=== PATIENT | male | born 1955 | race Caucasian/White ===

== ENCOUNTER → 2016-08-16 | Day surgery (SDC) | payer OTHER ==
[2016-08-11 15:41] VITALS: Ht 165.1 cm; Wt 99.1 kg
[~2016-08-16] VITALS: Ht 165.1 cm; Wt 99.1 kg
[~2016-08-16] MED LIST: ALBU18002 INH; AMOX875T PO; ATORVASTATIN PO; FENO145T26 PO; HYDR5SYP11 PO; INSDGI SC; INSU100I SC; LIDOCAINE HCL 2% 2 ML VIAL (20MG/ML) ONE; LIRA18IN INJ; LOSA1TAB PO; LPT40 PO; MAGN400T6 PO; MILK1CAP9 PO; MOME6000 NAE; MULT-506 PO; NADO20TA PO; PANT1TAB3 PO; PHENYLEPHRINE 100MCG/ML 5ML SYR ONE; PROPOFOL IV EMULSION 10 MG/ML 20 ML VIAL IV ONE; SPR/100 PO
--- NOTE | 2016-08-16 13:12 | Endo History and Physical ---
History & Physical Date of Service: Aug 16, 2016. Chief Complaint: Cirrhosis, Gallstones Referring Physician: Mitch History of Present Illness For EGD Past Medical History Diabetes, Asthma, Glaucoma, Reflux, High Cholesterol, Hypertension, Liver Disease Past Surgical History Hx Cardiac Surgery: No Hx Internal Defibrillator: No Hx Pacemaker: No Hx Abdominal Surgery: Yes (COLORECTAL SURGERY (RECTAL CYST REMOVAL)) Hx of Implantable Prosthesis: No Hx Post-Op Nausea and Vomiting: No Hx Cancer Surgery: No Hx Thoracic Surgery: No Hx Orthopedic: No Hx Urinary Tract Surgery: No Family History None Social History Smoking Status: Never Smoker Hx Substance Use: No Hx Alcohol Use: No Allergies Coded Allergies: No Known Allergies (Unverified , 08/11/16) Current Medications Reported Home Medications Medications Dose Route/Sig Max Daily Dose Days Date Category Dose Instructions Proair Respiclick (Albuterol Sulfate) 108 Mcg/Act Aer 1 Puff INH QID PRN 08/11/16 Reported [Atorvastatin] 1 Tab PO HS 08/11/16 Reported Tricor (Fenofibrate) 145 Mg Tab 145 Mg PO HS 08/11/16 Reported Lantus (Insulin Glargine) 100 Unit/Ml Inj 90 Units SC HS 08/11/16 Reported Humalog (Insulin Lispro (Human)) 100 Unit/Ml Inj 1 Dose SC AC 08/11/16 Reported USES SLIDING SCALE. Cozaar (Losartan Potassium) 25 Mg Tab 25 Mg PO HS 08/11/16 Reported Mag-Ox (Magnesium Oxide) 400 Mg Tab 400 Mg PO HS 08/11/16 Reported Milk Thistle (Milk Thistle (Silybum Marianum) 1,000 Mg Cap 2 Cap PO HS 08/11/16 Reported Mometasone Furoate (Mometasone Furoate (Nasal)) 50 Mcg/Act Spr 1 [place] ANNAMARIA DIRECTED PRN 08/11/16 Reported Multivitamin (Multivitamins) Tab 1 Tab PO HS 08/11/16 Reported Aldactone (Spironolactone) 100 Mg Tab 100 Mg PO HS 04/25/15 Reported Corgard (Nadolol) 20 Mg Tab 20 Mg PO HS 04/25/15 Reported Protonix (Pantoprazole) 40 Mg Tab 40 Mg PO HS 04/25/15 Reported Vital Signs Weight (Kilograms): 99.09 Height (Feet): 5 Height (Inches): 5 Date Time Temp Pulse Resp B/P Pulse Ox O2 Delivery O2 Flow Rate FiO2 08/16/16 12:40 37.1 93 20 115/66 97 Room Air Physical Exam General Appearance: + obese Respiratory/Chest: Respiratory effort: no dyspnea Cardiovascular: Heart Auscultation: RRR Abdomen: Inspection & Palpation: soft Assessment and Plan Abd pain, cirrhosis, gallstones
--- NOTE | 2016-08-16 13:29 | Discharge Instructions ---
Endoscopy Patient Instructions Date / Procedure(s) Performed Aug 16, 2016. EGD Allergy Information Coded Allergies: No Known Allergies (Unverified , 08/11/16) Discharge Date / Findings Aug 16, 2016. Grade 2 varices, portal HTN gastropathy Medication Instructions Restart Stopped Medication(s): resume meds Reported Home Medications Medications Dose Route/Sig Max Daily Dose Days Date Category Dose Instructions Proair Respiclick (Albuterol Sulfate) 108 Mcg/Act Aer 1 Puff INH QID PRN 08/11/16 Reported [Atorvastatin] 1 Tab PO HS 08/11/16 Reported Tricor (Fenofibrate) 145 Mg Tab 145 Mg PO HS 08/11/16 Reported Lantus (Insulin Glargine) 100 Unit/Ml Inj 90 Units SC HS 08/11/16 Reported Humalog (Insulin Lispro (Human)) 100 Unit/Ml Inj 1 Dose SC AC 08/11/16 Reported USES SLIDING SCALE. Cozaar (Losartan Potassium) 25 Mg Tab 25 Mg PO HS 08/11/16 Reported Mag-Ox (Magnesium Oxide) 400 Mg Tab 400 Mg PO HS 08/11/16 Reported Milk Thistle (Milk Thistle (Silybum Marianum) 1,000 Mg Cap 2 Cap PO HS 08/11/16 Reported Mometasone Furoate (Mometasone Furoate (Nasal)) 50 Mcg/Act Spr 1 [place] ANNAMARIA DIRECTED PRN 08/11/16 Reported Multivitamin (Multivitamins) Tab 1 Tab PO HS 08/11/16 Reported Aldactone (Spironolactone) 100 Mg Tab 100 Mg PO HS 04/25/15 Reported Corgard (Nadolol) 20 Mg Tab 20 Mg PO HS 04/25/15 Reported Protonix (Pantoprazole) 40 Mg Tab 40 Mg PO HS 04/25/15 Reported Provider Instructions Activity Restrictions - No exercising or heavy lifting for 24 hours. - Do not drink alcohol the day of the procedure. - Do not drive a car or operate machinery until the day after the procedure. - Do not make any important decisions or sign important papers in 24 hours after the procedure. Following Day: - Return to full activity which may include returning to work/school. Diet Start your diet with liquids and light foods (jello, soup, juice, toast). Then eat your usual diet if not nauseated. Treatment For Common After Affects For mild abdominal pain, bloating, or excessive gas: - Rest - Eat lightly - Lie on right side Follow-Up Information Follow-up with Mitch as scheduled Anesthesia Information What You Should Know You have had a procedure that required some medicine to reduce anxiety and discomfort. This treatment is called moderate sedation. After receiving the treatment, you may be sleepy, but you will be able to breathe on your own. The effects of the treatment may last for several hours. Follow these instructions along with Activity/Diet recommendations noted above: * Do NOT do anything where dizziness or clumsiness would be dangerous. * Rest quietly at home today, then you can be up and about tomorrow. * Have a responsible person stay with you the rest of today. * You may have had an I.V. today. If so, you may take the dressing off later today. Recommendations Call your doctor if: * Trouble breathing * Continuous vomiting for more than 24 hours * Temperature above 101 degrees * Severe abdominal pain or bloating * Pain not relieved by pain medicine ordered * There is increased drainage or redness from any incision * A large amount of rectal bleeding greater than 2-3 tablespoons. (If you had a polyp/s removed or have hemorrhoids, a small amount of blood - from the rectum is to be expected.) * You have any unanswered questions or concerns. IN THE EVENT OF A SERIOUS EMERGENCY, GO TO THE NEAREST EMERGENCY ROOM Your discharge instructions were prepared by provider Tino Bae. Patient Instructions Signature Page John Montes Patient (or Guardian) Signature/Date: I have read and understand the instructions given to me by my caregivers. Caregiver/RN/Doctor Signature/Date: The above-named patient and/or guardian has received patient instructions on this date. + Original Patient Signature Page (only) stays with chart. Please make copy for patient.
--- NOTE | 2016-08-16 13:33 | GI REPORT ---
Procedure Date: 08/16/2016 1:20 PM Procedure: Upper GI endoscopy Indications: Epigastric abdominal pain, Abnormal ultrasound of the GI tract Medicines: Propofol total dose 200 mg IV, Lidocaine 40 mg IV Complications: No immediate complications. Estimated Blood Loss: Estimated blood loss: none. Procedure: Pre-Anesthesia Assessment: - Prior to the procedure, a History and Physical was performed, and patient medications, allergies and sensitivities were reviewed. The patient's tolerance of previous anesthesia was reviewed. - The risks and benefits of the procedure and the sedation options and risks were discussed with the patient. All questions were answered and informed consent was obtained. After obtaining informed consent, the endoscope was passed under direct vision. Throughout the procedure, the patient's blood pressure, pulse, and oxygen saturations were monitored continuously. The Scope was introduced through the mouth, and advanced to the second part of duodenum. The upper GI endoscopy was accomplished without difficulty. The patient tolerated the procedure well. Findings: Grade II varices were found in the lower third of the esophagus. Diffuse moderately erythematous mucosa without bleeding was found in the gastric body. The examined duodenum was normal. Impression: - Grade II esophageal varices. - Erythematous mucosa in the gastric body. - Normal examined duodenum. - No specimens collected. Recommendation: - Discharge patient to home (ambulatory). - Continue present medications. - Return to GI office as previously scheduled. Tino Bae M.D. Tino Bae MD 08/16/2016 1:32:14 PM This report has been signed electronically. Note Initiated On: 08/16/2016 1:20 PM
[2016-08-16 14:06] VITALS: BP 117/72; PULSE 82; O2SAT 97
--- NOTE | 2016-08-16 14:36 | Anesthesiology Progress Note ---
Anesthesia Post Op Note Date & Time Aug 16, 2016 at 14:35 Vital Signs Pain Intensity: 0 Vital Signs Past 12 Hours Date Time Temp Pulse Resp B/P Pulse Ox O2 Delivery O2 Flow Rate FiO2 08/16/16 14:06 82 20 117/72 97 Room Air 08/16/16 13:50 81 20 118/81 98 Room Air 08/16/16 13:35 83 20 90/54 97 Room Air 08/16/16 12:40 37.1 93 20 115/66 97 Room Air Notes Mental Status: alert / awake / arousable Nausea / Vomiting: adequately controlled Pain: adequately controlled Airway Patency, RR, SpO2: stable & adequate BP & HR: stable & adequate Hydration State: stable & adequate Anesthetic Complications: no major complications apparent
== END | disposition home or self-care (01) ==
LOC: C.GI 12:04
PROVIDERS: ATTEND Internal Medicine Gastroenterology
DX: R10.13 Epigastric pain (principal); R93.3 Abnormal findings on diagnostic imaging of other parts of digestive tract; I85.00 Esophageal varices without bleeding; I10 Essential (primary) hypertension; E11.9 Type 2 diabetes mellitus without complications; K21.9 Gastro-esophageal reflux disease without esophagitis; J45.909 Unspecified asthma, uncomplicated; H40.9 Unspecified glaucoma; E78.00 Pure hypercholesterolemia, unspecified; Z86.19 Personal history of other infectious and parasitic diseases; Z79.4 Long term (current) use of insulin

== ENCOUNTER → 2016-12-02 | Outpatient (CLI) | payer OTHER ==
[~2016-12-02] MED LIST changes: -LIDOCAINE HCL 2% 2 ML VIAL (20MG/ML) ONE; -PANT1TAB3 PO; +PANT1TAB48 PO; -PHENYLEPHRINE 100MCG/ML 5ML SYR ONE; -PROPOFOL IV EMULSION 10 MG/ML 20 ML VIAL IV ONE
[2016-12-02 12:35] LABS: ESTIMATED AVERAGE GLUCOSE 186 mg/dl; HA1C FLAG Normal (Normal)
[2016-12-02 12:41] LABS: ALT/SGPT 51 U/L (12-78); AST/SGOT 40 U/L (15-37); BLOOD UREA NITROGEN 14 mg/dl (7-18); BUN/CREATININE RATIO 19.7 (10-20); CALCIUM 8.9 mg/dl (8.5-10.1); CARBON DIOXIDE 26 mmol/L (21-32); CHLORIDE 104 mmol/L (98-107); CHOLESTEROL 218 mg/dl (0-200); CREATININE 0.73 mg/dl (0.60-1.40); GLUCOSE 264 mg/dl (70-99); POTASSIUM 4.2 mmol/L (3.5-5.1); SODIUM 136 mmol/L (136-145); TRIGLYCERIDES 188 mg/dl (0-150); VERY LOW DENSITY LIPOPROT CALC 38 mg/dl
[2016-12-02 12:49] LABS: ALB/GLOB RATIO 0.8 (0.9-2); ALKALINE PHOSPHATASE 69 U/L (45-117); CHOLESTEROL/HDL RATIO 4.6; HDL CHOLESTEROL 47 mg/dl; LDL CHOLESTEROL CALCULATED 133 mg/dl
[2016-12-02 14:09] LABS: RATIO 156.9 mcg/mg (0-30.0)
== END | disposition home or self-care (01) ==
LOC: C.LAB1850 10:23
PROVIDERS: ATTEND Internal Medicine Endocrinology, Diabetes & Metabolism
DX: E78.5 Hyperlipidemia, unspecified (principal); E55.9 Vitamin D deficiency, unspecified; I10 Essential (primary) hypertension; R80.9 Proteinuria, unspecified; E11.9 Type 2 diabetes mellitus without complications; E11.21 Type 2 diabetes mellitus with diabetic nephropathy; E66.9 Obesity, unspecified

== ENCOUNTER 2017-01-29 23:27 | Emergency (ER) | payer OTHER ==
[~2017-01-29] VITALS: Ht 152.4 cm; Wt 99.0 kg
[~2017-01-29 23:27] MED LIST changes: -AMOX875T PO; -HYDR5SYP11 PO; -LIRA18IN INJ; -LPT40 PO
[2017-01-29 23:44] VITALS: TEMP 37.6; Ht 152.4 cm; Wt 99.0 kg
[2017-01-30] MEDS ORDERED: LPT40 PO (00:49)
[2017-01-30] MEDS ORDERED: LIRA18IN INJ (00:49)
--- NOTE | 2017-01-30 01:02 | EMERGENCY ROOM VISIT NOTE ---
History Report prepared by Ida: Alvaro English Under the Supervision of: Dr. Hammad Ventura M.D. First contact with patient: 23:58 Chief Complaint: ILLNESS Stated Complaint: COUGH,CONGESTION,SCRATCHY THROAT,EYE INFECTION History of Present Illness The patient is a 61 year old male who presents to the Emergency Room with complaints of a constant, worsening cough beginning three days ago. He currently rates his discomfort a 10/10 in severity. The patient states that he also has a sorethroat, chest pain, swollen and itchy right eye, and edema of the legs. He denies vomiting, diarrhea, and the dripping of mucous into the back of his throat. The patient notes that he does not have a history of lung problems, yet he was prescribed an inhaler in the past. He reports that he has a gallstone currently, but it is too dangerous and high risk for a cholecystectomy. The patient states that he has a history of resolved Hepatitis- C and chronic cellulitis. He notes that he does not wear contacts, but he has glasses. The patient's states that she is just coming down from a cold that was allergy induced. Source of History: patient, spouse/significant other Onset: three days ago Position: chest Symptom Intensity: 10/10 Quality: other (cough) Timing: constant, worsening Associated Symptoms: + sorethroat, + chest pain, No vomiting, No diarrhea Note: Associated symptoms: swollen and itchy right eye and edema of the legs Review of Systems See HPI for pertinent positives & negatives. A total of 10 systems reviewed and were otherwise negative. Past Medical & Surgical Medical Problems: (1) Asthma (2) Diabetes (3) Diabetes (4) Heart disease (5) Hypertension (6) Hypertension (7) Kidney disease Old medical records were reviewed. Nurse's notes were reviewed and I agree with. Family History Diabetes mellitus FHx: gallbladder disease Heart disease Hypertension Kidney disease Kidney stones Social History Smoking Status: Never Smoker Alcohol Use: none Drug Use: none Marital Status: Housing Status: lives with significant other Occupation Status: disabled Current/Historical Medications Scheduled Amoxicillin & Pot Clavulanate (Augmentin 875-125 mg), 875 MG PO BID Atorvastatin (Atorvastatin Calcium), 40 MG PO DAILY Fenofibrate (Tricor ), 145 MG PO HS Insulin Glargine (Lantus), 100 UNITS SC [facility] Insulin Lispro (Human) (Humalog), 1 DOSE SC AC Liraglutide (Victoza), 1.8 ML INJ DAILY Losartan Potassium (Cozaar), 25 MG PO HS Magnesium Oxide (Mag-Ox), 400 MG PO HS Milk Thistle (Silybum Marianum (Milk Thistle), 2 CAP PO HS Multivitamin (Multivitamin), 1 TAB PO HS Nadolol (Corgard), 20 MG PO HS Pantoprazole (Protonix), 40 MG PO HS Spironolactone (Aldactone), 100 MG PO HS Scheduled PRN Albuterol Sulfate (Proair Respiclick), 1 PUFF INH QID PRN for Shortness of Breath Hydrocodone W/ Homatropine (Hycodan 5/1.5MG 5 Ml), 5-10 ML PO Q4H PRN for Cough Allergies Coded Allergies: No Known Allergies (Unverified , 01/30/17) Physical Exam Vital Signs Date Time Temp Pulse Resp B/P (MAP) Pulse Ox O2 Delivery O2 Flow Rate FiO2 01/30/17 01:56 83 18 151/92 96 Room Air 01/29/17 23:44 37.6 81 18 142/83 97 Room Air Physical Exam General: Frequent hacking cough, otherwise no distress. Normal speech. Middle- aged male. HEENT: Normal cephalic atraumatic. Sclera Injection greater on the right than left sclera with green discharge. Oropharynx is pink with moist mucous membranes. No swelling of the mouth lips or tongue. Neck: Supple with a midline trachea. No meningeal signs or stiffness, no JVD or bruits. No Stridor. Chest: Clear to auscultation bilaterally. No wheezes or rhonchi. No increased work of breathing. Heart: regular rate and rhythm. Abdomen: Soft nontender, nondistended without rebound guarding or rigidity. Extremities: No cyanosis clubbing, trace edema. No calf tenderness or assymetry Spine/Back. Non tender to palpation. No CVA tenderness Skin: Good turgor without rashes. Neurologic exam: Cranial nerves two through 12 are intact. Motor and sensation are intact and symmetrical throughout. Medical Decision & Procedures ER Provider Diagnostic Interpretation: Chest x-ray per my interpretation reveals no pneumothorax, increased interstitial markings, but no definite failure or infiltrate Laboratory Results 01/30/17 00:41 Red Blood Count 4.80, Mean Corpuscular Volume 85.8, Mean Corpuscular Hemoglobin 29.6, Mean Corpuscular Hemoglobin Concent 34.5, Mean Platelet Volume 11.1, Neutrophils (%) (Auto) 66.9, Lymphocytes (%) (Auto) 23.4, Monocytes (%) (Auto) 7.6, Eosinophils (%) (Auto) 1.7, Basophils (%) (Auto) 0.2, Neutrophils # (Auto) 4.04, Lymphocytes # (Auto) 1.41, Monocytes # (Auto) 0.46, Eosinophils # (Auto) 0.10, Basophils # (Auto) 0.01 01/30/17 00:41 Test 01/30/17 00:41 White Blood Count 6.03 K/uL (4.8-10.8) Red Blood Count 4.80 M/uL (4.7-6.1) Hemoglobin 14.2 g/dL (14.0-18.0) Hematocrit 41.2 % (42-52) Mean Corpuscular Volume 85.8 fL (80-100) Mean Corpuscular Hemoglobin 29.6 pg (25-34) Mean Corpuscular Hemoglobin Concent 34.5 g/dl (32-36) Platelet Count 87 K/uL (130-400) Mean Platelet Volume 11.1 fL (7.4-10.4) Neutrophils (%) (Auto) 66.9 % Lymphocytes (%) (Auto) 23.4 % Monocytes (%) (Auto) 7.6 % Eosinophils (%) (Auto) 1.7 % Basophils (%) (Auto) 0.2 % Neutrophils # (Auto) 4.04 K/uL (1.4-6.5) Lymphocytes # (Auto) 1.41 K/uL (1.2-3.4) Monocytes # (Auto) 0.46 K/uL (0.11-0.59) Eosinophils # (Auto) 0.10 K/uL (0-0.5) Basophils # (Auto) 0.01 K/uL (0-0.2) RDW Standard Deviation 43.4 fL (36.4-46.3) RDW Coefficient of Variation 13.9 % (11.5-14.5) Immature Granulocyte % (Auto) 0.2 % Immature Granulocyte # (Auto) 0.01 K/uL (0.00-0.02) Platelet Estimate DECREASED Anion Gap 8.0 mmol/L (3-11) Est Creatinine Clear Calc Drug Dose 76.4 ml/min Estimated GFR () 93.7 Estimated GFR (Non- 80.9 BUN/Creatinine Ratio 12.6 (10-20) Calcium Level 8.4 mg/dl (8.5-10.1) Total Bilirubin 1.1 mg/dl (0.2-1) Direct Bilirubin mg/dl (0-0.2) Aspartate Amino Transf (AST/SGOT) U/L (15-37) Alanine Aminotransferase (ALT/SGPT) 61 U/L (12-78) Alkaline Phosphatase 91 U/L (45-117) Total Protein 8.1 gm/dl (6.4-8.2) Albumin 3.3 gm/dl (3.4-5.0) Lipase 170 U/L (73-393) Beta-Hydroxybutyric Acid 1.27 mg/dL (0.2-2.81) Laboratory studies as stated above per my review. Medications Administered Medications (Trade) Dose Ordered Sig/Lam Route Start Time Stop Time Status Last Admin Dose Admin Erythromycin (Erythromycin Oph Oint) 1 appln NOW ONCE OP 01/30/17 02:00 01/30/17 02:01 DC 01/30/17 02:06 1 APPLN Erythromycin (Erythromycin Oph Oint) 1 appln NOW ONCE OP 01/30/17 02:00 01/30/17 02:01 DC 01/30/17 02:06 1 APPLN Amoxicillin/ Clavulanate Potassium (Augmentin 875MG Home Pack) 1 homepack UD ONCE PO 01/30/17 02:00 01/30/17 02:01 DC 01/30/17 02:06 1 HOMEPACK Hydrocodone Bit/ Homatropine Methylb (Hycodan Elix Homepack 5/1.5MG/ 5ML) 1 homepack UD ONCE PO 01/30/17 02:00 01/30/17 02:01 DC 01/30/17 02:06 1 HOMEPACK ED Course 0008: Past medical records reviewed. The patient was evaluated in room C07, and a complete history and physical examination were performed. 0200: Ordered Hycodan Elix Homepack 5/1.5mg/5ml 1 homepack PO, Augmentin 875mg Home Pack 1 homepack PO, Erythromycin 1appln OP, Erythromycin 1appln OP 0207: Upon reevaluation, the patient is resting comfortably. I discussed the results and treatment plan with him and his . They verbalized agreement of the treatment plan. The patient was discharged home. Medical Decision Differential diagnosis includes: viral infection, bronchitis, pneumonia, upper respiratory infection Medication Reconciliation: I attest that I have personally reviewed the patient' s current medication list. Blood pressure Screening: Patient was found to have normal blood pressure on screening and does not require follow-up. This patient comes in as described above. He's had a cough and is hacking. He also has some redness of his eyes and some discharge. He also has a mildly sore throat with the postnasal drip. Says a hacking cough he looks well on exam. He has no increased work of breathing and has no wheezing. His eyes are mildly injected with some discharge mostly in the right. There are no sick contacts. Chest x-ray and blood work was obtained. He does have a history of cirrhosis related C and varices but had no bleeding or any problems related to this recently. Chest x-ray does not show any definite acute findings and does not appear to be significantly changed from before. He has no white count. Fear he has mild elevation of temperature. He has baseline mild thrombocytopenia blood sugar is elevated however he has no DKA and is a known diabetic. I will give him erythromycin ointment for his eyes. This is bilateral and given his symptoms most likely this makes this picture more of a viral/adenovirus type picture given his other comorbidities, I will put him on Augmentin to cover for the possibility of an arterial bronchitis as well. He was given Augmentin as well as prescription and additionally he was given Hycodan syrup and prescription for the cough. he was encouraged to return if: Worsening symptoms, any new problems or concerns, shortness of breath and I encouraged him follow-up with regular doctor Tuesday for recheck. Impression Primary Impression: Bronchitis Additional Impression: Conjunctivitis Scribe Attestation The scribe's documentation has been prepared under my direction and personally reviewed by me in its entirety. I confirm that the note above accurately reflects all work, treatment, procedures, and medical decision making performed by me. Departure Information Dispostion Home / Self-Care Prescriptions Hydrocodone W/ Homatropine (HYCODAN 5/1.5MG 5 ML) 1 Syp Syp 5-10 ML PO Q4H Y for Cough, #200 ML Prov: Hammad Ventura M.D. 01/30/17 Amoxicillin & Pot Clavulanate (Augmentin 875-125 mg) 1 Tab Tab 875 MG PO BID for 10 Days, #20 TAB Prov: Hammad Ventura M.D. 01/30/17 Referrals Susan Meyer M.D. (PCP) Forms HOME CARE DOCUMENTATION FORM, IMPORTANT VISIT INFORMATION, WORK / SCHOOL INSTRUCTIONS Patient Instructions My [facility] Additional Instructions Rest. Drink plenty of fluids. Use erythromycin ointment 1 half-inch ribbon 3 times a day to each eye for the next 3-5 days Use Augmentin 875 mg twice a day for 10 daysantibiotic For cough, may use Hycodan syrup 1-2 teaspoons every 6 hours as needed Hycodan may make you drowsy and be careful when getting up and down and do not take with alcohol Follow-up with your doctor on Tuesday for recheck and return to ER over the weekend if worsening symptoms, shortness of breath, any new problems or concerns Problem Qualifiers
[2017-01-30 01:14] LABS: HEMATOCRIT 41.2 % (42-52); MEAN CELL VOLUME 85.8 fL (80-100); MEAN CORPUSCULAR HEMOGLOBIN 29.6 pg (25-34); MEAN CORPUSCULAR HGB CONC 34.5 g/dl (32-36); WHITE BLOOD COUNT 6.03 K/uL (4.8-10.8)
[2017-01-30 01:17] LABS: BASO % 0.2 %; BASO ABS # 0.01 K/uL (0-0.2); COMPLETE YES; EOS % 1.7 %; IG% 0.2 %; LYMPH % 23.4 %; LYMPH ABS # 1.41 K/uL (1.2-3.4); MEAN PLATELET VOLUME 11.1 fL (7.4-10.4); MONO % 7.6 %; NEUT % 66.9 %; PLATELET COUNT 87 K/uL (130-400); PLT ESTIMATE DECREASED
[2017-01-30 01:36] LABS: ALT/SGPT 61 U/L (12-78); BLOOD UREA NITROGEN 13 mg/dl (7-18); BUN/CREATININE RATIO 12.6 (10-20); CALCIUM 8.4 mg/dl (8.5-10.1); CARBON DIOXIDE 23 mmol/L (21-32); CHLORIDE 104 mmol/L (98-107); GLUCOSE 309 mg/dl (70-99); SODIUM 135 mmol/L (136-145)
[2017-01-30 01:37] LABS: ALKALINE PHOSPHATASE 91 U/L (45-117)
[2017-01-30 01:46] LABS: BETA-HYDROXYBUTYRATE 1.27 mg/dL (0.2-2.81)
[2017-01-30] MEDS ORDERED: AMOX875T PO (01:53)
[2017-01-30] MEDS ORDERED: HYDR5SYP11 PO (01:53)
[2017-01-30 01:56] VITALS: BP 151/92; PULSE 83; O2SAT 96
[2017-01-30] MEDS ORDERED: HYCODAN 60ML BOTTLE HOMEPACK PO ONE (02:00)
[2017-01-30] MEDS ORDERED: ERYTHROMYCIN OP OINT 5 MG/GM 3.5 GM TUBE OP ONE ×2 (02:00)
[2017-01-30] MEDS ORDERED: AMOXICIL/CLAVU 875MG HOME PACK PO ONE (02:00)
--- NOTE | 2017-01-30 08:54 | DIAGNOSTIC IMAGING REPORT ---
CHEST ONE VIEW PORTABLE HISTORY: Atypical CHEST PAIN COMPARISON: Chest 04/25/2015. FINDINGS: The lungs are clear. Cardiac silhouette is normal in size. No pleural effusions. No pneumothorax. IMPRESSION: No acute process. Electronically signed by: Georgi Rogel M.D. 01/30/2017 8:53 AM Dictated Date/Time: 01/30/2017 8:52 AM
== END 2017-01-30 02:13 | disposition home or self-care (01) ==
LOC: C.EDB 23:29 → C.EDC 01-30 02:13
DX: J40 Bronchitis, not specified as acute or chronic (principal); H10.9 Unspecified conjunctivitis; D69.6 Thrombocytopenia, unspecified; J45.909 Unspecified asthma, uncomplicated; E11.9 Type 2 diabetes mellitus without complications; I10 Essential (primary) hypertension; N28.9 Disorder of kidney and ureter, unspecified; Z83.3 Family history of diabetes mellitus; Z82.49 Family history of ischemic heart disease and other diseases of the circulatory system; Z84.1 Family history of disorders of kidney and ureter; Z79.4 Long term (current) use of insulin; Z79.899 Other long term (current) drug therapy

== ENCOUNTER → 2017-04-22 | Outpatient (CLI) | payer OTHER ==
[~2017-04-22] MED LIST changes: -ATORVASTATIN PO; +LIRA18IN INJ; +LPT40 PO; -MOME6000 NAE
--- NOTE | 2017-04-22 12:15 | DIAGNOSTIC IMAGING REPORT ---
THORACIC SPINE 3 VIEWS ROUTINE, LUMBAR SPINE 2 OR 3 VIEWS HISTORY: 61 years-old Male MIDLINE LOW BACK PAIN W/O SCIATICA acute thoracolumbar spine pain. COMPARISON: CT abdomen and pelvis 04/25/2015 TECHNIQUE: 3 views of the thoracic spine and 3 views of the lumbar spine FINDINGS: THORACIC: 11 degrees convex right curvature of the upper thoracic spine is noted. No acute fracture or subluxation. There is mild anterior wedging of the T9 vertebral body of less than 20%, new from CT study 04/25/2015 without associated retropulsion identified. Multilevel endplate spurring and intervertebral disc space narrowing is noted. Lung beltran appear clear. LUMBAR: There are 5 lumbar-type vertebral segments. No acute fracture or subluxation. Mild multilevel facet arthrosis and endplate spurring. IMPRESSION: 1. Mild anterior wedging of the T9 vertebral body of less than 20% is age indeterminate, however new from prior CT study 04/25/2015. 2. No acute bony abnormality of the lumbar spine. 3. Multilevel endplate spurring and intervertebral disc space narrowing. The above report was generated using voice recognition software. It may contain grammatical, syntax or spelling errors. Electronically signed by: Angel Fletcher M.D. 04/22/2017 12:13 PM Dictated Date/Time: 04/22/2017 12:09 PM
--- NOTE | 2017-04-22 12:26 | DIAGNOSTIC IMAGING REPORT ---
ABDOMEN LIMITED (US) HISTORY: 61 years-old Male CALCULUS OF GALLBLADDER W/COCHOLECYSTITIS follow-up study of cholelithiasis. COMPARISON: Ultrasound 03/29/2016 TECHNIQUE: Multiple real-time sonographic images of the abdominal right upper quadrant were obtained assessing grayscale appearance and color flow. FINDINGS: Pancreas is partially secured by bowel gas. Imaged portions of the pancreas are unremarkable. Heterogeneous appearance of the liver is again noted with nodular margins suggesting cirrhosis. Stone filled mildly contracted gallbladder is noted with wall measuring up to 0.2 cm. No pericholecystic fluid collections. A positive sonographic Kinney's sign was not reported. No biliary ductal dilation., Bile duct measures 0.5 cm. Cysts of the right kidney are seen, largest of which measures 3.5 cm. These appear mildly complex without internal vascularity or internal mural nodularity identified. IMPRESSION: 1. Cholelithiasis without sonographic evidence of acute cholecystitis. 2. Heterogeneous appearance of the liver with marginal nodularity suggests cirrhosis. 3. No biliary ductal dilation. 4. Mildly complex cysts of the right kidney. The above report was generated using voice recognition software. It may contain grammatical, syntax or spelling errors. Electronically signed by: Angel Fletcher M.D. 04/22/2017 12:24 PM Dictated Date/Time: 04/22/2017 12:21 PM
== END | disposition home or self-care (01) ==
LOC: C.ULTR 10:44
PROVIDERS: ATTEND Internal Medicine Gastroenterology
DX: K80.20 Calculus of gallbladder without cholecystitis without obstruction (principal); M99.72 Connective tissue and disc stenosis of intervertebral foramina of thoracic region; M46.05 Spinal enthesopathy, thoracolumbar region; M48.05 Spinal stenosis, thoracolumbar region

== ENCOUNTER → 2017-09-09 | Outpatient (CLI) | payer OTHER ==
[~2017-09-09] MED LIST changes: +PANT1TAB3 PO; -PANT1TAB48 PO
[2017-09-10 06:32] LABS: HEMOGLOBIN A1C 7.2 % (4.5-5.6)
== END | disposition home or self-care (01) ==
LOC: C.LAB1850 13:38
PROVIDERS: ATTEND Internal Medicine Endocrinology, Diabetes & Metabolism
DX: E11.65 Type 2 diabetes mellitus with hyperglycemia (principal); E78.5 Hyperlipidemia, unspecified; E55.9 Vitamin D deficiency, unspecified

== ENCOUNTER → 2017-12-09 | Outpatient (CLI) | payer OTHER ==
[2017-12-09 16:23] LABS: ALBUMIN 3.4 gm/dl (3.4-5.0); ALT/SGPT 34 U/L (12-78); AST/SGOT 33 U/L (15-37); BLOOD UREA NITROGEN 16 mg/dl (7-18); CALCIUM 8.8 mg/dl (8.5-10.1); CARBON DIOXIDE 25 mmol/L (21-32); CREATININE 0.77 mg/dl (0.60-1.40); GLUCOSE 134 mg/dl (70-99); POTASSIUM 4.1 mmol/L (3.5-5.1); SODIUM 134 mmol/L (136-145)
[2017-12-09 16:34] LABS: ALKALINE PHOSPHATASE 48 U/L (45-117); CHOLESTEROL 148 mg/dl (0-200); LDL CHOLESTEROL CALCULATED 84 mg/dl; TOTAL PROTEIN 8.1 gm/dl (6.4-8.2)
[2017-12-10 07:04] LABS: HEMOGLOBIN A1C 7.9 % (4.5-5.6)
== END | disposition home or self-care (01) ==
LOC: C.LAB1850 14:34
PROVIDERS: ATTEND Internal Medicine Endocrinology, Diabetes & Metabolism
DX: E78.5 Hyperlipidemia, unspecified (principal); E55.9 Vitamin D deficiency, unspecified; E11.65 Type 2 diabetes mellitus with hyperglycemia

== ENCOUNTER 2018-01-02 21:09 | Emergency (ER) | payer OTHER ==
[~2018-01-02] VITALS: Ht 165.1 cm; Wt 103.5 kg
[2018-01-02 21:13] VITALS: TEMP 36.8; Ht 165.1 cm; Wt 103.5 kg
[2018-01-02] MEDS ORDERED: PANT40TA2 PO (21:38)
[2018-01-02] MEDS ORDERED: INSU1INJ31 SQ (21:38)
[2018-01-02] MEDS ORDERED: ACT300 PO (21:38)
[2018-01-02] MEDS ORDERED: INSU100I23 SQ (21:38)
[2018-01-02] MEDS ORDERED: ERGO500011 PO (21:51)
[2018-01-02] MEDS ORDERED: KETOROLAC TROMETHAMINE 60 MG/2 ML VIAL IM STA (21:55)
[2018-01-02] MEDS ORDERED: OXYCODONE/ACETAMINOPHEN 5-325 TAB PO STA (21:55)
[2018-01-02] MEDS ORDERED: DEXAMETHASONE **PF** INJ 10 MG/ML VIAL IM ONE (22:00)
--- NOTE | 2018-01-02 22:32 | DIAGNOSTIC IMAGING REPORT ---
R KNEE 3 VIEWS HISTORY: 62 years-old Male right knee injury/pain/swelling acute right knee pain and swelling COMPARISON: None available TECHNIQUE: 3 views of the right knee FINDINGS: Mild medial patellofemoral compartment narrowing with marginal spurring. Marginal spurring about the tibial tuberosity. Mild soft tissue swelling about the knee. No acute fracture, dislocation or opaque foreign body. Trace knee joint effusion. Varices are noted about the lateral upper calf. IMPRESSION: No acute fracture or dislocation. The above report was generated using voice recognition software. It may contain grammatical, syntax or spelling errors. Electronically signed by: Angel Fletcher M.D. 01/02/2018 10:31 PM Dictated Date/Time: 01/02/2018 10:29 PM
--- NOTE | 2018-01-02 22:57 | DIAGNOSTIC IMAGING REPORT ---
R VENOUS DOPP LOWER EXT UNILAT HISTORY: 62 years-old Male Right leg swelling/knee pain acute right leg pain and swelling COMPARISON: Duplex venous Doppler study 03/29/2016 TECHNIQUE: Multiple real-time sonographic images of the right lower extremity deep venous structures were obtained assessing grayscale appearance, color and spectral flow FINDINGS: Normal compressibility, flow, augmentation and phasicity of the right lower extremity deep venous structures. IMPRESSION: No sonographic evidence of deep venous thrombosis. The above report was generated using voice recognition software. It may contain grammatical, syntax or spelling errors. Electronically signed by: Angel Fletcher M.D. 01/02/2018 10:56 PM Dictated Date/Time: 01/02/2018 10:55 PM
[2018-01-02] MEDS ORDERED: DICL1GEL12 TOP (23:22)
[2018-01-02] MEDS ORDERED: METH4PAK PO (23:22)
[2018-01-02] MEDS ORDERED: OXYC1TAB3 PO (23:22)
[2018-01-02] MEDS ORDERED: OXYCODONE IR HOME PACK PO ONE (23:30)
[2018-01-03 00:09] VITALS: BP 123/69; PULSE 73; O2SAT 96
--- NOTE | 2018-01-04 00:11 | EMERGENCY ROOM VISIT NOTE ---
History First contact with patient: 21:46 Chief Complaint: KNEEPAIN Stated Complaint: KNEE PAIN History of Present Illness The patient is a 62 year old male who presents to the Emergency Room via ambulance with complaints of right knee pain and swelling that has been worsening over the past 3 or 4 days. The patient does not recall a distinct injury or trauma to explain his symptoms. He has a long-standing history of left knee discomfort, and has followed with orthopedics for this in the past. He has not had surgery on his knees, but has been favoring his left knee, which is putting more strain on his right knee. He often uses a cane to help with ambulation. He states that tonight his pain was uncontrollable despite Advil at home. He rates his current discomfort a 9/10 that worsens with certain movement. He denies history of gout. No history of DVT or PE. Review of Systems More than 10 systems were reviewed and otherwise negative with the exception of history of present illness. Past Medical/Surgical History Medical Problems: (1) Asthma (2) Diabetes (3) Diabetes (4) Heart disease (5) Hypertension (6) Hypertension (7) Kidney disease Family History Diabetes mellitus FHx: gallbladder disease Heart disease Hypertension Kidney disease Kidney stones Social History Smoking Status: Never Smoker Alcohol Use: none Drug Use: none Marital Status: Housing Status: lives with significant other Occupation Status: disabled Current/Historical Medications Scheduled Atorvastatin (Lipitor), 40 MG PO DAILY Diclofenac Sodium (Topical) (Voltaren 1% Top Gel), 1 APPLN TOP TID Ergocalciferol (Vitamin D 76003 Unit), 50,000 UNITS PO 2XWK Fenofibrate (Tricor ), 145 MG PO HS Insulin Glargine (Basaglar Kwikpen), 75 UNITS SQ BID Insulin Lispro (Human) (Humalog Kwikpen), 60-75 UNITS SQ TIDM Liraglutide (Victoza), 1.8 ML INJ DAILY Losartan Potassium (Cozaar), 25 MG PO HS Magnesium Oxide (Mag-Ox), 400 MG PO HS Methylprednisolone (Medrol Dosepak), 1 PKT PO DIRECTED Milk Thistle (Silybum Marianum (Milk Thistle), 2 CAP PO HS Multivitamin (Multivitamin), 1 TAB PO HS Nadolol (Corgard), 20 MG PO HS Oxycodone Immediate Rel Tab (Roxicodone Ir), 1-2 TAB PO Q6 Pantoprazole (Pantoprazole Sodium), 40 MG PO DAILY Spironolactone (Aldactone), 100 MG PO HS Ursodiol (Ursodiol), 300 MG PO DAILY Scheduled PRN Albuterol Sulfate (Proair Respiclick), 1 PUFF INH QID PRN for Shortness of Breath Physical Exam Vital Signs Date Time Temp Pulse Resp B/P (MAP) Pulse Ox O2 Delivery O2 Flow Rate FiO2 01/03/18 00:09 73 20 123/69 96 01/02/18 21:13 36.8 71 20 181/86 98 Room Air Physical Exam VITALS: Vitals are noted on the nurse's note and reviewed by myself. Vital signs stable. GENERAL: Well-developed, well-nourished, male, who is in no acute distress and resting comfortably. Patient is cooperative with the examination. HEART: Regular rate and rhythm without murmurs gallops or rubs. LUNGS: Clear to auscultation bilaterally without wheezes, rales or rhonchi. No retractions or accessory muscle use. MUSCULOSKELETAL: Tenderness and edema is appreciated most prominently along the lateral aspect of the right knee. There is some distal right lower extremity edema but no distinct palpable cord or posterior calf tenderness. Neurovascular status is intact in the right lower extremity. No tenderness of the hip or low back is noted. Negative anterior/posterior drawer. No laxity with varus and valgus maneuvers, although this does exacerbate patient's discomfort. NEURO: Patient was alert and oriented to person place and time. CN II through XII grossly intact. No focal neurological deficits. Deep tendon reflexes 2+ throughout. Medical Decision & Procedures ER Provider Diagnostic Interpretation: R KNEE 3 VIEWS HISTORY: 62 years-old Male right knee injury/pain/swelling acute right knee pain and swelling COMPARISON: None available TECHNIQUE: 3 views of the right knee FINDINGS: Mild medial patellofemoral compartment narrowing with marginal spurring. Marginal spurring about the tibial tuberosity. Mild soft tissue swelling about the knee. No acute fracture, dislocation or opaque foreign body. Trace knee joint effusion. Varices are noted about the lateral upper calf. IMPRESSION: No acute fracture or dislocation. R VENOUS DOPP LOWER EXT UNILAT HISTORY: 62 years-old Male Right leg swelling/knee pain acute right leg pain and swelling COMPARISON: Duplex venous Doppler study 03/29/2016 TECHNIQUE: Multiple real-time sonographic images of the right lower extremity deep venous structures were obtained assessing grayscale appearance, color and spectral flow FINDINGS: Normal compressibility, flow, augmentation and phasicity of the right lower extremity deep venous structures. IMPRESSION: No sonographic evidence of deep venous thrombosis. Medications Administered Medications (Trade) Dose Ordered Sig/Lam Route Start Time Stop Time Status Last Admin Dose Admin Ketorolac Tromethamine (Toradol Inj) 60 mg NOW STAT IM 01/02/18 21:55 01/02/18 21:57 DC 01/02/18 22:05 60 MG Dexamethasone Sodium Phosphate (Dexamethasone Inj Pf) 10 mg NOW ONCE IM 01/02/18 22:00 01/02/18 22:01 DC 01/02/18 22:04 10 MG Oxycodone/ Acetaminophen (Percocet 5-325mg Tab) 1 tab NOW STAT PO 01/02/18 21:55 01/02/18 21:57 DC 01/02/18 22:04 1 TAB Oxycodone HCl (Roxicodone Immediate Rel 5MG Home Pack) 1 homepack UD ONCE PO 01/02/18 23:30 01/02/18 23:31 DC 01/02/18 23:30 1 HOMEPACK ED Course Physical exam and history were performed. Nursing notes, EMR, and Medication List were personally reviewed. Patient appears to have right knee pain that brought him to the ER today by ambulance. He rates the pain at a very high level. He is not toxic on examination but movement and palpation certainly exacerbates his discomfort. The patient was given IM Toradol, IM Decadron, and oral Percocet here in the department. X-ray and ultrasound of the right knee and right lower extremity were performed. The patient's x-ray was reviewed by myself and radiology without acute fracture or dislocation. Ultrasound does not reveal evidence of DVT. On reevaluation the patient felt much improved from a pain control standpoint. I discussed options of care with the patient, and will place him in an Abraham wrap and provide him a walker. I will give him a short prescription of pain medication and topical Voltaren gel. [facility] has seen in the past. He was otherwise invited back to the ER with any new, worsening, or concerning symptoms. The chart was completed utilizing [employer] Speech Voice Recognition Software. Grammatical errors, random word insertions, pronoun errors, and incomplete sentences are an occasional consequence of this system due to software limitations, ambient noise, and hardware issues. Any formal questions or concerns about the content, text, or information contained within the body of this dictation should be directly addressed to the provider for clarification. . Medical Decision Differential diagnosis includes, but is not limited to: Sprain, strain, fracture , dislocation, sensation, contusion, and others Impression Primary Impression: Right knee pain Departure Information Dispostion Home / Self-Care Condition GOOD Prescriptions Diclofenac Sodium (Topical) (VOLTAREN 1% TOP GEL) 1 % Gel 1 APPLN TOP TID for Pain, #1 TUBE 2 Refills Prov: Dustin aB PA-C 01/02/18 Oxycodone Immediate Rel Tab (ROXICODONE IR) 5 Mg Tab 1-2 TAB PO Q6, #15 TAB Prov: Dustin Ba PA-C 01/02/18 Methylprednisolone (MEDROL DOSEPAK) 4 Mg Olegario 1 PKT PO DIRECTED, #1 PKT Prov: Dustin Ba PA-C 01/02/18 Referrals Ayaan Hanna,D.O. Forms HOME CARE DOCUMENTATION FORM, IMPORTANT VISIT INFORMATION Patient Instructions My [facility], ED Prevention Fall, ED RICE Additional Instructions You were seen and evaluated today on an emergency basis only. This is not a substitute for, or an effort to provide, complete comprehensive medical care. It is not possible to recognize and treat all injuries or illnesses in a single emergency department visit. For this reason it is recommended that you followup with [facility] , Dr. Hanna office, for ongoing care and evaluation. Call in the morning to make a follow-up appointment. For baseline pain relief you may alternate ibuprofen and acetaminophen every 4 hours for pain control. Take 600 mg ibuprofen (Advil) and then 4 hours later take 1000 mg acetaminophen (Tylenol). Do not take more than 3000 mg acetaminophen in a single day. Oxycodone (OxyIR) 5mg: Take ONE or TWO pills every SIX hours for breakthrough pain. Avoid alcohol, operating machinery or dangerous equipment, working on ladders or roofs, DRIVING, or situations where being under the influence may be dangerous. It is recommended to use an [id number] stool softener such as Colace, 100mg twice daily while taking this medication to avoid constipation. Take Medrol Dosepak as prescribed on the packaging. Monitor your sugar while taking this medication. You may need to adjust your insulin while on this medication. You may apply Voltaren cream to the knee 3 times daily as needed Take every precaution to prevent falling You are welcome to return to the emergency department anytime with new, worsening, or concerning symptoms. Problem Qualifiers Primary Impression: Right knee pain Chronicity: acute Qualified Codes: M25.561 - Pain in right knee
== END 2018-01-02 23:55 | disposition home or self-care (01) ==
LOC: EDBD 21:09 → C.EDB 21:11
DX: M25.561 Pain in right knee (principal); I11.9 Hypertensive heart disease without heart failure; E11.9 Type 2 diabetes mellitus without complications; Z79.4 Long term (current) use of insulin

== ENCOUNTER → 2018-03-31 | Outpatient (CLI) | payer OTHER ==
[~2018-03-31] MED LIST changes: +ACT300 PO; +DICL1GEL12 TOP; +ERGO500011 PO; -INSDGI SC; -INSU100I SC; +INSU100I23 SQ; +INSU1INJ31 SQ; +OXYC-737 PO; -PANT1TAB3 PO; +PANT40TA2 PO; +SPIR100T3 PO; -SPR/100 PO
--- NOTE | 2018-03-31 11:32 | DIAGNOSTIC IMAGING REPORT ---
(LIVER) ABDOMEN LIMITED CLINICAL HISTORY: 62 years-old Male presenting with LIVER CA. TECHNIQUE: Real-time grayscale and limited color Doppler ultrasound imaging of the abdomen limited to the right upper quadrant was performed. COMPARISON: 04/22/[address] from 03/29/2016.. FINDINGS: Pancreas: Not well delineated, possibly exophytic. Liver: Nodular contour with hyperechogenic parenchyma and heterogeneous echotexture, consistent with cirrhosis. The liver measures 13.5 cm in maximal sagittal dimension. No sonographic evidence of hepatic mass. Main portal vein patent with normal directional flow. Biliary: No intrahepatic biliary ductal dilatation. Common bile duct measures up to 5 mm in diameter. Gallbladder: Gallstones without evidence of gallbladder distention, wall thickening, or pericholecystic fluid or inflammatory change. Sonographic Kinney's sign negative. Right kidney: Prominent simple renal cysts, the larger measuring 4.3 cm at the lower pole. No hydronephrosis. Ascites: None. Other: None. IMPRESSION: 1. Cirrhosis. This study has limited sensitivity for hepatic mass. If there is need for surveillance for hepatocellular carcinoma, contrast-enhanced liver MR is recommended. 2. Cholelithiasis. Electronically signed by: Pino Moses M.D. 03/31/2018 11:31 AM Dictated Date/Time: 03/31/2018 11:28 AM
== END | disposition home or self-care (01) ==
LOC: C.ULTR 10:53
PROVIDERS: ATTEND Internal Medicine Gastroenterology
DX: K80.20 Calculus of gallbladder without cholecystitis without obstruction (principal); K74.60 Unspecified cirrhosis of liver

== ENCOUNTER 2022-01-23 09:23 | Inpatient (IN) ==
--- NOTE | 2022-01-23 10:01 | XRay Report ---
XR chest 1V portable CLINICAL HISTORY: Atypical chest pain TECHNIQUE: Single frontal radiograph of the chest was obtained. Comparison: Comparison is made to chest radiograph 11/10/2021 FINDINGS: No lines and tubes are seen. The cardiomediastinal silhouette is normal. Lungs are underinflated but clear. No evidence of pleural effusion or pneumothorax. IMPRESSION: No acute chest disease. ACT 112: Negative or not required by law. Electronically signed by: Cirilo Torrez M.D. 01/23/2022 10:00 AM
--- NOTE | 2022-01-23 10:23 | Emergency Department Note ---
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, Hyponatremia, Atrial fibrillation with RVR, Abdominal ascites, Shortness of breath, Weakness, Type 2 diabetes mellitus, with long-term current use of insulin ED Provider Note NAME: BOB REARDON AGE: 66 SEX: M ARRIVES VIA: Ambulance INFORMANT: Patient ED PROVIDER(S): Db Moctezuma MD CHIEF COMPLAINT: weakness PLAN: Disposition: Admit MEDICAL DECISION MAKING: The patient is a pleasant 66-year-old gentleman with a past medical history of SWIFT cirrhosis, portal hypertension, esophageal varices, ascites, recent diagnosis per patient of cancer in his liver (?cholangiocarcinoma per October 2021 MRi), history of saddle pulmonary embolus in October 2021 on Lovenox who presents to the emergency department via EMS eventually accompanied by his [id number] for evaluation of generalized weakness where he slipped out of a chair this morning in the setting of having low blood sugar in the 60s and he reports he was drinking juice and had a breakfast bar and got his blood sugar up to the 110s but still with generalized weakness. He denies hitting his head or LOC. He reports he has been having poor ambulation for months in the setting of his edema which has progressively worsened. He reports he follows with [facility]. He reports his has COVID, diagnosed 5 days ago with symptoms of began a week ago. He denies any symptoms himself. He has a chronic cough that is unchanged. He has chronic body aches that are also unchanged. He has chronic shortness of breath related to his edema that is also unchanged. He denies any fevers, vomiting or diarrhea. On arrival the patient is in no acute distress, afebrile with heart rate in the 110s in atrial fibrillation and otherwise stable vital signs. He has massive ascites with nontender abdomen. 1+ bilateral lower extremity edema. EKG initially demonstrates atrial fibrillation without overt acute ischemia. Chest x-ray negative for acute cardiopulmonary process. WBC within normal limits. Hemoglobin within normal limits. Platelets 123K impr parker from prior value. Sodium 124 proximate to previous values but decreased from recent. Chemistry without metabolic acidosis. LFTs are slightly worse but approximate to prior values in October. High-sensitivity troponin 4.9, within normal limits. Lipase is not elevated. Covid-19 PCR negative. Influenza and RSV PCR negative. Of note, during the patient's ED observation it was noted that he would periodically develop RVR to the 160-170s though never particularly symptomatic during the episodes but then would rapidly transition back to heart rate in the 80s. Repeat EKGs were performed demonstrating afib rvr vs atrial flutter with a variable AV block. Given the patient's massive ascites with notable dyspnea although not hypoxic, it was suspected that treatment of this would relieve a s ubstantial amount of his symptoms. Given this and the patient's hyponatremia he was in agreement with plan for admission. Case was discussed with Dr. Jackson, [facility] hospitalist, who will evaluate the sonu boyce for admission. Upon Dr. Jackson's evaluation we did agree with plan for emergency department diagnostic and therapeutic paracentesis as this was contributing significantly to the patient's symptoms. Moreover, given the patient had not taken his Lovenox this morning it was an opportune moment to perform this. Procedure was performed per procedure note with verbal consent and 8.5 L of ascites fluid was removed. The patient tolerated the procedure well and there were no complications. His respiratory status improved significantly following this. He was given albumin repletion due to large volume paracentesis. Cell counts were not consistent with infection. Gram stain and culture pending. Triage Nursing notes reviewed and agree them. Prior medical records reviewed Vital Signs: reviewed and remarkable for tachycardia. Differential diagnosis: Infection, dehydration, metabolic abnormality, hypo/hyperglycemia, electrolyte disturbance, anemia, hypoxia, cardiac sources, intracerebral event, toxicologic, neurologic, as well as other pathologies. ER treatment provided: See below. Diagnostics interpreted by me: ECG: Atrial fibrillation RVR, 124 bpm, PVCs, no overt ST elevation or depression. Cardiac Monitoring: An order for continuous cardiac monitoring was placed and demonstrated Atrial fibrillation RVR, 124 bpm, PVCs. Laboratory studies: See below Imaging studies: See below Consultation(s): Case was discussed with Dr. Jackson, [facility] hospitalist, who will evaluate the patient for admission. HPI: The patient is a pleasant 66-year-old gentleman with a past medical history of SWIFT cirrhosis, portal hypertension, esophageal varices, ascites, recent diagnosis per patient of cancer in his liver (?cholangiocarcinoma per October 2021 MRi), history of saddle pulmonary embolus in October 2021 on Lovenox who presents to the emergency department via EMS eventually accompanied by his [id number] for evaluation of generalized weakness where he slipped out of a chair this morning in the setting of having low blood sugar in the 60s and he reports he was drinking juice and had a breakfast bar and got his blood sugar up to the 110s but still with generalized weakness. He denies hitting his head or LOC. He reports he has been having poor ambulation for months in the setting of his edema which has progressively worsened. He reports he follows with [facility]. He reports his has COVID, diagnosed 5 days ago with symptoms of began a week ago. He denies any symptoms himself. He has a chronic cough that is unchanged. He has chronic body aches that are also unchanged. He has chronic shortness of breath related to his edema that is also unchanged. He denies any fevers, vomiting or diarrhea. ROS: See above HPI for pertinent positives & negatives. A total of 10 systems reviewed and were otherwise negative. VITALS:See Below PHYSICAL EXAMINATION: GENERAL: Awake, alert, acute on chronically ill appearing, moderately dyspneic but in no distress HENT: Normocephalic, atraumatic. Oropharynx with dry mucous membranes and otherwise unremarkable. EYES: Normal conjunctiva. Sclera non-icteric. NECK: Supple. No nuchal rigidity. FROM. No JVD. RESPIRATORY: Diminished at the bases and otherwise clear to auscultation. CARDIAC: Tachycardic rate, irregular rhythm. Extremities warm and well perfused. Pulses equal. ABDOMEN: Distended/tense ascites but no tenderness to palpation. No rebound or guarding. No masses. RECTAL: Deferred. MUSCULOSKELETAL: Chest examination reveals no tenderness. The back is symmetrica l on inspection without obvious abnormality. There is no CVA tenderness to palpation. No joint edema. LOWER EXTREMITIES: Calves are equal size bilaterally and non-tender. 2+ BLE pitting edema. No discoloration. NEURO: Normal sensorium. No sensory or motor deficits noted. SKIN: No rash or jaundice noted. ED COURSE: Procedures: Paracentesis Indication: Ascites Verbal consent was obtained after the risks and benefits were explained, including but not limited to headache, bleeding/clotting, scarring, infection, pain, and bone/joint/nerve damage. At this time, the risks of the procedure are less than the risks of NOT performing the procedure. A time out was taken and the correct patient and site identified. The patient was placed in the supine position and the RLQ abdomen was prepped with chlorhexidine and draped in the standard fashion. Site was anesthetized locally with 1% lidocaine without epinephrine. Paracentesis needle was carefully advanced into peritoneal cavity. Yellow-clear fluid was obtained and the pigtail catheter was advanced while the needle was withdrawn. 8.5L of yellow cloudy fluid was obtained and sent for studies. A sterile dressing was placed. The patient tolerated the procedure well and there were no complications. Critical Care: I have personally spent greater than 35 minutes of critical care time in the di rect management of this patient. This includes bedside care, interpretation of diagnostic studies, and testing, discussion with consultants, patient, and family members, and other required patient management activities. This 35 minutes is in excess of all separately billable procedures. Db Moctezuma MD Past Med/Surg History Medical History Asthma inhaler prn Chronic back pain LOWER BACK AND NECK PAIN Degenerative disc disease Diabetes mellitus, type 2 IDDM Difficult intravenous access Edema leg Esophageal varices Fear of needles GERD (gastroesophageal reflux disease) Glaucoma Hepatitis C tx and no longer has Hyperlipidemia Hypertension Migraine PT DENIES Obesity Osteoarthritis Spinal stenosis Tear meniscus knee bilt Surgical History Cirrhosis of liver not due to alcohol History of colonoscopy History of esophagogastroduodenoscopy (EGD) History of removal of cyst rectal cyst Status post glaucoma surgery Family History Father Family history of esophageal cancer Diabetes Mother Diabetes Brother Family history of diabetes mellitus Sister Family history of diabetes mellitus Family/Other Family history of diabetes mellitus cousin Other No family history of adverse response to anesthesia Denies family history of Ovarian cancer Prostate cancer Myocardial infarction Breast cancer Colorectal cancer Social History Smoking Status: Never smoker Second Hand Exposure: No; Hx Alcohol Use: No Hx Substance Use: No Preferred Language: Scottish Communication Ability: Effective 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: No Beliefs That Will Affect Care: None marital status: Current Living Situation: Spouse Current Living Situation Comment: Lives with and daughter current occupational status: retired and disabled Other Information That Helps Us Care for You: No Feels Safe at Home: Yes Safety Concerns: Feels Safe At This Time Childhood Exposure to Second-Hand Smoke: No Dental Care, Regularly: Yes Physical Activity Frequency: Does not Exercise Seatbelt Use: always Sunscreen Use: No Assistive Devices: Cane Allergies Allergies Allergy/AdvReac Type Severity Reaction Status Date / Time No Known Allergies Allergy Verified 11/10/21 17:01 Home Meds Home Medications Medication Instructions Recorded Confirmed albuterol sulfate 90 mcg/actuation 2 puff INHALATION Q4 PRN 12/19/18 11/10/21 aerosol inhaler (ProAir HFA) magnesium oxide 400 mg PO HS 12/19/18 11/10/21 milk thistle 500 mg capsule 500 mg PO HS 12/19/18 11/10/21 multivitamin 1 tab PO HS 12/19/18 11/10/21 ursodiol 300 mg capsule 300 mg PO HS 12/19/18 11/10/21 vitamin E 400 unit capsule 400 unit PO HS 12/19/18 11/10/21 ascorbic acid (vitamin C) (Vitamin 1 g PO HS 11/10/21 11/10/21 C) cholecalciferol (vitamin D3) 25 75 mcg PO HS 11/10/21 11/10/21 mcg (1,000 unit) capsule (Vitamin D3) coenzyme Q10 100 mg capsule 100 mg PO HS 11/10/21 11/10/21 (CoQ-10) insulin regular hum U-500 conc 75 - 105 unit SUBCUT BIDWMEAL 11/10/21 11/10/21 (Humulin R U-500 (Conc) Insulin Kwikpen) omega-3 fatty acids-fish oil 684 1 cap PO HS 11/10/21 11/10/21 mg-1,200 mg capsule,delayed release Previous Rx's Medication Instructions Recorded OneTouch Ultra Blue Test Strip #300 ea NS 08/22/19 (blood sugar diagnostic) flash glucose sensor (FreeStyle #1 ea 10/20/20 Allan 2 Sensor) pen needle, diabetic 31 gauge x #400 ea 05/20/2112/28" (BD Ultra-Fine Short Pen Needle) Results & Data (ED) Vital Signs Vital Signs - 24 hr 01/23/22 09:28 01/23/22 09:40 01/23/22 11:30 Pulse Rate 116 H 112 H Pulse Rate [Apical] 90 Respiratory Rate 19 96 H 23 Respiratory Effort / Characteristics Non-Labored Spontaneous Non-Labored Respiratory Depth Normal Normal Blood Pressure 124/93 Blood Pressure [Left Arm] 109/74 Blood Pressure Mean 103 Blood Pressure Mean [Left Arm] 85 Blood Pressure Position Sitting Pulse Oximetry 97 97 98 Oxygen Delivery Method Nasal Cannula Nasal Cannula Nasal Cannula Oxygen Flow Rate 4 2 Sepsis Recent Fever Within 48 Hours No Sepsis New/Unexplained Change in Mental Status No Sepsis Action Taken by Nursing No Action Required Laboratory Data Attestation: I reviewed the patient's lab results. Result diagrams: 01/23/22 10:02 01/23/22 10:02 Lab Results 01/23/22 01/23/22 01/23/22 Range/Units 10: 10: 10:02 WBC 5.41 (4.8-10.8) K/uL RBC 4.10 L (4.7-6.1) M/uL Hgb 14.1 (14.0-18.0) g/dL Hct 39.3 L (42-52) % MCV 95.9 (80-100) fL MCH 34.4 H (25-34) pg MCHC 35.9 (32-36) g/dL RDW Std Deviation 53.4 H (36.4-46.3) fL RDW Coeff of Rekha 15.3 H (11.5-14.5) % Plt Count 123 L (130-400) K/uL MPV 9.7 (7.4-10.4) fL Immature Gran % (Auto) 0.6 % Neut % (Auto) 76.8 % Lymph % (Auto) 13.9 % Wetzel % (Auto) 7.6 % Eos % (Auto) 0.9 % Baso % (Auto) 0.2 % Neut # (Auto) 4.16 (1.4-6.5) K/uL Lymph # (Auto) 0.75 L (1.2-3.4) K/uL Wetzel # (Auto) 0.41 (0.11-0.59) K/uL Eos # (Auto) 0.05 (0-0.5) K/uL Baso # (Auto) 0.01 (0-0.2) K/uL Immature Gran # (Auto) 0.03 H (0.00-0.02) K/uL PT 13.5 H (9.0-12.0) Seconds INR 1.3 H (0.9-1.1) Sodium 124 L (136-145) mmol/L Potassium 5.1 (3.5-5.1) mmol/L Chloride 91 L (98-107) mmol/L Carbon Dioxide 25 (21-32) mmol/L Anion Gap 8 (3-11) BUN 21 (6-23) mg/dl Creatinine 1.09 (0.6-1.4) mg/dl Est Cr Clr Drug Dosing 73.0 ml/min Est GFR ( Amer) 81.5 ml/min Est GFR (Non-Af Amer) 70.4 ml/min BUN/Creatinine Ratio 19.3 (10-20) Glucose 158 H (70-99(Fasting)) mg/dl Osmolality (280-300) mOsm/kg Calcium 8.9 (8.5-10.1) mg/dl Phosphorus 3.3 (2.5-4.9) mg/dl Magnesium 2.0 (1.7-2.4) mg/dl Total Bilirubin 6.5 H (0.2-1.0) mg/dl AST 100 H (13-39) U/L ALT 54 H (7-52) U/L Alkaline Phosphatase 204 H (34-104) U/L Troponin I High Sens 4.9 (0-20) pg/ml Total Protein 8.6 H (6.0-8.3) gm/dl Albumin 3.1 L (3.4-5.0) gm/dl Globulin 5.5 H (2.5-4.0) gm/dl Albumin/Globulin Ratio 0.6 L (0.9-2) Lipase 36 (11-82) U/L SARS-CoV-2 (PCR) (Negative) Influenza Type A (PCR) (Neg) Influenza Type B (PCR) (Neg) RSV (RT-PCR) (Neg) 01/23/22 01/23/22 Range/Units 10:02 10:02 WBC (4.8-10.8) K/uL RBC (4.7-6.1) M/uL Hgb (14.0-18.0) g/dL Hct (42-52) % MCV (80-100) fL MCH (25-34) pg MCHC (32-36) g/dL RDW Std Deviation (36.4-46.3) fL RDW Coeff of Rekha (11.5-14.5) % Plt Count (130-400) K/uL MPV (7.4-10.4) fL Immature Gran % (Auto) % Neut % (Auto) % Lymph % (Auto) % Wetzel % (Auto) % Eos % (Auto) % Baso % (Auto) % Neut # (Auto) (1.4-6.5) K/uL Lymph # (Auto) (1.2-3.4) K/uL Wetzel # (Auto) (0.11-0.59) K/uL Eos # (Auto) (0-0.5) K/uL Baso # (Auto) (0-0.2) K/uL Immature Gran # (Auto) (0.00-0.02) K/uL PT (9.0-12.0) Seconds INR (0.9-1.1) Sodium (136-145) mmol/L Potassium (3.5-5.1) mmol/L Chloride (98-107) mmol/L Carbon Dioxide (21-32) mmol/L Anion Gap (3-11) BUN (6-23) mg/dl Creatinine (0.6-1.4) mg/dl Est Cr Clr Drug Dosing ml/min Est GFR ( Amer) ml/min Est GFR (Non-Af Amer) ml/min BUN/Creatinine Ratio (10-20) Glucose (70-99(Fasting)) mg/dl Osmolality 277 L (280-300) mOsm/kg Calcium (8.5-10.1) mg/dl Phosphorus (2.5-4.9) mg/dl Magnesium (1.7-2.4) mg/dl Total Bilirubin (0.2-1.0) mg/dl AST (13-39) U/L ALT (7-52) U/L Alkaline Phosphatase (34-104) U/L Troponin I High Sens (0-20) pg/ml Total Protein (6.0-8.3) gm/dl Albumin (3.4-5.0) gm/dl Globulin (2.5-4.0) gm/dl Albumin/Globulin Ratio (0.9-2) Lipase (11-82) U/L SARS-CoV-2 (PCR) NEGATIVE (Negative) Influenza Type A (PCR) Negative (Neg) Influenza Type B (PCR) Negative (Neg) RSV (RT-PCR) Negative (Neg) Administered Medications Carvedilol (Carvedilol 6.25 Mg Tab) 6.25 mg PO BID LAUREEN Stop: 02/22/22 20:59 Last Admin: 01/23/22 21:57 Dose: 6.25 mg Documented by: [id number] Enoxaparin Sodium (Enoxaparin 100 Mg/1ml Syr) 90 mg SQ Q12H LAUREEN Stop: 02/22/22 15:59 Last Admin: 01/23/22 16:57 Dose: 90 mg Documented by: [id number] Furosemide (Furosemide 40 Mg/4 Ml Vial) 40 mg IV DAILY LAUREEN Stop: 02/22/22 15:29 Last Admin: 01/23/22 16:56 Dose: 40 mg Documented by: [id number] Insulin Aspart (Insulin Aspart Per Unit) 0 units SC ACHS LAUREEN Stop: 02/22/22 16:29 Last Admin: 01/23/22 21:57 Dose: 7 units Documented by: [id number] Cosigned by: [id number] Admin: 01/23/22 16:53 Dose: 5 units Documented by: [id number] Cosigned by: [id number] Magnesium Oxide (Magnesium Oxide 400 Mg Tab) 400 mg PO HS LAUREEN Stop: 02/22/22 20:59 Last Admin: 01/23/22 21:57 Dose: 400 mg Documented by: [id number] Spironolactone (Spironolactone 100 Mg Tab) 100 mg PO QAM LAUREEN Stop: 02/22/22 15:29 Last Admin: 01/23/22 16:57 Dose: 100 mg Documented by: [id number] Ursodiol (Ursodiol 300 Mg Cap) 300 mg PO HS LAUREEN Stop: 02/22/22 20:59 Last Admin: 01/23/22 21:57 Dose: 300 mg Documented by: [id number] Discontinued Medications Sodium Chloride (Nss) 500 mls @ 999 mls/hr IV .Q31M ONE Stop: 01/23/22 12:34 Last Infusion: 01/23/22 12:50 Dose: 0 mls/hr Documented by: [id number] Admin: 01/23/22 12:09 Dose: 999 mls/hr Documented by: [id number] Albumin Human (Albumin 25% 100 Ml) 25 gm in 100 mls @ 100 mls/hr IV Q1H LAUREEN Stop: 01/23/22 15:44 Last Infusion: 01/23/22 16:59 Dose: 0 mls/hr Documented by: [id number] Admin: 01/23/22 15:50 Dose: 100 mls/hr Documented by: [id number] Infusion: 01/23/22 15:50 Dose: 100 mls/hr Documented by: [id number] Admin: 01/23/22 15:18 Dose: 100 mls/hr Documented by: [id number] Sodium Chloride (Nss 1000ml) 1,000 mls @ 999 mls/hr IV .Q1H1M ONE Stop: 01/23/22 14:49 Last Infusion: 01/23/22 15:19 Dose: 0 mls/hr Documented by: [id number] Admin: 01/23/22 13:51 Dose: 999 mls/hr Documented by: [id number] Lidocaine HCl (Xylocaine 1%/Sod Bicarb 20 Ml Vial) 20 ml INFIL NOW ONE Stop: 01/23/22 12:02 Last Admin: 01/23/22 12:08 Dose: 20 ml Documented by: [id number] Lorazepam (Lorazepam 1 Mg Tab) 1 mg SL NOW STA Stop: 01/23/22 12:02 Last Admin: 01/23/22 12:07 Dose: 1 mg Documented by: [id number] Imaging Data Radiologist's Impression: Chest X-Ray 01/23/22 09:40 XR chest 1V portable CLINICAL HISTORY: Atypical chest pain TECHNIQUE: Single frontal radiograph of the chest was obtained. Comparison: Comparison is made to chest radiograph 11/10/2021 FINDINGS: No lines and tubes are seen. The cardiomediastinal silhouette is normal. Lungs are underinflated but clear. No evidence of pleural effusion or pneumothorax. IMPRESSION: No acute chest disease. ACT 112: Negative or not required by law. Electronically signed by: Cirilo Torrez M.D. 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, Hyponatremia, Atrial fibrillation with RVR, Abdominal ascites, Shortness of breath, Weakness, Type 2 diabetes mellitus, with long-term current use of insulin Patient Disposition: Admitted As Inpatient Discharge Instructions Interventions: ED Discharge Assessment Last Done: 01/23/22 13:45 Discharge Problem: Abdominal ascites Qualifiers: Ascites type: other type Qualified Code(s): R18.8 - Other ascites Type 2 diabetes mellitus, with long-term current use of insulin Qualifiers: Diabetes mellitus complication status: with other specified complication Qualified Code(s): E11.69 - Type 2 diabetes mellitus with other specified complication
[2022-01-23 10:26] LABS: Basophils # (auto) 0.01 K/uL (0-0.2); Basophils % (auto) 0.2 %; Eosinophils # (auto) 0.05 K/uL (0-0.5); Eosinophils % (auto) 0.9 %; Hematocrit (blood only) 39.3 % (42-52); Hemoglobin 14.1 g/dL (14.0-18.0); Immature Granulocytes # (auto) 0.03 K/uL (0.00-0.02); Immature Granulocytes % (auto) 0.6 %; Lymphocytes # (auto) 0.75 K/uL (1.2-3.4); Lymphocytes % (auto) 13.9 %; Mean Corpuscular Hemoglobin 34.4 pg (25-34); Mean Corpuscular Hgb Conc 35.9 g/dL (32-36); Mean Corpuscular Volume 95.9 fL (80-100); Mean Platelet Volume 9.7 fL (7.4-10.4); Monocytes # (auto) 0.41 K/uL (0.11-0.59); Monocytes % (auto) 7.6 %; Neutrophils # (auto) 4.16 K/uL (1.4-6.5); Neutrophils % (auto) 76.8 %; Platelet Count 123 K/uL (130-400); RDW Coefficient of Variation 15.3 % (11.5-14.5); RDW Standard Deviation 53.4 fL (36.4-46.3); White Blood Count 5.41 K/uL (4.8-10.8)
[2022-01-23 10:47] LABS: Albumin Globulin Ratio 0.6 (0.9-2); Albumin Level 3.1 gm/dl (3.4-5.0); BUN Creatinine Ratio 19.3 (10-20); Bilirubin,Total 6.5 mg/dl (0.2-1.0); Calcium 8.9 mg/dl (8.5-10.1); Est GFR (African American) 81.5 ml/min; Est GFR (Non-African American) 70.4 ml/min; Globulin 5.5 gm/dl (2.5-4.0); Phosphorus 3.3 mg/dl (2.5-4.9); Potassium 5.1 mmol/L (3.5-5.1); Total Protein 8.6 gm/dl (6.0-8.3)
[2022-01-23 10:48] LABS: Troponin I High Sensitivity 4.9 pg/ml (0-20)
[2022-01-23 10:50] LABS: INR 1.3 (0.9-1.1); Prothrombin Time 13.5 Seconds (9.0-12.0)
[2022-01-23 11:01] LABS: Influenza A virus by PCR Negative (Neg); Influenza B virus by PCR Negative (Neg); RSV by PCR Negative (Neg); SARS CoV2 RNA(COVID-19) InHosp NEGATIVE (Negative)
--- NOTE | 2022-01-23 11:30 | History & Physical Report ---
Date of Service January 23, 2022 Assessment & Plan (1) Weakness: Plan: - Likely multifactorial due to hyponatremia, severe ascites, hypogylcemia at home this AM. - Hypogylcemia resolved. - See #2 for work up of hyponatremia. - Paracentesis, diuretics for ascites. - PT/OT ordered. (2) Hyponatremia: Plan: - 124 today, serum and urine osm ordered. Likely due to severe ascites, end stage liver dz. - Likely contributing to weakness, in the setting of end stage liver disease. - Follow for improvement on AM BMP s/p paracentesis, diuretics. (3) Atrial fibrillation with RVR: Plan: - Patient found to have irregular rate with HR 80s-180s, he is having some difficultly breathing, likely due to large amount of ascites, otherwise asymp tomatic. - Consult cardiology. - Echo ordered. (4) Ascites: Plan: - Seen at PCP office yesterday, decision was made to increase spironolactone dose to 100 mg daily and monitor response. - Paracentesis to be done in ED. - Continue home Lasix 40 mg daily, spironolactone 100 mg daily. 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 Has been seen by [facility] in the past. - MELD 26. - With esophageal varices, he is not on an preventative meds such as beta noel. - GI consulted, appreciate their recommendations. - MRI w/ and w/out contrast ordered. (6) Cholangiocarcinoma: Plan: - Per pt, was diagnosed at [facility] October at time of his hospitalization for saddle PE. He was supposed to follow-up with [facility] for further workup, however he has not been able to get in contact with them despite several calls made. Has seen [facility] in the past, most recently has been seeing [facility] team for this, apparently they are in the process of obtaining an MRI on him. We do not have nay prior records, will try to obtain. (7) Type 2 diabetes mellitus, with long-term current use of insulin: Plan: - With hypoglycemia/BGm 60s at home this AM, BGMs 158 in ED. - Accucheks ACHS with SSI. - A1d in AM. - Diabetic diet with fluid restriction 1.5L (8) Hypertension: Plan: - Continue Coreg. - Watch BP s/p paracentesis. Plan: - Admit to PCU. - SCDs, Lovenox for VTE ppx. - Full Code. History of Present Illness Chief Complaint: weakness Primary Care Provider: Mayra Werner MD John Montes is a 66 y/o male with complicated PMH of SWIFT cirrhosis, portal hypertension with esophageal varices, ascites, saddle PE in October on Lovenox now, cholangiocarcinoma dx in October per pt, and DM2 who presents today with weakness. He nearly slipped out of a chair at home this morning, he checked his blood sugar which is in the 60s. After eating a granola bar and orange juice he was able to get it up to the 100s but still feels weak. Patient reports he has been weak for several months and has difficulty ambulating at home due to this. He has a complicate history of SWIFT cirrhosis. Recently had his spironolactone increased yesterday d/t increasing edema. Allergies Allergy/AdvReac Type Severity Reaction Status Date / Time No Known Allergies Allergy Verified 11/10/21 17:01 Home Medications Medication Instructions Recorded Confirmed Type albuterol sulfate 90 mcg/actuation 2 puff INHALATION Q4 PRN 12/19/18 11/10/21 History aerosol inhaler (ProAir HFA) magnesium oxide 400 mg PO HS 12/19/18 11/10/21 History milk thistle 500 mg capsule 500 mg PO HS 12/19/18 11/10/21 History multivitamin 1 tab PO HS 12/19/18 11/10/21 History ursodiol 300 mg capsule 300 mg PO HS 12/19/18 11/10/21 History vitamin E 400 unit capsule 400 unit PO HS 12/19/18 11/10/21 History OneTouch Ultra Blue Test Strip #300 ea NS 08/22/19 04/08/21 Rx (blood sugar diagnostic) flash glucose sensor (FreeStyle #1 ea 10/20/20 04/08/21 Rx Allan 2 Sensor) pen needle, diabetic 31 gauge x #400 ea 05/20/21 Rx 5/16" (BD Ultra-Fine Short Pen Needle) ascorbic acid (vitamin C) (Vitamin 1 g PO HS 11/10/21 11/10/21 History C) cholecalciferol (vitamin D3) 25 75 mcg PO HS 11/10/21 11/10/21 History mcg (1,000 unit) capsule (Vitamin D3) coenzyme Q10 100 mg capsule 100 mg PO HS 11/10/21 11/10/21 History (CoQ-10) insulin regular hum U-500 conc 75 - 105 unit SUBCUT BIDWMEAL 11/10/21 11/10/21 History (Humulin R U-500 (Conc) Insulin Kwikpen) omega-3 fatty acids-fish oil 684 1 cap PO HS 11/10/21 11/10/21 History mg-1,200 mg capsule,delayed release Past Med/Surg History Medical History Asthma inhaler prn Chronic back pain LOWER BACK AND NECK PAIN Degenerative disc disease Diabetes mellitus, type 2 IDDM Difficult intravenous access Edema leg Esophageal varices Fear of needles GERD (gastroesophageal reflux disease) Glaucoma Hepatitis C tx and no longer has Hyperlipidemia Hypertension Migraine PT DENIES Obesity Osteoarthritis Spinal stenosis Tear meniscus knee bilt Surgical History Cirrhosis of liver not due to alcohol History of colonoscopy History of esophagogastroduodenoscopy (EGD) History of removal of cyst rectal cyst Status post glaucoma surgery Family History Father Family history of esophageal cancer Diabetes Mother Diabetes Brother Family history of diabetes mellitus Sister Family history of diabetes mellitus Family/Other Family history of diabetes mellitus cousin Other No family history of adverse response to anesthesia Denies family history of Ovarian cancer Prostate cancer Myocardial infarction Breast cancer Colorectal cancer Social History Smoking Status: Never smoker Second Hand Exposure: No; Hx Alcohol Use: No Hx Substance Use: No Preferred Language: Wolof Communication Ability: Effective Box Blank Machine Feeder Required: No Beliefs That Will Affect Care: None marital status: Current Living Situation: Spouse and Family Current Living Situation Comment: Lives with and daughter current occupational status: retired and disabled Feels Safe at Home: Yes Childhood Exposure to Second-Hand Smoke: No Dental Care, Regularly: Yes Physical Activity Frequency: Does not Exercise Seatbelt Use: always Sunscreen Use: No Assistive Devices: Cane and Glasses Review of Systems Review of Systems: Constitutional: ongoing weakness; No fever/chills, fatigue, myalgias, anorexia, night sweats Eyes: No diplopia, no worsening or blurred vision ENT: normal hearing, no trouble swallowing Respiratory: OSB at rest, activity; No cough, sputum Cardiovascular: No chest pain, tightness or palpitations Abdomen: No pain, nausea, vomiting, diarrhea or constipation : Denies dysuria, hematuria, increased urgency/frequency, urinary retention Musculoskeletal: No joint pain, calf pain, swelling Neurologic: No weakness, numbness/tingling, or balance problems Psychiatric: No anxiety or depression Skin: No rash or itch Physical Exam Physical Exam: General: awake, alert, no apparent distress Head: Normocephalic, atraumatic ENT: PERRL, EOMI, no pharyngeal exudate, mucous membranes moist Chest: Clear to auscultation, on room air, no adventitious breath sounds Cardiac: irregularly irregular rhythm, no murmur, no JVD, normal peripheral pulses, good capillary refill Abdominal: distension but nontender to palpation; NABS x 4 quadrants, no rebound, guarding or tenderness Extremities: b/l LE edema; no erythema, calfs nontender to palpation Psych: Normal mood and affect Neuro: AAO x 3, strength intact bilaterally and rated 5/5, no motor deficits, speech is clear, no peripheral sensory deficits Skin: jaundiced Results & Data Results & Data ([facility]) Vital Signs (Past 12 Hours) Vital Signs Pulse Resp BP Pulse Ox 01/23/22 09:40 112 H 96 H 97 01/23/22 09:28 116 H 19 124/93 97 Laboratory Results Abnormal lab results 01/23/22 01/23/22 01/23/22 Range/Units 10:02 10:02 10:02 RBC 4.10 L (4.7-6.1) M/uL Hct 39.3 L (42-52) % MCH 34.4 H (25-34) pg RDW Std Deviation 53.4 H (36.4-46.3) fL RDW Coeff of Rekha 15.3 H (11.5-14.5) % Plt Count 123 L (130-400) K/uL Lymph # (Auto) 0.75 L (1.2-3.4) K/uL Immature Gran # (Auto) 0.03 H (0.00-0.02) K/uL PT 13.5 H (9.0-12.0) Seconds INR 1.3 H (0.9-1.1) Sodium 124 L (136-145) mmol/L Chloride 91 L (98-107) mmol/L Glucose 158 H (70-99(Fasting)) mg/dl Osmolality (280-300) mOsm/kg Total Bilirubin 6.5 H (0.2-1.0) mg/dl AST 100 H (13-39) U/L ALT 54 H (7-52) U/L Alkaline Phosphatase 204 H (34-104) U/L Total Protein 8.6 H (6.0-8.3) gm/dl Albumin 3.1 L (3.4-5.0) gm/dl Globulin 5.5 H (2.5-4.0) gm/dl Albumin/Globulin Ratio 0.6 L (0.9-2) 01/23/22 Range/Units 10:02 RBC (4.7-6.1) M/uL Hct (42-52) % MCH (25-34) pg RDW Std Deviation (36.4-46.3) fL RDW Coeff of Rekha (11.5-14.5) % Plt Count (130-400) K/uL Lymph # (Auto) (1.2-3.4) K/uL Immature Gran # (Auto) (0.00-0.02) K/uL PT (9.0-12.0) Seconds INR (0.9-1.1) Sodium (136-145) mmol/L Chloride (98-107) mmol/L Glucose (70-99(Fasting)) mg/dl Osmolality 277 L (280-300) mOsm/kg Total Bilirubin (0.2-1.0) mg/dl AST (13-39) U/L ALT (7-52) U/L Alkaline Phosphatase (34-104) U/L Total Protein (6.0-8.3) gm/dl Albumin (3.4-5.0) gm/dl Globulin (2.5-4.0) gm/dl Albumin/Globulin Ratio (0.9-2) Diagnostic Findings Chest X-Ray 01/23/22 09:40 XR chest 1V portable CLINICAL HISTORY: Atypical chest pain TECHNIQUE: Single frontal radiograph of the chest was obtained. Comparison: Comparison is made to chest radiograph 11/10/2021 FINDINGS: No lines and tubes are seen. The cardiomediastinal silhouette is normal. Lungs are underinflated but clear. No evidence of pleural effusion or pneumothorax. IMPRESSION: No acute chest disease. ACT 112: Negative or not required by law. Electronically signed by: Cirilo Torrez M.D. 01/23/2022 10:00 AM ECG Additional Comments: Poor data quality, interpretation may be adversely affected Atrial fibrillation with rapid ventricular response with premature ventricular or aberrantly conducted complexes Left axis deviation Possible Anterolateral infarct (cited on or before 31-JAN-2014) Abnormal ECG When compared with ECG of 10-NOV-2021 16:27, Significant changes have occurred Code Status & VTE Plan Code Status Full Code. Supervising Physician Co-Signing Physician Notes This 66-year-old male with end-stage liver disease and possible new diagnosis of HCC that presents complaining of hyperglycemia. On presentation, the patient was found to be hypotensive, hyponatremic with significant mount of ascites. He was also having some dyspnea with conversation. His sats were adequate on room air. Exam revealed massive ascites along with 3+ pitting edema lower extremities. Plan will be to admit for further treatment. He will continue his Lasix and spironolactone. I did asked for fluid restriction of 1500 cc as well. ER physician to evaluate for possible therapeutic thoracentesis while he is in the emergency room. He is on twice daily Lovenox for previous diagnosis of DVT but skipped his dose this morning since he came to the emergency room. This should be restarted as soon as procedure is completed. Patient does follow with outside GI but I did ask our service to see him while in the hospital. Also of note, he was noted to be in atrial fibrillation with a rate that varied between 701 70. I did ask cardiology to evaluate. 2D echo. 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
[2022-01-23] MEDS ORDERED: LORazepam 1 MG TAB SL STA (12:01)
[2022-01-23] MEDS ORDERED: XYLOCAINE 1%/SOD BICARB 20 ML VIAL INFIL ONE (12:01)
[2022-01-23] MEDS ORDERED: SODIUM CHLORIDE 0.9% 500 ML IV ONE (12:04)
[2022-01-23] MEDS ORDERED: SODIUM CHLORIDE 0.9% 1000ML 1,000 ML IV ONE (13:49)
[2022-01-23 14:56] LABS: Albumin Peritoneal Fluid < 1.5 gm/dl; Total Protein Peritoneal Fluid < 3.0 gm/dl
[2022-01-23] MEDS: ALBUMIN 25% 100 mL 25 GM/100 ML VIAL IV SCH ×2 (15:18→15:50)
[2022-01-23] MEDS ORDERED: GLUCOSE 40% GEL 15 GM TUBE PO PRN (15:28)
[2022-01-23] MEDS ORDERED: GLUCOSE 10 TABS/TUBE PO PRN (15:28)
[2022-01-23] MEDS ORDERED: GLUCAGON FOR INJ 1 MG VIAL SQ PRN (15:28)
[2022-01-23] MEDS ORDERED: CARBOHYDRATES FOR HYPOGLYCEMIA PO PRN (15:28)
[2022-01-23] MEDS ORDERED: DEXTROSE 50% 50 ML SYRINGE IV PRN (15:28)
[2022-01-23 15:29] LABS: Appearance Peritoneal Fluid HAZY; Color Peritoneal Fluid YELLOW; RBC Peritoneal Fluid (A) < 3000 /uL; WBC Peritoneal Fluid (A) 220 /ul (0-300)
[2022-01-23 15:30] LABS: Basophils, Fluid 0 %; Eosinophils, Fluid 1 %; Lymphocytes, Fluid 74 %; Mono,Macrophage,Mesothelial 23 %; Neutrophils, Fluid 2 %
[2022-01-23] MEDS: INSULIN ASPART PER UNIT SC SCH ×2 (16:53→21:57)
[2022-01-23] MEDS: FUROSEMIDE 40 MG/4 ML VIAL IV SCH (16:56)
[2022-01-23] MEDS: ENOXAPARIN 100 MG/1ML SYR SQ SCH (16:57)
[2022-01-23] MEDS: SPIRONOLACTONE 100 MG TAB PO SCH (16:57)
--- NOTE | 2022-01-23 17:41 | XCELERA ---
[id number]
[2022-01-23] MEDS: carvediloL 6.25 MG TAB PO SCH (21:57)
[2022-01-23] MEDS: MAGNESIUM OXIDE 400 MG TAB PO SCH (21:57)
[2022-01-23] MEDS: ursodioL 300 MG CAP PO SCH (21:57)
[2022-01-24] MEDS: ENOXAPARIN 100 MG/1ML SYR SQ SCH ×2 (05:32→05:34)
[2022-01-24 06:50] LABS: Hematocrit (blood only) 32.8 % (42-52); Hemoglobin 11.6 g/dL (14.0-18.0); Mean Corpuscular Hemoglobin 33.8 pg (25-34); Mean Corpuscular Hgb Conc 35.4 g/dL (32-36); Mean Corpuscular Volume 95.6 fL (80-100); RDW Coefficient of Variation 15.8 % (11.5-14.5); RDW Standard Deviation 54.8 fL (36.4-46.3); Red Blood Count 3.43 M/uL (4.7-6.1); White Blood Count 3.35 K/uL (4.8-10.8)
[2022-01-24 07:18] LABS: Albumin Globulin Ratio 0.8 (0.9-2); Albumin Level 2.4 gm/dl (3.4-5.0); BUN Creatinine Ratio 22.3 (10-20); Basophils # (auto) 0.02 K/uL (0-0.2); Basophils % (auto) 0.6 %; Bilirubin,Total 4.7 mg/dl (0.2-1.0); Calcium 7.7 mg/dl (8.5-10.1); Creatinine Clr Calc Pharmacy 80.1 ml/min; Eosinophils # (auto) 0.04 K/uL (0-0.5); Eosinophils % (auto) 1.2 %; Est GFR (African American) 97.5 ml/min; Est GFR (Non-African American) 84.2 ml/min; Globulin 3.2 gm/dl (2.5-4.0); Lymphocytes # (auto) 0.81 K/uL (1.2-3.4); Lymphocytes % (auto) 24.2 %; Magnesium 1.8 mg/dl (1.7-2.4); Mean Platelet Volume 10.5 fL (7.4-10.4); Monocytes # (auto) 0.28 K/uL (0.11-0.59); Monocytes % (auto) 8.4 %; Neutrophils % (auto) 65.6 %; Platelet Count 75 K/uL (130-400); Platelet Estimate Decreased (Normal); Potassium 5.4 mmol/L (3.5-5.1); Total Protein 5.6 gm/dl (6.0-8.3)
[2022-01-24] MEDS: INSULIN ASPART PER UNIT SC SCH ×4 (08:08→20:53)
[2022-01-24] MEDS: FUROSEMIDE 40 MG/4 ML VIAL IV SCH (08:09)
[2022-01-24] MEDS: SPIRONOLACTONE 100 MG TAB PO SCH (08:09)
[2022-01-24] MEDS: carvediloL 6.25 MG TAB PO SCH (08:09)
[2022-01-24] MEDS: MULTIVITAMIN TAB PO SCH (08:09)
--- NOTE | 2022-01-24 09:58 | Cardiology Consultation ---
Date of Consultation January 24, 2022 Assessment & Plan (1) Atrial fibrillation with RVR: 1. Atrial fibrillation: I think this is the best description of his intermittent tachycardia. It is possible this varies between an ectopic atrial tachycardia and brief periods of flutter. In any event, he appears to cycle in an out of a brief sinus rhythm before recurrence of the atrial arrhythmia. I do not think attempts at rate control are likely to be successful and are hampered by his relative hypotension. I think we will have better success managing his rhythm with adoption of a rhythm control strategy with amiodarone. While he has not been anticoagulated for more than 3 days based on his report, the fact that he is in sinus rhythm at times in atrial fibrillation and others provides this was some safety in initiating rhythm control. The issue of risk reduction for stroke needs to be addressed. He has been on twice daily dosing of Lovenox recently. He was discharged from [facility] on twice daily dosing of Lovenox for his pulmonary embolus. It seems that in the past this was the preferred anticoagulation probably based on his liver disease. From the standpoint of atrial fibrillation he would certainly be a candidate for 1 of the novel oral anticoagulant such as Eliquis or Xarelto. The overall liver synthetic function appears relatively preserved. INR was only 1.3. I will defer a choice of agents to his primary team. History of Present Illness Reason for Consultation: Atrial fibrillation Requesting Physician: Manuel Attending Physician: Pino Mcdonald MD History of Present Illness The patient is a 66-year-old gentleman without a known history of significant cardiac disease who presented to the hospital with symptoms of hypoglycemia and weakness. 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 He was at his residence yesterday when he began to experience symptoms of dizziness and weakness. He checked his blood sugar at home and felt that there was low. He attempted supplement himself with food but continued to feel weak and actually suffered a fall. He could not get himself off of the ground and was finally able to summon help after 45 minutes. He was brought to the hospital where he was discovered to have massive ascites and significant lower extremity edema. He was hyponatremic and had an abnormal heart rhythm. The patient was evaluated at our facility in October of this year. At that time he had a large pulmonary embolus and was transferred emergently to [facility] where he underwent thrombectomy. There was some mention of possible cholangiocarcinoma on imaging performed at the time of that hospitalization. It is unclear what has transpired in between, but he appears to have contacted a straightening roll operator in the [place] area for evaluation. No specific treatment has been initiated by the patient's report. Can typically ambulate around his residence with a walker. He has some diff iculty with ambulation due to severe lower extremity edema and weakness in his legs. He did not report symptoms of chest pain. He has some mild dyspnea at times which may be positional in nature. Did not report orthopnea. He occasionally notices some palpitations of these tend to be fleeting in nature. He has not been aware of any elevated heart rates. Allergies Allergy/AdvReac Type Severity Reaction Status Date / Time No Known Allergies Allergy Verified 11/10/21 17:01 Home Medications Medication Instructions Recorded Confirmed Type albuterol sulfate 90 mcg/actuation 2 puff INHALATION Q4 PRN 12/19/18 11/10/21 History aerosol inhaler (ProAir HFA) magnesium oxide 400 mg PO HS 12/19/18 11/10/21 History milk thistle 500 mg capsule 500 mg PO HS 12/19/18 11/10/21 History multivitamin 1 tab PO HS 12/19/18 11/10/21 History ursodiol 300 mg capsule 300 mg PO HS 12/19/18 11/10/21 History vitamin E 400 unit capsule 400 unit PO HS 12/19/18 11/10/21 History OneTouch Ultra Blue Test Strip #300 ea NS 08/22/19 04/08/21 Rx (blood sugar diagnostic) flash glucose sensor (FreeStyle #1 ea 10/20/20 04/08/21 Rx Allan 2 Sensor) pen needle, diabetic 31 gauge x #400 ea 05/20/21 Rx 16" (BD Ultra-Fine Short Pen Needle) ascorbic acid (vitamin C) (Vitamin 1 g PO HS 11/10/21 11/10/21 History C) cholecalciferol (vitamin D3) 25 75 mcg PO HS 11/10/21 11/10/21 History mcg (1,000 unit) capsule (Vitamin D3) coenzyme Q10 100 mg capsule 100 mg PO HS 11/10/21 11/10/21 History (CoQ-10) insulin regular hum U-500 conc 75 - 105 unit SUBCUT BIDWMEAL 11/10/21 11/10/21 History (Humulin R U-500 (Conc) Insulin Kwikpen) omega-3 fatty acids-fish oil 684 1 cap PO HS 11/10/21 11/10/21 History mg-1,200 mg capsule,delayed release Patient History Medical History Asthma inhaler prn Chronic back pain LOWER BACK AND NECK PAIN Degenerative disc disease Diabetes mellitus, type 2 IDDM Difficult intravenous access Edema leg Esophageal varices Fear of needles GERD (gastroesophageal reflux disease) Glaucoma Hepatitis C tx and no longer has Hyperlipidemia Hypertension Migraine PT DENIES Obesity Osteoarthritis Spinal stenosis Tear meniscus knee bilt Surgical History Cirrhosis of liver not due to alcohol History of colonoscopy History of esophagogastroduodenoscopy (EGD) History of removal of cyst rectal cyst Status post glaucoma surgery Family History Father Family history of esophageal cancer Diabetes Mother Diabetes Brother Family history of diabetes mellitus Sister Family history of diabetes mellitus Family/Other Family history of diabetes mellitus cousin Other No family history of adverse response to anesthesia Denies family history of Ovarian cancer Prostate cancer Myocardial infarction Breast cancer Colorectal cancer Social History Smoking Status: Never smoker Second Hand Exposure: No; Hx Alcohol Use: No Hx Substance Use: No Preferred Language: [place] Communication Ability: Effective Family Centered Specialist Required: No Beliefs That Will Affect Care: None marital status: Current Living Situation: Spouse Current Living Situation Comment: Lives with and daughter current occupational status: retired and disabled Other Information That Helps Us Care for You: No Feels Safe at Home: Yes Safety Concerns: Feels Safe At This Time Childhood Exposure to Second-Hand Smoke: No Dental Care, Regularly: Yes Physical Activity Frequency: Does not Exercise Seatbelt Use: always Sunscreen Use: No Assistive Devices: Cane Review of Systems Review of Systems: Per HPI. Some bilateral flank pain. No abdominal discomfort currently. Normal lower extremity edema. Physical Exam Physical Exam: The patient is alert and oriented. Mood and affect appeared normal. He answered all questions appropriately. HEENT: Pupils are equal and reactive to light and accommodation. Extraocular movements are intact. The sclerae are mildly icteric Neuro: Cranial nerves intact Lungs: Clear to auscultation bilaterally. He has good air movement without use of accessory muscles. No rales wheezes or rhonchi. Cardiac: Heart demonstrates a regular rate and rhythm with frequent episodes of irregularity in tachycardia Normal S1 and S2. No murmurs on examination. Pulses: The patient has palpable radial pulses bilaterally that are equal in intensity Abdomen: Distended but soft. Nontender. Extremities: There was no evidence of hypoperfusion. There is no cyanosis or clubbing. Severe lower extremity edema Skin: I did not appreciate any rashes on examination today. Results & Data ([facility]) Vital Signs (Past 12 Hours) Vital Signs Temp Pulse Resp BP BP Pulse Ox 01/24/22 07:16 36.8 C 117 H 20 83/60 L 89/51 L 97 01/24/22 07:00 120 H 01/23/22 23:54 36.9 C 92 H 18 96/58 L 96 Laboratory Results Abnormal Lab Results 01/23/22 01/23/22 01/23/22 10:02 10:02 10:02 WBC 5.41 RBC 4.10 L Hgb 14.1 Hct 39.3 L MCV 95.9 MCH 34.4 H MCHC 35.9 RDW Std Deviation 53.4 H RDW Coeff of Rekha 15.3 H Plt Count 123 L MPV 9.7 Immature Gran % (Auto) 0.6 Neut % (Auto) 76.8 Lymph % (Auto) 13.9 [place] % (Auto) 7.6 Eos % (Auto) 0.9 Baso % (Auto) 0.2 Neut # (Auto) 4.16 Lymph # (Auto) 0.75 L [place] # (Auto) 0.41 Eos # (Auto) 0.05 Baso # (Auto) 0.01 Immature Gran # (Auto) 0.03 H Platelet Estimate PT 13.5 H INR 1.3 H Sodium 124 L Potassium 5.1 Chloride 91 L Carbon Dioxide 25 Anion Gap 8 BUN 21 Creatinine 1.09 Est Cr Clr Drug Dosing 73.0 Est GFR ( Amer) 81.5 Est GFR (Non-Af Amer) 70.4 BUN/Creatinine Ratio 19.3 Glucose 158 H POC Glucose Osmolality Calcium 8.9 Phosphorus 3.3 Magnesium 2.0 Total Bilirubin 6.5 H AST 100 H ALT 54 H Alkaline Phosphatase 204 H Troponin I High Sens 4.9 Total Protein 8.6 H Albumin 3.1 L Globulin 5.5 H Albumin/Globulin Ratio 0.6 L Lipase 36 TSH Urine Osmolality Fluid Neutrophils % Fluid Lymphocytes % Fluid Eosinophils % Fluid Basophils % Fluid Meso/Macro/[place] % Fluid Comment Peritoneal Color Peritoneal Appearance Peritoneal WBC Peritoneal RBC Peritoneal Tot Protein Peritoneal Albumin SARS-CoV-2 (PCR) Influenza Type A (PCR) Influenza Type B (PCR) RSV (RT-PCR) 01/23/22 01/23/22 01/23/22 10:02 10:02 12:40 WBC RBC Hgb Hct MCV MCH MCHC RDW Std Deviation RDW Coeff of Rekha Plt Count MPV Immature Gran % (Auto) Neut % (Auto) Lymph % (Auto) [place] % (Auto) Eos % (Auto) Baso % (Auto) Neut # (Auto) Lymph # (Auto) [place] # (Auto) Eos # (Auto) Baso # (Auto) Immature Gran # (Auto) Platelet Estimate PT INR Sodium Potassium Chloride Carbon Dioxide Anion Gap BUN Creatinine Est Cr Clr Drug Dosing Est GFR ( Amer) Est GFR (Non-Af Amer) BUN/Creatinine Ratio Glucose POC Glucose Osmolality 277 L Calcium Phosphorus Magnesium Total Bilirubin AST ALT Alkaline Phosphatase Troponin I High Sens Total Protein Albumin Globulin Albumin/Globulin Ratio Lipase TSH Urine Osmolality Fluid Neutrophils % 2 Fluid Lymphocytes % 74 Fluid Eosinophils % 1 Fluid Basophils % 0 Fluid Meso/Macro/[place] % 23 Fluid Comment Peritoneal Color YELLOW Peritoneal Appearance HAZY Peritoneal WBC 220 Peritoneal RBC < 3000 Peritoneal Tot Protein Peritoneal Albumin SARS-CoV-2 (PCR) NEGATIVE Influenza Type A (PCR) Negative Influenza Type B (PCR) Negative RSV (RT-PCR) Negative 01/23/22 01/23/22 01/23/22 12:40 14:22 20:47 WBC RBC Hgb Hct MCV MCH MCHC RDW Std Deviation RDW Coeff of Rekha Plt Count MPV Immature Gran % (Auto) Neut % (Auto) Lymph % (Auto) [place] % (Auto) Eos % (Auto) Baso % (Auto) Neut # (Auto) Lymph # (Auto) [place] # (Auto) Eos # (Auto) Baso # (Auto) Immature Gran # (Auto) Platelet Estimate PT INR Sodium Potassium Chloride Carbon Dioxide Anion Gap BUN Creatinine Est Cr Clr Drug Dosing Est GFR ( Amer) Est GFR (Non-Af Amer) BUN/Creatinine Ratio Glucose POC Glucose 206 H 210 H Osmolality Calcium Phosphorus Magnesium Total Bilirubin AST ALT Alkaline Phosphatase Troponin I High Sens Total Protein Albumin Globulin Albumin/Globulin Ratio Lipase TSH Urine Osmolality Fluid Neutrophils % Fluid Lymphocytes % Fluid Eosinophils % Fluid Basophils % Fluid [place]/Macro/[place] % Fluid Comment Peritoneal Color Peritoneal Appearance Peritoneal WBC Peritoneal RBC Peritoneal Tot Protein < 3.0 Peritoneal Albumin < 1.5 SARS-CoV-2 (PCR) Influenza Type A (PCR) Influenza Type B (PCR) RSV (RT-PCR) 01/24/22 01/24/22 01/24/22 00:25 06:11 06:11 WBC 3.35 L RBC 3.43 L Hgb 11.6 L Hct 32.8 L MCV 95.6 MCH 33.8 MCHC 35.4 RDW Std Deviation 54.8 H RDW Coeff of Rekha 15.8 H Plt Count 75 L MPV 10.5 H Immature Gran % (Auto) 0.0 Neut % (Auto) 65.6 Lymph % (Auto) 24.2 [place] % (Auto) 8.4 Eos % (Auto) 1.2 Baso % (Auto) 0.6 Neut # (Auto) 2.20 Lymph # (Auto) 0.81 L [place] # (Auto) 0.28 Eos # (Auto) 0.04 Baso # (Auto) 0.02 Immature Gran # (Auto) 0.00 Platelet Estimate Decreased L PT INR Sodium 126 L Potassium 5.4 H Chloride 98 Carbon Dioxide 23 Anion Gap 5 BUN 21 Creatinine 0.94 Est Cr Clr Drug Dosing 80.1 Est GFR ( Amer) 97.5 Est GFR (Non-Af Amer) 84.2 BUN/Creatinine Ratio 22.3 H Glucose 201 H POC Glucose Osmolality Calcium 7.7 L Phosphorus Magnesium 1.8 Total Bilirubin 4.7 H AST 53 H ALT 29 Alkaline Phosphatase 121 H Troponin I High Sens Total Protein 5.6 L D Albumin 2.4 L Globulin 3.2 Albumin/Globulin Ratio 0.8 L Lipase TSH Urine Osmolality 323 L Fluid Neutrophils % Fluid Lymphocytes % Fluid Eosinophils % Fluid Basophils % Fluid [place]/Macro/[place] % Fluid Comment Peritoneal Color Peritoneal Appearance Peritoneal WBC Peritoneal RBC Peritoneal Tot Protein Peritoneal Albumin SARS-CoV-2 (PCR) Influenza Type A (PCR) Influenza Type B (PCR) RSV (RT-PCR) 01/24/22 01/24/22 06:11 07:15 WBC RBC Hgb Hct MCV MCH MCHC RDW Std Deviation RDW Coeff of Rekha Plt Count MPV Immature Gran % (Auto) Neut % (Auto) Lymph % (Auto) [place] % (Auto) Eos % (Auto) Baso % (Auto) Neut # (Auto) Lymph # (Auto) [place] # (Auto) Eos # (Auto) Baso # (Auto) Immature Gran # (Auto) Platelet Estimate PT INR Sodium Potassium Chloride Carbon Dioxide Anion Gap BUN Creatinine Est Cr Clr Drug Dosing Est GFR ( Amer) Est GFR (Non-Af Amer) BUN/Creatinine Ratio Glucose POC Glucose 187 H Osmolality Calcium Phosphorus Magnesium Total Bilirubin AST ALT Alkaline Phosphatase Troponin I High Sens Total Protein Albumin Globulin Albumin/Globulin Ratio Lipase TSH 1.816 Urine Osmolality Fluid Neutrophils % Fluid Lymphocytes % Fluid Eosinophils % Fluid Basophils % Fluid Meso/Macro/[place] % Fluid Comment Peritoneal Color Peritoneal Appearance Peritoneal WBC Peritoneal RBC Peritoneal Tot Protein Peritoneal Albumin SARS-CoV-2 (PCR) Influenza Type A (PCR) Influenza Type B (PCR) RSV (RT-PCR) Diagnostic Findings Single-view chest x-ray was obtained the time admission which did not reveal any acute cardiopulmonary process. ECG Additional Comments: Initial EKG demonstrated normal sinus rhythm with poor R-wave progression in the precordial leads Second EKG demonstrated a regular tachycardia nonspecific ST and T-wave changes PG Care Time/CCT Total # of Minutes Spent Total Time Spent with Patient: Total time spent is greater than 50% in coordination of care (as documented) at patient's floor/unit and/or counseling patient: Coding Level of Care Code 51464 Initial Inpt Care Lvl 3 Diagnoses Atrial fibrillation with RVR I48.91
--- NOTE | 2022-01-24 12:17 | Electrocardiogram Report ---
Test Reason : Blood Pressure : / mmHG Vent. Rate : 124 BPM Atrial Rate : 144 BPM P-R Int : 000 ms QRS Dur : 084 ms QT Int : 362 ms P-R-T Axes : 000 -31 039 degrees QTc Int : 520 ms Poor data quality, interpretation may be adversely affected Sinus rhythm alternating with frequent and consecutive atrial ectopy Left axis deviation Poor R wave progression, consider anterior [place] vs. lead placement vs. LVH Abnormal ECG Confirmed by Garfield Arredondo ([id number]) on 01/24/2022 12:17:15 PM Referred By: REFERRED SELF Confirmed By:Oral Arredondo
--- NOTE | 2022-01-24 12:19 | Electrocardiogram Report ---
Test Reason : Blood Pressure : / mmHG Vent. Rate : 078 BPM Atrial Rate : 078 BPM P-R Int : 134 ms QRS Dur : 082 ms QT Int : 370 ms P-R-T Axes : -12 -35 -01 degrees QTc Int : 421 ms Normal sinus rhythm Left axis deviation Poor R wave progression, consider anterior [place] vs. lead placement vs. LVH Abnormal ECG When compared with ECG of 23-JAN-2022 10:51, (unconfirmed) Vent. rate has decreased BY 89 BPM Confirmed by Garfield Arredondo ([id number]) on 01/24/2022 12:18:41 PM Referred By: REFERRED SELF Confirmed By:Oral Arredondo
--- NOTE | 2022-01-24 12:19 | Electrocardiogram Report ---
Test Reason : Blood Pressure : / mmHG Vent. Rate : 167 BPM Atrial Rate : 170 BPM P-R Int : 000 ms QRS Dur : 080 ms QT Int : 304 ms P-R-T Axes : 000 -32 043 degrees QTc Int : 507 ms Supraventricular tachycardia Left axis deviation Low voltage QRS Poor R wave progression, consider anterior [place] vs. lead placement vs. LVH Abnormal ECG Confirmed by Garfield Arredondo ([id number]) on 01/24/2022 12:18:30 PM Referred By: REFERRED SELF Confirmed By:Oral Arredondo
[2022-01-24] MEDS ORDERED: 0.2 MICRON FILTER SET 1 EA IV ONE (12:36)
[2022-01-24] MEDS ORDERED: AMIODARONE / D5W 150 MG/100 ML BAG IV STA (12:36)
[2022-01-24] MEDS ORDERED: STAT IV Infusion **Titration per Protocol STA (12:36)
[2022-01-24] MEDS ORDERED: AMIODARONE IV BOLUS & DRIP IV STA (12:36)
[2022-01-24] MEDS ORDERED: AMIODARONE / D5W 360 MG/200 ML BAG IV ONE (12:46)
[2022-01-24] MEDS ORDERED: GADOXETATE DISODIUM IV ONE (13:00)
--- NOTE | 2022-01-24 14:10 | Hospitalist Progress Note ---
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 Hyponatremic to 124 on admission with large volume paracentesis performed for 8.5 L in the OR. Patient was given albumin repletion following procedure. - On admission patient with irregular heart rate fluctuating between 80s and mid 100s which was associate with some difficulty breathing although also with large amount of ascites On admit patient found to have irregular rate with HR 80s-180s, he is having some difficultly breathing, likely due to large amount of ascites, otherwise asymptomatic. - Consult cardiology.Between atrial ectopy and flutter and sinus. Unlikely that rate control will be successful, and also limited by his hypotension. Recommended for a rhythm control steroid e.g. with amiodarone. He is on Lovenox for PE, and risk overall for embolus low with sinus rhythm at time of cardiology assessmentt. -TTE: During A. fib with RVR. No significant valvular disease, hyperdynamic LV with EF 65-70%. Relatively preserved synthetic function of liver. Amended to continue amiodarone at this time. If not tolerated, or not preferred given liver status could consider digoxin although rate control less likely to be effective as noted above. 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 Bae and also lucia/ Zheng Orozco [facility] ([phone]) EGD 01/2021: Grade III varices in lower third of esophagus. Erythematous mucousa without bleeding in gastric body. Meld 26 Esophageal varices on prior evaluation, was not on [employer] beta-noel ? Limitation due to hypotension, was started on carvedilol 6.25 mg p.o. twice daily on admission but with soft pressures bordering 90 systolic. Patient with heart rate control with amnio as noted, carvedilol held with hypotension and goal to resume at 3.125 mg twice if possible - GI consulted, appreciate recommendations. - 01/24 MRI w/ and w/out contrast: 1. Slight interval decrease in the size of previously identified rim-enhancing mass within the liver now measuring 2.0 cm compared to 2.3 cm on the previous study. No new enhancing masses are identified. There is again shortness of the liver, splenomegaly and splenic hilar varices. Increased abdominal ascites which is now moderate to marked in degree. - Continue protonix 40mg QD Patient did have large volume ascites 8.5 L drawn off in ER, initially tolerated well but progressively hypotensive through afternoon with slightly elevated potassium and normal creatinine. Potassium low and mildly elevated glucose consistent with volume contraction. Patient with worsened hypotension in afternoon despite improved rate control, likely 2/2 intravascular depletion with large volume removal.. Albumin and NSS given, limited by difficulty with IV sites. IV team contacted, unable to obtain peripheral IV. Subsequently unable to obtain ultrasound-guided IV, and no lines amenable to PICC. Was able to recieve fluid via R antecubital, R PIV Subsequently able to be obtained by ICU overnight PA. 01/25 sodium improved, potassium normalized, blood pressure improved with fluid and albumin. No ARLEEN today. Glycemic parameters tightened. Amnio resumed, low- dose carvedilol resumed and follow for tolerance. Continues to tolerate will add back on Lasix 01/25 if remaining stable. Will need aggressive albumin replacement with future paracenteses, although would defer these unless absolutely necessary. Per [facility] and GI pt very high risk for rebound even with replacement and would instead stabilize on lasix/oscar and get to outpt GI assessment. - Overall goal --> +coreg with stable BP and good rate control with amio. Resume lasix in AM. If remaining stable then look to ok with close GI followup. 11/10/2021 [facility] admission review: 2 discrete peripherally enhancing lesions appreciated with lack of washout in the presence of biliary dilation atypical for hepatocellular carcinoma, alternative such as intrahepatic cholangiocarcinoma being considered. Small nonocclusive thrombus of superior mesenteric vein appreciated Stigmata of cirrhosis with portal hypertension appreciated. Previously seen [facility] with banding in 2019. Hepatology was consulted during this admission. Was not a TIPS candidate. Was started on Coreg 6.25 mg twice daily for varices during admission, and continued on ursodiol and spironolactone. (3) Weakness: Plan: Weakness, multifactorial in the setting of hyponatremia, SWIFT with ascites with end-stage liver disease, cholangiocarcinoma BSG normal 01/24 Hyponatremic on admission, as noted PT/OT ordered. (4) Hyponatremia: Plan: - as noted (5) Ascites: Plan: - Seen at PCP office 01/22 decision was made to increase spironolactone dose to 100 mg daily and monitor response. - Paracentesis performed in ER to 8.5, hypotensive after. - Lasix/oscar as noted (6) Cholangiocarcinoma: Plan: - Per pt, was diagnosed at [facility] October at time of his hospitalization for saddle PE. - He was supposed to follow-up with [facility] for further workup, per report has had difficulty obtaining followup - Has seen [facility] in the past, most recently has been seeing [facility] GI team for this, MRI completed as noted. Lesions are reduced in size, outpt followup at this time (7) Type 2 diabetes mellitus, with long-term current use of insulin: Plan: - With hypoglycemia/BGm 60s at home this AM, BGMs 158 in ED. - Accucheks ACHS with SSI. -Hemoglobin A1c 8.2% - Diabetic diet with fluid restriction 1.5L - ?Reversed SSI parameters on admit --> pharm to review requirements (8) Hypertension: Plan: - Coreg/Oscar as noted. W/ hypotension during admission (9) Saddle pulmonary embolus: Plan: - Dx 11/10/21 while at [facility] Saddle PE with heavy clot burden extending into the lobar and segmental pulmonary arteries was appreciated, IR was consulted but did not recommend inter vention as was hemodynamically stable. EF was hyperdynamic without reduced systolic function. Patient was transitioned from heparin drip to Lovenox every 12 hours. Patient was discharged on Lovenox every 12 hours instead of a DOAC due to very high risk of bleed with varices and in the event that a biopsy for cholangiocarcinoma needed to be performed. Xarelto is contraindicated in his liver disease. Apixaban is not recommended to be hepatic adjustment, given his overall bleeding risk would not recommend DOAC. In the setting of his saddle PE with currently have extension to 6 months of treatment, but is nearing 3 months and may consider repeat CTA to assess for clot burden and if cleared potentially move to a prophylactic dose of Lovenox at that time. Would defer IV contrast at this time while working on other medical issues, but can consider this when stable or as outpatient. (10) Hypotension: Plan: - Admit to PCU. - SCDs, Lovenox for VTE ppx. - Full Code. Admission and Anticipated Discharge Date Admission Date: January 23, 2022 Subjective Seen at the bedside prior to going to MRI. In morning patient feels fatigued and lightheaded, reports did have 8 and half liters taken off from his paracentesis with albumin back but feels that he tolerated this okay. Feels his legs and abdomen are generally tight with fluid, denies pain other than this. Denies chest pressure. Denies palpitations, feels fatigued when his heart rate is fast but is without chest pain. Endorses chronic lightheadedness when standing which is present today. Review of Systems Review of Systems: Constitutional: Denies fever, chills, versus global fatigue Eyes: Denies vision change ENT: Denies ear pain, sore throat, sinus pain Cardiovascular: Denies Chest pain, chest pressure, palpitations, + chronic extremity swelling Respiratory: Dors is easy dyspnea, no shortness of breath/cough/sputum production at rest Gastrointestinal: +abdominal pressure/swelling, no acute nausea/vomiting. Genitourinary: Denies dysuria, urinary frequency Musculoskeletal: Denies acute focal weakness, focal muscle aches/pain, joint aches/pain Integumentary:Denies acute rash, lesions, bruising. Physical Exam Physical Exam: General: A&Ox3. He is fatigued, chronically ill HEENT: Atraumatic, normocephalic. And hearing grossly intact. Pulm: Diminished, grossly clear. Symmetrical chest rise. No increase in work of breathing. No respiratory distress. Cardiac: Tachycardic, regular on afternoon recheck, -mrg. Radial pulses intact and symmetrical. Abdominal: Distended, ascites present, no rebound tenderness/guarding. Extremities: Pitting edema through the lower extremities bilaterally, abdominal ascites is present as noted. Sensation to soft touch intact in hands and feet bilaterally Results & Data Results & Data ([facility]) Vital Signs (Past 12 Hours) Vital Signs Temp Pulse Resp BP BP Pulse Ox 01/24/22 11:09 36.8 C 117 H 24 92/54 L 96 01/24/22 10:49 110 H 01/24/22 07:16 36.8 C 117 H 20 83/60 L 89/51 L 97 01/24/22 07:00 120 H PG Care Time/CCT Total # of Minutes Spent Total Time Spent with Patient: Total time spent is greater than 50% in coordination of care (as documented) at patient's floor/unit and/or counseling patient: Coding Level of Care Code 63341 Subseq Hosp Care Lvl 3 Diagnoses Weakness R53.1 Hyponatremia E87.1 Atrial fibrillation with RVR I48.91 Ascites R18.8 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
[2022-01-24] MEDS ORDERED: ALBUMIN 25% 100 mL 25 GM/100 ML VIAL IV ONE ×2 (16:19→20:30)
[2022-01-24] MEDS ORDERED: MIDODRINE HCL 2.5 MG TAB PO ONE (16:31)
[2022-01-24] MEDS ORDERED: SODIUM CHLORIDE 0.9% 1000ML 500 ML IV ONE (16:35)
[2022-01-24] MEDS ORDERED: INSULIN HUMAN REGULAR PER UNIT 3 UNITS in SYRINGE 2.97 ML IV STA (16:37)
[2022-01-24] MEDS ORDERED: MIDODRINE HCL 2.5 MG TAB PO SCH (17:00)
[2022-01-24 17:54] LABS: BUN Creatinine Ratio 20.7 (10-20); Calcium 7.5 mg/dl (8.5-10.1); Creatinine Clr Calc Pharmacy 67.8 ml/min; Est GFR (African American) 79.8 ml/min; Est GFR (Non-African American) 68.8 ml/min; Potassium 5.7 mmol/L (3.5-5.1)
[2022-01-24] MEDS ORDERED: INSULIN HUMAN REGULAR PER UNIT 10 UNITS in SYRINGE 9.9 ML IV STA (18:34)
[2022-01-24] MEDS ORDERED: INSULIN HUMAN REGULAR PER UNIT 5 UNITS in SYRINGE 4.95 ML IV STA (18:45)
[2022-01-24] MEDS ORDERED: AMIODARONE / D5W 360 MG/200 ML BAG IV SCH (18:46)
[2022-01-24] MEDS: SODIUM CHLORIDE 0.9% 500 ML IV SCH ×3 (18:50→20:53)
[2022-01-24] MEDS: MAGNESIUM OXIDE 400 MG TAB PO SCH (20:53)
--- NOTE | 2022-01-24 20:53 | Procedure Note ---
Procedure Note Date of Service January 24, 2022 Note PROCEDURE NOTE FOR PERFORMING ENDURANCE CATHETER ON NON-ICU PATIENT HISTORY OF PRESENT ILLNESS: CC: Need for peripheral venous access. I was contacted by attending provider/nursing staff requesting assistance in placing exterminator indwelling peripheral intravenous catheter. There have been multiple attempts at obtaining access without success. I have evaluated the patients chart prior to assessment and see no preclusion for attempting ultrasound guidance for peripheral access. ALLERGIES: NKDA PAST MEDICAL/SURGICAL HISTORY: Cirrhosis, Hepatitis C, Saddle PE - anticoagulated on Lovenox, DMII HOME MEDICATIONS: Reviewed. Daily Lovenox FAMILY HISTORY: Noncontributory SOCIAL HISTORY: Noncontributory REVIEW OF SYSTEMS: Brief ROS with patient with all pertinent positive and negatives otherwise included in the HPI. PHYSICAL EXAM: General Awake, alert, and able to consent to procedure. Vital Signs Most recent vital signs reviewed per nursing documentation. Skin Without rashes, erythema, or ecchymosis. Vascular Palpable radial pulses bilaterally. LABS: Reviewed. INR 1.3 ASSESSMENT: Patient is a 66 year old male requiring peripheral venous access for ongoing clinical management. Per my evaluation and chart review, will attempt to place ultrasound guided exterminator peripheral IV. ENDURANCE CATHETER PROCEDURE NOTE: Procedure: [employer] Lending Trader Indwelling Peripherally Inserted IV Catheter Placement Attending: Dr. Chirinos APC: Bairon Rodrigez PA-C Indication: Need for IV Access, Poor Vascular Access Anesthesia: None Verbal consent was obtained from patient prior to performing the procedure. A time-out was completed verifying correct patient, procedure, site, positioning, and implant(s) or special equipment if applicable. Utilizing bedside ultrasound, vascularity of the RIGHT upper extremity was assessed. Vessel size was noted for appropriate catheter selection and skin was marked with gentle pressure. Patients RIGHT upper extremity was prepped and draped in the usual sterile fashion utilizing chlorhexidine. Ultrasound guidance was used to aid needle placement. A 20 g Endurance Catheter was introduced into the brachial vein under direct ultrasound guidance. Guide wire was easily deployed without resistance. Catheter was threaded over the guide wire without resistance and the entire apparatus was removed intact. Good venous blood return was noted in the catheter. The IV catheter was easily flushed with sterile saline flush. Sterile clave was attached to the end of the catheter and good blood return was again noted. Tourniquet was released. StatLock device and sterile dressing were applied. The patient tolerated the procedure well. Blood Loss: Minimal Complications: Initially missed attempt at cannulating LEFT upper extremity cephalic vein. Procedural Ultrasound Guidance: Procedure Date: 01/24/2022 Indication: Poor Vascular Access Attending: Dr. Chirinos APC: Bairon Rodrigez PA-C Artery/Veins Identified: YES Access confirmed in Vein with ultrasound: YES Complications: NONE Patient tolerated procedure: WELL Coding CPT Codes Tubes, Drains, and Vasc Access - Tubes, Drains, and Vasc Access: [id number] Venipuncture, Age 3/>Req phys skill, (sep proc), Dx/Tx (not rtn) ([id number]) [facility] Procedure Codes (Charges) Tubes, Drains, and Vasc Access Procedure 1: Tubes, Drains, and Vasc Access: [id number] Venipuncture, Age 3/>Req phys skill, (sep proc), Dx/Tx (not rtn)
[2022-01-24] MEDS: ursodioL 300 MG CAP PO SCH (20:54)
[2022-01-25] MEDS: SODIUM CHLORIDE 0.9% 500 ML IV SCH ×4 (00:17→19:27)
[2022-01-25 01:08] LABS: Calcium 7.5 mg/dl (8.5-10.1); Creatinine Clr Calc Pharmacy 71.7 ml/min; Est GFR (African American) 85.3 ml/min; Est GFR (Non-African American) 73.6 ml/min
[2022-01-25] MEDS: ENOXAPARIN 100 MG/1ML SYR SQ SCH ×2 (03:11→17:50)
[2022-01-25 06:19] LABS: Hematocrit (blood only) 31.5 % (42-52); Mean Corpuscular Hemoglobin 33.1 pg (25-34); Mean Corpuscular Hgb Conc 34.9 g/dL (32-36); Mean Corpuscular Volume 94.9 fL (80-100); RDW Standard Deviation 55.3 fL (36.4-46.3); Red Blood Count 3.32 M/uL (4.7-6.1); White Blood Count 4.08 K/uL (4.8-10.8)
[2022-01-25 06:24] LABS: Mean Platelet Volume 10.3 fL (7.4-10.4); Platelet Count 92 K/uL (130-400)
[2022-01-25 06:48] LABS: Albumin Level 2.8 gm/dl (3.4-5.0); BUN Creatinine Ratio 20.4 (10-20); Bilirubin,Total 4.2 mg/dl (0.2-1.0); Calcium 7.5 mg/dl (8.5-10.1); Creatinine Clr Calc Pharmacy 77.4 ml/min; Est GFR (African American) 92.7 ml/min; Globulin 2.9 gm/dl (2.5-4.0); Potassium 4.9 mmol/L (3.5-5.1); Total Protein 5.7 gm/dl (6.0-8.3)
[2022-01-25 06:51] LABS: Basophils # (auto) 0.01 K/uL (0-0.2); Basophils % (auto) 0.2 %; Eosinophils # (auto) 0.07 K/uL (0-0.5); Eosinophils % (auto) 1.7 %; Immature Granulocytes # (auto) 0.01 K/uL (0.00-0.02); Immature Granulocytes % (auto) 0.2 %; Lymphocytes # (auto) 0.82 K/uL (1.2-3.4); Lymphocytes % (auto) 20.1 %; Monocytes # (auto) 0.43 K/uL (0.11-0.59); Monocytes % (auto) 10.5 %; Neutrophils # (auto) 2.74 K/uL (1.4-6.5); Neutrophils % (auto) 67.3 %
[2022-01-25 07:18] LABS: Estimated Average Glucose 189 mg/dl; Hemoglobin A1C 8.2 % (4.5-5.6)
--- NOTE | 2022-01-25 08:49 | Magnetic Resonance Report ---
MR abdomen wo/w con CLINICAL HISTORY: Reported history of liver cancer. Follow-up progression. COMPARISON STUDY: 11/06/2021 TECHNIQUE: Multiplanar multisequence images of the abdomen were performed without and with 10 mL of Eovist contrast. FINDINGS: Abdominal cavity: There has been significant interval increase in the amount of ascites present. Ther e is now moderate to marked ascites. Liver: Compared to previous examination, there is again evidence for cirrhosis of the liver with a no dular contour present. There has been slight interval decrease in size of previously identified ring- enhancing mass within segment 5 of the liver. It again has a nonenhancing central scar. On the curren t study it measures 2.0 cm compared to 2.3 cm in the previous study. No new enhancing masses are iden tified. Spleen: There is again splenomegaly with splenic hilar varices present. Pancreas: No mass or ductal dilatation. Gallbladder: The normally distended without filling defects, wall thickening or pericholecystic flui d. Adrenal glands: Normal without masses. Kidneys: Normal without hydronephrosis. There are no perinephric fluid collections. Sharply defined r ight renal cyst is again seen. IMPRESSION: 1. Slight interval decrease in the size of previously identified rim-enhancing mass within the liver now measuring 2.0 cm compared to 2.3 cm on the previous study. 2. No new enhancing masses are identified. 3. There is again shortness of the liver, splenomegaly and splenic hilar varices. 4. Increased abdominal ascites which is now moderate to marked in degree. ACT 112: Negative or not required by law. Electronically signed by: Sreekanth Lombardo M.D. 01/25/2022 8:48 AM
[2022-01-25] MEDS: PANTOprazole 40 MG TAB PO SCH (08:50)
[2022-01-25] MEDS: SPIRONOLACTONE 100 MG TAB PO SCH (08:51)
[2022-01-25] MEDS: MIDODRINE HCL 2.5 MG TAB PO SCH ×3 (08:51→17:49)
[2022-01-25] MEDS: MULTIVITAMIN TAB PO SCH (08:51)
[2022-01-25] MEDS: INSULIN ASPART PER UNIT SC SCH ×4 (08:54→20:20)
[2022-01-25] MEDS ORDERED: PATIROMER CALCIUM SORBITEX 8.4 GM PACK PO SCH (11:00)
[2022-01-25] MEDS ORDERED: PHARMACY GLYCEMIC MGMT CONSULT PRN (12:17)
--- NOTE | 2022-01-25 13:06 | Gastrointestinal Consultation ---
Date of Consultation January 25, 2022 Assessment & Plan (1) Abdominal ascites: Cirrhosis with abdominal ascites: Patient is status post paracentesis 01/23/2022 for 8-1/2 L of fluid. He did receive albumin replacement. Patient has chronically low albumin level. I had spoken previously with his GI physician at [facility] who cautioned frequent paracentesis due to rebound. Patient currently getting Aldactone 100 mg daily. Discussed adding furosemide and will wait for patient's labs to normalize. Esophageal varices: Due to cirrhosis. Continue Coreg at half dose (3.125 mg p.o. twice daily) Abnormal MRI: Concerning new lesion is noted on imaging. Initially noted 10/2021. Patient has established with Dr. Orozco at [facility]. Further work-up regarding new noted mass will be directed by her office. Irregular heart rate: Managed by cardiology and hospitalist. GERD: Continue pantoprazole 40 mg daily History of gallstones: Continue Actigall 300 mg p.o. nightly Case reviewed with Dr. Storey. Please refer to supervising physician addendum for further recommendations. I have spent 40 minutes of discrete time performing the activities of this visit which include but are not limited to review of the medical record, obtaining a history, physical exam, and entering information in the electronic record. (2) Cirrhosis: (3) Portal hypertension: Supervising Physician Co-Signing Physician Notes I have seen and examined the patient. I agree with note above by SHANIQUA Ramos except as noted below. HPI Sister in law with patient for H and P. Pt states abdomen feels better since ascites fluid has been drained. No abd pain at present. Cell count on ascites fluid no evidence of SBP. MRI of abdomen yesterday liver lesion smaller vs 10/2021. PE Abdomen pos bs, ascites noted, abdomen protuberatn but soft. A/P ascites--worsening, No SBP, do liver US to look for PV thrombosis liver lesion--MRI apparently shows lesion smaller now vs 10/2021 so either benign or slow growing cirhosis Supportive care for above. Pt currently as outpt has been following with [facility]. As the supervising physician, I , Hammad Storey MD have spent 20 minutes of discrete time performing the activities of this visit which include but not limited to review of the medical records, obtaining a history, physical exam and entering information in the electronic record. SHANIQUA Ramos has reported spending 40 minutes of discrete time with the activities of this visit. History of Present Illness Reason for Consultation: cirrhosis, hep C, possible cholangiocarcinoam Attending Physician: Pino Mcdonald MD History of Present Illness The patient is a pleasant 66-year-old male with past medical history to include decompensated cirrhosis, HCV genotype 4 treated with direct AVD, ascites, esophageal varices, new lesions in the liver suspicious for IH cholangiocarcinoma, elevated AFP, recent DVT and saddle PE now with worsening ascites, lower extremity edema, upper abdominal pain presented to the emergency department for evaluation of generalized weakness after slipping out of his chair with an episode of hypoglycemia. The patient was subsequently admitted with hyponatremia, weakness, irregular heart rate, cirrhosis with worsening ascites and cholangiocarcinoma versus HCC. The GI service was consulted due to history. Prior records: 12/23/2021: [facility] digestive disorders office visit notes reviewed from Dr. Angela Orozco (gastroenterology). Plan was that patient needed to establish with PCP. Requesting imaging for review to see if interventional radiology would be able to biopsy patient's liver lesions. He needs to remain on anticoagulation for saddle PE history. Likely needs PET scan if this is intrahepatic cholangiocarcinoma as if there are mets and transplant would not be an option. Known right heart failure is a TIPS is contraindicated. Meld by last labs is 20. Poor prognosis overall. Closest ER if patient has decompensation. 11/10/2021: Hepatology inpatient consult notes are reviewed from [facility] for esophageal varices. Patient has not a candidate for TIPS due to right heart disease. Recommend four-phase abdominal CT to assess for HCC. Add carvedilol 6.25 mg bid 11/10/2021: Chart note reviewed from Dr. Storey regarding MRI of the liver lesion ranging from benign to malignant on impression. Referred to [facility]. 11/06/2021: MRI of the abdomen demonstrated 1. Cirrhotic liver with ascites and varices. 2. 2.3 cm mass in segment 5 of the liver with a central nonenhancing scar. This was not seen on CT in 2014. May represent atypical appearance for hemangioma, cholangiocarcinoma, less likely HCC given absence of washout. 3. Dilation of the intrahepatic biliary ducts without evidence of underlying mass. Additional findings and report include gallstones, multiple enlarged retroperitoneal nodes up to 11 mm in diameter. Mild ascites. Extensive varices most prominent around the spleen. 07/16/2021: GI office visit notes reviewed from Dr. Storey. Former Dr. Bae patient with cirrhosis from hepatitis C treated in 2013's, ascites managed on Aldactone. History of variceal banding 2018, and gallstones managed on ursodiol as patient is a high risk for surgery. Recommendations for esophageal varices is to continue carvedilol with repeat EGD 01/2022. For gallstones continue ursodiol. Recommend complete abdominal ultrasound for splenomegaly. Hep C check hep C PCR. Cirrhosis check ultrasound, CBC, CMP, PT, AFP every 6 months. History of colon polyps due for colonoscopy 08/2024. Follow-up office visit in 6 months. 02/2021: EGD with grade 3 esophageal varices 12/26/2020: GI office visit notes reviewed from Dr. Bae. Patient with cirrhosis genotype for hepatitis C treated with direct acting antivirals in 2013. His cirrhosis has been complicated by esophageal varices which were banded and eradicated as of 02/2019. Minimal ascites. Has gallstones and is on ursodiol. 08/17/2019: Colonoscopy. Ascending colon polyps with tubular adenoma negative for high-grade dysplasia. Colon hepatic flexure polyp with hyperplastic polyp. Rectum polyp hyperplastic polyp. Repeat colonoscopy in 5 years (08/2024). Exam/interview today, the patient reports that overall he feels still weak and somewhat dizzy. Denies any current abdominal pain. He did have paracentesis in the emergency department 01/23/2022 with 8-1/2 L removed. Denies any specific nausea or vomiting. He did have an MRI during current admission demonstrating again know lesion. There are some questions as to whether patient needs to continue Lovenox which we discussed today. Denies any fever, chills, night sweats. Lower extremity edema continues. Abdominal ascites improved. At admission patient was being maintained with GI medications including carvedilol 6.25 mg 1 tablet p.o. for esophageal varices, spironolactone 200 mg daily for ascites, ursodiol 300 mg daily for history of gallstones, and pantoprazole for GERD. Social history: Lifetime non-smoker. Denies use of recreational drug use including marijuana. No alcohol intake. He has been on disability for some time. He is with one 22-year-old child. Allergies Allergy/AdvReac Type Severity Reaction Status Date / Time No Known Allergies Allergy Verified 11/10/21 17:01 Home Medications Medication Instructions Recorded Confirmed Type albuterol sulfate 90 mcg/actuation 2 puff INHALATION Q4 PRN 12/19/18 11/10/21 History aerosol inhaler (ProAir HFA) magnesium oxide 400 mg PO HS 12/19/18 11/10/21 History milk thistle 500 mg capsule 500 mg PO HS 12/19/18 11/10/21 History multivitamin 1 tab PO HS 12/19/18 11/10/21 History ursodiol 300 mg capsule 300 mg PO HS 12/19/18 11/10/21 History vitamin E 400 unit capsule 400 unit PO HS 12/19/18 11/10/21 History OneTouch Ultra Blue Test Strip #300 ea NS 08/22/19 04/08/21 Rx (blood sugar diagnostic) flash glucose sensor (FreeStyle #1 ea 10/20/20 04/08/21 Rx Allan 2 Sensor) pen needle, diabetic 31 gauge x #400 ea 05/20/21 Rx 5/16" (BD Ultra-Fine Short Pen Needle) ascorbic acid (vitamin C) (Vitamin 1 g PO HS 11/10/21 11/10/21 History C) cholecalciferol (vitamin D3) 25 75 mcg PO HS 11/10/21 11/10/21 History mcg (1,000 unit) capsule (Vitamin D3) coenzyme Q10 100 mg capsule 100 mg PO HS 11/10/21 11/10/21 History (CoQ-10) insulin regular hum U-500 conc 75 - 105 unit SUBCUT BIDWMEAL 11/10/21 11/10/21 History (Humulin R U-500 (Conc) Insulin Kwikpen) omega-3 fatty acids-fish oil 684 1 cap PO HS 11/10/21 11/10/21 History mg-1,200 mg capsule,delayed release Patient History Medical History (Updated 01/25/22 @ 11:54 by Pino Mcdonald MD) Asthma inhaler prn Chronic back pain LOWER BACK AND NECK PAIN Degenerative disc disease Diabetes mellitus, type 2 IDDM Difficult intravenous access Edema leg Esophageal varices Fear of needles GERD (gastroesophageal reflux disease) Glaucoma Hepatitis C tx and no longer has Hyperlipidemia Hypertension Migraine PT DENIES Obesity Osteoarthritis Saddle pulmonary embolus Spinal stenosis Tear meniscus knee bilt Surgical History Cirrhosis of liver not due to alcohol History of colonoscopy History of esophagogastroduodenoscopy (EGD) History of removal of cyst rectal cyst Status post glaucoma surgery Family History Father Family history of esophageal cancer Diabetes Mother Diabetes Brother Family history of diabetes mellitus Sister Family history of diabetes mellitus Family/Other Family history of diabetes mellitus cousin Other No family history of adverse response to anesthesia Denies family history of Ovarian cancer Prostate cancer Myocardial infarction Breast cancer Colorectal cancer Social History Smoking Status: Never smoker Second Hand Exposure: No; Hx Alcohol Use: No Hx Substance Use: No Preferred Language: Urdu Communication Ability: Effective Geospatial Developer Required: No Beliefs That Will Affect Care: None marital status: Current Living Situation: Spouse Current Living Situation Comment: Lives with and daughter current occupational status: retired and disabled Other Information That Helps Us Care for You: No Feels Safe at Home: Yes Safety Concerns: Feels Safe At This Time Childhood Exposure to Second-Hand Smoke: No Dental Care, Regularly: Yes Physical Activity Frequency: Does not Exercise Seatbelt Use: always Sunscreen Use: No Assistive Devices: Cane Review of Systems Review of Systems: All systems reviewed & are unremarkable except as noted in Subjective Physical Exam Constitutional: + ill appearing (chronically) and + obese; no acute distress Respiratory: normal respiratory effort; no respiratory distress and no labored breathing Cardiovascular: Rate/Rhythm: regular rate Extremities: + edema (bilateral lower extremity edema) Gastrointestinal (Abdomen): Inspection/Auscultation: normal bowel sounds and + abdominal edema Percussion/Palpation: abdomen soft and + ascites; abdomen nontender, no guarding and abdomen not rigid Psychiatric: Orientation: alert and oriented x 3 Results & Data ([facility]) Vital Signs (Past 12 Hours) Vital Signs Temp Pulse Pulse Resp BP Pulse Ox 01/25/22 12:03 36.6 C 84 21 102/61 99 01/25/22 08:33 36.5 C 81 16 97/60 L 98 01/25/22 08:00 97 H Laboratory Results Laboratory Results - last 24 hr 01/24/22 01/24/22 01/24/22 06:11 16:29 17:13 WBC RBC Hgb Hct MCV MCH MCHC RDW Std Deviation RDW Coeff of Rekha Plt Count MPV Immature Gran % (Auto) Neut % (Auto) Lymph % (Auto) Noble % (Auto) Eos % (Auto) Baso % (Auto) Neut # (Auto) Lymph # (Auto) Noble # (Auto) Eos # (Auto) Baso # (Auto) Immature Gran # (Auto) Sodium 122 L Potassium 5.7 H Chloride 96 L Carbon Dioxide 20 L Anion Gap 6 BUN 23 Creatinine 1.11 Est Cr Clr Drug Dosing 67.8 Est GFR ( Amer) 79.8 Est GFR (Non-Af Amer) 68.8 BUN/Creatinine Ratio 20.7 H Glucose 406 H* POC Glucose 345 H* Estimat Average Glucose 189 Hemoglobin A1c 8.2 H Calcium 7.5 L Total Bilirubin AST ALT Alkaline Phosphatase Total Protein Albumin Globulin Albumin/Globulin Ratio 01/24/22 01/24/22 01/25/22 18:44 20:09 00:29 WBC RBC Hgb Hct MCV MCH MCHC RDW Std Deviation RDW Coeff of Rekha Plt Count MPV Immature Gran % (Auto) Neut % (Auto) Lymph % (Auto) Noble % (Auto) Eos % (Auto) Baso % (Auto) Neut # (Auto) Lymph # (Auto) Noble # (Auto) Eos # (Auto) Baso # (Auto) Immature Gran # (Auto) Sodium 127 L Potassium 5.0 Chloride 99 Carbon Dioxide 23 Anion Gap 5 BUN 22 Creatinine 1.05 Est Cr Clr Drug Dosing 71.7 Est GFR ( Amer) 85.3 Est GFR (Non-Af Amer) 73.6 BUN/Creatinine Ratio 21.0 H Glucose 124 H POC Glucose 271 H 211 H Estimat Average Glucose Hemoglobin A1c Calcium 7.5 L Total Bilirubin AST ALT Alkaline Phosphatase Total Protein Albumin Globulin Albumin/Globulin Ratio 01/25/22 01/25/22 01/25/22 06:04 06:04 07:08 WBC 4.08 L RBC 3.32 L Hgb 11.0 L Hct 31.5 L MCV 94.9 MCH 33.1 MCHC 34.9 RDW Std Deviation 55.3 H RDW Coeff of Rekha 16.0 H Plt Count 92 L MPV 10.3 Immature Gran % (Auto) 0.2 Neut % (Auto) 67.3 Lymph % (Auto) 20.1 Noble % (Auto) 10.5 Eos % (Auto) 1.7 Baso % (Auto) 0.2 Neut # (Auto) 2.74 Lymph # (Auto) 0.82 L Noble # (Auto) 0.43 Eos # (Auto) 0.07 Baso # (Auto) 0.01 Immature Gran # (Auto) 0.01 Sodium 127 L Potassium 4.9 Chloride 98 Carbon Dioxide 22 Anion Gap 7 BUN 20 Creatinine 0.98 Est Cr Clr Drug Dosing 77.4 Est GFR ( Amer) 92.7 Est GFR (Non-Af Amer) 80.0 BUN/Creatinine Ratio 20.4 H Glucose 175 H POC Glucose 173 H Estimat Average Glucose Hemoglobin A1c Calcium 7.5 L Total Bilirubin 4.2 H AST 53 H ALT 27 Alkaline Phosphatase 112 H Total Protein 5.7 L Albumin 2.8 L Globulin 2.9 Albumin/Globulin Ratio 1.0 01/25/22 11:44 WBC RBC Hgb Hct MCV MCH MCHC RDW Std Deviation RDW Coeff of Rekha Plt Count MPV Immature Gran % (Auto) Neut % (Auto) Lymph % (Auto) Noble % (Auto) Eos % (Auto) Baso % (Auto) Neut # (Auto) Lymph # (Auto) Noble # (Auto) Eos # (Auto) Baso # (Auto) Immature Gran # (Auto) Sodium Potassium Chloride Carbon Dioxide Anion Gap BUN Creatinine Est Cr Clr Drug Dosing Est GFR ( Amer) Est GFR (Non-Af Amer) BUN/Creatinine Ratio Glucose POC Glucose 250 H Estimat Average Glucose Hemoglobin A1c Calcium Total Bilirubin AST ALT Alkaline Phosphatase Total Protein Albumin Globulin Albumin/Globulin Ratio Diagnostic Findings Abdomen MRI 01/24/22 12:09 MR abdomen wo/w con CLINICAL HISTORY: Reported history of liver cancer. Follow-up progression. COMPARISON STUDY: 11/06/2021 TECHNIQUE: Multiplanar multisequence images of the abdomen were performed without and with 10 mL of Eovist contrast. FINDINGS: Abdominal cavity: There has been significant interval increase in the amount of ascites present. There is now moderate to marked ascites. Liver: Compared to previous examination, there is again evidence for cirrhosis of the liver with a nodular contour present. There has been slight interval decrease in size of previously identified ring-enhancing mass within segment 5 of the liver. It again has a nonenhancing central scar. On the current study it measures 2.0 cm compared to 2.3 cm in the previous study. No new enhancing masses are identified. Spleen: There is again splenomegaly with splenic hilar varices present. Pancreas: No mass or ductal dilatation. Gallbladder: The normally distended without filling defects, wall thickening or pericholecystic fluid. Adrenal glands: Normal without masses. Kidneys: Normal without hydronephrosis. There are no perinephric fluid collections. Sharply defined right renal cyst is again seen. IMPRESSION: 1. Slight interval decrease in the size of previously identified rim-enhancing mass within the liver now measuring 2.0 cm compared to 2.3 cm on the previous study. 2. No new enhancing masses are identified. 3. There is again shortness of the liver, splenomegaly and splenic hilar varices. 4. Increased abdominal ascites which is now moderate to marked in degree. ACT 112: Negative or not required by law. Electronically signed by: Sreekanth Lombardo M.D. 01/25/2022 8:48 AM (1) Abdominal ascites Ascites type: other type Qualified Code(s): R18.8 - Other ascites (2) Cirrhosis Ascites presence: unspecified Hepatic cirrhosis type: unspecified hepatic cirrhosis Qualified Code(s): K74.60 - Unspecified cirrhosis of liver
--- NOTE | 2022-01-25 14:30 | Pharmacy Report ---
Pharmacy Glycemic Short Note 2 - Date of Service January 25, 2022 - Glycemic Short BSG Results (Last 24 hours): 01/24/22 01/24/22 01/24/22 16:29 17:13 18:44 Glucose 406 H* POC Glucose 345 H* 271 H 01/24/22 01/25/22 01/25/22 20:09 00:29 06:04 Glucose 124 H 175 H POC Glucose 211 H 01/25/22 01/25/22 07:08 11:44 Glucose POC Glucose 173 H 250 H OUTPATIENT ANTIDIABETIC REGIMEN: * Novolin R U-500: 40-90 units according to BG value post-meal; usually takes 2x/day (lunch/supper) * HbA1c = 8.2% (01/24/22) ASSESSMENT: * 66 yo M admitted on 01/23/22 secondary to generalized weakness. Poor glycemic control since admission so pharmacy has been consult to assist with inpatient glycemic management. Patient is ordered a T2DM diet and tolerating well. Has a history of ESLD. * Patient received 53 units of insulin yesterday - mostly Novolog, two IV doses, no basal ordered. BSGs were uncontrolled: [id number] mg/dL. * Unsure how reliable A1c is in this patient given ESLD and cirrhosis. Appears to follow with Dr. Antony but hasn't seen him in over a year. * Appears that initial Novolog order had carb ratio and correction factor reversed (ordered as CF 10, CR 30; then tightened to 04/08). * Will tighten Novolog today. Too late for lunchtime dose so start with dinner. * Rather than use U-500 in this patient will trial BID NPH to be given with breakfast and dinner. Starting with 0.2 units/kg at dinner tonight. * Targeting BSG goals of 110-140 mg/dL and will add overnight checks for this evening given significant insulin changes. PLAN FOR INPATIENT GLYCEMIC CONTROL: * Basal insulin * NPH 20 units SQ x 1 with dinner tonight * Re-evaluate prior to breakfast dose tomorrow morning * Bolus insulin * NovoLog per scale ACHS or Q6hrs while NPO * Goal Range: Low 110 mg/dL - High 140 mg/dL * Correction Factor: 15 mg/dL/unit * Nutritional / Prandial insulin per carb ratio of 1 unit per 5 grams CHO consumed
[2022-01-25] MEDS: oxyCODONE HCL IR 5 MG TAB (IMMEDIATE RELEASE) PO PRN (15:21)
[2022-01-25] MEDS ORDERED: INSULIN HUMAN NPH SC ONE (16:30)
[2022-01-25] MEDS ORDERED: AMIODARONE 200 MG TAB PO SCH (17:00)
[2022-01-25] MEDS ORDERED: AMIODARONE 200 MG TAB PO ONE (19:09)
[2022-01-25] MEDS: MAGNESIUM OXIDE 400 MG TAB PO SCH (20:07)
[2022-01-25] MEDS: ursodioL 300 MG CAP PO SCH (20:07)
[2022-01-25] MEDS: carvediloL 3.125 MG TAB PO SCH (20:07)
[2022-01-26] MEDS: oxyCODONE HCL IR 5 MG TAB (IMMEDIATE RELEASE) PO PRN ×2 (00:28→21:57)
[2022-01-26] MEDS: INSULIN ASPART PER UNIT SC SCH ×6 (00:33→21:35)
[2022-01-26] MEDS: ENOXAPARIN 100 MG/1ML SYR SQ SCH ×2 (03:54→15:33)
[2022-01-26] MEDS: ONDANSETRON INJ 2 MG/ML 2 ML VIAL IV PRN (06:10)
[2022-01-26 06:11] LABS: Hematocrit (blood only) 31.2 % (42-52); Hemoglobin 10.9 g/dL (14.0-18.0); Mean Corpuscular Hemoglobin 33.7 pg (25-34); Mean Corpuscular Hgb Conc 34.9 g/dL (32-36); Mean Corpuscular Volume 96.6 fL (80-100); RDW Coefficient of Variation 15.8 % (11.5-14.5); RDW Standard Deviation 55.9 fL (36.4-46.3); Red Blood Count 3.23 M/uL (4.7-6.1); White Blood Count 3.88 K/uL (4.8-10.8)
[2022-01-26 06:15] LABS: Mean Platelet Volume 10.1 fL (7.4-10.4); Platelet Count 79 K/uL (130-400)
[2022-01-26 06:29] LABS: Basophils # (auto) 0.01 K/uL (0-0.2); Basophils % (auto) 0.3 %; Eosinophils # (auto) 0.06 K/uL (0-0.5); Eosinophils % (auto) 1.5 %; Immature Granulocytes # (auto) 0.01 K/uL (0.00-0.02); Immature Granulocytes % (auto) 0.3 %; Lymphocytes # (auto) 0.67 K/uL (1.2-3.4); Lymphocytes % (auto) 17.3 %; Monocytes # (auto) 0.41 K/uL (0.11-0.59); Monocytes % (auto) 10.6 %; Neutrophils # (auto) 2.72 K/uL (1.4-6.5)
[2022-01-26 06:38] LABS: BUN Creatinine Ratio 18.3 (10-20); Calcium 7.6 mg/dl (8.5-10.1); Est GFR (African American) 98.8 ml/min; Est GFR (Non-African American) 85.2 ml/min; Potassium 5.3 mmol/L (3.5-5.1)
[2022-01-26] MEDS: SODIUM CHLORIDE 0.9% 500 ML IV SCH ×4 (07:12→07:15)
[2022-01-26] MEDS ORDERED: INSULIN HUMAN NPH SC ONE (07:30)
[2022-01-26] MEDS: SPIRONOLACTONE 100 MG TAB PO SCH (08:04)
[2022-01-26] MEDS: AMIODARONE 200 MG TAB PO SCH ×2 (08:04→17:11)
[2022-01-26] MEDS: carvediloL 3.125 MG TAB PO SCH ×2 (08:04→21:43)
[2022-01-26] MEDS: MULTIVITAMIN TAB PO SCH (08:04)
[2022-01-26] MEDS: MIDODRINE HCL 2.5 MG TAB PO SCH ×3 (08:05→17:11)
[2022-01-26] MEDS: PANTOprazole 40 MG TAB PO SCH (08:05)
[2022-01-26] MEDS: FUROSEMIDE 40 MG/4 ML VIAL IV SCH (08:05)
--- NOTE | 2022-01-26 08:44 | Gastroenterology Progress Note ---
Date of Service January 26, 2022 Assessment & Plan (1) Abdominal ascites: Plan: Cirrhosis with abdominal ascites: Patient is status post paracentesis 01/23/2022 for 8-1/2 L of fluid. He did receive albumin replacement. Patient has chronically low albumin level. I had spoken previously with his GI physician at [facility] who cautioned frequent paracentesis due to rebound. Patient currently getting Aldactone 100 mg daily. Furosemide added by hospitalist team. Obtain liver US to look for PV thrombosis (aware of anti-coagulation - patient had self-discontinued anti-coagulants until about a week ago) Esophageal varices: Due to cirrhosis. Continue Coreg at half dose (3.125 mg p.o. twice daily) Abnormal MRI: Concerning new lesion is noted on imaging but smaller than when initially noted 10/2021. [facility] Further work-up regarding new noted mass will be directed by her office. Irregular heart rate: Managed by cardiology and hospitalist. GERD: Continue pantoprazole 40 mg daily History of gallstones: Continue Actigall 300 mg p.o. nightly Supportive care for above. Pt currently as outpatient has been following with [facility]. Case reviewed with Dr. Storey. Please refer to supervising physician addendum for further recommendations. I have spent 30 minutes of discrete time performing the activities of this visit which include but are not limited to review of the medical record, obtaining a history, physical exam, and entering information in the electronic record. (2) Cirrhosis: (3) Portal hypertension: Admission and Anticipated Discharge Date Admission Date: January 23, 2022 Supervising Physician Co-Signing Physician Notes I have seen and examined the patient. I agree with note above by SHANIQUA Ramos except as noted below. HPI Pt moved to isolation room secondary to COVID exposure. He denies abd pain. Dopple US of liver today neg for PV thromobosis. PE Abdomen pos bs, protuberant but soft A/P ascites---neg for SBP and PV thrombosis so may represent further liver decopensation--diuretics may help but watch for renal issues cirrhosis--outpt per [facility] liver lesion outpt per [facility] Continue supportive care. As the supervising physician, I , Hammad Storey MD have spent 12 minutes of discrete time performing the activities of this visit which include but not limited to review of the medical records, obtaining a history, physical exam and entering information in the electronic record. SHANIQUA Ramos has reported spending 30 minutes of discrete time with the activities of this visit. Subjective Patient is awake alert and oriented and walking with a walker in his room this morning. He states he had some dizziness and some mild nausea this morning. He has also had some mild shortness of breath. He continues to have some back pain and asked about x-rays this morning. Denies abdominal pain, vomiting, diarrhea. Has continued edema to bilateral lower extremities and abdominal ascites. Denies any fever or chills. Review of Systems Review of Systems: All systems reviewed & are unremarkable except as noted in Subjective Physical Exam Constitutional: + ill appearing (chronically) and + obese; no acute distress Cardiovascular: Extremities: + edema (bilateral lower extremity +3/4) Gastrointestinal (Abdomen): Inspection/Auscultation: normal bowel sounds and + abdominal edema Percussion/Palpation: abdomen soft and + ascites; abdomen nontender, no guarding and abdomen not rigid Psychiatric: Orientation: alert and oriented x 3 Results & Data ([facility]) Vital Signs (Past 12 Hours) Vital Signs Temp Pulse Pulse Resp BP BP Pulse Ox 01/26/22 08:19 36.6 C 73 14 101/53 L 98 01/26/22 04:09 36.5 C 85 18 115/67 97 01/26/22 00:30 36.6 C 87 18 111/62 99 01/25/22 23:03 75 Laboratory Results Laboratory Results - last 24 hr 01/25/22 01/25/22 01/25/22 11:44 16:27 20:17 WBC RBC Hgb Hct MCV MCH MCHC RDW Std Deviation RDW Coeff of Rekha Plt Count MPV Immature Gran % (Auto) Neut % (Auto) Lymph % (Auto) Becker % (Auto) Eos % (Auto) Baso % (Auto) Neut # (Auto) Lymph # (Auto) Becker # (Auto) Eos # (Auto) Baso # (Auto) Immature Gran # (Auto) Sodium Potassium Chloride Carbon Dioxide Anion Gap BUN Creatinine Est Cr Clr Drug Dosing Est GFR ( Amer) Est GFR (Non-Af Amer) BUN/Creatinine Ratio Glucose POC Glucose 250 H 274 H 224 H Calcium 06/01/26/22 01/26/22 00:26 03:58 05:37 WBC 3.88 L RBC 3.23 L Hgb 10.9 L Hct 31.2 L MCV 96.6 MCH 33.7 MCHC 34.9 RDW Std Deviation 55.9 H RDW Coeff of Rekha 15.8 H Plt Count 79 L MPV 10.1 Immature Gran % (Auto) 0.3 Neut % (Auto) 70.0 Lymph % (Auto) 17.3 Becker % (Auto) 10.6 Eos % (Auto) 1.5 Baso % (Auto) 0.3 Neut # (Auto) 2.72 Lymph # (Auto) 0.67 L Becker # (Auto) 0.41 Eos # (Auto) 0.06 Baso # (Auto) 0.01 Immature Gran # (Auto) 0.01 Sodium Potassium Chloride Carbon Dioxide Anion Gap BUN Creatinine Est Cr Clr Drug Dosing Est GFR ( Amer) Est GFR (Non-Af Amer) BUN/Creatinine Ratio Glucose POC Glucose 162 H 200 H Calcium 01/26/22 01/26/22 01/26/22 05:37 06:26 07:20 WBC RBC Hgb Hct MCV MCH MCHC RDW Std Deviation RDW Coeff of Rekha Plt Count MPV Immature Gran % (Auto) Neut % (Auto) Lymph % (Auto) Becker % (Auto) Eos % (Auto) Baso % (Auto) Neut # (Auto) Lymph # (Auto) Becker # (Auto) Eos # (Auto) Baso # (Auto) Immature Gran # (Auto) Sodium 127 L Potassium 5.3 H Chloride 98 Carbon Dioxide 25 Anion Gap 4 BUN 17 Creatinine 0.93 Est Cr Clr Drug Dosing 83.0 Est GFR ( Amer) 98.8 Est GFR (Non-Af Amer) 85.2 BUN/Creatinine Ratio 18.3 Glucose 212 H POC Glucose 195 H 189 H Calcium 7.6 L Diagnostic Findings Abdomen MRI 01/24/22 12:09 MR abdomen wo/w con CLINICAL HISTORY: Reported history of liver cancer. Follow-up progression. COMPARISON STUDY: 11/06/2021 TECHNIQUE: Multiplanar multisequence images of the abdomen were performed without and with 10 mL of Eovist contrast. FINDINGS: Abdominal cavity: There has been significant interval increase in the amount of ascites present. There is now moderate to marked ascites. Liver: Compared to previous examination, there is again evidence for cirrhosis of the liver with a nodular contour present. There has been slight interval decrease in size of previously identified ring-enhancing mass within segment 5 of the liver. It again has a nonenhancing central scar. On the current study it measures 2.0 cm compared to 2.3 cm in the previous study. No new enhancing masses are identified. Spleen: There is again splenomegaly with splenic hilar varices present. Pancreas: No mass or ductal dilatation. Gallbladder: The normally distended without filling defects, wall thickening or pericholecystic fluid. Adrenal glands: Normal without masses. Kidneys: Normal without hydronephrosis. There are no perinephric fluid collections. Sharply defined right renal cyst is again seen. IMPRESSION: 1. Slight interval decrease in the size of previously identified rim-enhancing mass within the liver now measuring 2.0 cm compared to 2.3 cm on the previous study. 2. No new enhancing masses are identified. 3. There is again shortness of the liver, splenomegaly and splenic hilar varices. 4. Increased abdominal ascites which is now moderate to marked in degree. ACT 112: Negative or not required by law. Electronically signed by: Sreekanth Lombardo M.D. 01/25/2022 8:48 AM (1) Abdominal ascites Ascites type: other type Qualified Code(s): R18.8 - Other ascites (2) Cirrhosis Ascites presence: unspecified Hepatic cirrhosis type: unspecified hepatic cirrhosis Qualified Code(s): K74.60 - Unspecified cirrhosis of liver
--- NOTE | 2022-01-26 11:02 | Ultrasound Report ---
US duplex portal hepatic veins CLINICAL HISTORY: cirrhosis worsening ascites TECHNIQUE: Grayscale, color and spectral waveform Doppler examination of the abdomen was performed. Comparison: None available at the time of this dictation. FINDINGS: The hepatic veins, portal veins, IVC and splenic vein are patent with no thrombus identified. Moderat e ascites is seen with nodular contour of the liver. IMPRESSION: No portal vein thrombosis. Moderate ascites with cirrhotic contour of the liver. ACT 112: Negative or not required by law. Electronically signed by: Cirilo Torrez M.D. 01/26/2022 11:00 AM
--- NOTE | 2022-01-26 11:21 | XRay Report ---
XR thoracic spine 3V routine CLINICAL HISTORY: back pain TECHNIQUE: 3 views of the thoracic spine were obtained. Comparison: Comparison is made to thoracic spine radiographs 04/22/2017 FINDINGS: No fractures or subluxations are identified. Degenerative changes are seen in the thoracic spine. Red emonstration of approximately 13 degrees of dextrocurvature of the upper thoracic spine. Prevertebral soft tissues are within normal limits. IMPRESSION: Degenerative changes as above without acute fracture or subluxation. Redemonstration of mild thoracic curvature. ACT 112: Negative or not required by law. Electronically signed by: Cirilo Torrez M.D. 01/26/2022 11:19 AM
--- NOTE | 2022-01-26 11:25 | Pharmacy Report ---
Pharmacy Glycemic Short Note 2 - Date of Service January 26, 2022 - Glycemic Short BSG Results (Last 24 hours): 01/25/22 01/25/22 01/25/22 11:44 16:27 20:17 Glucose POC Glucose 250 H 274 H 224 H 01/26/22 01/26/22 01/26/22 00:26 03:58 05:37 Glucose 212 H POC Glucose 162 H 200 H 01/26/22 01/26/22 06:26 07:20 Glucose POC Glucose 195 H 189 H OUTPATIENT ANTIDIABETIC REGIMEN: * Novolin R U-500: 40-90 units according to BG value post-meal; usually takes 2x/day (lunch/supper) * HbA1c = 8.2% (01/24/22) ASSESSMENT: 01/26: * John's BSGs remained elevated yesterday despite tighter insulin control: [phone] mg/dL. Received 65 units of insulin yesterday (20 units NPH + 45 units of Novolog). * Fasting BSG was 195 mg/dL this AM which is worsening. Will significantly i ncrease NPH doses today. * No change to Novolog at this time. 01/25: * 66 yo M admitted on 01/23/22 secondary to generalized weakness. Poor glycemic control since admission so pharmacy has been consult to assist with inpatient glycemic management. Patient is ordered a T2DM diet and tolerating well. Has a history of ESLD. * Patient received 53 units of insulin yesterday - mostly Novolog, two IV doses, no basal ordered. BSGs were uncontrolled: [phone] mg/dL. * Unsure how reliable A1c is in this patient given ESLD and cirrhosis. Appears to follow with Dr. Antony but hasn't seen him in over a year. * Appears that initial Novolog order had carb ratio and correction factor reversed (ordered as CF 10, CR 30; then tightened to 04/08). * Will tighten Novolog today. Too late for lunchtime dose so start with dinner. * Rather than use U-500 in this patient will trial BID NPH to be given with breakfast and dinner. Starting with 0.2 units/kg at dinner tonight. * Targeting BSG goals of 110-140 mg/dL and will add overnight checks for this evening given significant insulin changes. PLAN FOR INPATIENT GLYCEMIC CONTROL: * Basal insulin * NPH 40 units SQ BIDM * Bolus insulin * NovoLog per scale ACHS or Q6hrs while NPO * Goal Range: Low 110 mg/dL - High 140 mg/dL * Correction Factor: 15 mg/dL/unit * Nutritional / Prandial insulin per carb ratio of 1 unit per 5 grams CHO consumed
--- NOTE | 2022-01-26 11:35 | Hospitalist Progress Note ---
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 Hyponatremic to 124 on admission with large volume paracentesis performed for 8.5 L in the OR. Patient was given albumin repletion following procedure. A. fib with RVR - On admission patient with irregular heart rate fluctuating between 80s and mid 100s which was associate with some difficulty breathing although also with large amount of ascites On admit patient found to have irregular rate with HR 80s-180s, he is having some difficultly breathing, likely due to large amount of ascites, otherwise asymptomatic. - Consult cardiology.Between atrial ectopy and flutter and sinus. Unlikely that rate control will be successful, and also limited by his hypotension. Recommended for a rhythm control steroid e.g. with amiodarone. He is on Lovenox for PE, and risk overall for embolus low with sinus rhythm at time of cardiology assessmentt. -TTE: During A. fib with RVR. No significant valvular disease, hyperdynamic LV with EF 65-70%. In sinus rhythm this afternoon. 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 Bae and also w/ Zheng Orozco [facility] ([phone]) EGD 01/2021: Grade III varices in lower third of esophagus. Erythematous mucousa without bleeding in gastric body. Meld 26 Esophageal varices on prior evaluation, was not on [employer] beta-noel ? Limitation due to hypotension, was started on carvedilol 6.25 mg p.o. twice daily on admission but with soft pressures bordering 90 systolic. Patient with heart rate control with amnio as noted, carvedilol held with hypotension and goal to resume at 3.125 mg twice if possible - GI consulted, appreciate recommendations. -MRI w/ and w/out contrast: 1. Slight interval decrease in the size of previously identified rim-enhancing mass within the liver now measuring 2.0 cm compared to 2.3 cm on the previous study. No new enhancing masses are identified. There is again shortness of the liver, splenomegaly and splenic hilar varices. Increased abdominal ascites which is now moderate to marked in degree. - Continue protonix 40mg QD Patient did have large volume ascites 8.5 L drawn off in ER, initially tolerated well but progressively hypotensive through afternoon with slightly elevated potassium and normal creatinine. Potassium low and mildly elevated glucose consistent with volume contraction. Patient with worsened hypotension in afternoon despite improved rate control, likely 2/2 intravascular depletion with large volume removal.. Albumin and NSS given, limited by difficulty with IV sites. IV team contacted, unable to obtain peripheral IV. Subsequently unable to obtain ultrasound-guided IV, and no lines amenable to PICC. Was able to recieve fluid via R antecubital, R PIV Subsequently able to be obtained by ICU overnight PA. Now tolerating amnio, carvedilol for varices, Lasix, and spironolactone. Liver ultrasound ordered to check for portal vein thrombosis, negative. Dynamics greatly improved and tolerating goal regimen. PT/OT pending,deferred yesterday for weakness. Anticipate placement needs - Will need outpt followup for liver lesions to [facility] (3) Exposure to COVID-19 virus: Plan: Pt is COVID positive. Pt negative on admission Isolation precautions, retest on 01/28, may precautions if negative at that time (4) Weakness: Plan: Weakness, multifactorial in the setting of hyponatremia, SWIFT with ascites with end-stage liver disease, cholangiocarcinoma BSG normal 01/24 Hyponatremic on admission, as noted PT/OT pending (5) Hyponatremia: Plan: - as noted (6) Ascites: Plan: - Seen at PCP office 01/22 decision was made to increase spironolactone dose to 100 mg daily and monitor response. - Paracentesis performed in ER to 8.5, hypotensive after. - Lasix/helen as noted (7) Cholangiocarcinoma: Plan: - Per pt, was diagnosed at [facility] [place] at time of his hospitalization for saddle PE. - He was supposed to follow-up with [facility] for further workup, per report has had difficulty obtaining followup - Has seen [facility] in the past, most recently has been [facility] for this, MRI completed as noted. Lesions are reduced in size, outpt followup at this time (8) Type 2 diabetes mellitus, with long-term current use of insulin: Plan: - With hypoglycemia/BGm 60s at home this AM, BGMs 158 in ED. - Accucheks ACHS with SSI. -Hemoglobin A1c 8.2% - Diabetic diet with fluid restriction 1.5L -Pharmacy consulted, on NPH and SSI (9) Hypertension: Plan: - Coreg/[place] as noted. W/ hypotension during admission (10) Saddle pulmonary embolus: Plan: - Dx 11/10/21 while at [facility] Saddle PE with heavy clot burden extending into the lobar and segmental pulmonary arteries was appreciated, IR was consulted but did not recommend intervention as was hemodynamically stable. EF was hyperdynamic without reduced systolic function. Patient was transitioned from heparin drip to Lovenox every 12 hours. Patient was discharged on Lovenox every 12 hours instead of a DOAC due to very high risk of bleed with varices and in the event that a biopsy for cholangiocarcinoma needed to be performed. - Xarelto is contraindicated in his liver disease. Apixaban is not recommended to be hepatic adjustment, given his overall bleeding risk would not recommend DOAC. With saddle PE after 3 months can consider repeat CTA to assess for clot burden and if cleared potentially move to a prophylactic dose of Lovenox at that time. (11) Hypotension: Plan: - Admit to PCU. - SCDs, Lovenox for VTE ppx. - Full Code. Admission and Anticipated Discharge Date Admission Date: January 23, 2022 Subjective Sitting in chair, blood pressure improved today. Had some nausea with breakfast improved with Zofran, some dizziness when walking. Endorses some pain in his left upper back while sitting, denies any falls/injuries to his back. Feels tight slightly off to midline. No fever/chills/sweats. Did discuss with GI, further below. Review of Systems Review of Systems: All systems reviewed & are unremarkable except as noted in Subjective Physical Exam Physical Exam: General: A&Ox3. He is fatigued, chronically ill HEENT: Atraumatic, normocephalic. And hearing grossly intact. Pulm: Trace crackles in the bases, otherwise clear today. Symmetrical chest rise. No increase in work of breathing. No respiratory distress. Cardiac: Regular rate and rhythm in 80s Radial pulses intact and symmetrical. Abdominal: Distended, ascites present, no rebound tenderness/guarding. Extremities: Pitting edema through the lower extremities bilaterall. Sensation to soft touch intact in hands and feet bilaterally. Results & Data Results & Data ([facility]) Vital Signs (Past 12 Hours) Vital Signs Temp Pulse Pulse Resp BP BP Pulse Ox 01/26/22 08:19 36.6 C 73 14 101/53 L 98 01/26/22 08:00 79 01/26/22 04:09 36.5 C 85 18 115/67 97 01/26/22 00:30 36.6 C 87 18 111/62 99 PG Care Time/CCT Total # of Minutes Spent Total Time Spent with Patient: Total time spent is greater than 50% in coordination of care (as documented) at patient's floor/unit and/or counseling patient: Coding Level of Care Code 38539 Subseq Hosp Care Lvl 2 History Problem Focused Exam Expanded Problem Focused Medical Decision Making High Complexity Diagnoses Atrial fibrillation with RVR I48.91 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 K75.81; K74.60 Weakness R53.1 Hyponatremia E87.1 Ascites R18.8 Cholangiocarcinoma C22.1 Type 2 diabetes mellitus, with long-term current use of insulin E11.69; Z79.4 Diabetes mellitus complication status: with other specified complication Hypertension I10 Saddle pulmonary embolus I26.92 Hypotension I95.9 Exposure to COVID-19 virus Z20.822 (1) Type 2 diabetes mellitus, with long-term current use of insulin Diabetes mellitus complication status: with other specified complication Qualified Code(s): E11.69 - Type 2 diabetes mellitus with other specified complication; Z79.4 - group home (current) use of insulin
[2022-01-26] MEDS: INSULIN HUMAN NPH SC SCH (17:06)
[2022-01-26] MEDS: ursodioL 300 MG CAP PO SCH (21:45)
[2022-01-26] MEDS: MAGNESIUM OXIDE 400 MG TAB PO SCH (21:46)
[2022-01-27] MEDS: ENOXAPARIN 100 MG/1ML SYR SQ SCH ×2 (04:04→17:04)
[2022-01-27 06:24] LABS: Hematocrit (blood only) 31.2 % (42-52); Mean Corpuscular Hemoglobin 33.6 pg (25-34); Mean Corpuscular Hgb Conc 35.3 g/dL (32-36); Mean Corpuscular Volume 95.4 fL (80-100); RDW Coefficient of Variation 15.9 % (11.5-14.5); RDW Standard Deviation 55.3 fL (36.4-46.3); Red Blood Count 3.27 M/uL (4.7-6.1); White Blood Count 3.78 K/uL (4.8-10.8)
[2022-01-27 06:29] LABS: Mean Platelet Volume 10.4 fL (7.4-10.4); Platelet Count 79 K/uL (130-400)
[2022-01-27 06:46] LABS: Eosinophils # (auto) 0.05 K/uL (0-0.5); Eosinophils % (auto) 1.3 %; Immature Granulocytes # (auto) 0.01 K/uL (0.00-0.02); Immature Granulocytes % (auto) 0.3 %; Lymphocytes % (auto) 21.2 %; Monocytes # (auto) 0.45 K/uL (0.11-0.59); Monocytes % (auto) 11.9 %; Neutrophils # (auto) 2.47 K/uL (1.4-6.5); Neutrophils % (auto) 65.3 %
[2022-01-27 06:51] LABS: Albumin Globulin Ratio 0.8 (0.9-2); Albumin Level 2.5 gm/dl (3.4-5.0); Bilirubin,Total 4.3 mg/dl (0.2-1.0); Calcium 7.7 mg/dl (8.5-10.1); Creatinine Clr Calc Pharmacy 91.7 ml/min; Est GFR (African American) 105.7 ml/min; Est GFR (Non-African American) 91.2 ml/min; Globulin 3.1 gm/dl (2.5-4.0); Total Protein 5.6 gm/dl (6.0-8.3)
--- NOTE | 2022-01-27 08:04 | Gastroenterology Progress Note ---
Date of Service January 27, 2022 Assessment & Plan (1) Abdominal ascites: Plan: Cirrhosis with abdominal ascites: Patient is status post paracentesis 01/23/2022 for 8-1/2 L of fluid. He did receive albumin replacement. Negative for SBP. Negative liver US for PV thrombosis. Continue diuretics but caution for renal issues. Outpatient per [facility] Esophageal varices: Due to cirrhosis. Continue Coreg Abnormal MRI: Concerning new lesion is noted on imaging but smaller than when initially noted 10/2021. Patient has established with Dr. Orozco at [facility]. Further work-up regarding new noted mass will be directed by her office. Irregular heart rate: Managed by cardiology and hospitalist. GERD: Continue pantoprazole 40 mg daily History of gallstones: Continue Actigall 300 mg p.o. nightly Supportive care for above. Pt currently as outpatient has been following with [facility]. Case reviewed with Dr. Storey. Please refer to supervising physician addendum for further recommendations. I have spent 15 minutes of discrete time performing the activities of this visit which include but are not limited to review of the medical record, obtaining a history, physical exam, and entering information in the electronic record. (2) Cirrhosis: (3) Portal hypertension: Admission and Anticipated Discharge Date Admission Date: January 23, 2022 Supervising Physician Co-Signing Physician Notes I have seen and examined the patient. I agree with note above by SHANIQUA Ramos except as noted below. HPI Pt denies abd pain. PE Abdomen protuberant but soft, no gaurding nor rebound A/P ascites--continue diuretics cirrhosis---outpt f/u [place] liver lesion outpt f/u [facility]. As the supervising physician, I , Hammad Storey MD have spent 15 minutes of discrete time performing the activities of this visit which include but not limited to review of the medical records, obtaining a history, physical exam and entering information in the electronic record. SHANIQUA Ramos has reported spending 15 minutes of discrete time with the activities of this visit. Subjective Patient is awake alert and oriented this morning. He is sitting on the side of his bed waiting for his breakfast tray. Reports no complaints this morning. Continues to be negative for COVID but now on COVID precautions. Denies any abdominal pain, nausea, vomiting. Review of Systems Review of Systems: All systems reviewed & are unremarkable except as noted in Subjective Physical Exam Cardiovascular: Extremities: + edema (bilateral lower extremity +3/4) Gastrointestinal (Abdomen): Inspection/Auscultation: normal bowel sounds and + abdominal edema Percussion/Palpation: abdomen soft and + ascites; abdomen nontender, no guarding and abdomen not rigid Results & Data ([facility]) Vital Signs (Past 12 Hours) Vital Signs Temp Pulse Pulse Resp BP Pulse Ox 01/27/22 03:00 36.6 C 73 18 102/63 98 01/26/22 23:00 36.9 C 87 18 107/62 94 01/26/22 22:20 70 Laboratory Results Laboratory Results - last 24 hr 01/26/22 01/26/22 01/26/22 11:29 13:00 16:16 WBC RBC Hgb Hct MCV MCH MCHC RDW Std Deviation RDW Coeff of Rekha Plt Count MPV Immature Gran % (Auto) Neut % (Auto) Lymph % (Auto) Maverick % (Auto) Eos % (Auto) Baso % (Auto) Neut # (Auto) Lymph # (Auto) Maverick # (Auto) Eos # (Auto) Baso # (Auto) Immature Gran # (Auto) Sodium Potassium Chloride Carbon Dioxide Anion Gap BUN Creatinine Est Cr Clr Drug Dosing Est GFR ( Amer) Est GFR (Non-Af Amer) BUN/Creatinine Ratio Glucose POC Glucose 191 H 179 H Calcium Total Bilirubin AST ALT Alkaline Phosphatase Total Protein Albumin Globulin Albumin/Globulin Ratio SARS-CoV-2, RNA, NAAT NEGATIVE 01/26/22 01/27/22 01/27/22 20:46 05:54 05:54 WBC 3.78 L RBC 3.27 L Hgb 11.0 L Hct 31.2 L MCV 95.4 MCH 33.6 MCHC 35.3 RDW Std Deviation 55.3 H RDW Coeff of Rekha 15.9 H Plt Count 79 L MPV 10.4 Immature Gran % (Auto) 0.3 Neut % (Auto) 65.3 Lymph % (Auto) 21.2 Maverick % (Auto) 11.9 Eos % (Auto) 1.3 Baso % (Auto) 0.0 Neut # (Auto) 2.47 Lymph # (Auto) 0.80 L Maverick # (Auto) 0.45 Eos # (Auto) 0.05 Baso # (Auto) 0.00 Immature Gran # (Auto) 0.01 Sodium 127 L Potassium 5.0 Chloride 98 Carbon Dioxide 25 Anion Gap 4 BUN 16 Creatinine 0.84 Est Cr Clr Drug Dosing 91.7 Est GFR ( Amer) 105.7 Est GFR (Non-Af Amer) 91.2 BUN/Creatinine Ratio 19.0 Glucose 163 H POC Glucose 164 H Calcium 7.7 L Total Bilirubin 4.3 H AST 78 H ALT 38 Alkaline Phosphatase 127 H Total Protein 5.6 L Albumin 2.5 L Globulin 3.1 Albumin/Globulin Ratio 0.8 L SARS-CoV-2, RNA, NAAT 01/27/22 07:26 WBC RBC Hgb Hct MCV MCH MCHC RDW Std Deviation RDW Coeff of Rekha Plt Count MPV Immature Gran % (Auto) Neut % (Auto) Lymph % (Auto) Maverick % (Auto) Eos % (Auto) Baso % (Auto) Neut # (Auto) Lymph # (Auto) Maverick # (Auto) Eos # (Auto) Baso # (Auto) Immature Gran # (Auto) Sodium Potassium Chloride Carbon Dioxide Anion Gap BUN Creatinine Est Cr Clr Drug Dosing Est GFR ( Amer) Est GFR (Non-Af Amer) BUN/Creatinine Ratio Glucose POC Glucose 157 H Calcium Total Bilirubin AST ALT Alkaline Phosphatase Total Protein Albumin Globulin Albumin/Globulin Ratio SARS-CoV-2, RNA, NAAT Diagnostic Findings Portal Vein US 01/26/22 08:36 US duplex portal hepatic veins CLINICAL HISTORY: cirrhosis worsening ascites TECHNIQUE: Grayscale, color and spectral waveform Doppler examination of the abdomen was performed. Comparison: None available at the time of this dictation. FINDINGS: The hepatic veins, portal veins, IVC and splenic vein are patent with no thrombus identified. Moderate ascites is seen with nodular contour of the liver. IMPRESSION: No portal vein thrombosis. Moderate ascites with cirrhotic contour of the liver. ACT 112: Negative or not required by law. Electronically signed by: Cirilo Torrez M.D. 01/26/2022 11:00 AM Thoracic Spine X-Ray 01/26/22 09:53 XR thoracic spine 3V routine CLINICAL HISTORY: back pain TECHNIQUE: 3 views of the thoracic spine were obtained. Comparison: Comparison is made to thoracic spine radiographs 04/22/2017 FINDINGS: No fractures or subluxations are identified. Degenerative changes are seen in the thoracic spine. Redemonstration of approximately 13 degrees of dextrocurvature of the upper thoracic spine. Prevertebral soft tissues are within normal limits. IMPRESSION: Degenerative changes as above without acute fracture or subluxation. Redemonstration of mild thoracic curvature. ACT 112: Negative or not required by law. Electronically signed by: Cirilo Torrez M.D. 01/26/2022 11:19 AM (1) Abdominal ascites Ascites type: other type Qualified Code(s): R18.8 - Other ascites (2) Cirrhosis Ascites presence: unspecified Hepatic cirrhosis type: unspecified hepatic cirrhosis Qualified Code(s): K74.60 - Unspecified cirrhosis of liver
--- NOTE | 2022-01-27 08:11 | Hospitalist Progress Note ---
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 Presents with worsened weakness and fatigue. Hyponatremic to 124 on admission with large volume paracentesis performed for 8.5 L Patient was given albumin repletion following procedure. A. fib with RVR - On admission patient with irregular heart rate fluctuating between 80s and mid 100s which was associate with some difficulty breathing although also with large amount of ascites - Consult cardiology.Between atrial ectopy and flutter and sinus. Unlikely that rate control will be successful, and also limited by his hypotension. Recommended for a rhythm control with amiodarone. He is on Lovenox for PE, and sinus rhythm at time of cardiology assessment. -TTE: During A. fib with RVR. No significant valvular disease, hyperdynamic LV with EF 65-70%. 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 Bae [phone] EGD 01/2021: Grade III varices in lower third of esophagus. Erythematous mucousa without bleeding in gastric body. Meld 26 -MRI w/ and w/out contrast: 1. Slight interval decrease in the size of previously identified rim-enhancing mass within the liver now measuring 2.0 cm compared to 2.3 cm on the previous study. No new enhancing masses are identified. There is again shortness of the liver, splenomegaly and splenic hilar varices. Increased abdominal ascites which is now moderate to marked in degree. - Continue protonix 40mg QD Patient did have large volume ascites 8.5 L drawn off in ER, needed intravascular volume expansion and challenged by poor IV access. Now tolerating amnio, carvedilol for varices, Lasix, and spironolactone. Liver ultrasound negative for portal vein thrombosis, PT/OT Anticipate placement needs - Will need outpt followup for liver lesions to [facility]. pt seems to feel [facility] did diagnose these as malignant (3) Exposure to COVID-19 virus: Plan: Pt is COVID positive. Pt negative on admission Isolation precautions, retest on 01/28, if negative at that time no longer PUI (4) Weakness: Plan: Weakness, multifactorial in the setting of hyponatremia, SWIFT with ascites with end-stage liver disease, cholangiocarcinoma BSG normal 01/24 Hyponatremic on admission, as noted PT/OT pending (5) Hyponatremia: Plan: - persists (6) Ascites: Plan: - Seen at PCP office 01/22 decision was made to increase spironolactone dose to 100 mg daily and monitor response. - Paracentesis performed in ER to 8.5, hypotensive after. - Lasix/oscar continue (7) Cholangiocarcinoma: Plan: - Per pt, was diagnosed at [facility] October at time of his hospitalization for saddle PE. - He was supposed to follow-up with [facility] for further workup, per report has had difficulty obtaining followup - Has seen [facility] in the past, most recently has been seeing [facility] team for this, MRI completed as noted. Lesions are reduced in size, outpt followup at this time (8) Type 2 diabetes mellitus, with long-term current use of insulin: Plan: - With hypoglycemia/BGm 60s at home this AM, BGMs 158 in ED. - Accucheks ACHS with SSI. -Hemoglobin A1c 8.2% - Diabetic diet with fluid restriction 1.5L -Pharmacy consulted, on NPH and SSI (9) Hypertension: Plan: - Coreg/Oscar as noted. W/ hypotension during admission (10) Saddle pulmonary embolus: Plan: - Dx 11/10/21 while at [facility] Saddle PE with heavy clot burden extending into the lobar and segmental pulmonary arteries was appreciated, IR was consulted but did not recommend intervention as was hemodynamically stable. EF was hyperdynamic without reduced systolic function. Patient was transitioned from heparin drip to Lovenox every 12 hours. Patient was discharged on Lovenox every 12 hours instead of a DOAC due to very high risk of bleed with varices and in the event that a biopsy for cholangiocarcinoma needed to be performed. - Xarelto is contraindicated in his liver disease. Apixaban is not recommended to be hepatic adjustment, With saddle PE after 3 months can consider repeat CTA to assess for clot burden and if cleared potentially move to a prophylactic dose of Lovenox at that time. (11) Hypotension: Plan: - Admit to PCU. - SCDs, Lovenox for VTE ppx. - Full Code. Admission and Anticipated Discharge Date Admission Date: January 23, 2022 Subjective Pt is in good sprits today, still with massive LE edema and distended abdomen and ascities no focal complaints except for subjective discomfort from above and fatigue Review of Systems Review of Systems: Moderate distress and fatigue no headache, no visual changes no speech or swallowing issues no chest pain, pressure or palpitations paroxysmal shortness of breath, usually when laying down no abdominal pain, nausea or vomiting, distension and constipation no dysuria, hematuria or frequency no focal joint pain but significant swelling no back pain, CVA tenderness or radicular pain no bruising, bleeding or rashes no focal signs of weakness or numbness or altered sensation Physical Exam Physical Exam: The patient appeared chronically ill but stable Vital signs as documented. Head exam is normocephalic atraumatic Neck is with JVD, thyromegaly, or carotid bruits. Lungs are clear to auscultation, but diminished at bases Cardiac exam, Rhythm is regular.. No murmurs, rubs or gallops. Abdominal exam reveals normal bowel sounds, distended and tense, some tenderness Extremities are 2-3+edematous Neurologic exam is alert and oriented, no focal loss of strength or sensation Results & Data Results & Data ([facility]) Vital Signs (Past 12 Hours) Vital Signs Temp Pulse Pulse Resp BP Pulse Ox 01/27/22 03:00 97.9 F 73 18 102/63 98 01/26/22 23:00 98.4 F 87 18 107/62 94 01/26/22 22:20 70 PG Care Time/CCT Total # of Minutes Spent Total Time Spent with Patient: Total time spent is greater than 50% in coordination of care (as documented) at patient's floor/unit and/or counseling patient: Coding Level of Care Code 60693 Subseq Hosp Care Lvl 3 Diagnoses Atrial fibrillation with RVR I48.91 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 K75.81; K74.60 Exposure to COVID-19 virus Z20.822 Weakness R53.1 Hyponatremia E87.1 Ascites R18.8 Cholangiocarcinoma C22.1 Type 2 diabetes mellitus, with long-term current use of insulin E11.69; Z79.4 Diabetes mellitus complication status: with other specified complication Hypertension I10 Saddle pulmonary embolus I26.92 Hypotension I95.9 (1) Type 2 diabetes mellitus, with long-term current use of insulin Diabetes mellitus complication status: with other specified complication Qualified Code(s): E11.69 - Type 2 diabetes mellitus with other specified complication; 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
[2022-01-27] MEDS: SPIRONOLACTONE 100 MG TAB PO SCH (08:23)
[2022-01-27] MEDS: MULTIVITAMIN TAB PO SCH (08:23)
[2022-01-27] MEDS: carvediloL 3.125 MG TAB PO SCH ×2 (08:23→21:11)
[2022-01-27] MEDS: FUROSEMIDE 40 MG/4 ML VIAL IV SCH (08:23)
[2022-01-27] MEDS: AMIODARONE 200 MG TAB PO SCH ×2 (08:24→17:04)
[2022-01-27] MEDS: MIDODRINE HCL 2.5 MG TAB PO SCH ×3 (08:24→17:04)
[2022-01-27] MEDS: PANTOprazole 40 MG TAB PO SCH (08:24)
[2022-01-27] MEDS: INSULIN ASPART PER UNIT SC SCH ×4 (08:29→20:31)
[2022-01-27] MEDS: INSULIN HUMAN NPH SC SCH ×2 (08:29→16:50)
[2022-01-27] MEDS ORDERED: LACTULOSE SYRUP 30 GM/45 ML UDP PO STA (17:19)
[2022-01-27] MEDS: ursodioL 300 MG CAP PO SCH (21:10)
[2022-01-27] MEDS: MAGNESIUM OXIDE 400 MG TAB PO SCH (21:11)
[2022-01-28] MEDS: ENOXAPARIN 100 MG/1ML SYR SQ SCH ×2 (03:18→16:18)
[2022-01-28] MEDS: oxyCODONE HCL IR 5 MG TAB (IMMEDIATE RELEASE) PO PRN (03:18)
[2022-01-28] MEDS ORDERED: DOCUSATE SODIUM 100 MG CAP PO ONE (03:36)
[2022-01-28] MEDS: MIDODRINE HCL 2.5 MG TAB PO SCH ×2 (08:11→11:46)
[2022-01-28] MEDS: carvediloL 3.125 MG TAB PO SCH ×2 (08:12→21:57)
[2022-01-28] MEDS: SPIRONOLACTONE 100 MG TAB PO SCH (08:12)
[2022-01-28] MEDS: AMIODARONE 200 MG TAB PO SCH ×2 (08:12→16:18)
[2022-01-28] MEDS: FUROSEMIDE 40 MG TAB PO SCH (08:13)
[2022-01-28] MEDS: MULTIVITAMIN TAB PO SCH (08:13)
[2022-01-28] MEDS: PANTOprazole 40 MG TAB PO SCH (08:13)
[2022-01-28] MEDS: INSULIN ASPART PER UNIT SC SCH ×4 (08:49→21:11)
[2022-01-28] MEDS: INSULIN HUMAN NPH SC SCH ×2 (08:49→17:22)
[2022-01-28 09:27] LABS: INR 1.2 (0.9-1.1); Prothrombin Time 12.9 Seconds (9.0-12.0)
[2022-01-28 09:55] LABS: Albumin Globulin Ratio 0.8 (0.9-2); Albumin Level 2.7 gm/dl (3.4-5.0); Bilirubin,Total 4.9 mg/dl (0.2-1.0); Calcium 8.2 mg/dl (8.5-10.1); Creatinine Clr Calc Pharmacy 86.3 ml/min; Est GFR (African American) 103.3 ml/min; Est GFR (Non-African American) 89.1 ml/min; Globulin 3.6 gm/dl (2.5-4.0); Potassium 4.7 mmol/L (3.5-5.1); Total Protein 6.3 gm/dl (6.0-8.3)
--- NOTE | 2022-01-28 11:22 | Pharmacy Report ---
Pharmacy Glycemic Short Note 2 - Date of Service January 28, 2022 - Glycemic Short BSG Results (Last 24 hours): 01/27/22 01/27/22 01/27/22 12:02 16:42 20:17 Glucose POC Glucose 163 H 146 H 116 H 01/28/22 01/28/22 01/28/22 07:49 08:41 11:10 Glucose 202 H POC Glucose 160 H 141 H OUTPATIENT ANTIDIABETIC REGIMEN: * Novolin R U-500: 40-90 units according to BG value post-meal; usually takes 2x/day (lunch/supper) * HbA1c = 8.2% (01/24/22) ASSESSMENT: 01/28: * Patient's BSG remain well controlled. Yesterday's BSGs were [phone] mg/dL and fasting this morning was 160 mg/dL. * Will continue with current NPH and novolog dosing. Patient is tolerating a diet. 01/26: * John's BSGs remained elevated yesterday despite tighter insulin control: [phone] mg/dL. Received 65 units of insulin yesterday (20 units NPH + 45 units of Novolog). * Fasting BSG was 195 mg/dL this AM which is worsening. Will significantly increase NPH doses today. * No change to Novolog at this time. 01/25: * 66 yo M admitted on 01/23/22 secondary to generalized weakness. Poor glycemic control since admission so pharmacy has been consult to assist with inpatient glycemic management. Patient is ordered a T2DM diet and tolerating well. Has a history of ESLD. * Patient received 53 units of insulin yesterday - mostly Novolog, two IV doses, no basal ordered. BSGs were uncontrolled: [phone] mg/dL. * Unsure how reliable A1c is in this patient given ESLD and cirrhosis. Appears to follow with Dr. Antony but hasn't seen him in over a year. * Appears that initial Novolog order had carb ratio and correction factor reversed (ordered as CF 10, CR 30; then tightened to 04/08). * Will tighten Novolog today. Too late for lunchtime dose so start with dinner. * Rather than use U-500 in this patient will trial BID NPH to be given with breakfast and dinner. Starting with 0.2 units/kg at dinner tonight. * Targeting BSG goals of 110-140 mg/dL and will add overnight checks for this evening given significant insulin changes. PLAN FOR INPATIENT GLYCEMIC CONTROL: * Basal insulin * NPH 40 units SQ BIDM * Bolus insulin * NovoLog per scale ACHS or Q6hrs while NPO * Goal Range: Low 110 mg/dL - High 140 mg/dL * Correction Factor: 15 mg/dL/unit * Nutritional / Prandial insulin per carb ratio of 1 unit per 4 grams CHO consumed
[2022-01-28] MEDS ORDERED: bisacodyL 10 MG SUPP PR STA (11:59)
[2022-01-28] MEDS ORDERED: FUROSEMIDE 40 MG/4 ML VIAL IV ONE (11:59)
[2022-01-28] MEDS ORDERED: SOD PHOSPHATE/SOD BIPHOSPHATE ENEMA 132 ML BTL PR STA (13:43)
--- NOTE | 2022-01-28 13:48 | Hospitalist Progress Note ---
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 Presents with worsened weakness and fatigue. Hyponatremic to 124 on admission with large volume paracentesis performed for 8.5 L Patient was given albumin repletion following procedure. despite this did have transient hypotension after procedure A. fib with RVR - On admission patient with irregular heart rate fluctuating between 80s and mid 100s which was associate with some difficulty breathing although also with large amount of ascites - Consult cardiology.Between atrial ectopy and flutter and sinus. Unlikely that rate control will be successful, and also limited by his hypotension. Recommended for a rhythm control with amiodarone. He is on Lovenox for PE, and sinus rhythm at time of cardiology assessment. -TTE: During A. fib with RVR. No significant valvular disease, hyperdynamic LV with EF 65-70%. 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 Bae and also w/ [facility] ([phone]) EGD 01/2021: Grade III varices in lower third of esophagus. Erythematous mucousa without bleeding in gastric body. Meld 26 -MRI w/ and w/out contrast: 1. Slight interval decrease in the size of previously identified rim-enhancing mass within the liver now measuring 2.0 cm compared to 2.3 cm on the previous study. No new enhancing masses are identified. There is again shortness of the liver, splenomegaly and splenic hilar varices. Increased abdominal ascites which is now moderate to marked in degree. - Continue protonix 40mg QD Patient did have large volume ascites 8.5 L drawn off in ER, needed intravascular volume expansion and challenged by poor IV access. Massive LE edema, Lasix, and spironolactone. will increase lasix dose 01/28/22 Liver ultrasound negative for portal vein thrombosis, PT/OT Anticipate placement needs - Will need outpt followup for liver lesions to [facility]. (3) Exposure to COVID-19 virus: Plan: Pt is COVID positive. 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 - Paracentesis performed in ER to 8.5, hypotensive and symptomatic after. - Lasix/helen continue (7) Cholangiocarcinoma: Plan: - Per pt, was diagnosed at [facility] October at time of his hospitalization for saddle PE. - He was supposed to follow-up with [facility] for further workup, per report has had difficulty obtaining followup - Has seen [facility] GI in the past, most recently has been seeing [facility] GI team for this, MRI completed as noted. Lesions are reduced in size, outpt followup at this time (8) Type 2 diabetes mellitus, with long-term current use of insulin: Plan: - With hypoglycemia/BGm 60s at home this AM, BGMs 158 in ED. - Accucheks ACHS with SSI. -Hemoglobin A1c 8.2% - Diabetic diet with fluid restriction 1.5L -Pharmacy consulted, on NPH and SSI (9) Saddle pulmonary embolus: Plan: - Dx 11/10/21 while at [facility] Saddle PE with heavy clot burden extending into the lobar and segmental pulmonary arteries was appreciated, IR was consulted but did not recommend intervention as was hemodynamically stable. EF was hyperdynamic without reduced systolic function. Patient was transitioned from heparin drip to Lovenox every 12 hours. Patient was discharged on Lovenox every 12 hours instead of a DOAC due to very high risk of bleed with varices and in the event that a biopsy for cholangiocarcinoma needed to be performed. - Xarelto is contraindicated in his liver disease. Apixaban is not recommended to be hepatic adjustment, With saddle PE after 3 months can consider repeat CTA to assess for clot burden and if cleared potentially move to a prophylactic dose of Lovenox at that time. (10) Hypotension: Plan: Coreg/lasix/[place] needed for liver disease, using midodrine to combat side affects Plan: - PCU. - SCDs, Lovenox for VTE ppx. - Full Code. Admission and Anticipated Discharge Date Admission Date: January 23, 2022 Subjective Pt complaining of constipationtoday, still with massive LE edema and distended abdomen and ascites, states this is about his usual sweling no focal complaints except for subjective discomfort on his left side posterior ribs, with no recent injury Review of Systems Review of Systems: Moderate distress and fatigue no headache, no visual changes no speech or swallowing issues no chest pain, pressure or palpitations paroxysmal shortness of breath, usually when laying down no abdominal pain, nausea or vomiting, distension and constipation no dysuria, hematuria or frequency no focal joint pain continues with significant swelling no back pain, CVA tenderness or radicular pain no bruising, bleeding or rashes no focal signs of weakness or numbness or altered sensation Physical Exam Physical Exam: The patient appeared chronically ill but stable Vital signs as documented. Head exam is normocephalic atraumatic Neck is with JVD, thyromegaly, or carotid bruits. Lungs are clear to auscultation, but diminished at bases Cardiac exam, Rhythm is regular.. No murmurs, rubs or gallops. Abdominal exam reveals normal bowel sounds, distended and tense, some tenderness Extremities are 2-3+edematous Neurologic exam is alert and oriented, no focal loss of strength or sensation Results & Data Results & Data ([facility]) Vital Signs (Past 12 Hours) Vital Signs Temp Pulse Pulse Resp BP BP Pulse Ox 01/28/22 11:08 72 18 104/58 L 100 01/28/22 08:07 95/67 L 01/28/22 07:45 98.2 F 71 71 18 100/57 L 100 01/28/22 03:00 97.9 F 74 16 93/53 L 100 PG Care Time/CCT Total # of Minutes Spent Total Time Spent with Patient: Total time spent is greater than 50% in coordination of care (as documented) at patient's floor/unit and/or counseling patient: Coding Level of Care Code 00185 Subseq Hosp Care Lvl 3 Diagnoses Atrial fibrillation with RVR I48.91 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
[2022-01-28] MEDS: ONDANSETRON INJ 2 MG/ML 2 ML VIAL IV PRN (14:21)
--- NOTE | 2022-01-28 16:22 | Gastroenterology Progress Note ---
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 Continue to watch BUN/CR ESLD-continue outpt f/u at [facility] liver lesion--sstable on MRI--outpt f/u at [facility] I, Hammad Storey MD have spent 15 minutes of discrete time performing the activities of this visit which include but are not limited to review of the medical record, obtaining a history, physical exam, and entering information in the electronic record. Admission and Anticipated Discharge Date Admission Date: January 23, 2022 Subjective cc f/u ESLD HPI Pt with use of laxatives today started moving his bowels. He denies abd pain. Results & Data ([facility]) Vital Signs (Past 12 Hours) Vital Signs Temp Pulse Pulse Resp BP BP Pulse Ox 01/28/22 16:13 36.5 C 81 17 129/75 100 01/28/22 15:39 78 01/28/22 11:08 72 18 104/58 L 100 01/28/22 08:07 95/67 L 01/28/22 07:45 36.8 C 71 71 18 100/57 L 100
[2022-01-28] MEDS: MAGNESIUM OXIDE 400 MG TAB PO SCH (21:57)
[2022-01-28] MEDS: ursodioL 300 MG CAP PO SCH (21:57)
[2022-01-29] MEDS: oxyCODONE HCL IR 5 MG TAB (IMMEDIATE RELEASE) PO PRN ×2 (02:48→03:01)
[2022-01-29] MEDS: ENOXAPARIN 100 MG/1ML SYR SQ SCH ×2 (03:02→17:39)
[2022-01-29] MEDS: ONDANSETRON INJ 2 MG/ML 2 ML VIAL IV PRN (07:28)
[2022-01-29] MEDS: carvediloL 3.125 MG TAB PO SCH ×2 (07:59→20:55)
[2022-01-29] MEDS: MULTIVITAMIN TAB PO SCH (07:59)
[2022-01-29] MEDS: SPIRONOLACTONE 100 MG TAB PO SCH (07:59)
[2022-01-29] MEDS: PANTOprazole 40 MG TAB PO SCH (07:59)
[2022-01-29] MEDS: FUROSEMIDE 40 MG TAB PO SCH (08:00)
[2022-01-29] MEDS: AMIODARONE 200 MG TAB PO SCH ×2 (08:00→17:43)
[2022-01-29] MEDS: INSULIN HUMAN NPH SC SCH (08:17)
[2022-01-29] MEDS: INSULIN ASPART PER UNIT SC SCH ×4 (08:17→20:47)
[2022-01-29] MEDS ORDERED: INSULIN HUMAN NPH SC ONE ×3 (09:30→11:30)
--- NOTE | 2022-01-29 11:58 | CT Scan Report ---
CT OF THE HEAD WITHOUT CONTRAST CLINICAL HISTORY: fall now confused COMPARISON STUDY: Sinus CT April 18, 2012. CT DOSE: 788.63 mGycm TECHNIQUE: Helical axial images of the head were obtained without IV contrast. Automated exposure con trol was utilized for the study. A dose lowering technique was utilized adhering to the principles o f ALARA. FINDINGS: No acute intracranial hemorrhage, midline shift or mass effect is present. The ventricular system is unremarkable. The basal cisterns are patent. No extra-axial collections are present. There are no findings to suggest acute dural sinus thrombosis or acute territorial infarct. No significant calvarial abnormalities are present. Visualized portions of the sinuses and mastoid air cells are tamia ar. IMPRESSION: 1. No acute intracranial findings. 2. No acute calvarial fracture. ACT 112: Negative or not required by law. Electronically signed by: Arvind Erwin M.D. 01/29/2022 11:57 AM
[2022-01-29 12:10] LABS: Albumin Globulin Ratio 0.8 (0.9-2); Albumin Level 2.7 gm/dl (3.4-5.0); Bilirubin,Total 5.7 mg/dl (0.2-1.0); C Reactive Protein 3.9 mg/dl (0-0.5); Calcium 8.5 mg/dl (8.5-10.1); Creatinine Clr Calc Pharmacy 72.4 ml/min; Est GFR (African American) 84.3 ml/min; Est GFR (Non-African American) 72.8 ml/min; Globulin 3.4 gm/dl (2.5-4.0); Potassium 4.3 mmol/L (3.5-5.1); Total Protein 6.1 gm/dl (6.0-8.3)
[2022-01-29 12:22] LABS: Hematocrit (blood only) 31.7 % (42-52); Hemoglobin 11.2 g/dL (14.0-18.0); Mean Corpuscular Hemoglobin 33.5 pg (25-34); Mean Corpuscular Volume 94.9 fL (80-100); RDW Coefficient of Variation 16.5 % (11.5-14.5); RDW Standard Deviation 57.2 fL (36.4-46.3); Red Blood Count 3.34 M/uL (4.7-6.1); White Blood Count 4.47 K/uL (4.8-10.8)
[2022-01-29 12:26] LABS: Mean Corpuscular Hgb Conc 35.3 g/dL (32-36); Mean Platelet Volume 9.7 fL (7.4-10.4); Platelet Count 81 K/uL (130-400)
[2022-01-29 12:51] LABS: Basophils # (auto) 0.01 K/uL (0-0.2); Basophils % (auto) 0.2 %; Eosinophils # (auto) 0.03 K/uL (0-0.5); Eosinophils % (auto) 0.7 %; Immature Granulocytes # (auto) 0.01 K/uL (0.00-0.02); Immature Granulocytes % (auto) 0.2 %; Lymphocytes # (auto) 0.94 K/uL (1.2-3.4); Monocytes # (auto) 0.39 K/uL (0.11-0.59); Monocytes % (auto) 8.7 %; Neutrophils # (auto) 3.09 K/uL (1.4-6.5); Neutrophils % (auto) 69.2 %
--- NOTE | 2022-01-29 13:05 | Pharmacy Report ---
Pharmacy Glycemic Short Note 2 - Date of Service January 29, 2022 - Glycemic Short BSG Results (Last 24 hours): 01/28/22 01/28/22 01/28/22 16:21 17:15 20:50 Glucose POC Glucose 70 98 117 H 01/29/22 01/29/22 01/29/22 07:55 11:16 11:33 Glucose 191 H POC Glucose 137 H 107 H OUTPATIENT ANTIDIABETIC REGIMEN: * Novolin R U-500: 40-90 units according to BG value post-meal; usually takes 2x/day (lunch/supper) * HbA1c = 8.2% (01/24/22) ASSESSMENT: 01/29: * BSGs within goal the last 24h (141, 98, 117). Pt did drop down to 70mg/dL yesterday evening. Fasting this AM-137mg/dL. He has not been tolerating a diet over the past day, and has been nauseous. Refused his NPH last night and with breakfast this AM. Received 40 units of basal insulin yesterday + 10 units Novolog. * I did have a discussion with John @ bedside regarding his insulin regimen - he is agreeable to a dose reduction starting with lunch today. He feels when his BSGs are low, and is hesitant given the drop to 70mg/dl yesterday. * Plan for NPH 20 units today with lunch (~ 50% reduction). Given BSG of 107 @ lunch and carb intake of only 16gm, will not add additional NPH today. No change to Novolog today. Will reassess basal in AM. 01/28: * Patient's BSG remain well controlled. Yesterday's BSGs were [phone] mg/dL and fasting this morning was 160 mg/dL. * Will continue with current NPH and novolog dosing. Patient is tolerating a diet. 01/26: * John's BSGs remained elevated yesterday despite tighter insulin control: [phone] mg/dL. Received 65 units of insulin yesterday (20 units NPH + 45 units of Novolog). * Fasting BSG was 195 mg/dL this AM which is worsening. Will significantly increase NPH doses today. * No change to Novolog at this time. 01/25: * 66 yo M admitted on 01/23/22 secondary to generalized weakness. Poor glycemic control since admission so pharmacy has been consult to assist with inpatient glycemic management. Patient is ordered a T2DM diet and tolerating well. Has a history of ESLD. * Patient received 53 units of insulin yesterday - mostly Novolog, two IV doses, no basal ordered. BSGs were uncontrolled: [phone] mg/dL. * Unsure how reliable A1c is in this patient given ESLD and cirrhosis. Appears to follow with Dr. Antony but hasn't seen him in over a year. * Appears that initial Novolog order had carb ratio and correction factor reversed (ordered as CF 10, CR 30; then tightened to 04/08). * Will tighten Novolog today. Too late for lunchtime dose so start with dinner. * Rather than use U-500 in this patient will trial BID NPH to be given with breakfast and dinner. Starting with 0.2 units/kg at dinner tonight. * Targeting BSG goals of 110-140 mg/dL and will add overnight checks for this evening given significant insulin changes. PLAN FOR INPATIENT GLYCEMIC CONTROL: * Basal insulin * NPH 20 units SQ qAM * Bolus insulin * NovoLog per scale ACHS or Q6hrs while NPO * Goal Range: Low 110 mg/dL - High 140 mg/dL * Correction Factor: 15 mg/dL/unit * Nutritional / Prandial insulin per carb ratio of 1 unit per 4 grams CHO consumed
--- NOTE | 2022-01-29 16:41 | Gastroenterology Progress Note ---
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 Continue to watch BUN/CR ESLD-continue outpt f/u at [facility] liver lesion--sstable on MRI--outpt f/u at [facility] confusion--ammonia level normal. IHammad MD have spent 15 minutes of discrete time performing the activities of this visit which include but are not limited to review of the medical record, obtaining a history, physical exam, and entering information in the electronic record. Admission and Anticipated Discharge Date Admission Date: January 23, 2022 Subjective CC f/u ascites, ESLD HPI Patient states he has some confusion today. Ammonia checked today normal at 65. Some back pain and perhaps some LUQ pain. Physical Exam Gastrointestinal (Abdomen): pos bs, protuberant but not tense, no guarding nor rebound, bilateral lower extremity edema. Results & Data ([facility]) Vital Signs (Past 12 Hours) Vital Signs Temp Pulse Pulse Resp BP Pulse Ox 01/29/22 15:47 36.8 C 79 20 104/63 96 01/29/22 14:56 77 01/29/22 11:21 36.8 C 84 20 115/66 98 01/29/22 07:57 36.5 C 74 16 103/60 99 01/29/22 07:11 75
--- NOTE | 2022-01-29 17:05 | Hospitalist Progress Note ---
Date of Service January 29, 2022 Assessment & Plan (1) Atrial fibrillation with RVR: Plan: Patient is a 66-year-old male with past medical history of liver cirrhosis 2/2 SWIFT and hepatitis C followed with [facility], tanstioning to [facility] GI, esophageal varices, hyponatremia, ascites, currently undergoing work-up for cholangiocarcinoma due to liver mass on imaging. Presents with worsened weakness and fatigue. Hyponatremic to 124 on admission with large volume paracentesis performed for 8.5 L Patient was given albumin repletion following procedure., despite this did have transient hypotension after procedure A. fib with RVR - Consult cardiology. atrial ectopy and flutter. Recommended for a rhythm control with amiodarone. He is on therapeutic Lovenox for PE, sinus rhythm -TTE: During A. fib with RVR. No significant valvular disease, hyperdynamic LV with EF 65-70%. 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 Bae and also w/ Zheng Orozco [facility] ([phone]) EGD 01/2021: Grade III varices in lower third of esophagus. Erythematous mucosa without bleeding in gastric body. Meld 26 -MRI liver w/ and w/out contrast: 1. Slight interval decrease in the size of previously identified rim-enhancing mass within the liver now measuring 2.0 cm compared to 2.3 cm on the previous study. No new enhancing masses are identified. - Continue protonix 40mg QD Massive LE edema, Lasix, and spironolactone. will increase lasix dose 01/28/22 Liver ultrasound negative for portal vein thrombosis, PT/OT Anticipate placement needs - Will need outpt followup for liver lesions to [facility]. (3) Cholangiocarcinoma: Plan: - Per pt, was diagnosed at [facility] October at time of his hospitalization for saddle PE. - He was supposed to follow-up with [facility] for further workup, per report has had difficulty obtaining followup - Has seen [facility] GI in the past, most recently has been seeing [facility] GI team for this, MRI completed as noted. Lesions are reduced in size, outpt followup at this time (4) Type 2 diabetes mellitus, with long-term current use of insulin: Plan: - With hypoglycemia/BGm 60s at home this AM, BGMs 158 in ED. - Accucheks ACHS with SSI. -Hemoglobin A1c 8.2% - Diabetic diet with fluid restriction 1.5L -Pharmacy consulted, on NPH and SSI (5) Saddle pulmonary embolus: Plan: - Dx 11/10/21 while at [facility] Saddle PE with heavy clot burden extending into the lobar and segmental pulmonary arteries was appreciated, IR was consulted but did not recommend intervention as was hemodynamically stable. EF was hyperdynamic without reduced systolic function. Patient was discharged on Lovenox every 12 hours instead of a DOAC due to very high risk of bleed with varices and in the event that a biopsy for cholangiocarcinoma needed to be performed. - Xarelto is contraindicated in his liver disease. Apixaban is not recommended to be hepatic adjustment, With saddle PE after 3 months can consider repeat CTA to assess for clot burden and if cleared potentially move to a prophylactic dose of Lovenox at that time. (6) Exposure to COVID-19 virus: Plan: Pt is COVID positive. Pt negative on admission retest on 01/28, negative no longer PUI (7) Weakness: Plan: pt recommended for rehab (8) Hyponatremia: Plan: - persists, follow volume (9) Ascites: (10) Hypotension: Plan: Coreg/lasix/[place] needed for liver disease, using midodrine to combat side affects Plan: - PCU. - SCDs, Lovenox for VTE ppx. - Full Code. Admission and Anticipated Discharge Date Admission Date: January 23, 2022 Subjective Patient states he has some confusion today. did have a fall overnight, CT head negative Ammonia checked today normal at 65. Some back pain and perhaps some LUQ pain. some inflamatory markers up but did have better afternoon, if clinically deteriorates consider sbp and may need diagnostic tap Review of Systems Review of Systems: Mild distress and fatigue no headache, no visual changes no speech or swallowing issues no chest pain, pressure or palpitations no shortness of breath, cough or wheezes marked distension mild diffuse abdominal pain, resolved constipation no dysuria, hematuria or frequency no focal joint pain significant le swelling no back pain, CVA tenderness or radicular pain no bruising, bleeding or rashes, is jaundiced no focal signs of weakness or numbness or altered sensation no complaints of anxiety or depression.. Physical Exam Physical Exam: The patient appeared stable but chronically ill his confusion seems subjective Vital signs as documented. Head exam is normocephalic atraumatic Neck is without JVD, thyromegaly, or carotid bruits. Lungs are clear to auscultation, no focal loss of breath sounds Cardiac exam, Rhythm is regular.. No murmurs, rubs or gallops. Abdominal exam reveals normal bowel sounds, soft, significantly distended, mild tender no rebound or guarding Extremities are nonedematous and both pedal pulses are present Neurologic exam is alert and oriented, no focal loss of strength or sensation Skin is without bruises or rashes is jaundiced Psychologically is without concerns for anxiety or depression.. 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
[2022-01-29] MEDS: ursodioL 300 MG CAP PO SCH (20:54)
[2022-01-29] MEDS: MAGNESIUM OXIDE 400 MG TAB PO SCH (21:59)
--- NOTE | 2022-01-29 22:40 | Communication Note ---
Date of Service: January 29, 2022 Informed by nursing around 2215 that patient was reported to have some word- finding difficulties. Evaluated patient at bedside. Fully alert and oriented. Responds to questions appropriately. Some intermittent word-finding difficulties appreciated -- not really aphasic. No dysarthria. Denies MACIEL, double vision, palpitations. Reviewed chart. h/o AFib on presentation noted, fall yesterday while on Lovenox. Well appearing with scleral icterus. NAD. Cardiac - NRRR +S1/S2 without m/r/g (reviewed telemetry, in NSR throughout the night). Resp - CTAB w/o crackles or wheezes. Neuro - CN2-12 grossly in tact. No aphasia or dysarthria. UE, LE strength 5/5 bilaterally. Sensation to light touch grossly in-tact. No asterixis. 1. Word finding difficulties. DDX - postconcussive, development of hyperammonemia, CVA (?fall, ?Afib), fatigue/deconditioning. CT-H reviewed from today, no acute process/hemorrhage. Recheck CMP/ammonia level now. Neurochecks q4h. If any change in mentation or development of aphasia, repeat brain imaging.
[2022-01-29 23:40] LABS: Albumin Globulin Ratio 0.7 (0.9-2); Albumin Level 2.5 gm/dl (3.4-5.0); BUN Creatinine Ratio 14.5 (10-20); Bilirubin,Total 5.3 mg/dl (0.2-1.0); Calcium 8.1 mg/dl (8.5-10.1); Creatinine Clr Calc Pharmacy 55.6 ml/min; Est GFR (African American) 61.3 ml/min; Est GFR (Non-African American) 52.9 ml/min; Globulin 3.4 gm/dl (2.5-4.0); Potassium 4.2 mmol/L (3.5-5.1); Total Protein 5.9 gm/dl (6.0-8.3)
[2022-01-29] MEDS ORDERED: LACTULOSE SYRUP 20 GM/30 ML UDC PO ONE (23:41)
[2022-01-30] MEDS: ENOXAPARIN 100 MG/1ML SYR SQ SCH ×2 (04:14→17:38)
[2022-01-30] MEDS: ONDANSETRON INJ 2 MG/ML 2 ML VIAL IV PRN ×2 (08:09→22:37)
[2022-01-30] MEDS: INSULIN HUMAN NPH SC SCH (08:09)
[2022-01-30] MEDS: INSULIN ASPART PER UNIT SC SCH ×5 (08:10→22:48)
[2022-01-30] MEDS: AMIODARONE 200 MG TAB PO SCH ×2 (08:13→17:38)
[2022-01-30] MEDS: FUROSEMIDE 40 MG TAB PO SCH (08:13)
[2022-01-30] MEDS: SPIRONOLACTONE 100 MG TAB PO SCH (08:14)
[2022-01-30] MEDS: MULTIVITAMIN TAB PO SCH (08:14)
[2022-01-30] MEDS: carvediloL 3.125 MG TAB PO SCH ×2 (08:15→19:30)
[2022-01-30] MEDS: PANTOprazole 40 MG TAB PO SCH (08:15)
[2022-01-30] MEDS: POLYETHYLENE (MIRALAX) 17 GM PACK PO SCH (08:25)
[2022-01-30] MEDS: oxyCODONE HCL IR 5 MG TAB (IMMEDIATE RELEASE) PO PRN ×2 (13:23→22:51)
--- NOTE | 2022-01-30 15:27 | Hospitalist Progress Note ---
Date of Service January 30, 2022 Assessment & Plan (1) Atrial fibrillation with RVR: Plan: Patient is a 66-year-old male with past medical history of liver cirrhosis 2/2 SWIFT and hepatitis C followed with [facility], tanstioning to [facility], esophageal varices, hyponatremia, ascites, currently undergoing work-up for cholangiocarcinoma due to liver mass on imaging. Presents with worsened weakness and fatigue. A. fib with RVR - Consult cardiology. atrial ectopy and flutter. Recommended for a rhythm control with amiodarone. He is on therapeutic Lovenox for PE, sinus rhythm -TTE: During A. fib with RVR. No significant valvular disease, hyperdynamic LV with EF 65-70%. 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 Bae and also w/ Zheng Orozco [facility] Theo ([phone]) EGD 01/2021: Grade III varices in lower third of esophagus. Erythematous mucosa without bleeding in gastric body. Meld 26 -MRI liver w/ and w/out contrast: 1. Slight interval decrease in the size of previously identified rim-enhancing mass within the liver now measuring 2.0 cm compared to 2.3 cm on the previous study. No new enhancing masses are identified. Massive LE edema, Lasix, and spironolactone. will increase lasix dose 01/28/22 Liver ultrasound negative for portal vein thrombosis, - Will need outpt followup for liver lesions to [facility]. (3) Cholangiocarcinoma: Plan: - Per pt, was diagnosed at [facility] October at time of his hospitalization for saddle PE. - He was supposed to follow-up with [facility] for further workup, per report has had difficulty obtaining followup - Has seen [facility] in the past, most recently has been seeing [facility] GI team for this, MRI completed as noted. Lesions are reduced in size, outpt followup at this time (4) Type 2 diabetes mellitus, with long-term current use of insulin: Plan: - With hypoglycemia/BGm 60s at home this AM, BGMs 158 in ED. - Accucheks ACHS with SSI. -Hemoglobin A1c 8.2% - Diabetic diet with fluid restriction 1.5L -Pharmacy consulted, on NPH and SSI (5) Hyponatremia: Plan: Hyponatremic to 124 on admission with large volume paracentesis performed for 8.5 L Patient was given albumin repletion following procedure., despite this did have transient hypotension after procedure Receck BMP tomorrow (6) Saddle pulmonary embolus: Plan: - Dx 11/10/21 while at [facility] Saddle PE with heavy clot burden extending into the lobar and segmental pulmonary arteries was appreciated, IR was consulted but did not recommend intervention as was hemodynamically stable. EF was hyperdynamic without reduced systolic function. Patient was discharged on Lovenox every 12 hours instead of a DOAC due to very high risk of bleed with varices and in the event that a biopsy for cholangiocarcinoma needed to be performed. - Xarelto is contraindicated in his liver disease. Apixaban is not recommended to be hepatic adjustment, With saddle PE after 3 months can consider repeat CTA to assess for clot burden and if cleared potentially move to a prophylactic dose of Lovenox at that time. (7) Exposure to COVID-19 virus: Plan: Pt is COVID positive. Pt negative on admission retest on 01/28, negative no longer PUI (8) Weakness: Plan: pt recommended for SNF (9) Ascites: Plan: had large volume paracentesis with removal of >8L of fluid (10) Hypotension: Plan: Coreg/lasix/[place] needed for liver disease, using midodrine to combat side affects Plan: - PCU. - SCDs, Lovenox for VTE ppx. - Full Code. Case mgt on consult for SNF Admission and Anticipated Discharge Date Admission Date: January 23, 2022 Subjective patient seen and examined today, still weak and tired Review of Systems Review of Systems: All systems reviewed are negative, apart from the ones contained in the history. Physical Exam Physical Exam: The patient is awake, alert and oriented 3, well developed and well nourished, normocephalic and atraumatic HEENT--PERRL, EOMI, mucous membranes and oropharynx mildly dry Neck--supple. No JVD. No bruits. Thyroid normal, trachea midline, no adenopathy. Heart--normal S1 and S2. No murmurs, rubs or gallops. Lungs--clear bilaterally, no respiratory distress, no accessory muscle use. Abdomen--distended Extremities--Bilateral leg edema Dermatologic--normal skin turgor, normal color, no abnormal lymph nodes, no rash. Neurologic--cranial nerves II through XII grossly intact. Rheumatologic--normal range of motion. Psychiatric--normal affect. Results & Data Results & Data ([facility]) Vital Signs (Past 12 Hours) Vital Signs Temp Pulse Pulse Resp BP BP Pulse Ox 01/30/22 12:00 97.5 F L 78 16 123/77 100 01/30/22 08:00 86 01/30/22 06:53 97.9 F 86 18 103/61 99 Laboratory Results Laboratory Results - last 24 hr 01/29/22 01/29/22 01/29/22 17:19 20:30 23:03 Sodium 128 L Potassium 4.2 Chloride 97 L Carbon Dioxide 24 Anion Gap 7 BUN 20 Creatinine 1.38 D Est Cr Clr Drug Dosing 55.6 Est GFR ( Amer) 61.3 Est GFR (Non-Af Amer) 52.9 BUN/Creatinine Ratio 14.5 Glucose 152 H POC Glucose 271 H 199 H Calcium 8.1 L Total Bilirubin 5.3 H AST 75 H ALT 43 Alkaline Phosphatase 123 H Ammonia Total Protein 5.9 L Albumin 2.5 L Globulin 3.4 Albumin/Globulin Ratio 0.7 L 01/29/22 01/30/22 01/30/22 23:03 07:26 11:49 Sodium Potassium Chloride Carbon Dioxide Anion Gap BUN Creatinine Est Cr Clr Drug Dosing Est GFR ( Amer) Est GFR (Non-Af Amer) BUN/Creatinine Ratio Glucose POC Glucose 284 H 209 H Calcium Total Bilirubin AST ALT Alkaline Phosphatase Ammonia 92.0 H Total Protein Albumin Globulin Albumin/Globulin Ratio PG Care Time/CCT Total # of Minutes Spent Total Time Spent with Patient: Total time spent is greater than 50% in coordination of care (as documented) at patient's floor/unit and/or counseling patient: Coding Level of Care Code 53807 Subseq Hosp Care Lvl 2 Diagnoses Atrial fibrillation with RVR I48.91 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 K75.81; K74.60 Cholangiocarcinoma C22.1 Type 2 diabetes mellitus, with long-term current use of insulin E11.69; Z79.4 Diabetes mellitus complication status: with other specified complication Saddle pulmonary embolus I26.92 Exposure to COVID-19 virus Z20.822 Weakness R53.1 Hyponatremia E87.1 Ascites R18.8 Hypotension I95.9 Time Spent (min) 35 (1) Type 2 diabetes mellitus, with long-term current use of insulin Diabetes mellitus complication status: with other specified complication Qualified Code(s): E11.69 - Type 2 diabetes mellitus with other specified complication; Z79.4 - [facility] (current) use of insulin
--- NOTE | 2022-01-30 15:33 | Gastroenterology Progress Note ---
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 Continue to watch BUN/CR ESLD-continue outpt f/u at [facility] liver lesion--sstable on MRI--outpt f/u at [facility] confusion--ammonia level check again today and follow daily. Likely needs to be on some doses of lactulose of if continues to refuse then start Rifaximin I, Hammad Storey MD have spent 15 minutes of discrete time performing the activities of this visit which include but are not limited to review of the medical record, obtaining a history, physical exam, and entering information in the electronic record. Admission and Anticipated Discharge Date Admission Date: January 23, 2022 Subjective cc f/u ascites, confusion HPI Pt confused last night and ammonia elevated then at 92. Per nursing took one dose Lactulose and did not want to take anymore. No abd pain. Physical Exam Gastrointestinal (Abdomen): abdomen protuberant but not tense, no guarding nor rebound Neurologic: no asterixis Results & Data ([facility]) Vital Signs (Past 12 Hours) Vital Signs Temp Pulse Pulse Resp BP BP Pulse Ox 01/30/22 12:00 36.4 C L 78 16 123/77 100 01/30/22 08:00 86 01/30/22 06:53 36.6 C 86 18 103/61 99
[2022-01-30] MEDS ORDERED: INSULIN HUMAN NPH SC ONE (17:00)
[2022-01-30] MEDS: ursodioL 300 MG CAP PO SCH (19:30)
[2022-01-30] MEDS: MAGNESIUM OXIDE 400 MG TAB PO SCH (19:35)
[2022-01-31] MEDS ORDERED: ONDANSETRON INJ 2 MG/ML 2 ML VIAL IV STA (01:52)
[2022-01-31] MEDS: ENOXAPARIN 100 MG/1ML SYR SQ SCH ×2 (02:55→16:58)
[2022-01-31 06:40] LABS: Hematocrit (blood only) 30.1 % (42-52); Hemoglobin 10.7 g/dL (14.0-18.0); Mean Corpuscular Hemoglobin 33.9 pg (25-34); Mean Corpuscular Hgb Conc 35.5 g/dL (32-36); Mean Corpuscular Volume 95.3 fL (80-100); RDW Coefficient of Variation 16.5 % (11.5-14.5); RDW Standard Deviation 57.4 fL (36.4-46.3); Red Blood Count 3.16 M/uL (4.7-6.1); White Blood Count 3.83 K/uL (4.8-10.8)
[2022-01-31 06:45] LABS: Mean Platelet Volume 9.9 fL (7.4-10.4); Platelet Count 76 K/uL (130-400)
[2022-01-31 07:04] LABS: Albumin Globulin Ratio 0.7 (0.9-2); Albumin Level 2.6 gm/dl (3.4-5.0); BUN Creatinine Ratio 20.8 (10-20); Bilirubin Direct 2.5 mg/dl (0-0.2); Creatinine Clr Calc Pharmacy 72.4 ml/min; Est GFR (African American) 84.3 ml/min; Est GFR (Non-African American) 72.8 ml/min; Globulin 3.7 gm/dl (2.5-4.0); Potassium 4.5 mmol/L (3.5-5.1); Total Protein 6.3 gm/dl (6.0-8.3)
[2022-01-31] MEDS: FUROSEMIDE 40 MG TAB PO SCH (07:14)
[2022-01-31] MEDS: AMIODARONE 200 MG TAB PO SCH ×2 (07:14→16:58)
[2022-01-31] MEDS: carvediloL 3.125 MG TAB PO SCH ×2 (07:14→21:46)
[2022-01-31] MEDS: MULTIVITAMIN TAB PO SCH (07:14)
[2022-01-31] MEDS: PANTOprazole 40 MG TAB PO SCH (07:15)
[2022-01-31] MEDS: SPIRONOLACTONE 100 MG TAB PO SCH (07:15)
[2022-01-31] MEDS: POLYETHYLENE (MIRALAX) 17 GM PACK PO SCH (07:15)
[2022-01-31] MEDS ORDERED: FUROSEMIDE 40 MG/4 ML VIAL IV ONE (07:23)
[2022-01-31 07:24] LABS: Basophils # (auto) 0.01 K/uL (0-0.2); Basophils % (auto) 0.3 %; Eosinophils # (auto) 0.05 K/uL (0-0.5); Eosinophils % (auto) 1.3 %; Immature Granulocytes # (auto) 0.01 K/uL (0.00-0.02); Immature Granulocytes % (auto) 0.3 %; Lymphocytes # (auto) 0.81 K/uL (1.2-3.4); Lymphocytes % (auto) 21.1 %; Monocytes # (auto) 0.36 K/uL (0.11-0.59); Monocytes % (auto) 9.4 %; Neutrophils # (auto) 2.59 K/uL (1.4-6.5); Neutrophils % (auto) 67.6 %; Target Cells 1+
[2022-01-31 07:49] LABS: Calcium 8.2 mg/dl (8.5-10.1)
[2022-01-31] MEDS: INSULIN ASPART PER UNIT SC SCH ×4 (08:48→23:09)
[2022-01-31] MEDS: INSULIN HUMAN NPH SC SCH (08:51)
[2022-01-31] MEDS: ALBUMIN 25% 100 mL 25 GM/100 ML VIAL IV SCH ×4 (08:51→13:37)
--- NOTE | 2022-01-31 13:00 | Hospitalist Progress Note ---
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 Presents with worsened weakness and fatigue. A. fib with RVR - Consult cardiology. atrial ectopy and flutter. Recommended for a rhythm control with amiodarone. He is on therapeutic Lovenox for PE, sinus rhythm -TTE: During A. fib with RVR. No significant valvular disease, hyperdynamic LV with EF 65-70%. 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 Bae and also w/ Zheng Orozco [facility] Theo ([phone]) EGD 01/2021: Grade III varices in lower third of esophagus. Erythematous mucosa without bleeding in gastric body. Meld 26 -MRI liver w/ and w/out contrast: 1. Slight interval decrease in the size of previously identified rim-enhancing mass within the liver now measuring 2.0 cm compared to 2.3 cm on the previous study. No new enhancing masses are identified. Massive LE edema, Lasix, and spironolactone. will increase lasix dose 01/28/22 Liver ultrasound negative for portal vein thrombosis, - Will need outpt followup for liver lesions to [facility]. (3) Cholangiocarcinoma: Plan: - Per pt, was diagnosed at [facility] October at time of his hospitalization for saddle PE. - He was supposed to follow-up with [facility] for further workup, per report has had difficulty obtaining followup - Has seen [facility] GI in the past, most recently has been seeing [facility] GI team for this, MRI completed as noted. Lesions are reduced in size, outpt followup at this time (4) Type 2 diabetes mellitus, with long-term current use of insulin: Plan: - With hypoglycemia/BGm 60s at home this AM, BGMs 158 in ED. - Accucheks ACHS with SSI. -Hemoglobin A1c 8.2% - Diabetic diet with fluid restriction 1.5L -Pharmacy consulted, on NPH and SSI (5) Hyponatremia: Plan: Na 127 today, was 124 on admission Receck [facility] tomorrow (6) Saddle pulmonary embolus: Plan: - Dx 11/10/21 while at [facility] Saddle PE with heavy clot burden extending into the lobar and segmental pulmonary arteries was appreciated, IR was consulted but did not recommend intervention as was hemodynamically stable. EF was hyperdynamic without reduced systolic function. Patient was discharged on Lovenox every 12 hours instead of a DOAC due to very high risk of bleed with varices and in the event that a biopsy for cholangiocarcinoma needed to be performed. - Xarelto is contraindicated in his liver disease. Apixaban is not recommended to be hepatic adjustment, With saddle PE after 3 months can consider repeat CTA to assess for clot burden and if cleared potentially move to a prophylactic dose of Lovenox at that time. (7) Exposure to COVID-19 virus: Plan: Pt is COVID positive. Pt negative on admission retest on 01/28, negative no longer PUI (8) Hyperammonemia: Plan: No evidence of encephalopathy Ammonia 128 today will start Lactulose (9) Weakness: Plan: pt recommended for SNF (10) Ascites: Plan: had large volume paracentesis with removal of >8L of fluid There appears to be a re accumulation, will obtain US abdomen (11) Hypotension: Plan: Coreg/lasix/[place] needed for liver disease, using midodrine to combat side affects Plan: - PCU. - SCDs, Lovenox for VTE ppx. - Full Code. Case mgt on consult for SNF Admission and Anticipated Discharge Date Admission Date: January 23, 2022 Subjective patient seen and examined, sitting up in the bed, still has some SOB Review of Systems Review of Systems: All systems reviewed are negative, apart from the ones contained in the history. Physical Exam Physical Exam: The patient is awake, alert and oriented 3, well developed and well nourished, normocephalic and atraumatic HEENT--PERRL, EOMI, mucous membranes and oropharynx mildly dry Neck--supple. No JVD. No bruits. Thyroid normal, trachea midline, no adenopathy. Heart--normal S1 and S2. No murmurs, rubs or gallops. Lungs--clear bilaterally, no respiratory distress, no accessory muscle use. Abdomen--distended Extremities--Bilateral leg edema Dermatologic--normal skin turgor, normal color, no abnormal lymph nodes, no rash. Neurologic--cranial nerves II through XII grossly intact. Rheumatologic--normal range of motion. Psychiatric--normal affect. 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4 - senior living (current) use of insulin
[2022-01-31] MEDS: LACTULOSE SYRUP 20 GM/30 ML UDC PO SCH ×2 (13:37→21:46)
--- NOTE | 2022-01-31 14:07 | Pharmacy Report ---
Pharmacy Glycemic Short Note 2 - Date of Service January 31, 2022 - Glycemic Short BSG Results (Last 24 hours): 01/30/22 01/30/22 01/30/22 16:21 19:37 22:42 Glucose POC Glucose 102 H 175 H 201 H 01/31/22 01/31/22 01/31/22 06:21 07:13 11:06 Glucose 190 H POC Glucose 195 H 189 H OUTPATIENT ANTIDIABETIC REGIMEN: * Novolin R U-500: 40-90 units according to BG value post-meal; usually takes 2x/day (lunch/supper) * HbA1c = 8.2% (01/24/22) ASSESSMENT: 01/31: * BSGs elevated yesterday (102-284 mg/dL) * Received 66 units of insulin (40 units of NPH and 26 units of prandial/correctional bolus) * Fasting BSG improved from yesterday (284 -> 195 mg/dL) * Will continue to titrate NPH, continue Novolog today 01/29: * BSGs within goal the last 24h (141, 98, 117). Pt did drop down to 70mg/dL yesterday evening. Fasting this AM-137mg/dL. He has not been tolerating a diet over the past day, and has been nauseous. Refused his NPH last night and with breakfast this AM. Received 40 units of basal insulin yesterday + 10 units Novolog. * I did have a discussion with John @ bedside regarding his insulin regimen - he is agreeable to a dose reduction starting with lunch today. He feels when his BSGs are low, and is hesitant given the drop to 70mg/dl yesterday. * Plan for NPH 20 units today with lunch (~ 50% reduction). Given BSG of 107 @ lunch and carb intake of only 16gm, will not add additional NPH today. No change to Novolog today. Will reassess basal in AM. 01/25: * 66 yo M admitted on 01/23/22 secondary to generalized weakness. Poor glycemic control since admission so pharmacy has been consult to assist with inpatient glycemic management. Patient is ordered a T2DM diet and tolerating well. Has a history of ESLD. * Patient received 53 units of insulin yesterday - mostly Novolog, two IV doses, no basal ordered. BSGs were uncontrolled: [phone] mg/dL. * Unsure how reliable A1c is in this patient given ESLD and cirrhosis. Appears to follow with Dr. Antony but hasn't seen him in over a year. * Appears that initial Novolog order had carb ratio and correction factor reversed (ordered as CF 10, CR 30; then tightened to 04/08). * Will tighten Novolog today. Too late for lunchtime dose so start with dinner. * Rather than use U-500 in this patient will trial BID NPH to be given with breakfast and dinner. Starting with 0.2 units/kg at dinner tonight. * Targeting BSG goals of 110-140 mg/dL and will add overnight checks for this evening given significant insulin changes. PLAN FOR INPATIENT GLYCEMIC CONTROL: * Basal insulin * NPH 40 units SC w/ breakfast * NPH 10-30 units SC w/ dinner (see EHR for details) * Bolus insulin * NovoLog per scale ACHS or Q6hrs while NPO * Goal Range: Low 110 mg/dL - High 140 mg/dL * Correction Factor: 15 mg/dL/unit * Nutritional / Prandial insulin per carb ratio of 1 unit per 4 grams CHO consumed
[2022-01-31] MEDS: oxyCODONE HCL IR 5 MG TAB (IMMEDIATE RELEASE) PO PRN ×2 (14:40→21:42)
--- NOTE | 2022-01-31 15:20 | Ultrasound Report ---
US abdomen ltd ascites CLINICAL HISTORY: Evaluate for ascites TECHNIQUE: Real-time grayscale sonographic images of the the 4 quadrants of the abdomen were obtained . Comparison: MRI of the abdomen from 01/24/2022 FINDINGS: Compared to the MRI, fluid is again seen throughout the entire abdomen representing moderat e to marked ascites. IMPRESSION: Moderate to marked ascites. ACT 112: Negative or not required by law. Electronically signed by: Sreekanth Lombardo M.D. 01/31/2022 3:19 PM
[2022-01-31] MEDS ORDERED: INSULIN HUMAN NPH SC ONE (17:00)
[2022-01-31] MEDS: MIDODRINE HCL 2.5 MG TAB PO SCH (17:03)
--- NOTE | 2022-01-31 17:46 | Gastroenterology Progress Note ---
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 Portal vein was patent on US 01/26/2022. Agree with Lactulose to treat this but I asked the hospitalist to arrange diagnostic (not therapeutic as he developed afib around the last therapeutic one) paracentesis to look for SBP which could cause hepatic decompensation. Ascites continue aldactone and lasix. Continue to watch BUN/CR ESLD-continue outpt f/u at [facility] liver lesion--sstable on MRI--outpt f/u at [facility] [place] I, Hammad Storey MD have spent 20 minutes of discrete time performing the activities of this visit which include but are not limited to review of the medical record, obtaining a history, physical exam, and entering information in the electronic record. Admission and Anticipated Discharge Date Admission Date: January 23, 2022 Subjective cc f/u ascites HPI Per nursing pt more confused today. He is awake but has trouble with getting the right words to convey what is happening. Ammonia this am 112 and noted lactulose has been ordered. Pt denies abd pain. Physical Exam Gastrointestinal (Abdomen): pos bs, protuberant but not tense. No guarding nor rebound Results & Data ([facility]) Vital Signs (Past 12 Hours) Vital Signs Temp Pulse Pulse Resp BP Pulse Ox 01/31/22 16:00 36.2 C L 73 22 111/63 01/31/22 14:59 69 01/31/22 10:44 36.8 C 71 14 103/61 97 01/31/22 07:27 70 01/31/22 07:05 36.4 C L 71 20 114/65 93
[2022-01-31] MEDS: FAMOTIDINE 10 MG TABLET PO PRN (21:42)
[2022-01-31] MEDS: ursodioL 300 MG CAP PO SCH (21:43)
[2022-01-31] MEDS: MAGNESIUM OXIDE 400 MG TAB PO SCH (21:43)
[2022-02-01 05:42] LABS: Hematocrit (blood only) 27.1 % (42-52); Hemoglobin 9.6 g/dL (14.0-18.0); Mean Corpuscular Hemoglobin 34.3 pg (25-34); Mean Corpuscular Hgb Conc 35.4 g/dL (32-36); Mean Corpuscular Volume 96.8 fL (80-100); Nucleated RBC # (auto) 0.02 K/uL (0-0); Nucleated RBC % (auto) 0.9 %; RDW Coefficient of Variation 16.7 % (11.5-14.5); RDW Standard Deviation 59.1 fL (36.4-46.3); White Blood Count 2.74 K/uL (4.8-10.8)
[2022-02-01 05:43] LABS: Mean Platelet Volume 10.4 fL (7.4-10.4); Platelet Count 66 K/uL (130-400)
[2022-02-01 05:58] LABS: Basophils # (auto) 0.01 K/uL (0-0.2); Basophils % (auto) 0.4 %; Eosinophils # (auto) 0.03 K/uL (0-0.5); Eosinophils % (auto) 1.1 %; Immature Granulocytes # (auto) 0.01 K/uL (0.00-0.02); Immature Granulocytes % (auto) 0.4 %; Lymphocytes # (auto) 0.55 K/uL (1.2-3.4); Lymphocytes % (auto) 20.1 %; Monocytes # (auto) 0.27 K/uL (0.11-0.59); Monocytes % (auto) 9.9 %; Neutrophils # (auto) 1.87 K/uL (1.4-6.5); Neutrophils % (auto) 68.1 %; RBC Morphology Unremarkable
[2022-02-01 06:02] LABS: Potassium 4.5 mmol/L (3.5-5.1)
[2022-02-01 06:03] LABS: Albumin Globulin Ratio 1.3 (0.9-2); Albumin Level 3.3 gm/dl (3.4-5.0); BUN Creatinine Ratio 18.4 (10-20); Bilirubin,Total 6.8 mg/dl (0.2-1.0); Calcium 8.8 mg/dl (8.5-10.1); Creatinine Clr Calc Pharmacy 67.3 ml/min; Est GFR (African American) 77.2 ml/min; Est GFR (Non-African American) 66.6 ml/min; Globulin 2.6 gm/dl (2.5-4.0); Total Protein 5.9 gm/dl (6.0-8.3)
[2022-02-01 06:06] LABS: INR 1.3 (0.9-1.1); Prothrombin Time 13.3 Seconds (9.0-12.0)
[2022-02-01] MEDS ORDERED: INSULIN HUMAN NPH SC SCH (08:00)
--- NOTE | 2022-02-01 08:46 | Gastroenterology Progress Note ---
Date of Service February 01, 2022 Assessment & Plan (1) Cirrhosis: Plan: Hepatic encephalopathy--started this admit for no obvious reason (no renal failure, no GI bleeding, no overt infection) which is a bad sign for worsening liver failure. Portal vein was patent on US 01/26/2022. Ammonia improved this morning, continue lactulose. Plan is for diagnostic (not therapeutic as he developed afib around the last therapeutic one) paracentesis today to look for SBP - I spoke to ultrasound to ensure that fluid is sent to the lab for analysis. Ascites---continue Aldactone and Lasix. Continue to watch BUN/CR ESLD-continue outpatient f/u at [facility] liver lesion--stable on MRI--outpatient f/u at [facility] Case reviewed with Dr. Storey. Please refer to supervising physician addendum for further recommendations. I have spent 20 minutes of discrete time performing the activities of this visit which include but are not limited to review of the medical record, obtaining a history, physical exam, and entering information in the electronic record. (2) Abdominal ascites: (3) Hyperammonemia: Admission and Anticipated Discharge Date Admission Date: January 23, 2022 Supervising Physician Co-Signing Physician Notes I have seen and examined the patient. I agree with note above by SHANIQUA Ramos except as noted below. HPI Pt seems more alert today. Denies abd pain. Ammonia 63. Paracenetesis today wbc 513 with 14% neutrophils so 72 neutrophils neg for SBP. PE Abdomen pos bs, protuberant but not tense, no guarding nor rebound A/P elevated ammonia--continue lactulose---no obvious resaon for decompensation ascites--continue diuretics follow creatine cirrhosis--[facility] as outpt liver lesion [facility] as outpt. As the supervising physician, I , Hammad Storey MD have spent 16 minutes of discrete time performing the activities of this visit which include but not limi zohreh to review of the medical records, obtaining a history, physical exam and entering information in the electronic record. SHANIQUA Ramos has reported spending 20 minutes of discrete time with the activities of this visit. Subjective Patient awake and sitting at bedside this morning. He states that he does still feel confused. He is having difficulty verbalizing thoughts in some areas although he does recognize me this morning. He states he did have a fall inpatient. Denies any abdominal pain or vomiting. Does have some mild nausea. He does not recall a bowel movement in the last 1 to 2 days. Review of Systems Review of Systems: All systems reviewed & are unremarkable except as noted in Subjective Physical Exam Gastrointestinal (Abdomen): pos bs, protuberant but not tense. No guarding nor rebound Psychiatric: Orientation: alert, oriented to person and oriented to place Results & Data ([facility]) Vital Signs (Past 12 Hours) Vital Signs Temp Pulse Pulse Resp BP Pulse Ox 02/01/22 07:29 132/74 02/01/22 07:15 36.3 C L 76 16 91/57 L 100 02/01/22 03:26 36.5 C 74 15 99/51 L 97 01/31/22 23:40 73 01/31/22 22:39 36.5 C 71 18 105/60 100 Laboratory Results Laboratory Results - last 24 hr 01/31/22 01/31/22 01/31/22 11:06 16:24 16:25 WBC RBC Hgb Hct MCV MCH MCHC RDW Std Deviation RDW Coeff of Rekha Plt Count MPV Immature Gran % (Auto) Neut % (Auto) Lymph % (Auto) Long % (Auto) Eos % (Auto) Baso % (Auto) Neut # (Auto) Lymph # (Auto) Long # (Auto) Eos # (Auto) Baso # (Auto) Immature Gran # (Auto) Absolute Nucleated RBC Nucleated RBC % (auto) RBC Morphology PT INR Sodium Potassium Chloride Carbon Dioxide Anion Gap BUN Creatinine Est Cr Clr Drug Dosing Est GFR ( Amer) Est GFR (Non-Af Amer) BUN/Creatinine Ratio Glucose POC Glucose 189 H 65 L* 76 Calcium Total Bilirubin AST ALT Alkaline Phosphatase Ammonia Total Protein Albumin Globulin Albumin/Globulin Ratio 01/31/22 01/31/22 02/01/22 18:41 20:29 05:24 WBC 2.74 L RBC 2.80 L Hgb 9.6 L Hct 27.1 L MCV 96.8 MCH 34.3 H MCHC 35.4 RDW Std Deviation 59.1 H RDW Coeff of Rekha 16.7 H Plt Count 66 L MPV 10.4 Immature Gran % (Auto) 0.4 Neut % (Auto) 68.1 Lymph % (Auto) 20.1 Long % (Auto) 9.9 Eos % (Auto) 1.1 Baso % (Auto) 0.4 Neut # (Auto) 1.87 Lymph # (Auto) 0.55 L Long # (Auto) 0.27 Eos # (Auto) 0.03 Baso # (Auto) 0.01 Immature Gran # (Auto) 0.01 Absolute Nucleated RBC 0.02 H Nucleated RBC % (auto) 0.9 RBC Morphology Unremarkable PT INR Sodium Potassium Chloride Carbon Dioxide Anion Gap BUN Creatinine Est Cr Clr Drug Dosing Est GFR ( Amer) Est GFR (Non-Af Amer) BUN/Creatinine Ratio Glucose POC Glucose 122 H 154 H Calcium Total Bilirubin AST ALT Alkaline Phosphatase Ammonia Total Protein Albumin Globulin Albumin/Globulin Ratio 02/01/22 02/01/22 02/01/22 05:24 05:24 05:27 WBC RBC Hgb Hct MCV MCH MCHC RDW Std Deviation RDW Coeff of Rekha Plt Count MPV Immature Gran % (Auto) Neut % (Auto) Lymph % (Auto) Long % (Auto) Eos % (Auto) Baso % (Auto) Neut # (Auto) Lymph # (Auto) Long # (Auto) Eos # (Auto) Baso # (Auto) Immature Gran # (Auto) Absolute Nucleated RBC Nucleated RBC % (auto) RBC Morphology PT 13.3 H INR 1.3 H Sodium 132 L Potassium 4.5 Chloride 99 Carbon Dioxide 24 Anion Gap 9 BUN 21 Creatinine 1.14 Est Cr Clr Drug Dosing 67.3 Est GFR ( Amer) 77.2 Est GFR (Non-Af Amer) 66.6 BUN/Creatinine Ratio 18.4 Glucose 190 H POC Glucose Calcium 8.8 Total Bilirubin 6.8 H AST 62 H ALT 35 Alkaline Phosphatase 95 Ammonia 63.0 Total Protein 5.9 L Albumin 3.3 L Globulin 2.6 Albumin/Globulin Ratio 1.3 02/01/22 07:12 WBC RBC Hgb Hct MCV MCH MCHC RDW Std Deviation RDW Coeff of Rekha Plt Count MPV Immature Gran % (Auto) Neut % (Auto) Lymph % (Auto) Long % (Auto) Eos % (Auto) Baso % (Auto) Neut # (Auto) Lymph # (Auto) Long # (Auto) Eos # (Auto) Baso # (Auto) Immature Gran # (Auto) Absolute Nucleated RBC Nucleated RBC % (auto) RBC Morphology PT INR Sodium Potassium Chloride Carbon Dioxide Anion Gap BUN Creatinine Est Cr Clr Drug Dosing Est GFR ( Amer) Est GFR (Non-Af Amer) BUN/Creatinine Ratio Glucose POC Glucose 204 H Calcium Total Bilirubin AST ALT Alkaline Phosphatase Ammonia Total Protein Albumin Globulin Albumin/Globulin Ratio Diagnostic Findings Abdomen Ultrasound 01/31/22 11:53 US abdomen ltd ascites CLINICAL HISTORY: Evaluate for ascites TECHNIQUE: Real-time grayscale sonographic images of the the 4 quadrants of the abdomen were obtained. Comparison: MRI of the abdomen from 01/24/2022 FINDINGS: Compared to the MRI, fluid is again seen throughout the entire abdomen representing moderate to marked ascites. IMPRESSION: Moderate to marked ascites. ACT 112: Negative or not required by law. Electronically signed by: Sreekanth Lombardo M.D. 01/31/2022 3:19 PM (1) Abdominal ascites Ascites type: other type Qualified Code(s): R18.8 - Other ascites (2) Cirrhosis Ascites presence: unspecified Hepatic cirrhosis type: unspecified hepatic cirrhosis Qualified Code(s): K74.60 - Unspecified cirrhosis of liver
--- NOTE | 2022-02-01 09:16 | Pharmacy Report ---
Pharmacy Glycemic Short Note 2 - Date of Service February 01, 2022 - Glycemic Short BSG Results (Last 24 hours): 01/31/22 01/31/22 01/31/22 11:06 16:24 16:25 Glucose POC Glucose 189 H 65 L* 76 01/31/22 01/31/22 02/01/22 18:41 20:29 05:24 Glucose 190 H POC Glucose 122 H 154 H 02/01/22 07:12 Glucose POC Glucose 204 H OUTPATIENT ANTIDIABETIC REGIMEN: * Novolin R U-500: 40-90 units according to BG value post-meal; usually takes 2x/day (lunch/supper) * HbA1c = 8.2% (01/24/22) ASSESSMENT: 02/01 * BSG's not well controlled yesterday with two BSG's >180 and one BSG at dinner < 70. Etiology of hypoglycemia likely mostly related to higher AM dosage of NPH * Per prior documentation, patient is very aware of "lows" and has a trend of refusing insulin. PM NPH and Novolog x2 refused yesterday 2nd hypoglycemic episode, which contributed to AM hyperglycemia this AM * Will reduce NPH and attempt to more evenly distribute with breakfast and dinner to avoid AM highs and PM lows * No change to Novolog at this time 01/31: * BSGs elevated yesterday (102-284 mg/dL) * Received 66 units of insulin (40 units of NPH and 26 units of prandial/correctional bolus) * Fasting BSG improved from yesterday (284 -> 195 mg/dL) * Will continue to titrate NPH, continue Novolog today 01/29: * BSGs within goal the last 24h (141, 98, 117). Pt did drop down to 70mg/dL yesterday evening. Fasting this AM-137mg/dL. He has not been tolerating a diet over the past day, and has been nauseous. Refused his NPH last night and with breakfast this AM. Received 40 units of basal insulin yesterday + 10 units N ovolog. * I did have a discussion with John @ bedside regarding his insulin regimen - he is agreeable to a dose reduction starting with lunch today. He feels when his BSGs are low, and is hesitant given the drop to 70mg/dl yesterday. * Plan for NPH 20 units today with lunch (~ 50% reduction). Given BSG of 107 @ lunch and carb intake of only 16gm, will not add additional NPH today. No change to Novolog today. Will reassess basal in AM. 01/25: * 66 yo M admitted on 01/23/22 secondary to generalized weakness. Poor glycemic control since admission so pharmacy has been consult to assist with inpatient glycemic management. Patient is ordered a T2DM diet and tolerating well. Has a history of ESLD. * Patient received 53 units of insulin yesterday - mostly Novolog, two IV doses, no basal ordered. BSGs were uncontrolled: 254-105-242-271-211 mg/dL. * Unsure how reliable A1c is in this patient given ESLD and cirrhosis. Appears to follow with Dr. Antony but hasn't seen him in over a year. * Appears that initial Novolog order had carb ratio and correction factor reversed (ordered as CF 10, CR 30; then tightened to 04/08). * Will tighten Novolog today. Too late for lunchtime dose so start with din ner. * Rather than use U-500 in this patient will trial BID NPH to be given with breakfast and dinner. Starting with 0.2 units/kg at dinner tonight. * Targeting BSG goals of 110-140 mg/dL and will add overnight checks for this evening given significant insulin changes. PLAN FOR INPATIENT GLYCEMIC CONTROL: * Basal insulin * NPH 25 units SC w/ breakfast * NPH 15-20 units SC w/ dinner (see EHR for details) * Bolus insulin * NovoLog per scale ACHS or Q6hrs while NPO * Goal Range: Low 110 mg/dL - High 140 mg/dL * Correction Factor: 15 mg/dL/unit * Nutritional / Prandial insulin per carb ratio of 1 unit per 4 grams CHO consumed
--- NOTE | 2022-02-01 10:25 | Ultrasound Report ---
PROCEDURE: US paracentesis abd w/image CLINICAL HISTORY: ascites. Cirrhosis of liver COMPARISON: None. FINDINGS: The entire procedure was explained to the patient including the risks, expected benefits, alternatives and potential complications. Written informed consent had been obtained. Limited sonography of the abdomen demonstrates ascites. A site for puncture was marked. The patient w as prepped with chloro prep. Sterile technique was utilized. Sterile drapes were applied to the patie nt. 1% lidocaine local anesthesia was administered. A paracentesis needle and catheter was advanced i nto the peritoneal cavity. The catheter was advanced into the peritoneal cavity and the needle was re moved. A total of 6 liters of clear straw-colored fluid was obtained. The catheter was removed and a bandage was placed over the punctured site. The patient tolerated the procedure well. There were no i mmediate complications. IMPRESSION: Technically successful ultrasound-guided paracentesis. ACT 112: Negative or not required by law. Electronically signed by: Sreekanth Lombardo M.D. 02/01/2022 10:24 AM
[2022-02-01] MEDS: POLYETHYLENE (MIRALAX) 17 GM PACK PO SCH (10:34)
[2022-02-01] MEDS: LACTULOSE SYRUP 20 GM/30 ML UDC PO SCH ×3 (10:35→21:35)
[2022-02-01] MEDS: PANTOprazole 40 MG TAB PO SCH (10:36)
[2022-02-01] MEDS: MIDODRINE HCL 2.5 MG TAB PO SCH ×3 (10:37→17:13)
[2022-02-01] MEDS: SPIRONOLACTONE 100 MG TAB PO SCH (10:37)
[2022-02-01] MEDS: MULTIVITAMIN TAB PO SCH (10:37)
[2022-02-01] MEDS: FUROSEMIDE 40 MG TAB PO SCH (10:38)
[2022-02-01] MEDS: INSULIN ASPART PER UNIT SC SCH ×4 (10:38→21:35)
[2022-02-01] MEDS: AMIODARONE 200 MG TAB PO SCH ×2 (10:39→17:14)
[2022-02-01] MEDS: carvediloL 3.125 MG TAB PO SCH ×2 (10:39→21:34)
[2022-02-01 11:17] LABS: LDH Peritoneal Fluid 49 U/L; Total Protein Peritoneal Fluid < 3.0 gm/dl
[2022-02-01 11:56] LABS: Appearance Peritoneal Fluid HAZY; Basophils, Fluid 0 %; Color Peritoneal Fluid AMBER; Eosinophils, Fluid 0 %; Lymphocytes, Fluid 62 %; Mono,Macrophage,Mesothelial 24 %; Neutrophils, Fluid 14 %; RBC Peritoneal Fluid (A) 4000 /uL; WBC Peritoneal Fluid (A) 513 /ul (0-300)
--- NOTE | 2022-02-01 12:49 | Hospitalist Progress Note ---
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 Presents with worsened weakness and fatigue. A. fib with RVR - Currently on amiodarone. He is on therapeutic Lovenox for PE, sinus rhythm -TTE: During A. fib with RVR. No significant valvular disease, hyperdynamic LV with EF 65-70%. 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 Bae and also w/ Zheng Orozco [facility] ([phone]) EGD 01/2021: Grade III varices in lower third of esophagus. Erythematous mucosa without bleeding in gastric body. Meld 26 -MRI liver w/ and w/out contrast: 1. Slight interval decrease in the size of previously identified rim-enhancing mass within the liver now measuring 2.0 cm compared to 2.3 cm on the previous study. No new enhancing masses are identified. Massive LE edema, Lasix, and spironolactone. will increase lasix dose 01/28/22 Liver ultrasound negative for portal vein thrombosis, - Will need outpt followup for liver lesions to [facility]. (3) Ascites: Plan: had large volume paracentesis with removal of >8L of fluid and another paracentesis yesterday, with 6L removed Fluid sent for cultures, result pending There appears to be a re accumulation, may need another paracentesis in a couple of days continue lasix, Aldactone (4) Cholangiocarcinoma: Plan: - Per pt, was diagnosed at [facility] October at time of his hospitalization for saddle PE. - He was supposed to follow-up with [facility] for further workup, per report has had difficulty obtaining followup - Has seen [facility] in the past, most recently has been seeing [facility] GI team for this, MRI completed as noted. Lesions are reduced in size, outpt followup at this time (5) Type 2 diabetes mellitus, with long-term current use of insulin: Plan: - With hypoglycemia/BGm 60s at home this AM, BGMs 158 in ED. - Accucheks ACHS with SSI. -Hemoglobin A1c 8.2% - Diabetic diet with fluid restriction 1.5L -Pharmacy consulted, on NPH and SSI (6) Hyponatremia: Plan: Na 127 today, was 124 on admission Receck [facility] tomorrow (7) Saddle pulmonary embolus: Plan: - Dx 11/10/21 while at [facility] Saddle PE with heavy clot burden extending into the lobar and segmental pulmonary arteries was appreciated, IR was consulted but did not recommend intervention as was hemodynamically stable. EF was hyperdynamic without reduced systolic function. Patient was discharged on Lovenox every 12 hours instead of a DOAC due to very high risk of bleed with varices and in the event that a biopsy for cholangiocarcinoma needed to be performed. - Xarelto is contraindicated in his liver disease. Apixaban is not recommended to be hepatic adjustment, With saddle PE after 3 months can consider repeat CTA to assess for clot burden and if cleared potentially move to a prophylactic dose of Lovenox at that time. (8) Exposure to COVID-19 virus: Plan: Pt is COVID positive. Pt negative on admission retest on 01/28, negative no longer PUI (9) Hyperammonemia: Plan: resolved (10) Weakness: Plan: pt recommended for SNF (11) Hypotension: Plan: Coreg/lasix/Milton needed for liver disease, using midodrine to combat side affects Plan: - PCU. - SCDs, Lovenox for VTE ppx. - Full Code. Case mgt on consult for SNF Admission and Anticipated Discharge Date Admission Date: January 23, 2022 Subjective patient seen and examined, sitting up in the chair, came back from paracentesis Review of Systems Review of Systems: All systems reviewed are negative, apart from the ones contained in the history. Physical Exam Physical Exam: The patient is awake, alert and oriented 3, well developed and well nourished, normocephalic and atraumatic HEENT--PERRL, EOMI, mucous membranes and oropharynx mildly dry Neck--supple. No JVD. No bruits. Thyroid normal, trachea midline, no adenopathy. Heart--normal S1 and S2. No murmurs, rubs or gallops. Lungs--clear bilaterally, no respiratory distress, no accessory muscle use. Abdomen--distended Extremities--Bilateral leg edema Dermatologic--normal skin turgor, normal color, no abnormal lymph nodes, no rash. Neurologic--cranial nerves II through XII grossly intact. Rheumatologic--normal range of motion. Psychiatric--normal affect. Results & Data Results & Data ([facility]) Vital Signs (Past 12 Hours) Vital Signs Temp Pulse Pulse Resp BP Pulse Ox 02/01/22 11:00 97.5 F L 77 16 100/62 100 02/01/22 09:37 71 02/01/22 07:29 132/74 02/01/22 07:15 97.3 F L 76 16 91/57 L 100 02/01/22 03:26 97.7 F 74 15 99/51 L 97 PG Care Time/CCT Total # of Minutes Spent Total Time Spent with Patient: Total time spent is greater than 50% in coordination of care (as documented) at patient's floor/unit and/or counseling patient: Coding Level of Care Code 59179 Subseq Hosp Care Lvl 2 Diagnoses Atrial fibrillation with RVR I48.91 Liver cirrhosis secondary to SIWFT K75.81; K74.60 Cholangiocarcinoma C22.1 Type 2 diabetes mellitus, with long-term current use of insulin E11.69; Z79.4 Diabetes mellitus complication status: with other specified complication Hyponatremia E87.1 Saddle pulmonary embolus I26.92 Exposure to COVID-19 virus Z20.822 Hyperammonemia E72.20 Weakness R53.1 Ascites R18.8 Hypotension I95.9 Time Spent (min) 35 (1) Type 2 diabetes mellitus, with long-term current use of insulin Diabetes mellitus complication status: with other specified complication Qualified Code(s): E11.69 - Type 2 diabetes mellitus with other specified complication; Z79.4 - MCFP (current) use of insulin
--- NOTE | 2022-02-01 12:49 | Cardiology Progress Note ---
Date of Service February 01, 2022 Assessment & Plan (1) PAF (paroxysmal atrial fibrillation): Plan: -the patient remains in sinus rhythm on amiodarone 400 mg b.i.d.. -would decrease amiodarone to 200 mg b.i.d. realizing his hepatic disease. -continue carvedilol at 3.125 mg b.i.d. -remains on Lovenox 90 mg SQ q12 hrs. 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 Admission and Anticipated Discharge Date Admission Date: January 23, 2022 Subjective The patient is resting comfortably at the bedside without complaints of chest pain, dyspnea, or palpitations. Physical Exam Physical Exam: In general this is an obese male in no acute distress. HEENT exam is negative. Neck is supple with full carotid upstrokes. There are no carotid bruits. Jugular is pressure is flat at 90. There is no thyromegaly. Cardiovascular exam reveals a regular rhythm with a normal S1 and S2. Heart sounds are distant. No obvious murmurs. Lungs note decreased breath sounds at the bases. Abdomen is protuberant and nontender without bruits. Extremities reveal 2+ nonpitting pedal and pretibial edema. Results & Data ([facility]) Vital Signs (Past 12 Hours) Vital Signs Temp Pulse Pulse Resp BP Pulse Ox 02/01/22 11:00 36.4 C L 77 16 100/62 100 02/01/22 09:37 71 02/01/22 07:29 132/74 02/01/22 07:15 36.3 C L 76 16 91/57 L 100 02/01/22 03:26 36.5 C 74 15 99/51 L 97 Diagnostic Findings engine monitor notes sinus rhythm with an occasional PVC. 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
[2022-02-01] MEDS: FAMOTIDINE 10 MG TABLET PO PRN (14:56)
[2022-02-01] MEDS: ALBUMIN 25% 100 mL 25 GM/100 ML VIAL IV SCH ×6 (14:58→23:04)
[2022-02-01] MEDS: ENOXAPARIN 100 MG/1ML SYR SQ SCH (14:59)
[2022-02-01] MEDS ORDERED: INSULIN HUMAN NPH SC ONE (17:00)
[2022-02-01] MEDS: FUROSEMIDE 40 MG/4 ML VIAL IV SCH (21:34)
[2022-02-01] MEDS: ursodioL 300 MG CAP PO SCH (21:36)
[2022-02-01] MEDS: MAGNESIUM OXIDE 400 MG TAB PO SCH (21:39)
[2022-02-02] MEDS: ENOXAPARIN 100 MG/1ML SYR SQ SCH ×2 (04:30→17:41)
[2022-02-02] MEDS: oxyCODONE HCL IR 5 MG TAB (IMMEDIATE RELEASE) PO PRN (04:30)
[2022-02-02] MEDS: FAMOTIDINE 10 MG TABLET PO PRN (04:47)
[2022-02-02 06:05] LABS: Hematocrit (blood only) 30.6 % (42-52); Hemoglobin 10.5 g/dL (14.0-18.0); Mean Corpuscular Hemoglobin 32.9 pg (25-34); Mean Corpuscular Hgb Conc 34.3 g/dL (32-36); Mean Corpuscular Volume 95.9 fL (80-100); RDW Coefficient of Variation 16.6 % (11.5-14.5); Red Blood Count 3.19 M/uL (4.7-6.1); White Blood Count 3.19 K/uL (4.8-10.8)
[2022-02-02 06:07] LABS: Mean Platelet Volume 11.2 fL (7.4-10.4); Platelet Count 68 K/uL (130-400)
[2022-02-02 06:27] LABS: Albumin Globulin Ratio 1.6 (0.9-2); Albumin Level 3.8 gm/dl (3.4-5.0); Bilirubin Direct 2.9 mg/dl (0-0.2); Calcium 8.9 mg/dl (8.5-10.1); Creatinine Clr Calc Pharmacy 69.8 ml/min; Est GFR (African American) 80.6 ml/min; Est GFR (Non-African American) 69.6 ml/min; Globulin 2.4 gm/dl (2.5-4.0); Potassium 3.8 mmol/L (3.5-5.1); Total Protein 6.2 gm/dl (6.0-8.3)
[2022-02-02 06:36] LABS: Basophils # (auto) 0.01 K/uL (0-0.2); Basophils % (auto) 0.3 %; Eosinophils # (auto) 0.05 K/uL (0-0.5); Eosinophils % (auto) 1.6 %; Immature Granulocytes # (auto) 0.01 K/uL (0.00-0.02); Immature Granulocytes % (auto) 0.3 %; Lymphocytes # (auto) 0.52 K/uL (1.2-3.4); Lymphocytes % (auto) 16.3 %; Monocytes # (auto) 0.23 K/uL (0.11-0.59); Monocytes % (auto) 7.2 %; Neutrophils # (auto) 2.37 K/uL (1.4-6.5); Neutrophils % (auto) 74.3 %
[2022-02-02] MEDS: SPIRONOLACTONE 100 MG TAB PO SCH (07:48)
[2022-02-02] MEDS: LACTULOSE SYRUP 20 GM/30 ML UDC PO SCH ×3 (07:48→20:58)
[2022-02-02] MEDS: FUROSEMIDE 40 MG/4 ML VIAL IV SCH ×2 (07:48→20:59)
[2022-02-02] MEDS: MIDODRINE HCL 2.5 MG TAB PO SCH ×3 (07:48→17:43)
[2022-02-02] MEDS: AMIODARONE 200 MG TAB PO SCH ×2 (07:49→17:42)
[2022-02-02] MEDS: PANTOprazole 40 MG TAB PO SCH (07:49)
[2022-02-02] MEDS: carvediloL 3.125 MG TAB PO SCH ×2 (07:49→20:59)
[2022-02-02] MEDS: MULTIVITAMIN TAB PO SCH (07:50)
[2022-02-02] MEDS ORDERED: INSULIN HUMAN NPH SC SCH (08:00)
[2022-02-02] MEDS: INSULIN ASPART PER UNIT SC SCH ×4 (08:10→20:58)
[2022-02-02] MEDS: POLYETHYLENE (MIRALAX) 17 GM PACK PO SCH (08:12)
--- NOTE | 2022-02-02 08:21 | Gastroenterology Progress Note ---
Date of Service February 02, 2022 Assessment & Plan (1) Cirrhosis: Plan: Hepatic encephalopathy--started this admit for no obvious reason (no renal failure, no GI bleeding, no overt infection). Portal vein was patent on US 01/26/2022. Ammonia elevated today from yesterday, continue lactulose. Diagnostic (not therapeutic as he developed afib around the last therapeutic one) paracentesis yesterday negative for SBP. Constipation---No documented stool output since 01/30/2022. Miralax as ordered Ascites---continue Aldactone and Lasix. Continue to watch BUN/CR ESLD-continue outpatient f/u at [facility]. Condition is worsening. Discussed with hospitalist. Plan is for GI to initiate discussion of outcome and expectations of care with family. liver lesion--stable on MRI--outpatient f/u at [facility] Case reviewed with Dr. Storey. Please refer to supervising physician addendum for further recommendations. I have spent 20 minutes of discrete time performing the activities of this visit which include but are not limited to review of the medical record, obtaining a history, physical exam, and entering information in the electronic record. (2) Abdominal ascites: (3) Hyperammonemia: Admission and Anticipated Discharge Date Admission Date: January 23, 2022 Supervising Physician Co-Signing Physician Notes I have seen and examined the patient. I agree with note above by SHANIQUA Ramos except as noted below. HPI Pt denies abd pain. Having trouble finding words. Discussed with daughter i n room and on phone regarding deterirating liver condition. Also spoke with DR Orozco from [facility] who was calling while I was there to get an update on patient. PE Abdomen pos bs, protuberant but not tense, no guarding nor rebound. A/P ESLD liver lesion Discussed with all above regarding patients liver worsening in the short time frame of this hospitalization. Liver tx not an option until liver lesion is fully evaluated which can take time and after that can take a several months to do liver tx evaluation. I do not feel the patient has several months. However, if he/they want a full court press then they may have to go to [facility] directly multiple times instead of [facility] to have fastest way to get this resolved. Dr Orozco is not a transplant GI and the transplant GI comes to [facility] only once a month. If they decide they want to stick with [facility] and want the liver lesion evaluated then he should sign a releas and and [facility] team their can make a determination with or without bx as to the etiology of the lesion and whether transplatn candidate or not. They are going to think about it. As the supervising physician, Hammad Dumont MD have spent 30 minutes of discrete time performing the activities of this visit which include but not limited to review of the medical records, obtaining a history, physical exam and entering information in the electronic record. SHANIQUA Ramos has reported spending 20 minutes of discrete time with the activities of this visit. Subjective Patient awake and alert this morning. He states that he still is forgetting things and is somewhat frustrated by this. He is sitting at bedside this morning eating his breakfast tray. Denies any specific abdominal pain. He does note some mild nausea but denies vomiting. Last documented bowel movement by nursing was on 01/30/2022. He is scheduled for M[facility] this morning. Review of Systems Review of Systems: All systems reviewed & are unremarkable except as noted in Subjective Physical Exam Constitutional: + ill appearing Gastrointestinal (Abdomen): pos bs, protuberant but not tense. No guarding nor rebound Psychiatric: Orientation: alert, oriented to person and oriented to place Results & Data ([facility]) Vital Signs (Past 12 Hours) Vital Signs Temp Pulse Pulse Resp BP Pulse Ox 02/02/22 07:53 37 C 66 20 101/59 L 100 02/02/22 03:50 36.9 C 70 18 103/61 100 02/01/22 23:01 36.8 C 75 22 107/60 100 Laboratory Results Laboratory Results - last 24 hr 02/01/22 02/01/22 02/01/22 11:00 11:01 16:28 WBC RBC Hgb Hct MCV MCH MCHC RDW Std Deviation RDW Coeff of Rekha Plt Count MPV Immature Gran % (Auto) Neut % (Auto) Lymph % (Auto) Blount % (Auto) Eos % (Auto) Baso % (Auto) Neut # (Auto) Lymph # (Auto) Blount # (Auto) Eos # (Auto) Baso # (Auto) Immature Gran # (Auto) Sodium Potassium Chloride Carbon Dioxide Anion Gap BUN Creatinine Est Cr Clr Drug Dosing Est GFR ( Amer) Est GFR (Non-Af Amer) BUN/Creatinine Ratio Glucose POC Glucose 330 H* 300 H 208 H Calcium Total Bilirubin Direct Bilirubin AST ALT Alkaline Phosphatase Ammonia Total Protein Albumin Globulin Albumin/Globulin Ratio Fluid Neutrophils % Fluid Lymphocytes % Fluid Eosinophils % Fluid Basophils % Fluid Meso/Macro/Blount % Fluid Comment Peritoneal Color Peritoneal Appearance Peritoneal WBC Peritoneal RBC Peritoneal Other Cells Peritoneal Tot Protein Peritoneal LDH Peritoneal Triglycerid 02/01/22 02/01/22 02/01/22 20:40 Unknown Unknown WBC RBC Hgb Hct MCV MCH MCHC RDW Std Deviation RDW Coeff of Rekha Plt Count MPV Immature Gran % (Auto) Neut % (Auto) Lymph % (Auto) Blount % (Auto) Eos % (Auto) Baso % (Auto) Neut # (Auto) Lymph # (Auto) Blount # (Auto) Eos # (Auto) Baso # (Auto) Immature Gran # (Auto) Sodium Potassium Chloride Carbon Dioxide Anion Gap BUN Creatinine Est Cr Clr Drug Dosing Est GFR ( Amer) Est GFR (Non-Af Amer) BUN/Creatinine Ratio Glucose POC Glucose 182 H Calcium Total Bilirubin Direct Bilirubin AST ALT Alkaline Phosphatase Ammonia Total Protein Albumin Globulin Albumin/Globulin Ratio Fluid Neutrophils % Fluid Lymphocytes % Fluid Eosinophils % Fluid Basophils % Fluid Meso/Macro/Blount % Fluid Comment Peritoneal Color Peritoneal Appearance Peritoneal WBC Peritoneal RBC Peritoneal Other Cells Peritoneal Tot Protein < 3.0 Peritoneal LDH 49 Peritoneal Triglycerid Pending 02/01/22 02/02/22 02/02/22 Unknown 05:46 05:46 WBC 3.19 L RBC 3.19 L Hgb 10.5 L Hct 30.6 L MCV 95.9 MCH 32.9 MCHC 34.3 RDW Std Deviation 59.0 H RDW Coeff of Rekha 16.6 H Plt Count 68 L MPV 11.2 H Immature Gran % (Auto) 0.3 Neut % (Auto) 74.3 Lymph % (Auto) 16.3 Blount % (Auto) 7.2 Eos % (Auto) 1.6 Baso % (Auto) 0.3 Neut # (Auto) 2.37 Lymph # (Auto) 0.52 L Blount # (Auto) 0.23 Eos # (Auto) 0.05 Baso # (Auto) 0.01 Immature Gran # (Auto) 0.01 Sodium 129 L Potassium 3.8 Chloride 97 L Carbon Dioxide 25 Anion Gap 7 BUN 22 Creatinine 1.10 Est Cr Clr Drug Dosing 69.8 Est GFR ( Amer) 80.6 Est GFR (Non-Af Amer) 69.6 BUN/Creatinine Ratio 20.0 Glucose 192 H POC Glucose Calcium 8.9 Total Bilirubin 7.0 H Direct Bilirubin 2.9 H AST 52 H ALT 30 Alkaline Phosphatase 77 Ammonia Total Protein 6.2 Albumin 3.8 Globulin 2.4 L Albumin/Globulin Ratio 1.6 Fluid Neutrophils % 14 Fluid Lymphocytes % 62 Fluid Eosinophils % 0 Fluid Basophils % 0 Fluid Meso/Macro/Blount % 24 Fluid Comment Peritoneal Color PRAVIN Peritoneal Appearance HAZY Peritoneal WBC 513 H Peritoneal RBC 4000 Peritoneal Other Cells 0.0 Peritoneal Tot Protein Peritoneal LDH Peritoneal Triglycerid 02/02/22 02/02/22 05:49 07:20 WBC RBC Hgb Hct MCV MCH MCHC RDW Std Deviation RDW Coeff of Rekha Plt Count MPV Immature Gran % (Auto) Neut % (Auto) Lymph % (Auto) Blount % (Auto) Eos % (Auto) Baso % (Auto) Neut # (Auto) Lymph # (Auto) Blount # (Auto) Eos # (Auto) Baso # (Auto) Immature Gran # (Auto) Sodium Potassium Chloride Carbon Dioxide Anion Gap BUN Creatinine Est Cr Clr Drug Dosing Est GFR ( Amer) Est GFR (Non-Af Amer) BUN/Creatinine Ratio Glucose POC Glucose 194 H Calcium Total Bilirubin Direct Bilirubin AST ALT Alkaline Phosphatase Ammonia 80.0 H Total Protein Albumin Globulin Albumin/Globulin Ratio Fluid Neutrophils % Fluid Lymphocytes % Fluid Eosinophils % Fluid Basophils % Fluid Meso/Macro/Blount % Fluid Comment Peritoneal Color Peritoneal Appearance Peritoneal WBC Peritoneal RBC Peritoneal Other Cells Peritoneal Tot Protein Peritoneal LDH Peritoneal Triglycerid Diagnostic Findings Paracentesis Ultrasound 02/01/22 00:00 PROCEDURE: US paracentesis abd w/image CLINICAL HISTORY: ascites. Cirrhosis of liver COMPARISON: None. FINDINGS: The entire procedure was explained to the patient including the risks, expected benefits, alternatives and potential complications. Written informed consent had been obtained. Limited sonography of the abdomen demonstrates ascites. A site for puncture was marked. The patient was prepped with chloro prep. Sterile technique was utilized. Sterile drapes were applied to the patient. 1% lidocaine local anesthesia was administered. A paracentesis needle and catheter was advanced into the peritoneal cavity. The catheter was advanced into the peritoneal cavity and the needle was removed. A total of 6 liters of clear straw-colored fluid was obtained. The catheter was removed and a bandage was placed over the punctured site. The patient tolerated the procedure well. There were no immediate complications. IMPRESSION: Technically successful ultrasound-guided paracentesis. ACT 112: Negative or not required by law. Electronically signed by: Sreekanth Lombardo M.D. 02/01/2022 10:24 AM (1) Abdominal ascites Ascites type: other type Qualified Code(s): R18.8 - Other ascites (2) Cirrhosis Ascites presence: unspecified Hepatic cirrhosis type: unspecified hepatic cirrhosis Qualified Code(s): K74.60 - Unspecified cirrhosis of liver
--- NOTE | 2022-02-02 10:19 | Pharmacy Report ---
Pharmacy Glycemic Short Note 2 - Date of Service February 02, 2022 - Glycemic Short BSG Results (Last 24 hours): 02/01/22 02/01/22 02/01/22 11:00 11:01 16:28 Glucose POC Glucose 330 H* 300 H 208 H 02/01/22 02/02/22 02/02/22 20:40 05:46 07:20 Glucose 192 H POC Glucose 182 H 194 H OUTPATIENT ANTIDIABETIC REGIMEN: * Novolin R U-500: 40-90 units according to BG value post-meal; usually takes 2x/day (lunch/supper) * HbA1c = 8.2% (01/24/22) ASSESSMENT: 02/02 * Stressors stable * BSG's persistently elevated after reduced AM NPH dose yesterday and remain elevated this AM despite patient accepting PM dose of NPH * Will cautiously increase both AM and PM NPH dose - would prefer to avoid further hypoglycemia, especially due to trend this admission where patient then has refused insulin leading to rebound hyperglycemia seen yesterday 02/01 * BSG's not well controlled yesterday with two BSG's >180 and one BSG at dinner < 70. Etiology of hypoglycemia likely mostly related to higher AM dosage of NPH * Per prior documentation, patient is very aware of "lows" and has a trend of refusing insulin. PM NPH and Novolog x2 refused yesterday 2nd hypoglycemic episode, which contributed to AM hyperglycemia this AM * Will reduce NPH and attempt to more evenly distribute with breakfast and dinner to avoid AM highs and PM lows * No change to Novolog at this time 01/31: * BSGs elevated yesterday (102-284 mg/dL) * Received 66 units of insulin (40 units of NPH and 26 units of prandial/correctional bolus) * Fasting BSG improved from yesterday (284 -> 195 mg/dL) * Will continue to titrate NPH, continue Novolog today 01/29: * BSGs within goal the last 24h (141, 98, 117). Pt did drop down to 70mg/dL yesterday evening. Fasting this AM-137mg/dL. He has not been tolerating a diet over the past day, and has been nauseous. Refused his NPH last night and with breakfast this AM. Received 40 units of basal insulin yesterday + 10 units Novolog. * I did have a discussion with John @ bedside regarding his insulin regimen - he is agreeable to a dose reduction starting with lunch today. He feels when his BSGs are low, and is hesitant given the drop to 70mg/dl yesterday. * Plan for NPH 20 units today with lunch (~ 50% reduction). Given BSG of 107 @ lunch and carb intake of only 16gm, will not add additional NPH today. No change to Novolog today. Will reassess basal in AM. 01/25: * 66 yo M admitted on 01/23/22 secondary to generalized weakness. Poor glycemic control since admission so pharmacy has been consult to assist with inpatient glycemic management. Patient is ordered a T2DM diet and tolerating well. Has a history of ESLD. * Patient received 53 units of insulin yesterday - mostly Novolog, two IV doses, no basal ordered. BSGs were uncontrolled: [id number] mg/dL. * Unsure how reliable A1c is in this patient given ESLD and cirrhosis. Appears to follow with Dr. Antony but hasn't seen him in over a year. * Appears that initial Novolog order had carb ratio and correction factor reversed (ordered as CF 10, CR 30; then tightened to 04/08). * Will tighten Novolog today. Too late for lunchtime dose so start with dinner. * Rather than use U-500 in this patient will trial BID NPH to be given with breakfast and dinner. Starting with 0.2 units/kg at dinner tonight. * Targeting BSG goals of 110-140 mg/dL and will add overnight checks for this evening given significant insulin changes. PLAN FOR INPATIENT GLYCEMIC CONTROL: * Basal insulin * NPH 25 units SC w/ breakfast * NPH 15-20 units SC w/ dinner (see EHR for details) * Bolus insulin * NovoLog per scale ACHS or Q6hrs while NPO * Goal Range: Low 110 mg/dL - High 140 mg/dL * Correction Factor: 15 mg/dL/unit * Nutritional / Prandial insulin per carb ratio of 1 unit per 4 grams CHO consumed
[2022-02-02] MEDS: bisacodyL 10 MG SUPP PR STA ×2 (12:40→12:54)
--- NOTE | 2022-02-02 15:07 | Hospitalist Progress Note ---
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 Bae and also w/ Zheng Orozco [facility] ([phone]) EGD 01/2021: Grade III varices in lower third of esophagus. Erythematous mucosa without bleeding in gastric body. Meld 26 -MRI liver w/ and w/out contrast: 1. Slight interval decrease in the size of previously identified rim-enhancing mass within the liver now measuring 2.0 cm compared to 2.3 cm on the previous study. No new enhancing masses are identified. Massive LE edema, Lasix, and spironolactone. Liver ultrasound negative for portal vein thrombosis, Liver function continue to deteriorate No evidence of SBP on ascitis study Discussed extensively with abd daughter regarding prognosis Also discussed with GI Will continue to diurese If they want to pursue liver transplant, they may have to follow up with [facility] to properly investigate the liver mass and determine if he is a transplant candidate (2) Atrial fibrillation with RVR: Plan: Patient is a 66-year-old male with past medical history of liver cirrhosis 2/2 SWIFT and hepatitis C followed with [facility], tanstioning to [facility], esophageal varices, hyponatremia, ascites, currently undergoing work-up for cholangiocarcinoma due to liver mass on imaging. Presents with worsened weakness and fatigue. A. fib with RVR - Currently on amiodarone. He is on therapeutic Lovenox for PE, sinus rhythm -TTE: During A. fib with RVR. No significant valvular disease, hyperdynamic LV with EF 65-70%. Amnio increased to 400 mg po bid, tolerating carvedilol 3.125 bid (3) Ascites: Plan: had large volume paracentesis with removal of >8L of fluid and another paracentesis yesterday, with 6L removed Fluid sent for cultures, result pending There appears to be a re accumulation, may need another paracentesis in a couple of days continue lasix, Aldactone (4) Cholangiocarcinoma: Plan: - Per pt, was diagnosed at [facility] October at time of his hospitalization for saddle PE. - He was supposed to follow-up with [facility] for further workup, per report has had difficulty obtaining followup - Has seen [facility] in the past, most recently has been seeing [facility] GI team for this, MRI completed as noted. Lesions are reduced in size, outpt followup at this time (5) Type 2 diabetes mellitus, with long-term current use of insulin: Plan: - With hypoglycemia/BGm 60s at home this AM, BGMs 158 in ED. - Accucheks ACHS with SSI. -Hemoglobin A1c 8.2% - Diabetic diet with fluid restriction 1.5L -Pharmacy consulted, on NPH and SSI (6) Hyponatremia: Plan: Na 127 today, was [address] [facility] tomorrow (7) Saddle pulmonary embolus: Plan: - Dx 11/10/21 while at [facility] Saddle PE with heavy clot burden extending into the lobar and segmental pulmonary arteries was appreciated, IR was consulted but did not recommend intervention as was hemodynamically stable. EF was hyperdynamic without reduced systolic function. Patient was discharged on Lovenox every 12 hours instead of a DOAC due to very high risk of bleed with varices and in the event that a biopsy for cholangiocar cinoma needed to be performed. - Xarelto is contraindicated in his liver disease. Apixaban is not recommended to be hepatic adjustment, With saddle PE after 3 months can consider repeat CTA to assess for clot burden and if cleared potentially move to a prophylactic dose of Lovenox at that time. (8) Exposure to COVID-19 virus: Plan: Pt is COVID positive. Pt negative on admission retest on 01/28, negative no longer PUI (9) Hyperammonemia: Plan: resolved (10) Weakness: Plan: pt recommended for SNF (11) Hypotension: Plan: Coreg/lasix/Oscar needed for liver disease, using midodrine to combat side affects Plan: - PCU. - SCDs, Lovenox for VTE ppx. - Full Code. Case mgt on consult for SNF Admission and Anticipated Discharge Date Admission Date: January 23, 2022 Subjective patient seen and examined, sitting up in the chair, says abdomen and legs swelling improving Review of Systems Review of Systems: All systems reviewed are negative, apart from the ones contained in the history. Physical Exam Physical Exam: The patient is awake, alert and oriented 3, well developed and well nourished, normocephalic and atraumatic HEENT--PERRL, EOMI, mucous membranes and oropharynx mildly dry Neck--supple. No JVD. No bruits. Thyroid normal, trachea midline, no adenopathy. Heart--normal S1 and S2. No murmurs, rubs or gallops. Lungs--clear bilaterally, no respiratory distress, no accessory muscle use. Abdomen--distended Extremities--Bilateral leg edema Dermatologic--normal skin turgor, normal color, no abnormal lymph nodes, no rash. Neurologic--cranial nerves II through XII grossly intact. Rheumatologic--normal range of motion. Psychiatric--normal affect. 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4 - supervisor intermediates (current) use of insulin
[2022-02-02] MEDS ORDERED: INSULIN HUMAN NPH SC ONE (17:00)
[2022-02-02] MEDS: ursodioL 300 MG CAP PO SCH (20:59)
[2022-02-02] MEDS: MAGNESIUM OXIDE 400 MG TAB PO SCH (21:24)
[2022-02-03] MEDS: ENOXAPARIN 100 MG/1ML SYR SQ SCH ×2 (04:02→17:09)
[2022-02-03 06:28] LABS: Hematocrit (blood only) 28.5 % (42-52); Hemoglobin 10.2 g/dL (14.0-18.0); Mean Corpuscular Hgb Conc 35.8 g/dL (32-36); RDW Coefficient of Variation 16.8 % (11.5-14.5); RDW Standard Deviation 57.9 fL (36.4-46.3); White Blood Count 3.72 K/uL (4.8-10.8)
[2022-02-03 06:29] LABS: Mean Platelet Volume 10.5 fL (7.4-10.4); Platelet Count 70 K/uL (130-400)
[2022-02-03 06:44] LABS: Basophils # (auto) 0.01 K/uL (0-0.2); Basophils % (auto) 0.3 %; Eosinophils # (auto) 0.05 K/uL (0-0.5); Eosinophils % (auto) 1.3 %; Immature Granulocytes # (auto) 0.01 K/uL (0.00-0.02); Immature Granulocytes % (auto) 0.3 %; Lymphocytes # (auto) 0.62 K/uL (1.2-3.4); Lymphocytes % (auto) 16.7 %; Monocytes # (auto) 0.36 K/uL (0.11-0.59); Monocytes % (auto) 9.7 %; Neutrophils # (auto) 2.67 K/uL (1.4-6.5); Neutrophils % (auto) 71.7 %
[2022-02-03 06:49] LABS: Albumin Globulin Ratio 1.3 (0.9-2); Albumin Level 3.3 gm/dl (3.4-5.0); BUN Creatinine Ratio 19.5 (10-20); Bilirubin Direct 2.6 mg/dl (0-0.2); Bilirubin,Total 6.5 mg/dl (0.2-1.0); Calcium 8.7 mg/dl (8.5-10.1); Creatinine Clr Calc Pharmacy 64.4 ml/min; Est GFR (African American) 74.1 ml/min; Est GFR (Non-African American) 63.9 ml/min; Globulin 2.6 gm/dl (2.5-4.0); Potassium 3.9 mmol/L (3.5-5.1); Total Protein 5.9 gm/dl (6.0-8.3)
[2022-02-03] MEDS: INSULIN ASPART PER UNIT SC SCH ×4 (08:32→22:29)
[2022-02-03] MEDS: INSULIN HUMAN NPH SC SCH ×2 (08:33→17:31)
[2022-02-03] MEDS: carvediloL 3.125 MG TAB PO SCH ×2 (08:34→19:47)
[2022-02-03] MEDS: FUROSEMIDE 40 MG/4 ML VIAL IV SCH ×2 (08:34→19:47)
[2022-02-03] MEDS: LACTULOSE SYRUP 20 GM/30 ML UDC PO SCH ×3 (08:34→19:48)
[2022-02-03] MEDS: SPIRONOLACTONE 100 MG TAB PO SCH (08:34)
[2022-02-03] MEDS: MULTIVITAMIN TAB PO SCH (08:34)
[2022-02-03] MEDS: PANTOprazole 40 MG TAB PO SCH (08:34)
[2022-02-03] MEDS: MIDODRINE HCL 2.5 MG TAB PO SCH ×3 (08:35→17:14)
[2022-02-03] MEDS: FAMOTIDINE 10 MG TABLET PO PRN ×2 (08:35→19:47)
[2022-02-03] MEDS: POLYETHYLENE (MIRALAX) 17 GM PACK PO SCH (08:36)
[2022-02-03] MEDS: AMIODARONE 200 MG TAB PO SCH ×2 (08:36→17:10)
[2022-02-03] MEDS ORDERED: bisacodyL 10 MG SUPP PR STA (09:45)
--- NOTE | 2022-02-03 12:17 | Pharmacy Report ---
Pharmacy Glycemic Short Note 2 - Date of Service February 03, 2022 - Glycemic Short BSG Results (Last 24 hours): 02/02/22 02/02/22 02/03/22 16:19 20:20 06:08 Glucose 173 H POC Glucose 218 H 169 H 02/03/22 02/03/22 07:17 11:17 Glucose POC Glucose 174 H 232 H OUTPATIENT ANTIDIABETIC REGIMEN: * Novolin R U-500: 40-90 units according to BG value post-meal; usually takes 2x/day (lunch/supper) * HbA1c = 8.2% (01/24/22) ASSESSMENT: 02/03 * Stressors stable * BSG's still elevated after increase in NPH at AM and PM yesterday. AM fasting BSG now <180 mg/dL, but still elevated * Will increase PM NPH to hopefully help reduce AM fasting BSG. Hestitant to increase NPH further given hypoglycemia noted at dinner BSG x2 times earlier this admission, and also cumulative daily basal doses are much higher than bolus doses at this time. Will therefore tighten CF and CR instead 02/02 * Stressors stable * BSG's persistently elevated after reduced AM NPH dose yesterday and remain elevated this AM despite patient accepting PM dose of NPH * Will cautiously increase both AM and PM NPH dose - would prefer to avoid further hypoglycemia, especially due to trend this admission where patient then has refused insulin leading to rebound hyperglycemia seen yesterday 02/01 * BSG's not well controlled yesterday with two BSG's >180 and one BSG at dinner < 70. Etiology of hypoglycemia likely mostly related to higher AM dosage of NPH * Per prior documentation, patient is very aware of "lows" and has a trend of refusing insulin. PM NPH and Novolog x2 refused yesterday 2nd hypoglycemic episode, which contributed to AM hyperglycemia this AM * Will reduce NPH and attempt to more evenly distribute with breakfast and dinner to avoid AM highs and PM lows * No change to Novolog at this time 01/31: * BSGs elevated yesterday (102-284 mg/dL) * Received 66 units of insulin (40 units of NPH and 26 units of prandial/correctional bolus) * Fasting BSG improved from yesterday (284 -> 195 mg/dL) * Will continue to titrate NPH, continue Novolog today 01/29: * BSGs within goal the last 24h (141, 98, 117). Pt did drop down to 70mg/dL yesterday evening. Fasting this AM-137mg/dL. He has not been tolerating a diet over the past day, and has been nauseous. Refused his NPH last night and with breakfast this AM. Received 40 units of basal insulin yesterday + 10 units Novolog. * I did have a discussion with Erickramesh @ bedside regarding his insulin regimen - he is agreeable to a dose reduction starting with lunch today. He feels when his BSGs are low, and is hesitant given the drop to 70mg/dl yesterday. * Plan for NPH 20 units today with lunch (~ 50% reduction). Given BSG of 107 @ lunch and carb intake of only 16gm, will not add additional NPH today. No change to Novolog today. Will reassess basal in AM. 01/25: * 66 yo M admitted on 01/23/22 secondary to generalized weakness. Poor glycemic control since admission so pharmacy has been consult to assist with inpatient glycemic management. Patient is ordered a T2DM diet and tolerating well. Has a history of ESLD. * Patient received 53 units of insulin yesterday - mostly Novolog, two IV doses, no basal ordered. BSGs were uncontrolled: [id number] mg/dL. * Unsure how reliable A1c is in this patient given ESLD and cirrhosis. Appears to follow with Dr. Antony but hasn't seen him in over a year. * Appears that initial Novolog order had carb ratio and correction factor reversed (ordered as CF 10, CR 30; then tightened to 04/08). * Will tighten Novolog today. Too late for lunchtime dose so start with dinner. * Rather than use U-500 in this patient will trial BID NPH to be given with breakfast and dinner. Starting with 0.2 units/kg at dinner tonight. * Targeting BSG goals of 110-140 mg/dL and will add overnight checks for this evening given significant insulin changes. PLAN FOR INPATIENT GLYCEMIC CONTROL: * Basal insulin * NPH 30 units SC BIDM * Bolus insulin * NovoLog per scale ACHS or Q6hrs while NPO * Goal Range: Low 110 mg/dL - High 140 mg/dL * Correction Factor: 12 mg/dL/unit * Nutritional / Prandial insulin per carb ratio of 1 unit per 3.5 grams CHO consumed
[2022-02-03] MEDS ORDERED: bisacodyL 10 MG SUPP PR ONE (12:20)
[2022-02-03] MEDS ORDERED: ONDANSETRON INJ 2 MG/ML 2 ML VIAL ONE (14:10)
[2022-02-03] MEDS: ONDANSETRON INJ 2 MG/ML 2 ML VIAL IV PRN (14:56)
--- NOTE | 2022-02-03 15:27 | Hospitalist Progress Note ---
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 Bae and also w/ Zheng Orozco [facility] Theo ([phone]) EGD 01/2021: Grade III varices in lower third of esophagus. Erythematous mucosa without bleeding in gastric body. Meld 26 -MRI liver w/ and w/out contrast: 1. Slight interval decrease in the size of previously identified rim-enhancing mass within the liver now measuring 2.0 cm compared to 2.3 cm on the previous study. No new enhancing masses are identified. Massive LE edema, Lasix, and spironolactone. Liver ultrasound negative for portal vein thrombosis, Liver function continue to deteriorate No evidence of SBP on ascitis study Discussed extensively with abd daughter regarding prognosis Also discussed with GI Will continue to diurese Patient and family want to pursue the option for liver transplant, I have called [facility] for possible transfer to properly investigate the liver mass and determine if he is a transplant candidate (2) Atrial fibrillation with RVR: Plan: Patient is a 66-year-old male with past medical history of liver cirrhosis 2/2 SWIFT and hepatitis C followed with [facility], tanstioning to [facility], esophageal varices, hyponatremia, ascites, currently undergoing work-up for cholangiocarcinoma due to liver mass on imaging. Presents with worsened weakness and fatigue. A. fib with RVR - Currently on amiodarone. He is on therapeutic Lovenox for PE, sinus rhythm -TTE: During A. fib with RVR. No significant valvular disease, hyperdynamic LV with EF 65-70%. Amnio increased to 400 mg po bid, tolerating carvedilol 3.125 bid (3) Ascites: Plan: had large volume paracentesis with removal of >8L of fluid and another paracentesis yesterday, with 6L removed Fluid sent for cultures, result pending There appears to be a re accumulation, may need another paracentesis in a couple of days continue lasix, Aldactone (4) Cholangiocarcinoma: Plan: - Per pt, was diagnosed at [facility] October at time of his hospitalization for saddle PE. - He was supposed to follow-up with [place] for further workup, per report has had difficulty obtaining followup - Has seen [facility] in the past, most recently has been seeing [facility] GI team for this, MRI completed as noted. Lesions are reduced in size, outpt followup at this time (5) Type 2 diabetes mellitus, with long-term current use of insulin: Plan: - With hypoglycemia/BGm 60s at home this AM, BGMs 158 in ED. - Accucheks ACHS with SSI. -Hemoglobin A1c 8.2% - Diabetic diet with fluid restriction 1.5L -Pharmacy consulted, on NPH and SSI (6) Hyponatremia: Plan: Na 127 today, was 124 on admission Receck BMP tomorrow (7) Saddle pulmonary embolus: Plan: - Dx 11/10/21 while at [facility] Saddle PE with heavy clot burden extending into the lobar and segmental pulmonary arteries was appreciated, IR was consulted but did not recommend intervention as was hemodynamically stable. EF was hyperdynamic without reduced systolic function. Patient was discharged on Lovenox every 12 hours instead of a DOAC due to very high risk of bleed with varices and in the event that a biopsy for cholangiocarcinoma needed to be performed. - Xarelto is contraindicated in his liver disease. Apixaban is not recommended to be hepatic adjustment, With saddle PE after 3 months can consider repeat CTA to assess for clot burden and if cleared potentially move to a prophylactic dose of Lovenox at that time. (8) Exposure to COVID-19 virus: Plan: Pt is COVID positive. Pt negative on admission retest on 01/28, negative no longer PUI (9) Hyperammonemia: Plan: resolved (10) Weakness: Plan: pt recommended for SNF (11) Hypotension: Plan: Coreg/lasix/Munden needed for liver disease, using midodrine to combat side affects Plan: - PCU. - SCDs, Lovenox for VTE ppx. - Full Code. Case mgt on consult for SNF Admission and Anticipated Discharge Date Admission Date: January 23, 2022 Subjective patient seen and examined, sitting up in the chair, says abdomen and legs swelling about the same Review of Systems Review of Systems: All systems reviewed are negative, apart from the ones contained in the history. Physical Exam Physical Exam: The patient is awake, alert and oriented 3, well developed and well nourished, normocephalic and atraumatic HEENT--PERRL, EOMI, mucous membranes and oropharynx mildly dry Neck--supple. No JVD. No bruits. Thyroid normal, trachea midline, no adenopathy. Heart--normal S1 and S2. No murmurs, rubs or gallops. Lungs--clear bilaterally, no respiratory distress, no accessory muscle use. Abdomen--distended Extremities--Bilateral leg edema Dermatologic--normal skin turgor, normal color, no abnormal lymph nodes, no rash. Neurologic--cranial nerves II through XII grossly intact. Rheumatologic--normal range of motion. Psychiatric--normal affect. 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 K75.81; K74.60 Atrial fibrillation with RVR I48.91 Ascites R18.8 Cholangiocarcinoma C22.1 Type 2 diabetes mellitus, with long-term current use of insulin E11.69; Z79.4 Diabetes mellitus complication status: with other specified complication Hyponatremia E87.1 Saddle pulmonary embolus I26.92 Exposure to COVID-19 virus Z20.822 Hyperammonemia E72.20 Weakness R53.1 Hypotension I95.9 Time Spent (min) 35 (1) Type 2 diabetes mellitus, with long-term current use of insulin Diabetes mellitus complication status: with other specified complication Qualified Code(s): E11.69 - Type 2 diabetes mellitus with other specified complication; Z79.4 - terminal carman (current) use of insulin
--- NOTE | 2022-02-03 16:09 | Gastroenterology Progress Note ---
Date of Service February 03, 2022 Assessment & Plan (1) Abdominal ascites: Plan: Therapeutic paracentesis prn when patient feels his abdomen is uncomfortable ESLD--apparently plan is pursuing liver transplant and hospitalist is attempting to set up transfer to [facility] liver lesion--to be worked up by [facility] as part of tx evaluation hepatic encephalopathy---lactulose, May need to add Miralax 17-34 tid to regimen. IHammad MD have spent 15 minutes of discrete time performing the activities of this visit which include but are not limited to review of the medical record, obtaining a history, physical exam, and entering information in the electronic record. Admission and Anticipated Discharge Date Admission Date: January 23, 2022 Subjective cc ascites HPI No abd pain. Sister in law with patient for H and P. Per nursing patient has decided he wants to pursue liver tx and is hospitalist apparently calling [facility] to arrange transfer. Enemas given to help stimulate BMs Physical Exam Gastrointestinal (Abdomen): pos bs, protuberant but not tense, no guarding nor rebound Results & Data ([facility]) Vital Signs (Past 12 Hours) Vital Signs Temp Pulse Pulse Pulse Resp BP BP 02/03/22 11:23 36.6 C 70 14 106/64 02/03/22 09:00 70 02/03/22 07:16 36.5 C 73 18 106/56 L Pulse Ox 02/03/22 11:23 100 02/03/22 09:00 02/03/22 07:16 99 (1) Abdominal ascites Ascites type: other type Qualified Code(s): R18.8 - Other ascites
[2022-02-03] MEDS: ursodioL 300 MG CAP PO SCH (19:47)
[2022-02-03] MEDS: MAGNESIUM OXIDE 400 MG TAB PO SCH (19:47)
[2022-02-04] MEDS: oxyCODONE HCL IR 5 MG TAB (IMMEDIATE RELEASE) PO PRN (00:01)
[2022-02-04] MEDS: ENOXAPARIN 100 MG/1ML SYR SQ SCH ×2 (04:19→17:06)
[2022-02-04 06:11] LABS: Hematocrit (blood only) 28.6 % (42-52); Hemoglobin 10.3 g/dL (14.0-18.0); Mean Corpuscular Hemoglobin 34.6 pg (25-34); RDW Coefficient of Variation 16.9 % (11.5-14.5); RDW Standard Deviation 58.8 fL (36.4-46.3); Red Blood Count 2.98 M/uL (4.7-6.1); White Blood Count 4.55 K/uL (4.8-10.8)
[2022-02-04 06:21] LABS: Mean Platelet Volume 9.9 fL (7.4-10.4); Platelet Count 75 K/uL (130-400)
[2022-02-04 06:31] LABS: Albumin Globulin Ratio 1.2 (0.9-2); Albumin Level 3.2 gm/dl (3.4-5.0); Bilirubin,Total 6.9 mg/dl (0.2-1.0); Calcium 8.9 mg/dl (8.5-10.1); Creatinine Clr Calc Pharmacy 48.2 ml/min; Est GFR (African American) 54.1 ml/min; Est GFR (Non-African American) 46.7 ml/min; Globulin 2.7 gm/dl (2.5-4.0); Potassium 3.9 mmol/L (3.5-5.1); Total Protein 5.9 gm/dl (6.0-8.3)
[2022-02-04 06:39] LABS: Basophils # (auto) 0.01 K/uL (0-0.2); Basophils % (auto) 0.2 %; Eosinophils # (auto) 0.03 K/uL (0-0.5); Eosinophils % (auto) 0.7 %; Immature Granulocytes # (auto) 0.01 K/uL (0.00-0.02); Immature Granulocytes % (auto) 0.2 %; Lymphocytes # (auto) 0.83 K/uL (1.2-3.4); Lymphocytes % (auto) 18.2 %; Monocytes # (auto) 0.35 K/uL (0.11-0.59); Monocytes % (auto) 7.7 %; Neutrophils # (auto) 3.32 K/uL (1.4-6.5); RBC Morphology Unremarkable
--- NOTE | 2022-02-04 07:39 | XRay Report ---
KUB CLINICAL HISTORY: Abdominal pain. r/o obstruction COMPARISON STUDY: MRI of the abdomen January 24, 2022. FINDINGS: There is gas throughout small and large bowel. Evaluation is compromised given suboptimal p enetration. No convincing evidence for a bowel obstruction. IMPRESSION: No evidence for a bowel obstruction. ACT 112: Negative or not required by law. Electronically signed by: Arvind Erwin M.D. 02/04/2022 7:38 AM
[2022-02-04] MEDS ORDERED: INSULIN HUMAN NPH SC SCH (08:00)
[2022-02-04] MEDS: INSULIN ASPART PER UNIT SC SCH ×4 (08:13→21:39)
--- NOTE | 2022-02-04 08:20 | Gastroenterology Progress Note ---
Date of Service February 04, 2022 Assessment & Plan (1) Hyperammonemia: Plan: Therapeutic paracentesis prn when patient feels his abdomen is uncomfortable ESLD--apparently plan is pursuing liver transplant and hospitalist is attempting to set up transfer to [facility], nephrology consulted to optimize diuretics liver lesion--to be worked up by [facility] as part of tx evaluation hepatic encephalopathy---Mental fog continues, continue lactulose, May need to add Miralax 17-34 tid to regimen. Case reviewed with Dr. Hughes. Please refer to supervising physician addendum for further recommendations. I have spent 15 minutes of discrete time performing the activities of this visit which include but are not limited to review of the medical record, obtaining a history, physical exam, and entering information in the electronic record. (2) Decompensation of cirrhosis of liver: Admission and Anticipated Discharge Date Admission Date: January 23, 2022 Supervising Physician Co-Signing Physician Notes I interviewed and examined the patient and reviewed the medical record, with the following observations: Subjective: Mr. Montes reports improvement in abdominal distension following 8 liter paracentesis, no respiratory compromise, he appears comfortable sitting up in bed, mobility very limited by severe dependent edema, lower extremities now wrapped Physical Examination: The abdomen remains distended with ascites, but soft and nontender Chart Review: Nephrology consult noted and appreciated. [facility] would not accept Mr. Montes in transfer for liver transplant evaluation. I agree with the assessment as outlined in this consultation, with the following observations: Child-Lozano score by my calculation is 11, and MELD score is 21. These levels are associated with a poor prognosis I agree with the plan of care as outlined in this consultation, with the following changes and/or additions: Agree with treatment plan as outlined by nephrology, no additions recommended at this time. As the consulting physician, I have spent 30 minutes of discrete time performing the activities of this consultation which include, but are not limited to, review of the medical record, obtaining a history, physical examination, and entering information into the electronic record. SHANIQUA Ramos, has reported spending 15 minutes of discrete time with the activities of the consultation. Subjective Patient seated on bedside eating breakfast. Continues to have mental fog per nursing. Patient feeling disheartened today over prognosis. Family called nursing station to determine status of transfer to [facility]. Patient denies any abdominal pain, nausea, or vomiting. States he was fairly constipated the last several days but did have bowel movement this morning. Continues to feel mental fog. Review of Systems Review of Systems: All systems reviewed & are unremarkable except as noted in Subjective Physical Exam Gastrointestinal (Abdomen): pos bs, protuberant but not tense, no guarding nor rebound Psychiatric: Orientation: alert, oriented to person and oriented to place Results & Data ([facility]) Vital Signs (Past 12 Hours) Vital Signs Temp Pulse Pulse Pulse Resp BP BP 02/04/22 07:54 36.7 C 77 19 99/57 L 02/04/22 04:16 37.1 C 79 16 104/59 L 02/03/22 22:52 37.1 C 81 18 97/58 L 02/03/22 22:45 77 Pulse Ox 02/04/22 07:54 99 02/04/22 04:16 98 02/03/22 22:52 98 02/03/22 22:45 Laboratory Results Laboratory Results - last 24 hr 02/03/22 02/03/22 02/03/22 11:17 16:27 20:05 WBC RBC Hgb Hct MCV MCH MCHC RDW Std Deviation RDW Coeff of Rekha Plt Count MPV Immature Gran % (Auto) Neut % (Auto) Lymph % (Auto) [place] % (Auto) Eos % (Auto) Baso % (Auto) Neut # (Auto) Lymph # (Auto) [place] # (Auto) Eos # (Auto) Baso # (Auto) Immature Gran # (Auto) RBC Morphology Sodium Potassium Chloride Carbon Dioxide Anion Gap BUN Creatinine Est Cr Clr Drug Dosing Est GFR ( Amer) Est GFR (Non-Af Amer) BUN/Creatinine Ratio Glucose POC Glucose 232 H 140 H 153 H Calcium Total Bilirubin AST ALT Alkaline Phosphatase Ammonia Total Protein Albumin Globulin Albumin/Globulin Ratio 02/04/22 02/04/22 02/04/22 05:48 05:48 05:52 WBC 4.55 L RBC 2.98 L Hgb 10.3 L Hct 28.6 L MCV 96.0 MCH 34.6 H MCHC 36.0 RDW Std Deviation 58.8 H RDW Coeff of Rekha 16.9 H Plt Count 75 L MPV 9.9 Immature Gran % (Auto) 0.2 Neut % (Auto) 73.0 Lymph % (Auto) 18.2 [place] % (Auto) 7.7 Eos % (Auto) 0.7 Baso % (Auto) 0.2 Neut # (Auto) 3.32 Lymph # (Auto) 0.83 L [place] # (Auto) 0.35 Eos # (Auto) 0.03 Baso # (Auto) 0.01 Immature Gran # (Auto) 0.01 RBC Morphology Unremarkable Sodium 130 L Potassium 3.9 Chloride 97 L Carbon Dioxide 24 Anion Gap 9 BUN 29 H Creatinine 1.53 H D Est Cr Clr Drug Dosing 48.2 Est GFR ( Amer) 54.1 Est GFR (Non-Af Amer) 46.7 BUN/Creatinine Ratio 19.0 Glucose 172 H POC Glucose Calcium 8.9 Total Bilirubin 6.9 H AST 60 H ALT 35 Alkaline Phosphatase 87 Ammonia 48.0 Total Protein 5.9 L Albumin 3.2 L Globulin 2.7 Albumin/Globulin Ratio 1.2 02/04/22 07:30 WBC RBC Hgb Hct MCV MCH MCHC RDW Std Deviation RDW Coeff of Rekha Plt Count MPV Immature Gran % (Auto) Neut % (Auto) Lymph % (Auto) [place] % (Auto) Eos % (Auto) Baso % (Auto) Neut # (Auto) Lymph # (Auto) [place] # (Auto) Eos # (Auto) Baso # (Auto) Immature Gran # (Auto) RBC Morphology Sodium Potassium Chloride Carbon Dioxide Anion Gap BUN Creatinine Est Cr Clr Drug Dosing Est GFR ( Amer) Est GFR (Non-Af Amer) BUN/Creatinine Ratio Glucose POC Glucose 179 H Calcium Total Bilirubin AST ALT Alkaline Phosphatase Ammonia Total Protein Albumin Globulin Albumin/Globulin Ratio Diagnostic Findings KUB X-Ray 02/03/22 17:29 KUB CLINICAL HISTORY: Abdominal pain. r/o obstruction COMPARISON STUDY: MRI of the abdomen January 24, 2022. FINDINGS: There is gas throughout small and large bowel. Evaluation is compromised given suboptimal penetration. No convincing evidence for a bowel obstruction. IMPRESSION: No evidence for a bowel obstruction. ACT 112: Negative or not required by law. Electronically signed by: Arvind Erwin M.D. 02/04/2022 7:38 AM
--- NOTE | 2022-02-04 08:36 | Nephrology Consultation ---
Date of Consultation February 04, 2022 Assessment & Plan (1) Decompensation of cirrhosis of liver: (2) Hepatorenal syndrome: (3) Hyponatremia: (4) Cholangiocarcinoma: ARLEEN/CKD likely related to intravascular volume contraction in the setting of diuretic therapy and large volume paracentesis. Will hold furosemide, spironolactone and add 2g/day NaCl restriction to diet order. Will provide 1L NS and check urine Na. Continue midodrine therapy to maintain SBP > 90 mm Hg. Recheck PRP in am. If no improvement, may need to consider adding octreotide therapy. No additional albumin at this time as serum albumin is > 3.0. LE swelling unlikely to significantly improve w/ diuretic therapy. Recommend wrapping legs to provide external compression. If further paracentesis needed, limit volume removal to 4L/day History of Present Illness Reason for Consultation: Type 2 HRS, LE edema Attending Physician: Trinh Mendez MD History of Present Illness Mr. Montes is a 66 year old male who is seen at the request of [facility] Hospitalist Service for evaluation of Type 2 HRS and LE edema. Medical records in the EMR were reviewed and are summarized as follows: Mr. Montes has SWIFT, decompensated cirrhosis, HCV genotype 4 treated with direct AVD, ascites, esophageal varices, new lesions in the liver suspicious for cholangiocarcinoma, elevated AFP, recent DVT and saddle PE. He was admitted to [facility] 01/23/22 for evaluation of tense ascites, LE swelling limiting his ability to ambulate and progressive weakness. 01/24/22 abdominal MRI revealed a 2 cm mass within the liver.He underwent 8.5L paracentesis 01/23/22 and 6L paracentesis 02/01/22. Both procedures were accompanied by albumin infusion. Mr. Montes was placed on Spironolactone and Furosemide. Consideration was given to transfer to [facility] [place], operated by [facility] for liver transplant evaluation. It was recommended that diuretic regimen be intensified to improve LE swelling and allow patient to pursue transplant evaluation as an outpatient. Furosemide was increased to 40 mg IV BID. Cr has since risen from 1.1 to 1.5. Urine Na is pending. Serum albumin is 3.2. Allergies Allergy/AdvReac Type Severity Reaction Status Date / Time No Known Allergies Allergy Verified 11/10/21 17:01 Home Medications Medication Instructions Recorded Confirmed Type albuterol sulfate 90 mcg/actuation 2 puff INHALATION Q4 PRN 12/19/18 11/10/21 History aerosol inhaler (ProAir HFA) magnesium oxide 400 mg PO HS 12/19/18 11/10/21 History milk thistle 500 mg capsule 500 mg PO HS 12/19/18 11/10/21 History multivitamin 1 tab PO HS 12/19/18 11/10/21 History ursodiol 300 mg capsule 300 mg PO HS 12/19/18 11/10/21 History vitamin E 400 unit capsule 400 unit PO HS 12/19/18 11/10/21 History OneTouch Ultra Blue Test Strip #300 ea NS 08/22/19 04/08/21 Rx (blood sugar diagnostic) flash glucose sensor (FreeStyle #1 ea 10/20/20 04/08/21 Rx Allan 2 Sensor) pen needle, diabetic 31 gauge x #400 ea 05/20/21 Rx 5/16" (BD Ultra-Fine Short Pen Needle) ascorbic acid (vitamin C) (Vitamin 1 g PO HS 11/10/21 11/10/21 History C) cholecalciferol (vitamin D3) 25 75 mcg PO HS 11/10/21 11/10/21 History mcg (1,000 unit) capsule (Vitamin D3) coenzyme Q10 100 mg capsule 100 mg PO HS 11/10/21 11/10/21 History (CoQ-10) insulin regular hum U-500 conc 75 - 105 unit SUBCUT BIDWMEAL 11/10/21 11/10/21 History (Humulin R U-500 (Conc) Insulin Kwikpen) omega-3 fatty acids-fish oil 684 1 cap PO HS 11/10/21 11/10/21 History mg-1,200 mg capsule,delayed release Patient History Medical History Asthma inhaler prn Chronic back pain LOWER BACK AND NECK PAIN Degenerative disc disease Diabetes mellitus, type 2 IDDM Difficult intravenous access Edema leg Esophageal varices Fear of needles GERD (gastroesophageal reflux disease) Glaucoma Hepatitis C tx and no longer has Hyperlipidemia Hypertension Migraine PT DENIES Obesity Osteoarthritis Saddle pulmonary embolus Spinal stenosis Tear meniscus knee bilt Surgical History Cirrhosis of liver not due to alcohol History of colonoscopy History of esophagogastroduodenoscopy (EGD) History of removal of cyst rectal cyst Status post glaucoma surgery Family History Father Family history of esophageal cancer Diabetes Mother Diabetes Brother Family history of diabetes mellitus Sister Family history of diabetes mellitus Family/Other Family history of diabetes mellitus cousin Other No family history of adverse response to anesthesia Denies family history of Ovarian cancer Prostate cancer Myocardial infarction Breast cancer Colorectal cancer Social History Smoking Status: Never smoker Second Hand Exposure: No; Hx Alcohol Use: No Hx Substance Use: No Preferred Language: Austrian Communication Ability: Effective Ladderman Required: No Beliefs That Will Affect Care: None marital status: Current Living Situation: Spouse Current Living Situation Comment: Lives with and daughter current occupational status: retired and disabled Other Information That Helps Us Care for You: No Feels Safe at Home: Yes Safety Concerns: Feels Safe At This Time Childhood Exposure to Second-Hand Smoke: No Dental Care, Regularly: Yes Physical Activity Frequency: Does not Exercise Seatbelt Use: always Sunscreen Use: No Assistive Devices: Cane and Walker Review of Systems Constitutional: + weakness; no fever Eyes: no problem reported Ear, Nose, Mouth, Throat: no problem reported Respiratory: no cough and no dyspnea Cardiovascular: no chest pain and no palpitations Gastrointestinal: + bloating Genitourinary: no dysuria, no urinary hesitancy or no hematuria Musculoskeletal: no back pain Integumentary: no rash Neurologic: no confusion Physical Exam Constitutional: + ill appearing; no acute distress Eyes: + anicteric sclerae, PERRL and EOM intact bilaterally mild scleral icterus ENMT: external ear and nose normal, oropharynx normal Neck: trachea midline, no thyromegaly Respiratory: normal respiratory effort, lungs clear to auscultation Cardiovascular: Rate/Rhythm: regular rate and regular rhythm Extremities: + edema (tense pretibial pitting edema) Gastrointestinal (Abdomen): Inspection/Auscultation: + abdomen distended (+ fluid wave) Percussion/Palpation: abdomen nontender and no guarding Skin: no rashes, warm and dry Neurologic: awake; not confused Results & Data ([facility]) Vital Signs (Past 12 Hours) Vital Signs Temp Pulse Pulse Pulse Resp BP BP 02/04/22 07:54 36.7 C 77 19 99/57 L 02/04/22 04:16 37.1 C 79 16 104/59 L 02/03/22 22:52 37.1 C 81 18 97/58 L 02/03/22 22:45 77 Pulse Ox 02/04/22 07:54 99 02/04/22 04:16 98 02/03/22 22:52 98 02/03/22 22:45 Laboratory Results Laboratory Tests 02/04/22 02/04/22 05:48 05:48 WBC 4.55 L Hgb 10.3 L Hct 28.6 L Plt Count 75 L Sodium 130 L Potassium 3.9 Chloride 97 L Carbon Dioxide 24 BUN 29 H Creatinine 1.53 H D Glucose 172 H PG Care Time/CCT Total # of Minutes Spent Total Time Spent with Patient: Total time spent is greater than 50% in coordination of care (as documented) at patient's floor/unit and/or counseling patient: Coding Level of Care Code 67576 Inpt Consult Level 5 Diagnoses Decompensation of cirrhosis of liver K72.90; K74.60 Hyponatremia E87.1 Cholangiocarcinoma C22.1 Hepatorenal syndrome K76.7
[2022-02-04] MEDS: LACTULOSE SYRUP 20 GM/30 ML UDC PO SCH ×3 (08:52→21:41)
[2022-02-04] MEDS: MIDODRINE HCL 2.5 MG TAB PO SCH ×3 (08:52→17:37)
[2022-02-04] MEDS: carvediloL 3.125 MG TAB PO SCH ×2 (08:52→21:40)
[2022-02-04] MEDS: FAMOTIDINE 10 MG TABLET PO PRN (08:52)
[2022-02-04] MEDS: AMIODARONE 200 MG TAB PO SCH ×2 (08:53→17:36)
[2022-02-04] MEDS: POLYETHYLENE (MIRALAX) 17 GM PACK PO SCH (08:53)
[2022-02-04] MEDS: SPIRONOLACTONE 100 MG TAB PO SCH (08:53)
[2022-02-04] MEDS: MULTIVITAMIN TAB PO SCH (08:53)
[2022-02-04] MEDS: FUROSEMIDE 40 MG/4 ML VIAL IV SCH (08:53)
[2022-02-04] MEDS: PANTOprazole 40 MG TAB PO SCH (08:53)
[2022-02-04] MEDS ORDERED: SODIUM CHLORIDE 0.9% 1000ML 1,000 ML IV SCH (10:30)
--- NOTE | 2022-02-04 11:44 | Pharmacy Report ---
Pharmacy Glycemic Short Note 2 - Date of Service February 04, 2022 - Glycemic Short BSG Results (Last 24 hours): 02/03/22 02/03/22 02/04/22 16:27 20:05 05:48 Glucose 172 H POC Glucose 140 H 153 H 02/04/22 02/04/22 07:30 11:15 Glucose POC Glucose 179 H 222 H OUTPATIENT ANTIDIABETIC REGIMEN: * Novolin R U-500: 40-90 units according to BG value post-meal; usually takes 2x/day (lunch/supper) * HbA1c = 8.2% (01/24/22) ASSESSMENT: 02/04: * BSGs largely within goal the last 24 hours, however minimal PO intake. Patient received a total of 30 units basal yesterday as evening dose was held (per MD documented). Fasting this AM acceptable - 179mg/dL. * Reduced dose of NPH this AM d/t decreased PO intake - 20 units. Plan for evening scale pending BSGs. * No change to Novolog parameters. 02/03 * Stressors stable * BSG's still elevated after increase in NPH at AM and PM yesterday. AM fasting BSG now <180 mg/dL, but still elevated * Will increase PM NPH to hopefully help reduce AM fasting BSG. Hestitant to increase NPH further given hypoglycemia noted at dinner BSG x2 times earlier this admission, and also cumulative daily basal doses are much higher than bolus doses at this time. Will therefore tighten CF and CR instead 02/02 * Stressors stable * BSG's persistently elevated after reduced AM NPH dose yesterday and remain elevated this AM despite patient accepting PM dose of NPH * Will cautiously increase both AM and PM NPH dose - would prefer to avoid further hypoglycemia, especially due to trend this admission where patient then has refused insulin leading to rebound hyperglycemia seen yesterday 02/01 * BSG's not well controlled yesterday with two BSG's >180 and one BSG at dinner < 70. Etiology of hypoglycemia likely mostly related to higher AM dosage of NPH * Per prior documentation, patient is very aware of "lows" and has a trend of refusing insulin. PM NPH and Novolog x2 refused yesterday 2nd hypoglycemic episode, which contributed to AM hyperglycemia this AM * Will reduce NPH and attempt to more evenly distribute with breakfast and dinner to avoid AM highs and PM lows * No change to Novolog at this time 01/31: * BSGs elevated yesterday (102-284 mg/dL) * Received 66 units of insulin (40 units of NPH and 26 units of prandial/correctional bolus) * Fasting BSG improved from yesterday (284 -> 195 mg/dL) * Will continue to titrate NPH, continue Novolog today 01/29: * BSGs within goal the last 24h (141, 98, 117). Pt did drop down to 70mg/dL yesterday evening. Fasting this AM-137mg/dL. He has not been tolerating a diet over the past day, and has been nauseous. Refused his NPH last night and with breakfast this AM. Received 40 units of basal insulin yesterday + 10 units Novolog. * I did have a discussion with John @ bedside regarding his insulin regimen - he is agreeable to a dose reduction starting with lunch today. He feels when his BSGs are low, and is hesitant given the drop to 70mg/dl yesterday. * Plan for NPH 20 units today with lunch (~ 50% reduction). Given BSG of 107 @ lunch and carb intake of only 16gm, will not add additional NPH today. No change to Novolog today. Will reassess basal in AM. 01/25: * 66 yo M admitted on 01/23/22 secondary to generalized weakness. Poor glycemic control since admission so pharmacy has been consult to assist with inpatient glycemic management. Patient is ordered a T2DM diet and tolerating well. Has a history of ESLD. * Patient received 53 units of insulin yesterday - mostly Novolog, two IV doses, no basal ordered. BSGs were uncontrolled: [phone] mg/dL. * Unsure how reliable A1c is in this patient given ESLD and cirrhosis. Appears to follow with Dr. Antony but hasn't seen him in over a year. * Appears that initial Novolog order had carb ratio and correction factor reversed (ordered as CF 10, CR 30; then tightened to 04/08). * Will tighten Novolog today. Too late for lunchtime dose so start with dinner. * Rather than use U-500 in this patient will trial BID NPH to be given with breakfast and dinner. Starting with 0.2 units/kg at dinner tonight. * Targeting BSG goals of 110-140 mg/dL and will add overnight checks for this evening given significant insulin changes. PLAN FOR INPATIENT GLYCEMIC CONTROL: * Basal insulin * NPH 20 units SC qAM with breakfast, scale with dinner * Bolus insulin * NovoLog per scale ACHS or Q6hrs while NPO * Goal Range: Low 110 mg/dL - High 140 mg/dL * Correction Factor: 12 mg/dL/unit * Nutritional / Prandial insulin per carb ratio of 1 unit per 3.5 grams CHO consumed
--- NOTE | 2022-02-04 14:16 | Hospitalist Progress Note ---
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 Bae [phone] EGD 01/2021: Grade III varices in lower third of esophagus. Erythematous mucosa without bleeding in gastric body. Meld 26 -MRI liver w/ and w/out contrast showed Slight interval decrease in the size of previously identified rim-enhancing mass within the liver now measuring 2.0 cm compared to 2.3 cm on the previous study. No new enhancing masses are identified. Liver ultrasound negative for portal vein thrombosis, Liver function continue to deteriorate No evidence of SBP on ascitis study Discussed extensively with abd daughter regarding prognosis Also discussed with GI Patient and family want to pursue the option for liver transplant, I have called [facility] for possible transfer to properly investigate the liver mass and determine if he is a transplant candidate. However, the Strategic Analyst wouldnt accept him as inpatient transfer, and would want to optimize his medical and functional status first. He suggested more efforts to reduce his ascites and leg edema (2) Hepatorenal syndrome: Plan: Worsening renal function Cr 1.5 today, up from 1.18 Will hold diuresis per nephrology (3) Atrial fibrillation with RVR: Plan: Patient is a 66-year-old male with past medical history of liver cirrhosis 2/2 SWIFT and hepatitis C followed with [facility], tanstioning to [facility], esophageal varices, hyponatremia, ascites, currently undergoing work-up for cholangiocarcinoma due to liver mass on imaging. Presents with worsened weakness and fatigue. A. fib with RVR - Currently on amiodarone. He is on therapeutic Lovenox for PE, sinus rhythm -TTE: During A. fib with RVR. No significant valvular disease, hyperdynamic LV with EF 65-70%. Amnio increased to 400 mg po bid, tolerating carvedilol 3.125 bid (4) Edema leg: Plan: Bilateral pitting leg edema Not much improvement following diuresis Will continue narciso wraps (5) Ascites: Plan: Has had large volume paracentesis with removal of >8L and >6L of fluid since admission No evidence of SBP There appears to be a re accumulation, may need another paracentesis in a couple of days Hold lasix and Aldactone per nephrology (6) Cholangiocarcinoma: Plan: - Per pt, was diagnosed at [facility] October at time of his hospitalization for saddle PE. - He was supposed to follow-up with [facility] for further workup, per report has had difficulty obtaining followup - Has seen [facility] in the past, most recently has been seeing [facility] GI team for this, MRI completed as noted. Lesions are reduced in size, outpt followup at this time (7) Type 2 diabetes mellitus, with long-term current use of insulin: Plan: - With hypoglycemia/BGm 60s at home this AM, BGMs 158 in ED. - Accucheks ACHS with SSI. -Hemoglobin A1c 8.2% - Diabetic diet with fluid restriction 1.5L -Pharmacy consulted, on NPH and SSI (8) Hyponatremia: Plan: salt restriction monitor Nephrology on consult (9) Saddle pulmonary embolus: Plan: - Dx 11/10/21 while at [facility] Saddle PE with heavy clot burden extending into the lobar and segmental pulmonary arteries was appreciated, IR was consulted but did not recommend intervention as was hemodynamically stable. EF was hyperdynamic without reduced systolic function. Patient was discharged on Lovenox every 12 hours instead of a DOAC due to very high risk of bleed with varices and in the event that a biopsy for cholangiocarcinoma needed to be performed. - Xarelto is contraindicated in his liver disease. Apixaban is not recommended to be hepatic adjustment, With saddle PE after 3 months can consider repeat CTA to assess for clot burden and if cleared potentially move to a prophylactic dose of Lovenox at that time. (10) Hypotension: Plan: Coreg/lasix/Oscar needed for liver disease, using midodrine to combat side affects (11) Exposure to COVID-19 virus: Plan: Pt is COVID positive. Pt negative on admission retest on 01/28, negative no longer PUI (12) Hyperammonemia: Plan: resolved (13) Weakness: Plan: pt recommended for SNF (14) Decompensation of cirrhosis of liver: Plan: - PCU. - SCDs, Lovenox for VTE ppx. - Full Code. Patient and family want to pursue a work up for possible liver transplant at [facility] pending optimization of medical and functional status Admission and Anticipated Discharge Date Admission Date: January 23, 2022 Subjective patient seen and examined, daughter by the bedside Review of Systems Review of Systems: All systems reviewed are negative, apart from the ones contained in the history. Physical Exam Physical Exam: The patient is awake, alert and oriented 3, well developed and well nourished, normocephalic and atraumatic HEENT--PERRL, EOMI, mucous membranes and oropharynx mildly dry Neck--supple. No JVD. No bruits. Thyroid normal, trachea midline, no adenopathy. Heart--normal S1 and S2. No murmurs, rubs or gallops. Lungs--clear bilaterally, no respiratory distress, no accessory muscle use. Abdomen--distended Extremities--Bilateral leg edema Dermatologic--normal skin turgor, normal color, no abnormal lymph nodes, no rash. Neurologic--cranial nerves II through XII grossly intact. Rheumatologic--normal range of motion. Psychiatric--normal affect. Results & Data Results & Data ([facility]) Vital Signs (Past 12 Hours) Vital Signs Temp Pulse Pulse Pulse Resp BP BP 02/04/22 11:37 97.5 F L 70 18 105/58 L 02/04/22 08:00 76 02/04/22 07:54 98.1 F 77 19 99/57 L 02/04/22 04:16 98.7 F 79 16 104/59 L Pulse Ox 02/04/22 11:37 99 02/04/22 08:00 02/04/22 07:54 99 02/04/22 04:16 98 PG Care Time/CCT Total # of Minutes Spent Total Time Spent with Patient: Total time spent is greater than 50% in coordination of care (as documented) at patient's floor/unit and/or counseling patient: Coding Level of Care Code 53072 Subseq Hosp Care Lvl 2 Diagnoses 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 K75.81; K74.60 Atrial fibrillation with RVR I48.91 Ascites R18.8 Cholangiocarcinoma C22.1 Type 2 diabetes mellitus, with long-term current use of insulin E11.69; Z79.4 Diabetes mellitus complication status: with other specified complication Hyponatremia E87.1 Saddle pulmonary embolus I26.92 Exposure to COVID-19 virus Z20.822 Hyperammonemia E72.20 Weakness R53.1 Hypotension I95.9 Hepatorenal syndrome K76.7 Decompensation of cirrhosis of liver K72.90; K74.60 Edema leg R60.0 Time Spent (min) 35 (1) Type 2 diabetes mellitus, with long-term current use of insulin Diabetes mellitus complication status: with other specified complication Qualified Code(s): E11.69 - Type 2 diabetes mellitus with other specified complication; Z79.4 - long-term (current) use of insulin
[2022-02-04 15:02] LABS: Appearance Urine Clear (Clear); Bacteria Urine Automated Negative (Negative); Blood Urine Negative (Negative); Color Urine Orange; Glucose Urine UA Negative (Negative); Ketones Urine Negative (Negative); Leukocyte Esterase Urine Trace (Negative); Nitrite Urine Positive (Negative); Protein Urine Negative (Negative); Specific Gravity Urine 1.018 (1.000-1.030); Urobilinogen Urine Positive (Negative)
[2022-02-04 15:15] LABS: Bilirubin Urine 2+ (Negative)
[2022-02-04] MEDS: INSULIN HUMAN NPH SC SCH (17:36)
[2022-02-04] MEDS: ursodioL 300 MG CAP PO SCH (21:41)
[2022-02-04] MEDS: MAGNESIUM OXIDE 400 MG TAB PO SCH (21:43)
[2022-02-05] MEDS: ENOXAPARIN 100 MG/1ML SYR SQ SCH ×2 (04:35→16:51)
[2022-02-05 05:54] LABS: Hematocrit (blood only) 28.1 % (42-52); Hemoglobin 10.1 g/dL (14.0-18.0); Mean Corpuscular Hemoglobin 34.4 pg (25-34); Mean Corpuscular Hgb Conc 35.9 g/dL (32-36); Mean Corpuscular Volume 95.6 fL (80-100); RDW Coefficient of Variation 17.4 % (11.5-14.5); RDW Standard Deviation 60.8 fL (36.4-46.3); Red Blood Count 2.94 M/uL (4.7-6.1); White Blood Count 3.72 K/uL (4.8-10.8)
[2022-02-05 05:55] LABS: Mean Platelet Volume 9.8 fL (7.4-10.4); Platelet Count 71 K/uL (130-400)
[2022-02-05 06:10] LABS: Albumin Globulin Ratio 1.1 (0.9-2); Albumin Level 3.1 gm/dl (3.4-5.0); BUN Creatinine Ratio 20.7 (10-20); Bilirubin Direct 3.2 mg/dl (0-0.2); Bilirubin,Total 6.7 mg/dl (0.2-1.0); Calcium 8.6 mg/dl (8.5-10.1); Creatinine Clr Calc Pharmacy 54.6 ml/min; Est GFR (Non-African American) 54.3 ml/min; Globulin 2.7 gm/dl (2.5-4.0); Potassium 4.2 mmol/L (3.5-5.1); Total Protein 5.8 gm/dl (6.0-8.3)
[2022-02-05] MEDS ORDERED: INSULIN HUMAN NPH SC SCH (08:00)
--- NOTE | 2022-02-05 08:25 | Gastroenterology Progress Note ---
Date of Service February 05, 2022 Assessment & Plan (1) Hepatorenal syndrome: Plan: Therapeutic paracentesis---prn when patient feels his abdomen is uncomfortable ESLD--plan is pursuing liver transplant, [facility] would not accept venut in transfer for inpatient liver transplant evaluation, nephrology consulted to optimize diuretics. Child-Lozano score calculated at 11, and MELD score is 21. These levels are associated with a poor prognosis liver lesion--to be worked up by [facility] hepatic encephalopathy---Mental fog continues, continue lactulose, Continue Miralax Case reviewed with Dr. Hughes. Please refer to supervising physician addendum for further recommendations. I have spent 20 minutes of discrete time performing the activities of this visit which include but are not limited to review of the medical record, obtaining a history, physical exam, and entering information in the electronic record. (2) Decompensation of cirrhosis of liver: (3) Hyperammonemia: (4) Abdominal ascites: Admission and Anticipated Discharge Date Admission Date: January 23, 2022 Supervising Physician Co-Signing Physician Notes I interviewed and examined the patient and reviewed the medical record, with the following observations: Subjective: He complains of immobility due to leg swelling and weakness Physical Examination: He is lethargic but responsive, conversant, fully oriented, not encephalopathic, dependent edema looks improved Chart Review: No significant new findings I agree with the assessment as outlined in this consultation, with the following observations: Agree with assessment per other consultants I agree with the plan of care as outlined in this consultation, with the following changes and/or additions: Mr. Montes has been accepted today for liver transplant evaluation at [facility] [place] transplant program, his eligibiity for transfer begins tomorrow morning. Hospitalist physician to c ontact Dr. Hammond, the supervisor fabrication transplant battery container tester aluminum at [facility], tomorrow morning to arrange the transfer. This was discussed with Mr. Montes and all questions answered As the supervising physician, I have spent 30 minutes of discrete time performing the activities of this consultation which include, but are not limited to, review of the medical record, obtaining a history, physical examination, and entering information into the electronic record. SHANIQUA Ramos, has reported spending 20 minutes of discrete time with the activities of the consultation. Subjective The patient is awake alert and oriented to person and place this morning. Is sitting at bedside consuming his breakfast. Denies any abdominal pain. He reports his abdomen feels softer morning. No nausea or vomiting. He has had decrease in bilateral lower extremity edema. He reports no bowel movement yesterday. He is wondering if Dr. Orozco at [facility] has been kept up-to-date with his status. Review of Systems Review of Systems: All systems reviewed & are unremarkable except as noted in Subjective Physical Exam Cardiovascular: Extremities: + edema (bilateral lower extremity) Gastrointestinal (Abdomen): pos bs, protuberant but not tense, no guarding nor rebound Psychiatric: Orientation: alert, oriented to person and oriented to place Results & Data ([facility]) Vital Signs (Past 12 Hours) Vital Signs Temp Pulse Pulse Resp BP BP Pulse Ox 02/05/22 08:00 36.7 C 66 20 135/70 97 02/05/22 04:34 36.8 C 75 18 105/65 97 02/05/22 00:26 36.9 C 69 14 110/81 98 02/04/22 23:54 72 Laboratory Results Laboratory Results - last 24 hr 02/01/22 02/04/22 02/04/22 Unknown 11:15 14:45 WBC RBC Hgb Hct MCV MCH MCHC RDW Std Deviation RDW Coeff of Rekha Plt Count MPV Sodium Potassium Chloride Carbon Dioxide Anion Gap BUN Creatinine Est Cr Clr Drug Dosing Est GFR ( Amer) Est GFR (Non-Af Amer) BUN/Creatinine Ratio Glucose POC Glucose 222 H Calcium Total Bilirubin Direct Bilirubin AST ALT Alkaline Phosphatase Total Protein Albumin Globulin Albumin/Globulin Ratio Urine Color [place] Urine Appearance Clear Urine pH 5.0 Ur Specific [place] 1.018 Urine Protein Negative Urine Glucose (UA) Negative Urine Ketones Negative Urine Blood Negative Urine Nitrite Positive A Urine Bilirubin 2+ H Urine Urobilinogen Positive H Ur Leukocyte Esterase Trace H Urine WBC (Auto) 1-5 Urine RBC (Auto) 5-10 H U Hyaline Cast (Auto) 10-30 H U Epithel Cells (Auto) 5-10 H Urine Bacteria (Auto) Negative Ur Random Sodium Peritoneal Triglycerid 38 02/04/22 02/04/22 02/04/22 14:45 16:24 21:13 WBC RBC Hgb Hct MCV MCH MCHC RDW Std Deviation RDW Coeff of Rekha Plt Count MPV Sodium Potassium Chloride Carbon Dioxide Anion Gap BUN Creatinine Est Cr Clr Drug Dosing Est GFR ( Amer) Est GFR (Non-Af Amer) BUN/Creatinine Ratio Glucose POC Glucose 158 H 184 H Calcium Total Bilirubin Direct Bilirubin AST ALT Alkaline Phosphatase Total Protein Albumin Globulin Albumin/Globulin Ratio Urine Color Urine Appearance Urine pH Ur Specific [place] Urine Protein Urine Glucose (UA) Urine Ketones Urine Blood Urine Nitrite Urine Bilirubin Urine Urobilinogen Ur Leukocyte Esterase Urine WBC (Auto) Urine RBC (Auto) U Hyaline Cast (Auto) U Epithel Cells (Auto) Urine Bacteria (Auto) Ur Random Sodium 22 Peritoneal Triglycerid 02/05/22 02/05/22 02/05/22 05:40 05:40 07:32 WBC 3.72 L RBC 2.94 L Hgb 10.1 L Hct 28.1 L MCV 95.6 MCH 34.4 H MCHC 35.9 RDW Std Deviation 60.8 H RDW Coeff of Rekha 17.4 H Plt Count 71 L MPV 9.8 Sodium 131 L Potassium 4.2 Chloride 99 Carbon Dioxide 25 Anion Gap 7 BUN 28 H Creatinine 1.35 Est Cr Clr Drug Dosing 54.6 Est GFR ( Amer) 63.0 Est GFR (Non-Af Amer) 54.3 BUN/Creatinine Ratio 20.7 H Glucose 187 H POC Glucose 242 H Calcium 8.6 Total Bilirubin 6.7 H Direct Bilirubin 3.2 H AST 75 H ALT 38 Alkaline Phosphatase 93 Total Protein 5.8 L Albumin 3.1 L Globulin 2.7 Albumin/Globulin Ratio 1.1 Urine Color Urine Appearance Urine pH Ur Specific [place] Urine Protein Urine Glucose (UA) Urine Ketones Urine Blood Urine Nitrite Urine Bilirubin Urine Urobilinogen Ur Leukocyte Esterase Urine WBC (Auto) Urine RBC (Auto) U Hyaline Cast (Auto) U Epithel Cells (Auto) Urine Bacteria (Auto) Ur Random Sodium Peritoneal Triglycerid (1) Abdominal ascites Ascites type: other type Qualified Code(s): R18.8 - Other ascites
[2022-02-05] MEDS: INSULIN ASPART PER UNIT SC SCH ×4 (08:26→21:57)
[2022-02-05] MEDS: INSULIN HUMAN NPH SC SCH ×2 (08:27→16:52)
--- NOTE | 2022-02-05 08:27 | Nephrology Progress Note ---
Date of Service February 05, 2022 Assessment & Plan (1) Decompensation of cirrhosis of liver: (2) Hepatorenal syndrome: (3) Hyponatremia: (4) Cholangiocarcinoma: Plan: * ARLEEN improved. Patient is very sensitive to diuretic therapy and intravascular volume contraction. * Will consult dietitian to provide education on 2g/day NaCl restricted diet. * Resume spironolactone 100 mg po daily and furosemide 40 mg po daily. Target net 1-1.5 L UO daily. If additional diuresis needed, can titrate up spironolactone/furosemide in a ratio of 100/40 by doubling the dose. Do not exceed 400/160 mg. * Continue midodrine therapy to maintain SBP > 90 mm Hg. * Monitor PRP during hospitalization. * Serum Cr is improved, Yodit is > 10. No acute indication for octreotide therapy. * No additional albumin at this time as serum albumin is > 3.0. * LE swelling unlikely to significantly improve w/ diuretic therapy. Recommend wrapping legs to provide external compression. * If further paracentesis needed, limit volume removal to 4L/day. * No further Nephrology recommendations at this time. Will sign off. Please call if further assistance is needed Admission and Anticipated Discharge Date Admission Date: January 23, 2022 Subjective Mr. Montes was evaluated in his hospital room this morning. He reports that his LE swelling has improved. He voices no new medical concerns. Review of Systems Constitutional: + weakness; no fever Eyes: no problem reported Ear, Nose, Mouth, Throat: no problem reported Respiratory: no cough and no dyspnea Cardiovascular: no chest pain and no palpitations Gastrointestinal: + bloating Genitourinary: no dysuria, no urinary hesitancy or no hematuria Musculoskeletal: no back pain Integumentary: no rash Neurologic: no confusion Physical Exam Constitutional: + ill appearing; no acute distress Eyes: + anicteric sclerae, PERRL and EOM intact bilaterally ENMT: external ear and nose normal, oropharynx normal Neck: trachea midline, no thyromegaly Respiratory: normal respiratory effort, lungs clear to auscultation Cardiovascular: Rate/Rhythm: regular rate and regular rhythm Extremities: + edema (tense pretibial pitting edema) Gastrointestinal (Abdomen): Inspection/Auscultation: + abdomen distended (+ fluid wave) Percussion/Palpation: abdomen nontender and no guarding Skin: no rashes, warm and dry Neurologic: awake; not confused Results & Data ([facility]) Vital Signs (Past 12 Hours) Vital Signs Temp Pulse Pulse Resp BP BP Pulse Ox 02/05/22 08:00 36.7 C 66 20 135/70 97 02/05/22 04:34 36.8 C 75 18 105/65 97 02/05/22 00:26 36.9 C 69 14 110/81 98 02/04/22 23:54 72 Laboratory Results Laboratory Tests 02/05/22 02/05/22 05:40 05:40 WBC 3.72 L Hgb 10.1 L Hct 28.1 L Plt Count 71 L Sodium 131 L Potassium 4.2 Chloride 99 Carbon Dioxide 25 BUN 28 H Creatinine 1.35 Glucose 187 H PG Care Time/CCT Total # of Minutes Spent Total Time Spent with Patient: Total time spent is greater than 50% in coordination of care (as documented) at patient's floor/unit and/or counseling patient: Coding Level of Care Code 44772 Subseq Hosp Care Lvl 3 Diagnoses Decompensation of cirrhosis of liver K72.90; K74.60 Hepatorenal syndrome K76.7 Hyponatremia E87.1 Cholangiocarcinoma C22.1
[2022-02-05] MEDS: LACTULOSE SYRUP 20 GM/30 ML UDC PO SCH ×3 (08:32→21:24)
[2022-02-05] MEDS: FAMOTIDINE 10 MG TABLET PO PRN (08:32)
[2022-02-05] MEDS: AMIODARONE 200 MG TAB PO SCH ×2 (08:33→16:52)
[2022-02-05] MEDS: PANTOprazole 40 MG TAB PO SCH (08:33)
[2022-02-05] MEDS: MULTIVITAMIN TAB PO SCH (08:33)
[2022-02-05] MEDS: carvediloL 3.125 MG TAB PO SCH ×2 (08:33→21:26)
[2022-02-05] MEDS: MIDODRINE HCL 2.5 MG TAB PO SCH ×3 (08:33→16:52)
[2022-02-05] MEDS ORDERED: FUROSEMIDE 40 MG/4 ML VIAL IV SCH (09:00)
[2022-02-05] MEDS: POLYETHYLENE (MIRALAX) 17 GM PACK PO SCH (09:25)
[2022-02-05] MEDS: SPIRONOLACTONE 100 MG TAB PO SCH (09:33)
[2022-02-05] MEDS: FUROSEMIDE 40 MG TAB PO SCH (09:33)
--- NOTE | 2022-02-05 12:32 | Pharmacy Report ---
Pharmacy Glycemic Short Note 2 - Date of Service February 05, 2022 - Glycemic Short BSG Results (Last 24 hours): 02/04/22 02/04/22 02/05/22 16:24 21:13 05:40 Glucose 187 H POC Glucose 158 H 184 H 02/05/22 02/05/22 07:32 11:22 Glucose POC Glucose 242 H 170 H OUTPATIENT ANTIDIABETIC REGIMEN: * Novolin R U-500: 40-90 units according to BG value post-meal; usually takes 2x/day (lunch/supper) * HbA1c = 8.2% (01/24/22) ASSESSMENT: 02/05: * BSGs 158-184-170 the last 24h. Fasting this AM- 242mg/dL which is elevated. Patient received 30 units of basal insulin yesterday and 20 units of bolus. * Stressors stable, tolerating diet. * Increased NPH this AM very mildly to 25 units. Continue with HS scale. * No change to Novolog parameters. 02/04: * BSGs largely within goal the last 24 hours, however minimal PO intake. Patient received a total of 30 units basal yesterday as evening dose was held (per MD documented). Fasting this AM acceptable - 179mg/dL. * Reduced dose of NPH this AM d/t decreased PO intake - 20 units. Plan for evening scale pending BSGs. * No change to Novolog parameters. 02/03 * Stressors stable * BSG's still elevated after increase in NPH at AM and PM yesterday. AM fasting BSG now <180 mg/dL, but still elevated * Will increase PM NPH to hopefully help reduce AM fasting BSG. Hestitant to increase NPH further given hypoglycemia noted at dinner BSG x2 times earlier this admission, and also cumulative daily basal doses are much higher than bolus doses at this time. Will therefore tighten CF and CR instead 02/02 * Stressors stable * BSG's persistently elevated after reduced AM NPH dose yesterday and remain elevated this AM despite patient accepting PM dose of NPH * Will cautiously increase both AM and PM NPH dose - would prefer to avoid further hypoglycemia, especially due to trend this admission where patient then has refused insulin leading to rebound hyperglycemia seen yesterday 02/01 * BSG's not well controlled yesterday with two BSG's >180 and one BSG at dinner < 70. Etiology of hypoglycemia likely mostly related to higher AM dosage of NPH * Per prior documentation, patient is very aware of "lows" and has a trend of refusing insulin. PM NPH and Novolog x2 refused yesterday 2nd hypoglycemic episode, which contributed to AM hyperglycemia this AM * Will reduce NPH and attempt to more evenly distribute with breakfast and dinner to avoid AM highs and PM lows * No change to Novolog at this time 01/31: * BSGs elevated yesterday (102-284 mg/dL) * Received 66 units of insulin (40 units of NPH and 26 units of prandial/correctional bolus) * Fasting BSG improved from yesterday (284 -> 195 mg/dL) * Will continue to titrate NPH, continue Novolog today 01/29: * BSGs within goal the last 24h (141, 98, 117). Pt did drop down to 70mg/dL yesterday evening. Fasting this AM-137mg/dL. He has not been tolerating a diet over the past day, and has been nauseous. Refused his NPH last night and with breakfast this AM. Received 40 units of basal insulin yesterday + 10 units Novolog. * I did have a discussion with [facility] @ bedside regarding his insulin regimen - he is agreeable to a dose reduction starting with lunch today. He feels when his BSGs are low, and is hesitant given the drop to 70mg/dl yesterday. * Plan for NPH 20 units today with lunch (~ 50% reduction). Given BSG of 107 @ lunch and carb intake of only 16gm, will not add additional NPH today. No change to Novolog today. Will reassess basal in AM. 01/25: * 66 yo M admitted on 01/23/22 secondary to generalized weakness. Poor glycemic control since admission so pharmacy has been consult to assist with inpatient glycemic management. Patient is ordered a T2DM diet and tolerating well. Has a history of ESLD. * Patient received 53 units of insulin yesterday - mostly Novolog, two IV doses, no basal ordered. BSGs were uncontrolled: [id number] mg/dL. * Unsure how reliable A1c is in this patient given ESLD and cirrhosis. Appears to follow with Dr. Antony but hasn't seen him in over a year. * Appears that initial Novolog order had carb ratio and correction factor reversed (ordered as CF 10, CR 30; then tightened to 04/08). * Will tighten Novolog today. Too late for lunchtime dose so start with dinner. * Rather than use U-500 in this patient will trial BID NPH to be given with breakfast and dinner. Starting with 0.2 units/kg at dinner tonight. * Targeting BSG goals of 110-140 mg/dL and will add overnight checks for this evening given significant insulin changes. PLAN FOR INPATIENT GLYCEMIC CONTROL: * Basal insulin * NPH 25 units SC qAM with breakfast, scale with dinner * Bolus insulin * NovoLog per scale ACHS or Q6hrs while NPO * Goal Range: Low 110 mg/dL - High 140 mg/dL * Correction Factor: 12 mg/dL/unit * Nutritional / Prandial insulin per carb ratio of 1 unit per 3.5 grams CHO consumed
--- NOTE | 2022-02-05 13:15 | Hospitalist Progress Note ---
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 Bae [phone] EGD 01/2021: Grade III varices in lower third of esophagus. Erythematous mucosa without bleeding in gastric body. Meld 26 -MRI liver w/ and w/out contrast showed Slight interval decrease in the size of previously identified rim-enhancing mass within the liver now measuring 2.0 cm compared to 2.3 cm on the previous study. No new enhancing masses are identified. Liver ultrasound negative for portal vein thrombosis, Liver function continue to deteriorate No evidence of SBP on ascitis study Discussed extensively with abd daughter regarding prognosis Also discussed with GI Patient and family want to pursue the option for liver transplant, I have called [facility] for possible transfer to properly investigate the liver mass and determine if he is a transplant candidate. However, the [facility] Dr Zak Wilkerson wouldnt accept him as inpatient transfer, and would want to optimize his medical and functional status first. He suggested more efforts to reduce his ascites and leg edema (2) Hepatorenal syndrome: Plan: some improvement in renal function (3) Atrial fibrillation with RVR: Plan: Patient is a 66-year-old male with past medical history of liver cirrhosis 2/2 SWIFT and hepatitis C followed with [facility], tanstioning to [facility], esophageal varices, hyponatremia, ascites, currently undergoing work-up for cholangiocarcinoma due to liver mass on imaging. Presents with worsened weakness and fatigue. A. fib with RVR - Currently on amiodarone. He is on therapeutic Lovenox for PE, sinus rhythm -TTE: During A. fib with RVR. No significant valvular disease, hyperdynamic LV with EF 65-70%. Amnio increased to 400 mg po bid, tolerating carvedilol 3.125 bid (4) Edema leg: Plan: Bilateral pitting leg edema A lot of improvement following narciso wraps Will continue narciso wraps (5) Ascites: Plan: Has had large volume paracentesis with removal of >8L and >6L of fluid since admission No evidence of SBP There appears to be a re accumulation, may need another paracentesis soon continue aldactone and lasix (6) Cholangiocarcinoma: Plan: - Per pt, was diagnosed at [facility] October at time of his hospitalization for saddle PE. - He was supposed to follow-up with [place] for further workup, per report has had difficulty obtaining followup - Has seen [facility] GI in the past, most recently has been seeing [facility] GI team for this, MRI completed as noted. Lesions are reduced in size, outpt followup at this time (7) Type 2 diabetes mellitus, with long-term current use of insulin: Plan: - With hypoglycemia/BGm 60s at home this AM, BGMs 158 in ED. - Accucheks ACHS with SSI. -Hemoglobin A1c 8.2% - Diabetic diet with fluid restriction 1.5L -Pharmacy consulted, on NPH and SSI (8) Hyponatremia: Plan: salt restriction monitor Nephrology on consult (9) Saddle pulmonary embolus: Plan: - Dx 11/10/21 while at [facility] Saddle PE with heavy clot burden extending into the lobar and segmental pulmonary arteries was appreciated, IR was consulted but did not recommend intervention as was hemodynamically stable. EF was hyperdynamic without reduced systolic function. Patient was discharged on Lovenox every 12 hours instead of a DOAC due to very high risk of bleed with varices and in the event that a biopsy for cholangiocarcinoma needed to be performed. - Xarelto is contraindicated in his liver disease. Apixaban is not recommended to be hepatic adjustment, With saddle PE after 3 months can consider repeat CTA to assess for clot burden and if cleared potentially move to a prophylactic dose of Lovenox at that time. (10) Hypotension: Plan: Coreg/lasix/Oscar needed for liver disease, using midodrine to combat side affects (11) Exposure to COVID-19 virus: Plan: Pt is COVID positive. Pt negative on admission retest on 01/28, negative no longer PUI (12) Hyperammonemia: Plan: resolved (13) Weakness: Plan: pt recommended for SNF (14) Decompensation of cirrhosis of liver: Plan: - PCU. - SCDs, Lovenox for VTE ppx. - Full Code. Patient and family want to pursue a work up for possible liver transplant at [facility] pending optimization of medical and functional status. Will reach out again to [facility] in a couple of days for update Admission and Anticipated Discharge Date Admission Date: January 23, 2022 Subjective patient seen and examined today, feels better, leg swelling has improved Review of Systems Review of Systems: All systems reviewed are negative, apart from the ones contained in the history. Physical Exam Physical Exam: The patient is awake, alert and oriented 3, well developed and well nourished, normocephalic and atraumatic HEENT--PERRL, EOMI, mucous membranes and oropharynx mildly dry Neck--supple. No JVD. No bruits. Thyroid normal, trachea midline, no adenopathy. Heart--normal S1 and S2. No murmurs, rubs or gallops. Lungs--clear bilaterally, no respiratory distress, no accessory muscle use. Abdomen--distended Extremities--Bilateral leg edema Dermatologic--normal skin turgor, normal color, no abnormal lymph nodes, no rash. Neurologic--cranial nerves II through XII grossly intact. Rheumatologic--normal range of motion. Psychiatric--normal affect. 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 K75.81; K74.60 Hepatorenal syndrome K76.7 Atrial fibrillation with RVR I48.91 Edema leg R60.0 Ascites R18.8 Cholangiocarcinoma C22.1 Type 2 diabetes mellitus, with long-term current use of insulin E11.69; Z79.4 Diabetes mellitus complication status: with other specified complication Hyponatremia E87.1 Saddle pulmonary embolus I26.92 Hypotension I95.9 Exposure to COVID-19 virus Z20.822 Hyperammonemia E72.20 Weakness R53.1 Decompensation of cirrhosis of liver K72.90; K74.60 Time Spent (min) 35 (1) Type 2 diabetes mellitus, with long-term current use of insulin Diabetes mellitus complication status: with other specified complication Qualified Code(s): E11.69 - Type 2 diabetes mellitus with other specified complication; Z79.4 - USP (current) use of insulin
[2022-02-05] MEDS: ONDANSETRON INJ 2 MG/ML 2 ML VIAL IV PRN (19:37)
[2022-02-05] MEDS: ursodioL 300 MG CAP PO SCH (21:24)
[2022-02-05] MEDS: MAGNESIUM OXIDE 400 MG TAB PO SCH (21:24)
[2022-02-06] MEDS: ENOXAPARIN 100 MG/1ML SYR SQ SCH ×3 (05:53→16:51)
[2022-02-06 06:40] LABS: Potassium 4.2 mmol/L (3.5-5.1)
[2022-02-06 06:41] LABS: BUN Creatinine Ratio 26.2 (10-20); Bilirubin Direct 3.5 mg/dl (0-0.2); Bilirubin,Total 7.5 mg/dl (0.2-1.0); Calcium 8.4 mg/dl (8.5-10.1); Creatinine Clr Calc Pharmacy 71.1 ml/min; Est GFR (African American) 87.3 ml/min; Est GFR (Non-African American) 75.3 ml/min; Total Protein 5.7 gm/dl (6.0-8.3)
[2022-02-06] MEDS: INSULIN HUMAN NPH SC SCH ×2 (08:29→16:59)
[2022-02-06] MEDS: INSULIN ASPART PER UNIT SC SCH ×4 (08:29→21:00)
[2022-02-06] MEDS: FAMOTIDINE 10 MG TABLET PO PRN (08:35)
[2022-02-06] MEDS: PANTOprazole 40 MG TAB PO SCH (08:35)
[2022-02-06] MEDS: FUROSEMIDE 40 MG TAB PO SCH (08:36)
[2022-02-06] MEDS: MIDODRINE HCL 2.5 MG TAB PO SCH ×3 (08:36→17:00)
[2022-02-06] MEDS: AMIODARONE 200 MG TAB PO SCH ×2 (08:36→17:00)
[2022-02-06] MEDS: MULTIVITAMIN TAB PO SCH (08:36)
[2022-02-06] MEDS: SPIRONOLACTONE 100 MG TAB PO SCH (08:36)
[2022-02-06] MEDS: POLYETHYLENE (MIRALAX) 17 GM PACK PO SCH (08:37)
[2022-02-06] MEDS: carvediloL 3.125 MG TAB PO SCH (08:37)
[2022-02-06] MEDS: LACTULOSE SYRUP 20 GM/30 ML UDC PO SCH ×3 (08:37→22:10)
--- NOTE | 2022-02-06 11:10 | Gastroenterology Progress Note ---
Date of Service February 06, 2022 Assessment & Plan (1) Decompensation of cirrhosis of liver: (2) Abdominal ascites: (3) Hepatorenal syndrome: (4) Hyponatremia: (5) Cholangiocarcinoma: Plan: Liver lesion possibly malignant, further evaluation pending Plan: Renal function, abdominal ascites, and dependent edema all improved with fluid and diuretic management recommended by the nephrology service. Plan of care is to arrange transfer to [facility] liver transplant service for liver transplant evaluation. Arrangements are pending. Recommend continuing fluid and electrolyte management as recommended by the nephrology service. Admission and Anticipated Discharge Date Admission Date: January 23, 2022 Subjective Mr Montes has no new complaints today. He was resting comfortably on rounds this morning. He has chronic fatigue and weakness, states that he has been out of bed only briefly and has limited mobility due to dependent edema and generalized weakness. Review of Systems Constitutional: + fatigue, + malaise, + weakness and + anorexia Respiratory: no cough and no dyspnea Cardiovascular: + edema; no chest pain and no dyspnea at rest Gastrointestinal: no abdominal pain, no nausea and no vomiting Musculoskeletal: + swelling, + limited range of motion and + muscle weakness Neurologic: + generalized weakness Physical Exam Constitutional: + ill appearing and + frail appearing Respiratory: normal respiratory effort Auscultation: lungs clear to auscultation bilaterally Cardiovascular: Rate/Rhythm: regular rate and regular rhythm Heart Sounds: + murmur Gastrointestinal (Abdomen): Inspection/Auscultation: + abdomen distended and normal bowel sounds Percussion/Palpation: abdomen soft and + ascites; no guarding and no abdominal mass Musculoskeletal: Extremities: + limited ROM of extremities, + abnormal strength and + lower leg abnormality (Severe lower extremity edema, right > left, with limited mobility) Neurologic: No focal neurologic signs. He appears lethargic and fatigued with normal mental status Psychiatric: A+Ox3, euthymic affect Results & Data ([facility]) Vital Signs (Past 12 Hours) Vital Signs Temp Pulse Pulse Resp BP BP Pulse Ox 02/06/22 08:00 36.7 C 69 20 92/61 L 97 02/06/22 07:00 79 02/06/22 03:18 36.3 C L 67 20 88/54 L 100 02/06/22 00:20 36.3 C L 72 20 116/74 99 (1) Abdominal ascites Ascites type: other type Qualified Code(s): R18.8 - Other ascites
[2022-02-06] MEDS: ONDANSETRON INJ 2 MG/ML 2 ML VIAL IV PRN (16:51)
[2022-02-06] MEDS: MAGNESIUM OXIDE 400 MG TAB PO SCH (22:09)
[2022-02-06] MEDS: ursodioL 300 MG CAP PO SCH (22:10)
--- NOTE | 2022-02-06 22:22 | Hospitalist Progress Note ---
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 Bae and also w/ Zheng Orozco [facility] ([phone]) EGD 01/2021: Grade III varices in lower third of esophagus. Erythematous mucosa without bleeding in gastric body. Meld 26 -MRI liver w/ and w/out contrast showed Slight interval decrease in the size of previously identified rim-enhancing mass within the liver now measuring 2.0 cm compared to 2.3 cm on the previous study. No new enhancing masses are identified. Liver ultrasound negative for portal vein thrombosis Liver function continue to deteriorate No evidence of SBP on ascitis study Patient and family want to pursue the option for liver transplant; awaiting direct call between Dr Hammond and Dr Hughes to decide upon transfer. (2) Hepatorenal syndrome: Plan: some improvement in renal function (3) Atrial fibrillation with RVR: Plan: - TTE: During A. fib with RVR. No significant valvular disease, hyperdynamic LV with EF 65-70%. Amiodarone increased to 400 mg po bid, holding carvedilol due to hypotension. - Anticoagulation with Lovenox 1mg/kg BID (4) Edema leg: Plan: Bilateral pitting leg edema A lot of improvement following narciso wraps Will continue narciso wraps (5) Ascites: Plan: Has had large volume paracentesis with removal of >8L and >6L of fluid since admission No evidence of SBP There appears to be a re accumulation, may need another paracentesis soon continue Aldactone and Lasix (6) Cholangiocarcinoma: Plan: - Per pt, was diagnosed at [facility] October at time of his hospitalization for saddle PE. - He was supposed to follow-up with [place] for further workup, per report has had difficulty obtaining followup - Has seen [facility] in the past, most recently has been seeing [facility] team for this, MRI completed as noted. Lesions are reduced in size, outpt followup at this time (7) Type 2 diabetes mellitus, with long-term current use of insulin: Plan: - With hypoglycemia/BGm 60s at home this AM, BGMs 158 in ED. - Accucheks ACHS with SSI. -Hemoglobin A1c 8.2% - Diabetic diet with fluid restriction 1.5L -Pharmacy consulted, on NPH and SSI (8) Hyponatremia: Plan: salt restriction monitor Nephrology on consult (9) Saddle pulmonary embolus: Plan: - Dx 11/10/21 while at [facility] Saddle PE with heavy clot burden extending into the lobar and segmental pulmonary arteries was appreciated, IR was consulted but did not recommend intervention as was hemodynamically stable. EF was hyperdynamic without reduced systolic function. Patient was discharged on Lovenox every 12 hours instead of a DOAC due to very high risk of bleed with varices and in the event that a biopsy for cholangiocarcinoma needed to be performed. - Xarelto is contraindicated in his liver disease. Apixaban is not recommended to be hepatic adjustment, With saddle PE after 3 months can consider repeat CTA to assess for clot burden and if cleared potentially move to a prophylactic dose of Lovenox at that time. (10) Hypotension: Plan: Lasix/Spironolactone needed for hypervolemic state Hold Coreg Continue midodrine due to hepatorenal syndrome (11) Exposure to COVID-19 virus: Plan: Pt is COVID positive. Pt negative on admission retest on 01/28, negative no longer PUI (12) Hyperammonemia: Plan: resolved (13) Weakness: Plan: pt recommended for SNF (14) Decompensation of cirrhosis of liver: Plan: - PCU. - SCDs, Lovenox for VTE ppx. - Full Code. Patient and family want to pursue a work up for possible liver transplant at [facility] pending optimization of medical and functional status. Awaiting discussion between Dr Hammond and Dr Hughes. Admission and Anticipated Discharge Date Admission Date: January 23, 2022 Subjective No new concerns or questions. Chronically fatigued. Eating and drinking well. Reports no abdominal pain and it is softer than is has been. Had a BM this morning. Discussed care with Dr Hernandez and advised to transfer to [facility] under Dr Hammond. Dr Hammond requesting call back from Dr Hughes as patient is unlikely liver transplant candidate. Dr Hughes informed and awaiting outcome of this conversation. Review of Systems Review of Systems: All systems reviewed & are unremarkable except as noted in Subjective Physical Exam Constitutional: well developed; + not well nourished and no acute distress Eyes: sclerae not anicteric and normal pupil size Respiratory: normal respiratory effort, lungs clear to auscultation Cardiovascular: Rate/Rhythm: regular rate and regular rhythm Extremities: + pedal edema Gastrointestinal (Abdomen): Inspection/Auscultation: + abdomen distended and normal bowel sounds Percussion/Palpation: abdomen soft; abdomen nontender Psychiatric: A+Ox3, euthymic affect Results & Data Results & Data ([facility]) Vital Signs (Past 12 Hours) Vital Signs Temp Pulse Pulse Resp BP Pulse Ox 02/06/22 19:00 36.4 C L 64 16 117/61 100 02/06/22 16:00 36.9 C 72 72 16 101/63 96 02/06/22 12:00 36.9 C 72 16 101/63 99 PG Care Time/CCT Total # of Minutes Spent Total Time Spent with Patient: Total time spent is greater than 50% in coordination of care (as documented) at patient's floor/unit and/or counseling patient: Coding Level of Care Code 78556 Subseq Hosp Care Lvl 2 Diagnoses 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 K75.81; K74.60 Hepatorenal syndrome K76.7 Atrial fibrillation with RVR I48.91 Edema leg R60.0 Ascites R18.8 Cholangiocarcinoma C22.1 Type 2 diabetes mellitus, with long-term current use of insulin E11.69; Z79.4 Diabetes mellitus complication status: with other specified complication Hyponatremia E87.1 Saddle pulmonary embolus I26.92 Hypotension I95.9 Exposure to COVID-19 virus Z20.822 Hyperammonemia E72.20 Weakness R53.1 Decompensation of cirrhosis of liver K72.90; K74.60 (1) Type 2 diabetes mellitus, with long-term current use of insulin Diabetes mellitus complication status: with other specified complication Qualified Code(s): E11.69 - Type 2 diabetes mellitus with other specified complication; Z79.4 - senior living (current) use of insulin
[2022-02-07] MEDS: ENOXAPARIN 100 MG/1ML SYR SQ SCH ×2 (06:24→16:41)
[2022-02-07 06:59] LABS: Bilirubin Direct 3.4 mg/dl (0-0.2); Bilirubin,Total 7.5 mg/dl (0.2-1.0); Calcium 8.3 mg/dl (8.5-10.1); Creatinine Clr Calc Pharmacy 76.4 ml/min; Est GFR (African American) 95.1 ml/min; Potassium 4.5 mmol/L (3.5-5.1); Total Protein 5.8 gm/dl (6.0-8.3)
[2022-02-07 07:42] LABS: INR 1.3 (0.9-1.1); Prothrombin Time 13.5 Seconds (9.0-12.0)
[2022-02-07] MEDS: INSULIN HUMAN NPH SC SCH ×2 (08:05→18:17)
[2022-02-07] MEDS: INSULIN ASPART PER UNIT SC SCH ×4 (08:05→20:30)
[2022-02-07] MEDS: PANTOprazole 40 MG TAB PO SCH (08:13)
[2022-02-07] MEDS: SPIRONOLACTONE 100 MG TAB PO SCH (08:13)
[2022-02-07] MEDS: FUROSEMIDE 40 MG TAB PO SCH (08:14)
[2022-02-07] MEDS: AMIODARONE 200 MG TAB PO SCH ×2 (08:14→16:42)
[2022-02-07] MEDS: MIDODRINE HCL 2.5 MG TAB PO SCH ×3 (08:14→16:42)
[2022-02-07] MEDS: FAMOTIDINE 10 MG TABLET PO PRN (08:14)
[2022-02-07] MEDS: LACTULOSE SYRUP 20 GM/30 ML UDC PO SCH ×3 (08:14→21:21)
[2022-02-07] MEDS: MULTIVITAMIN TAB PO SCH (08:14)
[2022-02-07] MEDS: POLYETHYLENE (MIRALAX) 17 GM PACK PO SCH (08:15)
--- NOTE | 2022-02-07 11:55 | Gastroenterology Progress Note ---
Date of Service February 07, 2022 Assessment & Plan (1) Decompensation of cirrhosis of liver: (2) Abdominal ascites: (3) Hepatorenal syndrome: Plan: Creatinine continues to improve with current fluid, electrolyte, and diuretic plan of care (4) Hyponatremia: Plan: Stable (5) Cholangiocarcinoma: Plan: Yesterday, the [facility] transplant plastics worker reviewed Mr. Montes's medical records and rejected him for transfer due to the presence of retroperitoneal lymphadenopathy, which they consider represents metastatic disease. All images were then reviewed by radiologists at [facility]. Their impression is that the lymphadenopathy has been present, unchanged since 2016, and is not compatible with metastatic disease. In addition, the previously seen 2 cm rim enhancing lesion in the liver is probably not malignant. They are concerned about intrahepatic biliary ductal dilation and a possible hepatic mass causing ductal obstruction. This will need further evaluation prior to consideration for transfer for transplant evaluation. I have reviewed all of this information with Mr. Montes and I have recommended remaining at [facility] and consultation for ERCP to evaluate the new imaging findings. Continue same medical plan of care at this time Admission and Anticipated Discharge Date Admission Date: January 23, 2022 Subjective Mr. Montes reports some anxiety and insomnia related to possible hospital transfer, no change in fatigue or weakness. Review of Systems Constitutional: + fatigue, + weakness, + insomnia and + daytime sleepiness Respiratory: no cough and no dyspnea Cardiovascular: no chest pain Gastrointestinal: no vomiting Musculoskeletal: + muscle weakness Neurologic: + unsteadiness and + generalized weakness Physical Exam Constitutional: + ill appearing, + frail appearing, + lethargic and + edematous; no acute distress Respiratory: normal respiratory effort Auscultation: lungs clear to auscultation bilaterally Cardiovascular: Rate/Rhythm: regular rate and regular rhythm Heart Sounds: + murmur Gastrointestinal (Abdomen): Inspection/Auscultation: + abdomen distended Percussion/Palpation: abdomen soft and + ascites; abdomen nontender and no guarding Musculoskeletal: Severe dependent edema Neurologic: lethargic but alert and oriented Psychiatric: Affect: + anxious affect Mood: + depressed mood and + anxious mood He appears anxious, with normal thought content and thought process Results & Data ([facility]) Vital Signs (Past 12 Hours) Vital Signs Temp Pulse Resp BP Pulse Ox 02/07/22 08:00 36.9 C 77 18 127/66 94 02/07/22 03:00 36.9 C 70 20 116/62 97 Laboratory Results 02/07/22 02/07/22 02/07/22 Range/Units 07:25 05:26 05:26 PT 13.5 H (9.0-12.0) Seconds INR 1.3 H (0.9-1.1) Sodium 131 L (136-145) mmol/L Potassium 4.5 (3.5-5.1) mmol/L Chloride 101 (98-107) mmol/L Carbon Dioxide 23 (21-32) mmol/L Anion Gap 7 (3-11) BUN 23 (6-23) mg/dl Creatinine 0.96 (0.6-1.4) mg/dl Est Cr Clr Drug Dosing 76.4 ml/min Est GFR ( Amer) 95.1 ml/min Est GFR (Non-Af Amer) 82.0 ml/min BUN/Creatinine Ratio 24.0 H (10-20) Glucose 190 H (70-99(Fasting)) mg/dl POC Glucose 88 (70-99) mg/dl Calcium 8.3 L (8.5-10.1) mg/dl Total Bilirubin 7.5 H (0.2-1.0) mg/dl Direct Bilirubin 3.4 H (0-0.2) mg/dl AST 84 H (13-39) U/L ALT 44 (7-52) U/L Alkaline Phosphatase 93 (34-104) U/L Total Protein 5.8 L (6.0-8.3) gm/dl Albumin 3.0 L (3.4-5.0) gm/dl 02/06/22 02/06/22 02/06/22 Range/Units 20:18 18:50 17:20 PT (9.0-12.0) Seconds INR (0.9-1.1) Sodium (136-145) mmol/L Potassium (3.5-5.1) mmol/L Chloride (98-107) mmol/L Carbon Dioxide (21-32) mmol/L Anion Gap (3-11) BUN (6-23) mg/dl Creatinine (0.6-1.4) mg/dl Est Cr Clr Drug Dosing ml/min Est GFR ( Amer) ml/min Est GFR (Non-Af Amer) ml/min BUN/Creatinine Ratio (10-20) Glucose (70-99(Fasting)) mg/dl POC Glucose 122 H 133 H 82 (70-99) mg/dl Calcium (8.5-10.1) mg/dl Total Bilirubin (0.2-1.0) mg/dl Direct Bilirubin (0-0.2) mg/dl AST (13-39) U/L ALT (7-52) U/L Alkaline Phosphatase (34-104) U/L Total Protein (6.0-8.3) gm/dl Albumin (3.4-5.0) gm/dl 02/06/22 02/06/22 Range/Units 16:54 16:53 PT (9.0-12.0) Seconds INR (0.9-1.1) Sodium (136-145) mmol/L Potassium (3.5-5.1) mmol/L Chloride (98-107) mmol/L Carbon Dioxide (21-32) mmol/L Anion Gap (3-11) BUN (6-23) mg/dl Creatinine (0.6-1.4) mg/dl Est Cr Clr Drug Dosing ml/min Est GFR ( Amer) ml/min Est GFR (Non-Af Amer) ml/min BUN/Creatinine Ratio (10-20) Glucose (70-99(Fasting)) mg/dl POC Glucose 76 66 L* (70-99) mg/dl Calcium (8.5-10.1) mg/dl Total Bilirubin (0.2-1.0) mg/dl Direct Bilirubin (0-0.2) mg/dl AST (13-39) U/L ALT (7-52) U/L Alkaline Phosphatase (34-104) U/L Total Protein (6.0-8.3) gm/dl Albumin (3.4-5.0) gm/dl (1) Abdominal ascites Ascites type: other type Qualified Code(s): R18.8 - Other ascites
--- NOTE | 2022-02-07 14:16 | Hospitalist Progress Note ---
Date of Service February 07, 2022 Assessment & Plan (1) Hyperammonemia: Plan: Ongoing. Likely cause of confusion. He is already on TID lactulose. Add rifaximin 550mg BID. Repeat lactulose in am. T.bili continues to slowly rise and his procal is elevated - to cover for the possiblity of biliary tract infection will place on empiric rocephin with flagyl IV. See #2 below. (2) Liver mass: Plan: During pt's hospital stay at [facility] in 10/2021 (see scanned d/c summary) a CT of the abd/pelvis showed - "There are 2 lesions in the liver with peripheral ringlike enhancement. The largest measures approximately 2.9 cm and is centered in segment 5 of the liver. The second is similar in size, measuring approximately 2.9 cm and is centered in segment 5. There is no convincing washout associated with either lesion. However, there is moderate biliary dilation distal to the more superior mass with small nodular areas of arterial hyperenhancement adjacent to the more superior mass that do demonstrate mild washout. The gallbladder contains gallstones." The patient and his family were under the impression he had a confirmed diagnosis of cholangiocarcinoma based on the CT alone but he never had co nfirmatory biopsy. That same d/c summary reports that he was referred to [facility] in [place] for the liver masses. Family reports he had significant difficulty getting an appt at [facility] and thus never got there for a consultation. He ultimately went to [facility] for GI consultation for the liver mass but the GI infrastructure consultant there never had his records and thus the consultation did not lead to any additional testing. At this time the hepatology team at [facility] [place], operated by [facility] has declined his transfer because of this liver mass. He needs biopsy. There are several lymph nodes present on the MRI of the abdomen during this admission but, per our radiology, have been present since 2016 (see report). I spoke extensively today with Dr Hughes from [facility]. ERCP is advised for biopsy purposes. Will ask Priscila CARTY to see patient in consult tomorrow. Given the rising t.bili, elevated procal, etc will add rocephin/flagyl to cover for biliary tract infection. Hold lovenox and keep NPO after MN in the event they can perform ERCP tomorrow (Dr Francois appears to be on-call tomorrow based account consultant scheduled). I called and spoke with pt's daughter this evening and explained the current situation as above. 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 Previously followed with [facility] Dr. Tino Bae (now retired) and also w/ Zheng Orozco [facility] ([phone]) - [place]. 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 Erythematous mucosa without bleeding in gastric body. CT abd/pelvis at [facility] 10/2021 -- "Liver, Gallbladder, bile ducts: The liver is small and nodular in contour. There are 2 lesions in the liver with peripheral ringlike enhancement. The largest measures approximately 2.9 cm and is centered in segment 5 of the liver. The second is similar in size, measuring approximately 2.9 cm and is centered in segment 5. There is no convincing washout associated with either lesion. However, there is moderate biliary dilation distal to the more superior mass with small nodular areas of arterial hyperenhancement adjacent to the more superior mass that do demonstrate mild washout. The gallbladder contains gallstones. There is conventional hepatic arterial anatomy. The portal and hepatic veins are widely patent. There is a small nonocclusive thrombus versus mixing artifact in the superior mesenteric vein. Pancreas: Normal in appearance. Spleen: The spleen is severely enlarged, measuring approximately 19 cm in anteroposterior diameter. Adrenals: Normal in appearance. Kidneys, collecting system and ureters: There are probable cysts in both kidneys. There is excreted contrast in both intrarenal collecting systems. There is no hydronephrosis. Retroperitoneum, lymph nodes, and vessels: The abdominal aorta and its major branches are atherosclerotic. There is no discrete retroperitoneal lymphadenopathy. Bowel \\T\\ Mesentery: The bowel is normal in caliber. There is no obstruction. There is a small-moderate volume of ascites and periportal/gastroduodenal ligament lymphadenopathy measuring up to approximately 1.7 cm. There are multiple collateral vessels, predominantly in the upper abdomen, including a spontaneous left splenorenal shunt." MRI liver w/ and w/out contrast showed Slight interval decrease in the size of previously identified rim-enhancing mass within the liver now measuring 2.0 cm. Liver ultrasound negative for portal vein thrombosis Liver functions continue to rise albeit modestly day to day including his t.bili. He is s/p therapeutic paracentesis x 2 this admission with no evidence of SBP. Given the liver mass - at this time [facility] [place] hepatology team is declining his transfer. They have advised ERCP for tissue diagnosis of the liver mass that is seen. See #2 above. Appreciate efforts of [facility]. (4) Hepatorenal syndrome: Plan: renal function has improved while here. Creatinine today 0.9. Peak had been 1.5. Appreciate nephrology assistance. (5) Atrial fibrillation with RVR: Plan: Remains in NSR. Continue Amiodarone 400 mg po bid. Holding carvedilol. Hold Lovenox in the event of ?ERCP tomorrow -- see above. (6) Edema leg: Plan: Some of this is due to his cirrhosis. 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 Edema is stable. Cont lasix. Cont aldactone. (7) Ascites: Plan: Has had large volume paracentesis with removal of >8L, and then >6L. No evidence of SBP May need a 3rd tap at some point but hold off for now given the need for ERCP/biopsy. Continue Aldactone and Lasix. (8) Type 2 diabetes mellitus, with long-term current use of insulin: Plan: Pharmacy following and managing. Having lows at times. He often refuses NPH insulin. Hemoglobin A1c 8.2% Defer management to pharmacy. (9) Hyponatremia: Plan: salt restriction monitor daily BMP (10) Saddle pulmonary embolus: Plan: Dx 11/10/21 while at [facility]. Patient was discharged on Lovenox 1mg/kg BID instead of a DOAC due to very high risk of bleed with varices. Hold lovenox starting tonight in the event [facility] can perform ERCP tomorrow. (11) Hypotension: Plan: continue midodrine due to hepatorenal syndrome (12) Exposure to COVID-19 virus: Plan: Pt's recently COVID positive. Multiple COVID tests for patient negative. No longer a PUI. No airborne necessary. No signs of COVID infection. (13) Weakness: Plan: 2nd to ESLD, etc. Cont PT, OT. (14) Decompensation of cirrhosis of liver: Plan: see above Plan: patient and his [id number] extensively updated at bedside patient's daughter updated by phone care d/w Dr Hughes, [facility] total care time activities - medically complex patient with complex care coordination - 70 minutes Admission and Anticipated Discharge Date Admission Date: January 23, 2022 Subjective patient stated several times during my visit "I feel confused" he is able to recall details of his medical history but at times he is indeed confused [id number] at bedside during my visit patient reports fair appetite ongoing fatigue ongoing abdominal bloating from ascites but he is comfortable denies abd pain no vomiting staff report mild confusion as well apparently his family was under the impression that he was indeed being transferred to [facility] [place] therefore they drove to [place] yesterday by report they have been informed he is not being transferred and they are on their way back to [facility] overnight - NSR Review of Systems Review of Systems: gen - no fevers; ongoing fatigue cv - no orthopnea pulm - no cough GI - no vomiting Physical Exam Physical Exam: gen - looks chronically sick, but NAD, mild confusion at times mouth - MM slightly dry eyes - mild icterus neck - no JVD heart - RRR, s1 s2 lungs - mildly decreased BS bases, no rales, no wheeze abd - distended with ascites (moderate, to moderate-severe), BS+, NT, no HSM ext - <1+ edema b/l, pulses 2+ b/l neuro - mild asterixis present skin - mild jaundice of face Results & Data Results & Data ([facility]) Vital Signs (Past 12 Hours) Vital Signs Temp Pulse Resp BP Pulse Ox 02/07/22 11:00 36.8 C 83 18 139/74 96 02/07/22 08:00 36.9 C 77 18 127/66 94 02/07/22 03:00 36.9 C 70 20 116/62 97 Laboratory Results Laboratory Results - last 24 hr 02/07/22 02/07/22 02/07/22 05:26 07:25 11:41 PT 13.5 H INR 1.3 H POC Glucose 88 116 H Magnesium Ammonia Tumor Marker AFP Vitamin B12 Procalcitonin 02/07/22 02/07/22 02/07/22 14:29 14:29 14:29 PT INR POC Glucose Magnesium Ammonia Tumor Marker AFP Pending Vitamin B12 > 1500 H Procalcitonin 0.55 H 02/07/22 02/07/22 02/07/22 14:30 14:30 16:31 PT INR POC Glucose 115 H Magnesium 2.2 Ammonia 95.0 H Tumor Marker AFP Vitamin B12 Procalcitonin 02/07/22 02/07/22 02/07/22 19:57 20:00 20:02 PT INR POC Glucose 311 H* 328 H* 301 H* Magnesium Ammonia Tumor Marker AFP Vitamin B12 Procalcitonin 02/07/22 02/07/22 02/08/22 22:17 23:56 02:44 PT INR POC Glucose 274 H 240 H 221 H Magnesium Ammonia Tumor Marker AFP Vitamin B12 Procalcitonin PG Care Time/CCT Total # of Minutes Spent Total Time Spent with Patient: Total time spent is greater than 50% in coordination of care (as documented) at patient's floor/unit and/or counseling patient: Prolonged Care Time Prolonged Care Time: Yes Total Prolonged Care Time: 70 Coding Level of Care Code 83936 Subseq Hosp Care Lvl 3 (25 - SIGNIFICANT, SEPARATELY IDENTIFIABLE ) Diagnoses 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 K75.81; K74.60 Hepatorenal syndrome K76.7 Atrial fibrillation with RVR I48.91 Edema leg R60.0 Ascites R18.8 Type 2 diabetes mellitus, with long-term current use of insulin E11.69; Z79.4 Diabetes mellitus complication status: with other specified complication Hyponatremia E87.1 Saddle pulmonary embolus I26.92 Hypotension I95.9 Exposure to COVID-19 virus Z20.822 Hyperammonemia E72.20 Weakness R53.1 Decompensation of cirrhosis of liver K72.90; K74.60 Liver mass R16.0 Additional Codes Prolonged Care Time - Prolonged Care Time: Yes ([id number]) Time Spent (min) 70 (1) Type 2 diabetes mellitus, with long-term current use of insulin Diabetes mellitus complication status: with other specified complication Qualified Code(s): E11.69 - Type 2 diabetes mellitus with other specified complication; 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
--- NOTE | 2022-02-07 14:17 | Pharmacy Report ---
Pharmacy Glycemic Short Note 2 - Date of Service February 07, 2022 - Glycemic Short BSG Results (Last 24 hours): 02/06/22 02/06/22 02/06/22 16:53 16:54 17:20 Glucose POC Glucose 66 L* 76 82 02/06/22 02/06/22 02/07/22 18:50 20:18 05:26 Glucose 190 H POC Glucose 133 H 122 H 02/07/22 02/07/22 07:25 11:41 Glucose POC Glucose 88 116 H OUTPATIENT ANTIDIABETIC REGIMEN: * Novolin R U-500: 40-90 units according to BG value post-meal; usually takes 2x/day (lunch/supper) * HbA1c = 8.2% (01/24/22) ASSESSMENT: 02/07: * John received 51 units of insulin yesterday (NPH 25 units + Novolog 26 units) * BSGs trend down throughout the day. The past two days John received all of his basal insulin in the morning and evening doses were held. I will split total of 25 units per day into BID dosing for more even distribution. * Post prandial BSGs were variable yesterday but stable so far today. Minimal oral intake documented. Loosen correction factor. 02/05: * BSGs 158-184-170 the last 24h. Fasting this AM- 242mg/dL which is elevated. Patient received 30 units of basal insulin yesterday and 20 units of bolus. * Stressors stable, tolerating diet. * Increased NPH this AM very mildly to 25 units. Continue with HS scale. * No change to Novolog parameters. 02/04: * BSGs largely within goal the last 24 hours, however minimal PO intake. Patient received a total of 30 units basal yesterday as evening dose was held (per MD documented). Fasting this AM acceptable - 179mg/dL. * Reduced dose of NPH this AM d/t decreased PO intake - 20 units. Plan for evening scale pending BSGs. * No change to Novolog parameters. 02/03 * Stressors stable * BSG's still elevated after increase in NPH at AM and PM yesterday. AM fasting BSG now <180 mg/dL, but still elevated * Will increase PM NPH to hopefully help reduce AM fasting BSG. Hestitant to increase NPH further given hypoglycemia noted at dinner BSG x2 times earlier this admission, and also cumulative daily basal doses are much higher than bolus doses at this time. Will therefore tighten CF and CR instead Background: * 66 yo M admitted on 01/23/22 secondary to generalized weakness. Poor glycemic control since admission so pharmacy has been consult to assist with inpatient glycemic management. Patient is ordered a T2DM diet and tolerating well. Has a history of ESLD. * Patient received 53 units of insulin yesterday - mostly Novolog, two IV doses, no basal ordered. BSGs were uncontrolled: [id number] mg/dL. * Unsure how reliable A1c is in this patient given ESLD and cirrhosis. Appears to follow with Dr. Antony but hasn't seen him in over a year. * Appears that initial Novolog order had carb ratio and correction factor reversed (ordered as CF 10, CR 30; then tightened to 04/08). * Will tighten Novolog today. Too late for lunchtime dose so start with dinner. * Rather than use U-500 in this patient will trial BID NPH to be given with breakfast and dinner. Starting with 0.2 units/kg at dinner tonight. * Targeting BSG goals of 110-140 mg/dL and will add overnight checks for this evening given significant insulin changes. PLAN FOR INPATIENT GLYCEMIC CONTROL: * Basal insulin * NPH 12-15 units SC BID with meals * Bolus insulin * NovoLog per scale ACHS or Q6hrs while NPO * Goal Range: Low 110 mg/dL - High 140 mg/dL * Correction Factor: 15 mg/dL/unit * Nutritional / Prandial insulin per carb ratio of 1 unit per 3.5 grams CHO consumed
[2022-02-07] MEDS: rifAXIMin 550 MG TABLET PO SCH ×2 (16:41→21:21)
[2022-02-07] MEDS: cefTRIAXone SODIUM 2,000 MG in DEXTROSE 5% 50 ML IV SCH (20:40)
[2022-02-07] MEDS: ursodioL 300 MG CAP PO SCH (21:21)
[2022-02-07] MEDS: MAGNESIUM OXIDE 400 MG TAB PO SCH (21:21)
[2022-02-07] MEDS: metroNIDAZOLE 500 MG/100 ML BAG IV SCH (21:21)
[2022-02-08] MEDS: metroNIDAZOLE 500 MG/100 ML BAG IV SCH ×3 (04:19→21:26)
[2022-02-08] MEDS: INSULIN ASPART PER UNIT SC SCH ×4 (08:20→20:38)
[2022-02-08] MEDS: INSULIN HUMAN NPH SC SCH ×2 (08:21→18:03)
--- NOTE | 2022-02-08 08:34 | Gastroenterology Progress Note ---
Date of Service February 08, 2022 Assessment & Plan (1) Liver mass: Plan: Hepatorenal syndrome: Labs pending this morning. Continue current fluid, electrolyte, diuretic plan of care. 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 GI [facility] service consulted for ERCP to evaluate intrahepatic biliary ductal dilation and possible hepatic mass causing ductal obstruction. Case reviewed with Dr. Hughes. Please refer to supervising physician addendum for further recommendations. I have spent 15 minutes of discrete time performing the activities of this visit which include but are not limited to review of the medical record, obtaining a history, physical exam, and entering information in the electronic record. (2) Hepatorenal syndrome: (3) Decompensation of cirrhosis of liver: (4) Hyperammonemia: Admission and Anticipated Discharge Date Admission Date: January 23, 2022 Supervising Physician Co-Signing Physician Notes I interviewed and examined the patient and reviewed the medical record, with the following observations: Subjective: No new symptoms Physical Examination: Exam is basically unchanged Chart Review: second opinion GI consult for possible ERCP noted, discussed with the primary care team and other consultants. I agree with the assessment as outlined in this consultation, with the following observations: We do not have a firm diagnosis of malignancy in this case. Eligibility for a liver transplant has not been evaluated and remains uncertain I agree with the plan of care as outlined in this consultation, with the following changes and/or additions: Agree with antibiotic coverage for possible biliary infection based on elevated acute phase reactant, and agree with planned transfer to tertiary care for management and potential transplant evaluation As the consulting physician, I have spent 35 minutes of discrete time performing the activities of this consultation which include, but are not limited to, review of the medical record, obtaining a history, physical examination, discussion of findings with the patient and healthcare team, and entering information into the electronic record. SHANIQUA Ramos, has reported spending 15 minutes of discrete time with the activities of the consultation. Subjective Patient awake and sitting at bedside this morning. He continues to note that he feels confused. Alert to person and place but having difficulty finding words and repeating questions. Denies any abdominal pain, nausea, vomiting. Last documented bowel movement yesterday. Lower extremities wrapped with Abraham bandages. Weight this morning per bed scale 87.6kg. Review of Systems Constitutional: + fatigue, + weakness, + insomnia and + daytime sleepiness Respiratory: no cough and no dyspnea Cardiovascular: no chest pain Gastrointestinal: no vomiting Musculoskeletal: + muscle weakness Neurologic: + unsteadiness and + generalized weakness Physical Exam Constitutional: + ill appearing, + frail appearing, + lethargic and + edematous; no acute distress Respiratory: normal respiratory effort Auscultation: lungs clear to auscultation bilaterally Cardiovascular: Rate/Rhythm: regular rate and regular rhythm Heart Sounds: + murmur Extremities: + edema (bilateral lower extremity) Gastrointestinal (Abdomen): Inspection/Auscultation: + abdomen distended and normal bowel sounds Percussion/Palpation: abdomen soft and + ascites; abdomen nontender, no guarding and no abdominal mass pos bs, protuberant but not tense, no guarding nor rebound Musculoskeletal: Extremities: + limited ROM of extremities, + abnormal strength and + lower leg abnormality (Severe lower extremity edema, right > left, with limited mobility) Psychiatric: A+Ox3, euthymic affect Orientation: alert, oriented to person and oriented to place Affect: + anxious affect Mood: + depressed mood and + anxious mood Results & Data ([facility]) Vital Signs (Past 12 Hours) Vital Signs Temp Pulse Pulse Resp BP Pulse Ox 02/08/22 02:00 36.9 C 79 18 116/64 99 02/07/22 22:45 36.9 C 70 18 130/62 100 02/07/22 22:15 69 Laboratory Results Laboratory Results - last 24 hr 02/07/22 02/07/22 02/07/22 11:41 14:29 14:29 WBC RBC Hgb Hct MCV MCH MCHC Plt Count Sodium Potassium Chloride Carbon Dioxide Anion Gap BUN Creatinine Est Cr Clr Drug Dosing Est GFR ( Amer) Est GFR (Non-Af Amer) BUN/Creatinine Ratio Glucose POC Glucose 116 H Calcium Magnesium Total Bilirubin Direct Bilirubin AST ALT Alkaline Phosphatase Ammonia Total Protein Albumin Tumor Marker AFP Pending Vitamin B12 > 1500 H Procalcitonin 02/07/22 02/07/22 02/07/22 14:29 14:30 14:30 WBC RBC Hgb Hct MCV MCH MCHC Plt Count Sodium Potassium Chloride Carbon Dioxide Anion Gap BUN Creatinine Est Cr Clr Drug Dosing Est GFR ( Amer) Est GFR (Non-Af Amer) BUN/Creatinine Ratio Glucose POC Glucose Calcium Magnesium 2.2 Total Bilirubin Direct Bilirubin AST ALT Alkaline Phosphatase Ammonia 95.0 H Total Protein Albumin Tumor Marker AFP Vitamin B12 Procalcitonin 0.55 H 02/07/22 02/07/22 02/07/22 16:31 19:57 20:00 WBC RBC Hgb Hct MCV MCH MCHC Plt Count Sodium Potassium Chloride Carbon Dioxide Anion Gap BUN Creatinine Est Cr Clr Drug Dosing Est GFR ( Amer) Est GFR (Non-Af Amer) BUN/Creatinine Ratio Glucose POC Glucose 115 H 311 H* 328 H* Calcium Magnesium Total Bilirubin Direct Bilirubin AST ALT Alkaline Phosphatase Ammonia Total Protein Albumin Tumor Marker AFP Vitamin B12 Procalcitonin 02/07/22 02/07/22 02/07/22 20:02 22:17 23:56 WBC RBC Hgb Hct MCV MCH MCHC Plt Count Sodium Potassium Chloride Carbon Dioxide Anion Gap BUN Creatinine Est Cr Clr Drug Dosing Est GFR ( Amer) Est GFR (Non-Af Amer) BUN/Creatinine Ratio Glucose POC Glucose 301 H* 274 H 240 H Calcium Magnesium Total Bilirubin Direct Bilirubin AST ALT Alkaline Phosphatase Ammonia Total Protein Albumin Tumor Marker AFP Vitamin B12 Procalcitonin 02/08/22 02/08/22 02/08/22 02:44 07:27 08:11 WBC Pending RBC Pending Hgb Pending Hct Pending MCV Pending MCH Pending MCHC Pending Plt Count Pending Sodium Potassium Chloride Carbon Dioxide Anion Gap BUN Creatinine Est Cr Clr Drug Dosing Est GFR ( Amer) Est GFR (Non-Af Amer) BUN/Creatinine Ratio Glucose POC Glucose 221 H 268 H Calcium Magnesium Total Bilirubin Direct Bilirubin AST ALT Alkaline Phosphatase Ammonia Total Protein Albumin Tumor Marker AFP Vitamin B12 Procalcitonin 02/08/22 02/08/22 08:11 08:11 WBC RBC Hgb Hct MCV MCH MCHC Plt Count Sodium Pending Potassium Pending Chloride Pending Carbon Dioxide Pending Anion Gap Pending BUN Pending Creatinine Pending Est Cr Clr Drug Dosing Pending Est GFR ( Amer) Pending Est GFR (Non-Af Amer) Pending BUN/Creatinine Ratio Pending Glucose Pending POC Glucose Calcium Pending Magnesium Total Bilirubin Pending Direct Bilirubin Pending AST Pending ALT Pending Alkaline Phosphatase Pending Ammonia Pending Total Protein Pending Albumin Pending Tumor Marker AFP Vitamin B12 Procalcitonin Diagnostic Findings Abdomen MRI 01/24/22 12:09 MR abdomen wo/w con CLINICAL HISTORY: Reported history of liver cancer. Follow-up progression. COMPARISON STUDY: 11/06/2021 TECHNIQUE: Multiplanar multisequence images of the abdomen were performed without and with 10 mL of Eovist contrast. FINDINGS: Abdominal cavity: There has been significant interval increase in the amount of ascites present. There is now moderate to marked ascites. Liver: Compared to previous examination, there is again evidence for cirrhosis of the liver with a nodular contour present. There has been slight interval decrease in size of previously identified ring-enhancing mass within segment 5 of the liver. It again has a nonenhancing central scar. On the current study it measures 2.0 cm compared to 2.3 cm in the previous study. No new enhancing masses are identified. Spleen: There is again splenomegaly with splenic hilar varices present. Pancreas: No mass or ductal dilatation. Gallbladder: The normally distended without filling defects, wall thickening or pericholecystic fluid. Adrenal glands: Normal without masses. Kidneys: Normal without hydronephrosis. There are no perinephric fluid collections. Sharply defined right renal cyst is again seen. IMPRESSION: 1. Slight interval decrease in the size of previously identified rim-enhancing mass within the liver now measuring 2.0 cm compared to 2.3 cm on the previous study. 2. No new enhancing masses are identified. 3. There is again shortness of the liver, splenomegaly and splenic hilar varices. 4. Increased abdominal ascites which is now moderate to marked in degree. ACT 112: Negative or not required by law. Electronically signed by: Sreekanth Lombardo M.D. 01/25/2022 8:48 AM
[2022-02-08 08:44] LABS: Hematocrit (blood only) 32.5 % (42-52); Hemoglobin 11.1 g/dL (14.0-18.0); Mean Corpuscular Hemoglobin 33.4 pg (25-34); Mean Corpuscular Hgb Conc 34.2 g/dL (32-36); Mean Corpuscular Volume 97.9 fL (80-100); Mean Platelet Volume 9.9 fL (7.4-10.4); Platelet Count 111 K/uL (130-400); RDW Coefficient of Variation 17.7 % (11.5-14.5); RDW Standard Deviation 62.5 fL (36.4-46.3); Red Blood Count 3.32 M/uL (4.7-6.1); White Blood Count 4.95 K/uL (4.8-10.8)
[2022-02-08 08:55] LABS: Albumin Level 3.2 gm/dl (3.4-5.0); BUN Creatinine Ratio 20.5 (10-20); Bilirubin Direct 3.6 mg/dl (0-0.2); Bilirubin,Total 7.6 mg/dl (0.2-1.0); Calcium 8.6 mg/dl (8.5-10.1); Est GFR (African American) 78.9 ml/min; Est GFR (Non-African American) 68.1 ml/min; Potassium 4.5 mmol/L (3.5-5.1); Total Protein 6.4 gm/dl (6.0-8.3)
--- NOTE | 2022-02-08 09:07 | Communication Note ---
Date of Service: February 08, 2022 This is a 66 y/o male with history of Hep C (tx), cirrhosis with varices, ascites, also history of hepatic mass. Liver lesion was found around 10/2021 - pt is now being followed by both [facility] and [facility]. He is admitted w/ worsening ascites. We were consulted by hospitalist to evaluate this pt for possible ERCP. Reviewed case with Dr. Francois. Appears liver lesion has slightly decreased in size from earlier this year. Currently pt does not seem cholangitic and has other chronic findings of shayla dil, elevated LFTs, bili. Will defer inpt ERCP at this time and recommend pt follow-up with his outpt GI provider at [facility]/ [facility] for further evaluation, treatment, possible ERCP if deemed necessary. Reviewed with Dr. Saab and [facility] team SHANIQUA Ramos. GI will sign off, please call with questions. I performed a history and physical examination of the patient today, including specifically on physical exam - soft, distended abdomen. I have discussed the patient's management with the advanced practitioner. Please refer to the nurse practitioner's note for the documented findings and plan of care. Patient with HCV related cirrhosis and Liver lesions, ? HCC Vs CholangioCa recently found on imaging at [facility] where he typically follows. Given involvement of the central hepatic segment, there is possible hilar biliary ductal co mpression with stable mild IHDD for which were consulted for possible ERCP. Currently no signs of cholangitis and bilirubin is stable hence would defer this ERCP to be done as OP as [facility] where patient typically follows. Thanks for the consultation. Fernanda Francois MD Abd MRI 01/24/22: Abdominal cavity: There has been significant interval increase in the amount of ascites present. There is now moderate to marked ascites. Liver: Compared to previous examination, there is again evidence for cirrhosis of the liver with a nodular contour present. There has been slight interval decrease in size of previously identified ring-enhancing mass within segment 5 of the liver. It again has a nonenhancing central scar. On the current study it measures 2.0 cm compared to 2.3 cm in the previous study. No new enhancing masses are identified. Spleen: There is again splenomegaly with splenic hilar varices present. Pancreas: No mass or ductal dilatation. Gallbladder: The normally distended without filling defects, wall thickening or pericholecystic fluid. Adrenal glands: Normal without masses. Kidneys: Normal without hydronephrosis. There are no perinephric fluid collec tions. Sharply defined right renal cyst is again seen. IMPRESSION: 1. Slight interval decrease in the size of previously identified rim-enhancing mass within the liver now measuring 2.0 cm compared to 2.3 cm on the previous study. 2. No new enhancing masses are identified. 3. There is again shortness of the liver, splenomegaly and splenic hilar varices. 4. Increased abdominal ascites which is now moderate to marked in degree. Addendum: 1. Multiple enlarged lymph nodes in the left greater than right retroperitoneum are unchanged from 2016. 2. Prominent enlargement of the biliary ducts with sparing of some right segmental ducts may be secondary to obstructive mass, if there is clinical concern, ERCP can be performed. 3. 2.3 cm mass in segment 5 of the liver with a central nonenhancing scar is nonspecific and may represent hemangioma, cholangiocarcinoma, or possibly hypervascular metastasis. Abd MRI 10/2021 from [facility]: "There are 2 lesions in the liver with peripheral ringlike enhancement. The largest measures approximately 2.9 cm and is centered in segment 5 of the liver. The second is similar in size, measuring approximately 2.9 cm and is centered in segment 5. There is no convincing washout associated with either lesion. However, there is moderate biliary dilation distal to the more superior mass with small nodular areas of arterial hyperenhancement adjacent to the more superior mass that do demonstrate mild washout. The gallbladder contains gallstones."
[2022-02-08] MEDS: rifAXIMin 550 MG TABLET PO SCH ×2 (09:34→20:37)
[2022-02-08] MEDS: MULTIVITAMIN TAB PO SCH (09:34)
[2022-02-08] MEDS: SPIRONOLACTONE 100 MG TAB PO SCH (09:34)
[2022-02-08] MEDS: MIDODRINE HCL 2.5 MG TAB PO SCH ×3 (09:34→16:56)
[2022-02-08] MEDS: FUROSEMIDE 40 MG TAB PO SCH (09:34)
[2022-02-08] MEDS: FAMOTIDINE 10 MG TABLET PO PRN (09:34)
[2022-02-08] MEDS: AMIODARONE 200 MG TAB PO SCH ×2 (09:35→16:56)
[2022-02-08] MEDS: PANTOprazole 40 MG TAB PO SCH (09:35)
[2022-02-08] MEDS: POLYETHYLENE (MIRALAX) 17 GM PACK PO SCH (09:35)
[2022-02-08] MEDS: LACTULOSE SYRUP 20 GM/30 ML UDC PO SCH ×3 (09:35→20:36)
--- NOTE | 2022-02-08 11:53 | Pharmacy Report ---
Pharmacy Glycemic Short Note 2 - Date of Service February 08, 2022 - Glycemic Short BSG Results (Last 24 hours): 02/07/22 02/07/22 02/07/22 16:31 19:57 20:00 Glucose POC Glucose 115 H 311 H* 328 H* 02/07/22 02/07/22 02/07/22 20:02 22:17 23:56 Glucose POC Glucose 301 H* 274 H 240 H 02/08/22 02/08/22 02/08/22 02:44 07:27 08:11 Glucose 257 H POC Glucose 221 H 268 H 02/08/22 11:19 Glucose POC Glucose 240 H OUTPATIENT ANTIDIABETIC REGIMEN: * Novolin R U-500: 40-90 units according to BG value post-meal; usually takes 2x/day (lunch/supper) * HbA1c = 8.2% (01/24/22) ASSESSMENT: 02/08: * Patient received a total of 24 units of insulin yesterday (12 units NPH + 12 units Novolog). This is a 50% reduction in total daily dose from the previous day. BSGs were well controlled until bedtime where significant hyperglycemia was noted ([phone] mg/dL). * Oral intake remains minimal. Initially, patient was NPO after midnight today for possible ERCP which has been deferred. Diet reordered with lunch. Will continue to monitor PO intake and adjust Novolog parameters as needed. * Fasting BSG uncontrolled today at 268 mg/dL. Patient has been refusing PM NPH which is likely the cause of this. Will encourage to take all insulin doses. Slight increase in NPH scale starting this evening. 02/07: * John received 51 units of insulin yesterday (NPH 25 units + Novolog 26 units) * BSGs trend down throughout the day. The past two days John received all of his basal insulin in the morning and evening doses were held. I will split total of 25 units per day into BID dosing for more even distribution. * Post prandial BSGs were variable yesterday but stable so far today. Minimal oral intake documented. Loosen correction factor. 02/05: * BSGs 158-184-170 the last 24h. Fasting this AM- 242mg/dL which is elevated. Patient received 30 units of basal insulin yesterday and 20 units of bolus. * Stressors stable, tolerating diet. * Increased NPH this AM very mildly to 25 units. Continue with HS scale. * No change to Novolog parameters. PLAN FOR INPATIENT GLYCEMIC CONTROL: * Basal insulin * NPH 12-15 units SC BID with meals * Bolus insulin * NovoLog per scale ACHS or Q6hrs while NPO * Goal Range: Low 110 mg/dL - High 140 mg/dL * Correction Factor: 15 mg/dL/unit * Nutritional / Prandial insulin per carb ratio of 1 unit per 3.5 grams CHO consumed
--- NOTE | 2022-02-08 19:28 | Discharge Summary ---
Date of Service date of admission - January 23, 2022 Admission HPI Per Admitting Provider John Montes is a 66 y/o male with complicated PMH of SWIFT cirrhosis, portal hypertension with esophageal varices, ascites, saddle PE in October on Lovenox now, cholangiocarcinoma dx in October per pt, and DM2 who presents today with weakness. He nearly slipped out of a chair at home this morning, he checked his blood sugar which is in the 60s. After eating a granola bar and orange juice he was able to get it up to the 100s but still feels weak. Patient reports he has been weak for several months and has difficulty ambulating at home due to this. He has a complicate history of SWIFT cirrhosis. Recently had his spironolactone increased yesterday d/t increasing edema. Principal Diagnosis 1. end-stage liver disease 2. h/o HepC with full treatment 3. SWIFT cirrhosis 4. h/o hepatorenal syndrome 5. ascites s/p paracentesis x 2 6. liver mass - etiology uncertain 7. hepatic encephalopathy Discharge Exam gen - looks chronically sick, but NAD, mild confusion mouth - MMM eyes - mild icterus neck - no JVD heart - RRR, s1 s2 lungs - mildly decreased BS bases, no rales, no wheeze abd - distended with ascites (moderate-severe), BS+, NT, no HSM ext - 1+ edema b/l, pulses 2+ b/l neuro - minimal asterixis present skin - mild jaundice of face Discharge Data Allergies Allergy/AdvReac Type Severity Reaction Status Date / Time No Known Allergies Allergy Verified 11/10/21 17:01 Consultations [facility] Card[facility] Nephrology Procedures Performed Echocardiogram: * EF 65-70% * no pericardial effusion * normal valve function Ordered Studies Chest X-Ray 01/23/22 09:40 XR chest 1V portable CLINICAL HISTORY: Atypical chest pain TECHNIQUE: Single frontal radiograph of the chest was obtained. Comparison: Comparison is made to chest radiograph 11/10/2021 FINDINGS: No lines and tubes are seen. The cardiomediastinal silhouette is normal. Lungs are underinflated but clear. No evidence of pleural effusion or pneumothorax. IMPRESSION: No acute chest disease. ACT 112: Negative or not required by law. Electronically signed by: Cirilo Torrez M.D. 01/23/2022 10:00 AM Abdomen MRI 01/24/22 12:09 MR abdomen wo/w con CLINICAL HISTORY: Reported history of liver cancer. Follow-up progression. COMPARISON STUDY: 11/06/2021 TECHNIQUE: Multiplanar multisequence images of the abdomen were performed without and with 10 mL of Eovist contrast. FINDINGS: Abdominal cavity: There has been significant interval increase in the amount of ascites present. There is now moderate to marked ascites. Liver: Compared to previous examination, there is again evidence for cirrhosis of the liver with a nodular contour present. There has been slight interval decrease in size of previously identified ring-enhancing mass within segment 5 of the liver. It again has a nonenhancing central scar. On the current study it measures 2.0 cm compared to 2.3 cm in the previous study. No new enhancing masses are identified. Spleen: There is again splenomegaly with splenic hilar varices present. Pancreas: No mass or ductal dilatation. Gallbladder: The normally distended without filling defects, wall thickening or pericholecystic fluid. Adrenal glands: Normal without masses. Kidneys: Normal without hydronephrosis. There are no perinephric fluid collections. Sharply defined right renal cyst is again seen. IMPRESSION: 1. Slight interval decrease in the size of previously identified rim-enhancing mass within the liver now measuring 2.0 cm compared to 2.3 cm on the previous study. 2. No new enhancing masses are identified. 3. There is again shortness of the liver, splenomegaly and splenic hilar varices. 4. Increased abdominal ascites which is now moderate to marked in degree. ACT 112: Negative or not required by law. Electronically signed by: Sreekanth Lombardo M.D. 01/25/2022 8:48 AM Portal Vein US 01/26/22 08:36 US duplex portal hepatic veins CLINICAL HISTORY: cirrhosis worsening ascites TECHNIQUE: Grayscale, color and spectral waveform Doppler examination of the abdomen was performed. Comparison: None available at the time of this dictation. FINDINGS: The hepatic veins, portal veins, IVC and splenic vein are patent with no thrombus identified. Moderate ascites is seen with nodular contour of the liver. IMPRESSION: No portal vein thrombosis. Moderate ascites with cirrhotic contour of the liver. ACT 112: Negative or not required by law. Electronically signed by: Cirilo Torrez M.D. 01/26/2022 11:00 AM Thoracic Spine X-Ray 01/26/22 09:53 XR thoracic spine 3V routine CLINICAL HISTORY: back pain TECHNIQUE: 3 views of the thoracic spine were obtained. Comparison: Comparison is made to thoracic spine radiographs 04/22/2017 FINDINGS: No fractures or subluxations are identified. Degenerative changes are seen in the thoracic spine. Redemonstration of approximately 13 degrees of dextrocurvature of the upper thoracic spine. Prevertebral soft tissues are within normal limits. IMPRESSION: Degenerative changes as above without acute fracture or subluxation. Redemonstration of mild thoracic curvature. ACT 112: Negative or not required by law. Electronically signed by: Cirilo Torrez M.D. 01/26/2022 11:[address] 01/29/22 11:21 CT OF THE HEAD WITHOUT CONTRAST CLINICAL HISTORY: fall now confused COMPARISON STUDY: Sinus CT April 18, 2012. CT DOSE: 788.63 mGycm TECHNIQUE: Helical axial images of the head were obtained without IV contrast. Automated exposure control was utilized for the study. A dose lowering technique was utilized adhering to the principles of ALARA. FINDINGS: No acute intracranial hemorrhage, midline shift or mass effect is present. The ventricular system is unremarkable. The basal cisterns are patent. No extra-axial collections are present. There are no findings to suggest acute dural sinus thrombosis or acute territorial infarct. No significant calvarial abnormalities are present. Visualized portions of the sinuses and mastoid air cells are clear. IMPRESSION: 1. No acute intracranial findings. 2. No acute calvarial fracture. ACT 112: Negative or not required by law. Electronically signed by: Arvind Erwin M.D. 01/29/2022 11:57 AM Abdomen Ultrasound 01/31/22 11:53 US abdomen ltd ascites CLINICAL HISTORY: Evaluate for ascites TECHNIQUE: Real-time grayscale sonographic images of the the 4 quadrants of the abdomen were obtained. Comparison: MRI of the abdomen from 01/24/2022 FINDINGS: Compared to the MRI, fluid is again seen throughout the entire abdomen representing moderate to marked ascites. IMPRESSION: Moderate to marked ascites. ACT 112: Negative or not required by law. Electronically signed by: Sreekanth Lombardo M.D. 01/31/2022 3:19 PM Paracentesis Ultrasound 02/01/22 00:00 PROCEDURE: US paracentesis abd w/image CLINICAL HISTORY: ascites. Cirrhosis of liver COMPARISON: None. FINDINGS: The entire procedure was explained to the patient including the risks, expected benefits, alternatives and potential complications. Written informed consent had been obtained. Limited sonography of the abdomen demonstrates ascites. A site for puncture was marked. The patient was prepped with chloro prep. Sterile technique was utilized. Sterile drapes were applied to the patient. 1% lidocaine local anesthesia was administered. A paracentesis needle and catheter was advanced into the peritoneal cavity. The catheter was advanced into the peritoneal cavity and the needle was removed. A total of 6 liters of clear straw-colored fluid was obtained. The catheter was removed and a bandage was placed over the punctured site. The patient tolerated the procedure well. There were no immediate complications. IMPRESSION: Technically successful ultrasound-guided paracentesis. ACT 112: Negative or not required by law. Electronically signed by: Sreekanth Lombardo M.D. 02/01/2022 10:24 AM KUB X-Ray 02/03/22 17:29 KUB CLINICAL HISTORY: Abdominal pain. r/o obstruction COMPARISON STUDY: MRI of the abdomen January 24, 2022. FINDINGS: There is gas throughout small and large bowel. Evaluation is compromised given suboptimal penetration. No convincing evidence for a bowel obstruction. IMPRESSION: No evidence for a bowel obstruction. ACT 112: Negative or not required by law. Electronically signed by: Arvind Erwin M.D. 02/04/2022 7:38 AM Hospital Course (1) Liver mass: The patient was hospitalized in late October 2021 at [facility] for saddle PE/DVTs of the LEs. During that admission CT of the abd/pelvis showed - "There are 2 lesions in the liver with peripheral ringlike enhancement. The largest measures approximately 2.9 cm and is centered in segment 5 of the liver. The second is similar in size, measuring approximately 2.9 cm and is centered in segment 5. There is no convincing washout associated with either lesion. However, there is moderate biliary dilation distal to the more superior mass with small nodular areas of arterial hyperenhancement adjacent to the more superior mass that do demonstrate mild washout. The gallbladder contains gallstones." The patient and his family were under the impression he had a confirmed diagnosis of cholangiocarcinoma based on the CT alone but he never had confirmatory biopsy. He was apparently referred to [facility] in [place] for work-up of the liver masses. Family reports he had extreme difficulty getting an appt at [facility] and thus never got there for consultation in the spring. He ultimately went to [facility] for GI consultation for the liver mass but he did not undergo any additional testing or biopsy there. During Mr Montes's stay at [facility] his total bilirubin slowly danica from the 4's to >7. This, coupled with elevated procalcitonin level, prompted the addition of IV rocephin/flagyl to cover for any biliary tract infection. He did not have overt signs of cholangitis, however. Aadi-bbh-tdeb his LFTs and MRI of the abdomen were concerning for biliary obstruction from the liver mass. MRI abdomen performed at [facility] (01/24/22) during this admission showed - 1. Multiple enlarged lymph nodes in the left greater than right retroperitoneum are unchanged from 2016. 2. Prominent enlargement of the biliary ducts with sparing of some right segmental ducts may be secondary to obstructive mass, if there is clinical concern, ERCP can be performed. 3. 2.3 cm mass in segment 5 of the liver with a central nonenhancing scar is nonspecific and may represent hemangioma, cholangiocarcinoma, or possibly hypervascular metastasis. Although the patient follows with [facility] in [place] the [facility] team does not perform ERCP. Further, [facility] in [facility] does not offer liver transplant services. Thus, [facility] in [place] was contacted to request transfer to their facilities for consideration of ERCP (or IR) for biopsy of his liver mass as well as undergo hepatology consultation to gauge his candidacy for liver transplant. Dr Hector Carr, hospital medicine, at [facility] in [place] graciously accepted Mr Montes in transfer for ongoing care. 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 Previously followed with [facility] Dr. Tino Bae (now retired) in [place]. Diagnosed with cirrhosis several years ago. By report he has had hepatorenal syndrome in the past. EGD 02/06/2021 at [facility] -- Grade III varices in lower third of esophagus. Erythematous mucosa without bleeding in gastric body. MRI liver this admission (see above) showed a rim-enhancing mass within the liver about 2 to 2.5cm in size. No portal vein thrombosis was seen during this stay. Liver functions continued to rise albeit modestly day to day including his t.bili as noted above. INR was 1.3 on 02/07/22. He underwent therapeutic paracentesis x 2 this admission with no evidence of SBP on either occasion. He remains on TID lactulose & rifaximin for hepatic encephalopathy. Lasix 40mg daily + aldactone 100mg are in place to maintain volume control of his edema/ascites. MELD score was 23 just prior to transfer to [facility]. (3) Decompensation of cirrhosis of liver: see above continue lasix + aldactone + prn paracentesis (4) Hyperammonemia: Ongoing. Likely cause of low-grade confusion. Was treated with TID lactulose, and later rifaximin 550mg BID was added. Ammonia level on day of transfer was 107 (normal: 18-72). (5) Hepatorenal syndrome: History of such in the past. He did have a mild acute kidney injury during the stay with peak creatinine of 1.5. Creatinine improved to 1.1 prior to discharge. Was seen by [facility] who provided assistance with his diuretics & volume status. (6) Atrial fibrillation with RVR: Was seen by [facility] during the stay. Rate control with AV joe agents proved challenging, and ultimately he was initiated on amiodarone. He was started on 400 mg BID and received such for 10+ days, then later changed to 200mg BID. He ultimately converted back to NSR and remained in such until discharge. Carvedilol was discontinued. Lovenox injections for his h/o VTE would serve as his anticoagulation. (7) Edema leg: Some of this is due to his cirrhosis. 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 Cont lasix. Cont aldactone. (8) Ascites: Has had large volume paracentesis with removal of >8L, and then >6L. No evidence of SBP on either tap. May need a 3rd paracentesis in the near-future to help with abdominal symptoms. Continue Aldactone and Lasix. (9) Type 2 diabetes mellitus, with long-term current use of insulin: Pharmacy glycemic team was consulted for management. He did have hypoglycemia at times necessitating frequent insulin adjustments. He often refused insulin injections while here. Hemoglobin A1c 8.2%. He will continue NPH 12 units BID w/ meals along with sliding scale novolog. (10) Hyponatremia: Discharge sodium level was 130. Multifactorial including cirrhosis, use of diuretics, "pseudo"hyponatremia, etc. (11) Saddle pulmonary embolus: Dx 11/10/2021 and hospitalized at [facility] for such. Some consideration towards catheter-directed thrombolysis at that time but it was never pursued. Patient was discharged on Lovenox 1mg/kg BID instead of a DOAC due to very high risk of bleed with varices. (12) Hypotension: Continue midodrine due to tendencies towards low-normal BPs as well as prior h/o hepatorenal syndrome. (13) Exposure to COVID-19 virus: Pt's recently was COVID positive. Multiple COVID tests for patient were negative (01/23, 01/26, and 01/28). He was a PUI during the early portion of his stay due to his COVID exposure. After meeting time-based criteria and given his negative COVID tests airborne isolation was later removed. No signs or symptoms of COVID infection leading up to his transfer to [facility]. (14) Weakness: 2nd to ESLD, hepatic encephalopathy, etc Cont PT, OT. (15) History of DVT (deep vein thrombosis): 10/2021 - at time of saddle PE. Continue lovenox 90mg SC BID. Doppler report 10/2021 from [facility] - 1. Acute, occlusive deep venous thrombosis in the left leg involving one of the paired gastrocnemius vein. 2. Acute, non-occlusive superficial venous thrombosis in the right leg involving a branch of the small saphenous vein in the popliteal fossa. 3. No evidence of deep venous thrombosis in the bilateral common femoral, proximal great saphenous, femoral, proximal profunda femoral, popliteal, posterior tibial, peroneal, and right gastrocnemius veins. (16) Thrombocytopenia: range 70-120 while here. 2nd to liver disease. I would like to thank Dr Hector Carr of the hospitalist team at [facility] in [place] for accepting Mr Montes in transfer for ongoing care. Total Time Total Time Spent Total Time Spent (In Minutes): 75 Discharge Plan Discharge Items Patient Disposition: Transfer Acute Care Hospital Reason For Visit: ASCITES, End-Stage Liver Disease, A-FIB Discharge Diagnosis: 1. End-stage Liver Disease/Cirrhosis 2nd to SWIFT and past h/o HepC (s/p full treatment for HepC) 2. Ascites s/p diagnostic/therapeutic paracentesis x 2 3. Liver mass - etiology uncertain, biopsy needed 4. Hepatic encephalopathy 5. h/o Esophageal Varices 6. Hyponatremia 7. Thrombocytopenia 8. Type 2 diabetes 9. Atrial fibrillation 10. h/o DVTs and Saddle PEs (10/2021 - hospitalized [facility]) 11. past h/o hepatorenal syndrome Activity: Resume your previous activity Non-emergency contact: Primary Care Provider and Herbicide Service Sales Representative Call non-emergency contact if: you have any medication questions Follow-up/Referrals: [facility] [Provider Group] (Dr Hammad Storey or SHANIQUA Ramos - [facility] in [place]. ) Mayra Werner MD [Primary Care Provider] - Diet: Carb Consistent or DM2 and Low Sodium (2gm) Fluids: 1500ml (6 cups) Addtl Attending Provider Instructions: Further instructions to follow after your stay at [facility] in [place], [place]. Pending Studies at Discharge: Yes Studies:: AFP tumor marker Stand-Alone Forms: My [facility] [employer] Skilled Items Patient informed of condition?: Yes DNR: No Discharge Level of Care: Other Communicable Disease: No Discharge Prognosis: Stable Lines: Peripheral IV Urinary Catheter: No Medications and DC Order Prescriptions: New Xifaxan 550 mg Tablet 550 mg PO BID Qty: 60 RF: 0 midodrine 2.5 mg Tablet 2.5 mg PO TID@0800,1200,1700 Qty: 90 RF: 0 enoxaparin 100 mg/mL Syringe 90 mg subcut Q12H Qty: 60 RF: 0 spironolactone 100 mg Tablet 100 mg PO QAM Qty: 30 RF: 0 furosemide 40 mg Tablet 40 mg PO QAM Qty: 30 RF: 0 lactulose 20 gram/30 mL Solution 30 ml PO TID Qty: 1500 RF: 0 pantoprazole 40 mg Tablet,Delayed Release (Dr/Ec) 40 mg PO QAM Qty: 30 RF: 0 polyethylene glycol 3350 [Miralax] 17 gram Powder In Packet 17 g PO DAILY Qty: 30 RF: 0 insulin aspart U-100 [Novolog U-100 Insulin aspart] 100 unit/mL Solution 1 sliding scale dose SC ACHS Qty: 10 RF: 0 Novolin N NPH U-100 Insulin 100 unit/mL Suspension 12 unit SC BIDM Qty: 1 RF: 0 amiodarone 200 mg tablet 200 mg PO BID Qty: 60 RF: 5 Continued (DME) OneTouch Ultra Blue Test Strip Strip See Rx Instructions .ROUTE .MEDSUPPLY Qty: 300 RF: 3 (DME) pen needle, diabetic [BD Ultra-Fine Short Pen Needle] 31 gauge x 5/16" needle See Rx Instructions .ROUTE .MEDSUPPLY Qty: 400 RF: 3 (DME) FreeStyle Allan 2 Sensor Kit See Rx Instructions .ROUTE .MEDSUPPLY Qty: 1 RF: 5 multivitamin Tablet 1 tab PO HS RF: 0 ursodiol 300 mg Capsule 300 mg PO HS RF: 0 albuterol sulfate [ProAir HFA] 90 mcg/actuation Hfa Aerosol Inhaler 2 puff INHALATION Q4 PRN (Reason: Shortness Of Breath) RF: 0 magnesium oxide 400 mg magnesium Tablet 400 mg PO HS RF: 0 Discontinued milk thistle 500 mg Capsule 500 mg PO HS RF: 0 vitamin E 400 unit Capsule 400 unit PO HS RF: 0 Vitamin C Powder 1 g PO HS RF: 0 cholecalciferol (vitamin D3) [Vitamin D3] 25 mcg (1,000 unit) Capsule 75 mcg PO HS RF: 0 coenzyme Q10 [CoQ-10] 100 mg Capsule 100 mg PO HS RF: 0 [place] 3 Fish Oil 684-1,200 mg Capsule,Delayed Release(Dr/Ec) 1 cap PO HS RF: 0 Humulin R U-500 (Conc) Kwikpen 500 unit/mL (3 mL) insulin pen 75 - 105 unit subcut BIDWMEAL RF: 0 Admission Data Admit Date/Time: 01/23/22 12:00 Attending Provider: Hugo Saab Admit Provider: Kwaku Jackson Primary Care Provider: Mayra Werner Other Providers: Kwaku Jackson ; Garfield Arredondo ; Hammad Storey ; [facility] ; Sagar Kumar ; Melody Mckeon ; Fernanda Francois Coding Level of Care Code D/C DAY MANAGEMENT >30 MINS Diagnoses Hyperammonemia E72.20 Liver mass R16.0 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
[2022-02-08] MEDS ORDERED: KETOROLAC TROMETHAMINE 15 MG/ML VIAL IV ONE (19:37)
[2022-02-08] MEDS: cefTRIAXone SODIUM 2,000 MG in DEXTROSE 5% 50 ML IV SCH (20:35)
[2022-02-08] MEDS: ursodioL 300 MG CAP PO SCH (20:37)
[2022-02-08] MEDS: MAGNESIUM OXIDE 400 MG TAB PO SCH (20:38)
[2022-02-09] MEDS: metroNIDAZOLE 500 MG/100 ML BAG IV SCH ×3 (04:03→22:01)
[2022-02-09] MEDS: ENOXAPARIN 100 MG/1ML SYR SQ SCH ×2 (05:09→18:43)
[2022-02-09 07:34] LABS: Albumin Level 2.9 gm/dl (3.4-5.0); BUN Creatinine Ratio 21.7 (10-20); Bilirubin Direct 4.9 mg/dl (0-0.2); Bilirubin,Total 9.3 mg/dl (0.2-1.0); Calcium 8.5 mg/dl (8.5-10.1); Creatinine Clr Calc Pharmacy 69.1 ml/min; Est GFR (African American) 84.3 ml/min; Est GFR (Non-African American) 72.8 ml/min; Potassium 4.4 mmol/L (3.5-5.1); Total Protein 5.9 gm/dl (6.0-8.3)
[2022-02-09] MEDS: INSULIN ASPART PER UNIT SC SCH ×4 (08:40→21:30)
[2022-02-09] MEDS: INSULIN HUMAN NPH SC SCH ×2 (08:41→17:36)
--- NOTE | 2022-02-09 08:47 | Gastroenterology Progress Note ---
Date of Service February 09, 2022 Assessment & Plan (1) Liver mass: Plan: Hepatorenal syndrome: Continue current fluid, electrolyte, diuretic plan of care. Total bilirubin this morning 9.3, direct bilirubin 4.9, AST 105, ALT 57, alk phos 104 ? Cholangiocarcinoma: We do not have a firm diagnosis of malignancy in this case. Eligibility for a liver transplant has not been evaluated and remains uncertain. Patient accepted by medicine service at [facility] for further work-up and patient will transfer once bed available. Case reviewed with Dr. Hughes. Please refer to supervising physician addendum for further recommendations. I have spent 25 minutes of discrete time performing the activities of this visit which include but are not limited to review of the medical record, obtaining a history, physical exam, and entering information in the electronic record. (2) Hepatorenal syndrome: (3) Decompensation of cirrhosis of liver: (4) Hyperammonemia: Admission and Anticipated Discharge Date Admission Date: January 23, 2022 Supervising Physician Co-Signing Physician Notes I interviewed and examined the patient and reviewed the medical record, with the following observations: Subjective: He denies any abdominal discomfort or shortness of breath this afternoon, he is comfortable sitting up at the bedside with dinner tray Physical Examination: Firmer abdominal examination but nontender Chart Review: Bilirubin continues to go up, persistent hyponatremia I agree with the assessment as outlined in this consultation, with the following observations: Gradual reaccumulation of ascites, but not causing additional problems at this time I agree with the plan of care as outlined in this consultation, with the following changes and/or additions: Continue conservative management of ascites, avoid therapeutic paracentesis if possible As the supervising physician, I have spent 15 minutes of discrete time performing the activities of this consultation which include, but are not limited to, review of the medical record, obtaining a history, physical examination, and entering information into the electronic record. SHANIQUA Ramos, has reported spending 25 minutes of discrete time with the activities of the consultation. Subjective Patient awake and sitting at bedside this morning. He continues to note that he feels confused. Alert to person and place but having difficulty finding words and repeating questions. Denies any abdominal pain, nausea, vomiting. Does report some increased abdominal tightness. Last documented bowel movement yesterday. Lower extremities wrapped with Abraham bandages. Aware that transfer to [facility] is pending Review of Systems Constitutional: + fatigue, + weakness, + insomnia and + daytime sleepiness Respiratory: no cough and no dyspnea Cardiovascular: no chest pain Gastrointestinal: no vomiting Musculoskeletal: + muscle weakness Neurologic: + unsteadiness and + generalized weakness Physical Exam Gastrointestinal (Abdomen): Inspection/Auscultation: normal bowel sounds and + abdominal edema Percussion/Palpation: + ascites and + abdomen firm; abdomen nontender, no guarding and abdomen not rigid Results & Data ([facility]) Vital Signs (Past 12 Hours) Vital Signs Temp Pulse Pulse Resp BP Pulse Ox 02/09/22 07:00 36.2 C L 83 87 16 93/55 L 96 02/09/22 04:12 36.5 C 83 19 131/77 100 02/08/22 23:31 83 02/08/22 22:51 36.3 C L 86 18 136/80 100 Laboratory Results Laboratory Results - last 24 hr 02/08/22 02/08/22 02/08/22 08:11 08:11 08:11 WBC 4.95 RBC 3.32 L Hgb 11.1 L Hct 32.5 L MCV 97.9 MCH 33.4 MCHC 34.2 RDW Std Deviation 62.5 H RDW Coeff of Rekha 17.7 H Plt Count 111 L MPV 9.9 Sodium 130 L Potassium 4.5 Chloride 99 Carbon Dioxide 24 Anion Gap 7 BUN 23 Creatinine 1.12 Est Cr Clr Drug Dosing 66.0 Est GFR ( Amer) 78.9 Est GFR (Non-Af Amer) 68.1 BUN/Creatinine Ratio 20.5 H Glucose 257 H POC Glucose Calcium 8.6 Total Bilirubin 7.6 H Direct Bilirubin 3.6 H AST 85 H ALT 51 Alkaline Phosphatase 99 Ammonia 107.0 H Total Protein 6.4 Albumin 3.2 L 02/08/22 02/08/22 02/08/22 11:19 16:39 20:27 WBC RBC Hgb Hct MCV MCH MCHC RDW Std Deviation RDW Coeff of Rekha Plt Count MPV Sodium Potassium Chloride Carbon Dioxide Anion Gap BUN Creatinine Est Cr Clr Drug Dosing Est GFR ( Amer) Est GFR (Non-Af Amer) BUN/Creatinine Ratio Glucose POC Glucose 240 H 187 H 184 H Calcium Total Bilirubin Direct Bilirubin AST ALT Alkaline Phosphatase Ammonia Total Protein Albumin 06/28/22 06/28/22 06:02 07:14 WBC RBC Hgb Hct MCV MCH MCHC RDW Std Deviation RDW Coeff of Rekha Plt Count MPV Sodium 131 L Potassium 4.4 Chloride 101 Carbon Dioxide 22 Anion Gap 8 BUN 23 Creatinine 1.06 Est Cr Clr Drug Dosing 69.1 Est GFR ( Amer) 84.3 Est GFR (Non-Af Amer) 72.8 BUN/Creatinine Ratio 21.7 H Glucose 203 H POC Glucose 185 H Calcium 8.5 Total Bilirubin 9.3 H Direct Bilirubin 4.9 H AST 105 H ALT 57 H Alkaline Phosphatase 104 Ammonia Total Protein 5.9 L Albumin 2.9 L
[2022-02-09] MEDS: MIDODRINE HCL 2.5 MG TAB PO SCH ×3 (08:59→16:02)
[2022-02-09] MEDS: rifAXIMin 550 MG TABLET PO SCH ×2 (08:59→21:07)
[2022-02-09] MEDS: FUROSEMIDE 40 MG TAB PO SCH (08:59)
[2022-02-09] MEDS: MULTIVITAMIN TAB PO SCH (08:59)
[2022-02-09] MEDS: AMIODARONE 200 MG TAB PO SCH ×2 (08:59→16:02)
[2022-02-09] MEDS: LACTULOSE SYRUP 20 GM/30 ML UDC PO SCH ×3 (09:00→21:07)
[2022-02-09] MEDS: FAMOTIDINE 10 MG TABLET PO PRN (09:00)
[2022-02-09] MEDS: PANTOprazole 40 MG TAB PO SCH (09:00)
[2022-02-09] MEDS: SPIRONOLACTONE 100 MG TAB PO SCH (09:00)
[2022-02-09] MEDS: POLYETHYLENE (MIRALAX) 17 GM PACK PO SCH (09:02)
--- NOTE | 2022-02-09 18:06 | Hospitalist Progress Note ---
Date of Service February 09, 2022 Assessment & Plan (1) Liver mass: Plan: The patient was hospitalized in late October 2021 at [facility] for saddle PE/DVTs of the LEs. During that admission CT of the abd/pelvis showed - "There are 2 lesions in the liver with peripheral ringlike enhancement. The largest measures approximately 2.9 cm and is centered in segment 5 of the liver. The second is similar in size, measuring approximately 2.9 cm and is centered in segment 5. There is no convincing washout associated with either lesion. However, there is moderate biliary dilation distal to the more superior mass with small nodular areas of arterial hyperenhancement adjacent to the more superior mass that do demonstrate mild washout. The gallbladder contains gallstones." The patient and his family were under the impression he had a confirmed diagnosis of cholangiocarcinoma based on the CT alone but he never had confirmatory biopsy. He was apparently referred to [facility] in [place] for work-up of the liver masses. Family reports he had extreme difficulty getting an appt at [facility] and thus never got there for consultation in the spring. He ultimately went to [facility] for GI consultation for the liver mass but he did not undergo any additional testing or biopsy there. During Mr Montes's stay at [facility] his total bilirubin slowly danica from the 4's to now greater than 9 with a direct bilirubin predominance, AST and ALT are elevated, alkaline phosphatase is normal This, coupled with elevated procalcitonin level, prompted the addition of IV rocephin/flagyl to cover for any biliary tract infection. He did not have overt signs of cholangitis, however. [id number] his LFTs and MRI of the abdomen were concerning for biliary obstruction from the liver mass. MRI abdomen performed at [facility] (01/24/22) during this admission showed - 1. Multiple enlarged lymph nodes in the left greater than right retroperitoneum are unchanged from 2016. 2. Prominent enlargement of the biliary ducts with sparing of some right segmental ducts may be secondary to obstructive mass, if there is clinical concern, ERCP can be performed. 3. 2.3 cm mass in segment 5 of the liver with a central nonenhancing scar is nonspecific and may represent hemangioma, cholangiocarcinoma, or possibly hypervascular metastasis. Although the patient follows with [facility] GI in [place] the [facility] GI team does not perform ERCP. Further, [facility] in [facility] does not offer liver transplant services. Thus, [facility] in [place] was contacted to request transfer to their facilities for consideration of ERCP (or IR) for biopsy of his liver mass as well as undergo hepatology consultation to gauge his candidacy for liver transplant. Dr Hector Carr, hospital medicine, at [facility] in [place] graciously accepted Mr Montes in transfer for ongoing care. 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 Previously followed with [facility] Dr. Tino Bae (now retired) in [place]. Diagnosed with cirrhosis several years ago. By report he has had hepatorenal syndrome in the past. 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 Erythematous mucosa without bleeding in gastric body. MRI liver this admission (see above) showed a rim-enhancing mass within the liver about 2 to 2.5cm in size. No portal vein thrombosis was seen during this stay. Liver functions continued to rise albeit modestly day to day including his t.bili as noted above. INR was 1.3 on 02/07/22. He underwent therapeutic paracentesis x 2 this admission with no evidence of SBP on either occasion. -Remains on empiric ceftriaxone and metronidazole in case of cholangitis given continuing rise of total bilirubin He remains on TID lactulose & rifaximin for hepatic encephalopathy. Lasix 40mg daily + aldactone 100mg are in place to maintain volume control of his edema/ascites. MELD score remains at 22-23 (3) Decompensation of cirrhosis of liver: Plan: see above continue lasix + aldactone + prn paracentesis (4) Hyperammonemia: Plan: Ongoing. Likely cause of low-grade confusion which does seem to be much improved at this time -Continue TID lactulose, and continue rifaximin 550mg BID Ammonia level was 107 on last check (normal: 18-72). (5) Hepatorenal syndrome: Plan: History of such in the past. He did have a mild acute kidney injury during the stay with peak creatinine of 1.5. Creatinine improved to 1.06 With hyponatremia sodium 131 Was seen by [facility] nephrology who provided assistance with his diuretics & v olume status. (6) Atrial fibrillation with RVR: Plan: Was seen by [facility] during the stay. Rate control with AV joe agents proved challenging, and ultimately he was initiated on amiodarone. He was started on 400 mg BID and received such for 10+ days, then later changed to 200mg BID. He ultimately converted back to NSR and remained in such until discharge. Carvedilol is currently being held due to low blood pressures Lovenox injections for his h/o VTE would serve as his anticoagulation. (7) Edema leg: Plan: Some of this is due to his cirrhosis. 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 Cont lasix. Cont aldactone. (8) Ascites: Plan: Has had large volume paracentesis with removal of >8L, and then >6L. No evidence of SBP on either tap. May need a 3rd paracentesis in the near-future to help with abdominal symptoms, however GI recommendations from discharge to [facility] recommend avoiding frequent paracenteses if possible Continue Aldactone and Lasix. (9) Type 2 diabetes mellitus, with long-term current use of insulin: Plan: Pharmacy glycemic team was consulted for management. He did have hypoglycemia at times necessitating frequent insulin adjustments. He often refused insulin injections while here. Hemoglobin A1c 8.2%. He will continue NPH 12 units BID w/ meals along with sliding scale novolog. (10) Hyponatremia: Plan: Continues to be low at 131 Multifactorial including cirrhosis, use of diuretics (11) Saddle pulmonary embolus: Plan: Dx 11/10/2021 and hospitalized at [facility] for such. Some consideration towards catheter-directed thrombolysis versus thrombectomy at that time but it was never pursued as he was hemodynamically stable Patient was discharged on Lovenox 1mg/kg BID instead of a DOAC due to very high risk of bleed with varices. (12) Hypotension: Plan: Continue midodrine due to tendencies towards low-normal BPs as well as prior h/o hepatorenal syndrome. (13) Exposure to COVID-19 virus: Plan: Pt's recently was COVID positive. Multiple COVID tests for patient were negative (01/23, 01/26, and 6/16). He was a PUI during the early portion of his stay due to his COVID exposure. After meeting time-based criteria and given his negative COVID tests airborne isolation was later removed. No signs or symptoms of COVID infection leading up to his transfer to [facility]. (14) Weakness: Plan: 2nd to ESLD, hepatic encephalopathy, etc Cont PT, OT. (15) History of DVT (deep vein thrombosis): Plan: 10/2021 - at time of saddle PE. Continue lovenox 90mg SC BID. Doppler report 10/2021 from [facility] - 1. Acute, occlusive deep venous thrombosis in the left leg involving one of the paired gastrocnemius vein. 2. Acute, non-occlusive superficial venous thrombosis in the right leg involving a branch of the small saphenous vein in the popliteal fossa. 3. No evidence of deep venous thrombosis in the bilateral common femoral, proximal great saphenous, femoral, proximal profunda femoral, popliteal, posterior tibial, peroneal, and right gastrocnemius veins. (16) Thrombocytopenia: Plan: range 70-120 while here. 2nd to liver disease. Plan: I would like to thank Dr Hector Carr of the hospitalist team at [facility] in [place] for accepting Mr Montes in transfer for ongoing care. Admission and Anticipated Discharge Date Admission Date: January 23, 2022 Subjective Patient denies abdominal pain or distention. No chest pains or shortness of breath. He is moving his bowels regularly and making urine. Feels that his leg swelling is decreased from previous. He is anxious to be transferred but there is no bed available yet today at [facility] in [place]. Telemetry with normal sinus rhythm with rates in the 70s to 80s Review of Systems Review of Systems: All systems reviewed & are unremarkable except as noted in HPI & below Physical Exam Constitutional: WD/WN, vitals as above Eyes: + scleral abnormality (Icterus) ENMT: external ear and nose normal, oropharynx normal Neck: trachea midline, no thyromegaly Respiratory: normal respiratory effort, lungs clear to auscultation Cardiovascular: Rate/Rhythm: regular rate and regular rhythm Heart Sounds: no murmur Extremities: + edema (3+ pitting edema to the thighs bilaterally) Chest (Breasts): Chest: normal inspection of chest Gastrointestinal (Abdomen): Inspection/Auscultation: + abdomen distended (But soft) and normal bowel sounds Percussion/Palpation: abdomen soft; abdomen nontender and no guarding Musculoskeletal: Extremities: no cyanosis and no clubbing Skin: no rashes, warm and dry + jaundice Neurologic: moves all extremities and awake; no focal motor deficits Psychiatric: A+Ox3, euthymic affect Results & Data Results & Data ([facility]) Vital Signs (Past 12 Hours) Vital Signs Temp Pulse Pulse Resp BP Pulse Ox 02/09/22 15:35 36.4 C L 75 18 117/71 99 02/09/22 12:00 36.9 C 77 14 100/67 97 02/09/22 07:00 36.2 C L 83 87 16 93/55 L 96 Laboratory Results 02/09/22 02/09/22 02/09/22 Range/Units 16:33 11:32 07:14 Sodium (136-145) mmol/L Potassium (3.5-5.1) mmol/L Chloride (98-107) mmol/L Carbon Dioxide (21-32) mmol/L Anion Gap (3-11) BUN (6-23) mg/dl Creatinine (0.6-1.4) mg/dl Est Cr Clr Drug Dosing ml/min Est GFR ( Amer) ml/min Est GFR (Non-Af Amer) ml/min BUN/Creatinine Ratio (10-20) Glucose (70-99(Fasting)) mg/dl POC Glucose 148 H 220 H 185 H (70-99) mg/dl Calcium (8.5-10.1) mg/dl Total Bilirubin (0.2-1.0) mg/dl Direct Bilirubin (0-0.2) mg/dl AST (13-39) U/L ALT (7-52) U/L Alkaline Phosphatase (34-104) U/L Total Protein (6.0-8.3) gm/dl Albumin (3.4-5.0) gm/dl Tumor Marker AFP (<6.1) ng/mL 02/09/22 02/08/22 02/07/22 Range/Units 06:02 20:27 14:29 Sodium 131 L (136-145) mmol/L Potassium 4.4 (3.5-5.1) mmol/L Chloride 101 (98-107) mmol/L Carbon Dioxide 22 (21-32) mmol/L Anion Gap 8 (3-11) BUN 23 (6-23) mg/dl Creatinine 1.06 (0.6-1.4) mg/dl Est Cr Clr Drug Dosing 69.1 ml/min Est GFR ( Amer) 84.3 ml/min Est GFR (Non-Af Amer) 72.8 ml/min BUN/Creatinine Ratio 21.7 H (10-20) Glucose 203 H (70-99(Fasting)) mg/dl POC Glucose 184 H (70-99) mg/dl Calcium 8.5 (8.5-10.1) mg/dl Total Bilirubin 9.3 H (0.2-1.0) mg/dl Direct Bilirubin 4.9 H (0-0.2) mg/dl AST 105 H (13-39) U/L ALT 57 H (7-52) U/L Alkaline Phosphatase 104 (34-104) U/L Total Protein 5.9 L (6.0-8.3) gm/dl Albumin 2.9 L (3.4-5.0) gm/dl Tumor Marker AFP 14.3 H (<6.1) ng/mL PG Care Time/CCT Total # of Minutes Spent Total Time Spent with Patient: Total time spent is greater than 50% in coordination of care (as documented) at patient's floor/unit and/or counseling patient: Coding Level of Care Code 89977 Subseq Hosp Care Lvl 3 Diagnoses Liver mass R16.0 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 (1) Type 2 diabetes mellitus, with long-term current use of insulin Diabetes mellitus complication status: with other specified complication Coleman lified Code(s): E11.69 - Type 2 diabetes mellitus with other specified complication; 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
[2022-02-09] MEDS: cefTRIAXone SODIUM 2,000 MG in DEXTROSE 5% 50 ML IV SCH (21:07)
[2022-02-09] MEDS: ursodioL 300 MG CAP PO SCH (21:07)
[2022-02-09] MEDS: MAGNESIUM OXIDE 400 MG TAB PO SCH (21:10)
[2022-02-10] MEDS: metroNIDAZOLE 500 MG/100 ML BAG IV SCH ×3 (04:38→20:30)
[2022-02-10] MEDS: ENOXAPARIN 100 MG/1ML SYR SQ SCH ×2 (05:39→17:42)
[2022-02-10 06:26] LABS: Hematocrit (blood only) 28.9 % (42-52); Hemoglobin 10.1 g/dL (14.0-18.0); Mean Corpuscular Hemoglobin 34.1 pg (25-34); Mean Corpuscular Hgb Conc 34.9 g/dL (32-36); Mean Corpuscular Volume 97.6 fL (80-100); RDW Coefficient of Variation 17.7 % (11.5-14.5); Red Blood Count 2.96 M/uL (4.7-6.1); White Blood Count 5.29 K/uL (4.8-10.8)
[2022-02-10 06:27] LABS: INR 1.4 (0.9-1.1); Prothrombin Time 15.1 Seconds (9.0-12.0)
[2022-02-10 06:39] LABS: BUN Creatinine Ratio 20.9 (10-20); Bilirubin,Total 11.2 mg/dl (0.2-1.0); Calcium 8.6 mg/dl (8.5-10.1); Est GFR (African American) 76.4 ml/min; Est GFR (Non-African American) 65.9 ml/min; Potassium 4.4 mmol/L (3.5-5.1); Total Protein 6.2 gm/dl (6.0-8.3)
[2022-02-10 06:44] LABS: Mean Platelet Volume 9.9 fL (7.4-10.4); Platelet Count 93 K/uL (130-400)
[2022-02-10 06:54] LABS: Basophils # (auto) 0.01 K/uL (0-0.2); Basophils % (auto) 0.2 %; Eosinophils # (auto) 0.03 K/uL (0-0.5); Eosinophils % (auto) 0.6 %; Immature Granulocytes # (auto) 0.01 K/uL (0.00-0.02); Immature Granulocytes % (auto) 0.2 %; Lymphocytes # (auto) 0.61 K/uL (1.2-3.4); Lymphocytes % (auto) 11.5 %; Monocytes # (auto) 0.61 K/uL (0.11-0.59); Monocytes % (auto) 11.5 %; Neutrophils # (auto) 4.02 K/uL (1.4-6.5)
--- NOTE | 2022-02-10 08:20 | Gastroenterology Progress Note ---
Date of Service February 10, 2022 Assessment & Plan (1) Liver mass: Plan: Hepatorenal syndrome: Continue current fluid, electrolyte, diuretic plan of care. Total bilirubin 11.2, direct bilirubin 6.0, AST 121, ALT 66, alk phos 111 ? Cholangiocarcinoma: We do not have a firm diagnosis of malignancy in this case. Eligibility for a liver transplant has not been evaluated and remains uncertain. Patient accepted by medicine service at [facility] for further work-up and patient will transfer once bed available. I spoke to the charge nurse this morning who reports that this transfer was changed to [facility] yesterday evening. They continue to wait for a bed. Case reviewed with Dr. Hughes. Please refer to supervising physician addendum for further recommendations. I have spent 15 minutes of discrete time performing the activities of this visit which include but are not limited to review of the medical record, obtaining a history, physical exam, and entering information in the electronic record. (2) Hepatorenal syndrome: (3) Decompensation of cirrhosis of liver: (4) Hyperammonemia: Admission and Anticipated Discharge Date Admission Date: January 23, 2022 Supervising Physician Co-Signing Physician Notes I interviewed and examined the patient and reviewed the medical record, with the following observations: Subjective: No new complaints, he remains frustrated and anxious regarding transfer to [facility] Physical Examination: The abdomen is distended but soft and nontender, no respiratory distress. Dependent 4+ edema, lower extremities wrapped with Abraham bandages Chart Review: Both bilirubin and alk phos are increasing, consistent with obstruction of intrahepatic biliary ducts I agree with the assessment as outlined in this consultation, with the following observations: Hospital course is consistent with possible central hepatic mass with obstruction of intrahepatic ducts. He should be transferred to tertiary care for further evaluation to determine transplant eligibility or need for treatment of malignancy. I agree with the plan of care as outlined in this consultation, with the follo wing changes and/or additions: I agree with plan of care as outlined by primary care team and all consultants. We will be discontinuing our inpatient coverage and signing off coverage at 7 AM tomorrow, February 11. We will continue to be involved in his care following hospital discharge/transfer. As the supervising physician, I have spent 15 minutes of discrete time performing the activities of this consultation which include, but are not limited to, review of the medical record, obtaining a history, physical examination, and entering information into the electronic record. SHANIQUA Ramos, has reported spending 15 minutes of discrete time with the activities of the consultation. Subjective The patient is awake and alert sitting at bedside eating his breakfast this morning. States overall he feels okay. No abdominal pain, no nausea, vomiting. He reports that he is frustrated with the lack of progress in getting him transferred. Review of Systems Constitutional: + fatigue, + weakness, + insomnia and + daytime sleepiness Respiratory: no cough and no dyspnea Cardiovascular: no chest pain Gastrointestinal: no vomiting Musculoskeletal: + muscle weakness Neurologic: + unsteadiness and + generalized weakness Physical Exam Gastrointestinal (Abdomen): Inspection/Auscultation: normal bowel sounds and + abdominal edema Percussion/Palpation: + ascites and + abdomen firm; abdomen nontender, no guarding and abdomen not rigid Results & Data ([facility]) Vital Signs (Past 12 Hours) Vital Signs Temp Pulse Pulse Resp BP BP Pulse Ox 02/10/22 07:21 36.5 C 89 16 111/70 98 02/10/22 04:40 36.3 C L 86 18 138/64 97 02/09/22 23:20 36.5 C 83 18 98/56 L 98 02/09/22 23:00 82 Laboratory Results Laboratory Results - last 24 hr 02/07/22 02/09/22 02/09/22 14:29 11:32 16:33 WBC RBC Hgb Hct MCV MCH MCHC RDW Std Deviation RDW Coeff of Rekha Plt Count MPV Immature Gran % (Auto) Neut % (Auto) Lymph % (Auto) Stark % (Auto) Eos % (Auto) Baso % (Auto) Neut # (Auto) Lymph # (Auto) Stark # (Auto) Eos # (Auto) Baso # (Auto) Immature Gran # (Auto) PT INR Sodium Potassium Chloride Carbon Dioxide Anion Gap BUN Creatinine Est Cr Clr Drug Dosing Est GFR ( Amer) Est GFR (Non-Af Amer) BUN/Creatinine Ratio Glucose POC Glucose 220 H 148 H Calcium Total Bilirubin Direct Bilirubin AST ALT Alkaline Phosphatase Ammonia Total Protein Albumin Tumor Marker AFP 14.3 H 02/09/22 02/10/22 02/10/22 20:32 05:51 05:51 WBC 5.29 RBC 2.96 L Hgb 10.1 L Hct 28.9 L MCV 97.6 MCH 34.1 H MCHC 34.9 RDW Std Deviation 63.0 H RDW Coeff of Rekha 17.7 H Plt Count 93 L MPV 9.9 Immature Gran % (Auto) 0.2 Neut % (Auto) 76.0 Lymph % (Auto) 11.5 Stark % (Auto) 11.5 Eos % (Auto) 0.6 Baso % (Auto) 0.2 Neut # (Auto) 4.02 Lymph # (Auto) 0.61 L Stark # (Auto) 0.61 H Eos # (Auto) 0.03 Baso # (Auto) 0.01 Immature Gran # (Auto) 0.01 PT INR Sodium 132 L Potassium 4.4 Chloride 102 Carbon Dioxide 22 Anion Gap 8 BUN 24 H Creatinine 1.15 Est Cr Clr Drug Dosing 64.0 Est GFR ( Amer) 76.4 Est GFR (Non-Af Amer) 65.9 BUN/Creatinine Ratio 20.9 H Glucose 194 H POC Glucose 213 H Calcium 8.6 Total Bilirubin 11.2 H Direct Bilirubin 6.0 H AST 121 H ALT 66 H Alkaline Phosphatase 111 H Ammonia Total Protein 6.2 Albumin 3.0 L Tumor Marker AFP 02/10/22 02/10/22 02/10/22 05:51 05:58 07:21 WBC RBC Hgb Hct MCV MCH MCHC RDW Std Deviation RDW Coeff of Rekha Plt Count MPV Immature Gran % (Auto) Neut % (Auto) Lymph % (Auto) Stark % (Auto) Eos % (Auto) Baso % (Auto) Neut # (Auto) Lymph # (Auto) Stark # (Auto) Eos # (Auto) Baso # (Auto) Immature Gran # (Auto) PT 15.1 H INR 1.4 H Sodium Potassium Chloride Carbon Dioxide Anion Gap BUN Creatinine Est Cr Clr Drug Dosing Est GFR ( Amer) Est GFR (Non-Af Amer) BUN/Creatinine Ratio Glucose POC Glucose 236 H Calcium Total Bilirubin Direct Bilirubin AST ALT Alkaline Phosphatase Ammonia 44.0 Total Protein Albumin Tumor Marker AFP
[2022-02-10] MEDS: AMIODARONE 200 MG TAB PO SCH ×2 (09:16→17:40)
[2022-02-10] MEDS: INSULIN HUMAN NPH SC SCH ×2 (09:18→17:40)
[2022-02-10] MEDS: LACTULOSE SYRUP 20 GM/30 ML UDC PO SCH ×3 (09:19→20:30)
[2022-02-10] MEDS: FUROSEMIDE 40 MG TAB PO SCH (09:19)
[2022-02-10] MEDS: MIDODRINE HCL 2.5 MG TAB PO SCH ×3 (09:19→17:41)
[2022-02-10] MEDS: PANTOprazole 40 MG TAB PO SCH (09:20)
[2022-02-10] MEDS: POLYETHYLENE (MIRALAX) 17 GM PACK PO SCH (09:20)
[2022-02-10] MEDS: MULTIVITAMIN TAB PO SCH (09:20)
[2022-02-10] MEDS: rifAXIMin 550 MG TABLET PO SCH ×2 (09:21→20:30)
[2022-02-10] MEDS: SPIRONOLACTONE 100 MG TAB PO SCH (09:21)
[2022-02-10] MEDS: INSULIN ASPART PER UNIT SC SCH ×5 (09:25→20:47)
--- NOTE | 2022-02-10 18:19 | Hospitalist Progress Note ---
Date of Service February 10, 2022 Assessment & Plan (1) Liver mass: Plan: The patient was hospitalized in late October 2021 at [facility] for saddle PE/DVTs of the LEs. During that admission CT of the abd/pelvis showed - "There are 2 lesions in the liver with peripheral ringlike enhancement. The largest measures approximately 2.9 cm and is centered in segment 5 of the liver. The second is similar in size, measuring approximately 2.9 cm and is centered in segment 5. There is no convincing washout associated with either lesion. However, there is moderate biliary dilation distal to the more superior mass with small nodular areas of arterial hyperenhancement adjacent to the more superior mass that do demonstrate mild washout. The gallbladder contains gallstones." The patient and his family were under the impression he had a confirmed diagnosis of cholangiocarcinoma based on the CT alone but he never had confirmatory biopsy. He was apparently referred to [facility] in [place] for work-up of the liver masses. Family reports he had extreme difficulty getting an appt at [facility] and thus never got there for consultation in the spring. He ultimately went to [facility] for GI consultation for the liver mass but he did not undergo any additional testing or biopsy there. During Mr Montes's stay at [facility] his total bilirubin continues to rise daily from the 4's to now greater than 11 with a direct bilirubin predominance, AST and ALT are elevated, alkaline phosphatase is now also mildly elevated This, coupled with elevated procalcitonin level, prompted the addition of IV rocephin/flagyl to cover for any biliary tract infection. He did not have overt signs of cholangitis, however. [id number] his LFTs and MRI of the abdomen were concerning for biliary obstruction from the liver mass. MRI abdomen performed at [facility] (01/24/22) during this admission showed - 1. Multiple enlarged lymph nodes in the left greater than right retroperitoneum are unchanged from 2016. 2. Prominent enlargement of the biliary ducts with sparing of some right segmental ducts may be secondary to obstructive mass, if there is clinical concern, ERCP can be performed. 3. 2.3 cm mass in segment 5 of the liver with a central nonenhancing scar is nonspecific and may represent hemangioma, cholangiocarcinoma, or possibly hypervascular metastasis. ERCP deferred by GI team here as they felt he'd be better served in a tertiary care facility or facility with IR for biopsy Further, [facility] in [facility] does not offer liver transplant services. It is interesting that this mass shrunk slightly in size from previous. The RP lymphadenopathy noted on imaging was apparently present on previous imaging as per Radiology and therefore not likely to be malignant. AFP is elevated at 14 though. Thus, [facility] in [place] was contacted to request transfer to their facilities for consideration of ERCP (or IR) for biopsy of his liver mass as well as undergo hepatology consultation to gauge his candidacy for liver transplant. Transplant service has now said they don't think he is a candidate for liver transplant given possibility of metastatic disease, but this has not been proven. Dr Rizo of hospital medicine, at [facility] in [place] graciously accepted Mr Montes in transfer for ongoing care. 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 Previously followed with [facility] Dr. Tino Bae (now retired) in [place]. Diagnosed with cirrhosis several years ago. By report he has had hepatorenal syndrome in the past. EGD 02/06/2021 at [facility] -- Grade III varices in lower third of esophagus. Erythematous mucosa without bleeding in gastric body. MRI liver this admission (see above) showed a rim-enhancing mass within the liver about 2 to 2.5cm in size. No portal vein thrombosis was seen during this stay. Liver functions continued to rise albeit modestly day to day including his t.bili as noted above. INR now up to 1.4 He underwent therapeutic paracentesis x 2 this admission with no evidence of SBP on either occasion. -Remains on empiric ceftriaxone and metronidazole in case of cholangitis given continuing rise of total bilirubin and had elevated procalcitonin He remains on TID lactulose & rifaximin for hepatic encephalopathy. Lasix 40mg daily + aldactone 100mg are in place to maintain volume control of his edema/ascites. MELD score now increasing, up to 24 today (3) Decompensation of cirrhosis of liver: Plan: see above continue lasix + aldactone + prn paracentesis holding beta noel with soft BPs giving midodrine follow CBC, LFTs, INR but not daily at pt's request due to multiple lab draws (4) Hyperammonemia: Plan: now resolved Likely cause of low-grade confusion which does seem to be resolved at this time -Continue TID lactulose, and continue rifaximin 550mg BID (5) Hepatorenal syndrome: Plan: History of such in the past. He did have a mild acute kidney injury during the stay with peak creatinine of 1.5. Creatinine improved to 1.06 With hyponatremia sodium now improved to 132 Was seen by [facility] who provided assistance with his diuretics & volume status. (6) Atrial fibrillation with RVR: Plan: Was seen by [facility] during the stay. Rate control with AV joe agents proved challenging, and ultimately he was initiated on amiodarone. He was started on 400 mg BID and received such for 10+ days, then later changed to 200mg BID. He ultimately converted back to NSR and remained in such until discharge. Carvedilol is currently being held due to low blood pressures Lovenox injections for his h/o VTE would serve as his anticoagulation. (7) Edema leg: Plan: Some of this is due to his cirrhosis. 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 Cont lasix. Cont aldactone. (8) Ascites: Plan: Has had large volume paracentesis with removal of >8L, and then >6L. No evidence of SBP on either tap. May need a 3rd paracentesis in the near-future to help with abdominal symptoms, however GI recommendations from discharge to [facility] recommend avoiding frequent paracenteses if possible Continue Aldactone and Lasix. (9) Type 2 diabetes mellitus, with long-term current use of insulin: Plan: Pharmacy glycemic team was consulted for management. He did have hypoglycemia at times necessitating frequent insulin adjustments. He often refused insulin injections while here. Hemoglobin A1c 8.2%. He will continue NPH 12 units BID w/ meals along with sliding scale novolog. (10) Hyponatremia: Plan: improving from 124 on admission to 132 now with giving diuretics 2/2 cirrhosis (11) Saddle pulmonary embolus: Plan: Dx 11/10/2021 and hospitalized at [facility] for such. Some consideration towards catheter-directed thrombolysis versus thrombectomy at that time but it was never pursued as he was hemodynamically stable Patient was discharged on Lovenox 1mg/kg BID instead of a DOAC due to very high risk of bleed with varices. (12) Hypotension: Plan: Continue midodrine due to tendencies towards low-normal BPs as well as prior h/o hepatorenal syndrome. (13) Exposure to COVID-19 virus: Plan: Pt's recently was COVID positive. Multiple COVID tests for patient were negative (01/23, 01/26, and 01/28). He was a PUI during the early portion of his stay due to his COVID exposure. After meeting time-based criteria and given his negative COVID tests airborne isolation was later removed. No signs or symptoms of COVID infection leading up to his transfer to [facility] (14) Weakness: Plan: 2nd to ESLD, hepatic encephalopathy, etc Cont PT, OT. encouraged to be OOB with assistance (15) History of DVT (deep vein thrombosis): Plan: 10/2021 - at time of saddle PE. Continue lovenox 90mg SC BID. Doppler report 10/2021 from [facility] - 1. Acute, occlusive deep venous thrombosis in the left leg involving one of the paired gastrocnemius vein. 2. Acute, non-occlusive superficial venous thrombosis in the right leg involving a branch of the small saphenous vein in the popliteal fossa. 3. No evidence of deep venous thrombosis in the bilateral common femoral, proximal great saphenous, femoral, proximal profunda femoral, popliteal, posterior tibial, peroneal, and right gastrocnemius veins. (16) Thrombocytopenia: Plan: range 70-120 while here. 2nd to liver disease. Plan: Dispo-awaiting transfer to [facility] for further eval by Hepatology and for liver mass biopsy Admission and Anticipated Discharge Date Admission Date: January 23, 2022 Subjective Pt seen twice today. On AM rounds, he denied abd pain, or nausea, no SOB, no CP. Still anxious about being transferred as he has been waiting for a bed for many days. I spent 120 minutes today on the phone with [facility] call center and physicians discussing updates on his condition and also in discussion with the patient, his , and a friend of the family. Pt also requesting no labs be drawn tomorrow as he is tired of being stuck with needles on a daily basis. He is having 3 loose BMs daily, making urine. Tele with NSR, normal rates Review of Systems Review of Systems: All systems reviewed & are unremarkable except as noted in HPI & below Physical Exam Constitutional: WD/WN, vitals as above Eyes: + scleral abnormality (Icterus) ENMT: external ear and nose normal, oropharynx normal Neck: trachea midline, no thyromegaly Respiratory: normal respiratory effort, lungs clear to auscultation Cardiovascular: Rate/Rhythm: regular rate and regular rhythm Heart Sounds: no murmur Extremities: + edema (3+ pitting edema to the thighs bilaterally) Chest (Breasts): Chest: normal inspection of chest Gastrointestinal (Abdomen): normal bowel sounds, soft, nontender, no hepatosplenomegaly Inspection/Auscultation: + abdomen distended (But soft) and normal bowel sounds Percussion/Palpation: abdomen soft; abdomen nontender and no guarding Musculoskeletal: Extremities: no cyanosis and no clubbing Skin: no rashes, warm and dry + jaundice Neurologic: moves all extremities and awake; no focal motor deficits Psychiatric: A+Ox3, euthymic affect Lymphatic: no lymphedema Results & Data Results & Data ([facility]) Vital Signs (Past 12 Hours) Vital Signs Temp Pulse Resp BP BP Pulse Ox 02/10/22 14:59 36.4 C L 84 16 107/61 94 02/10/22 12:13 92 H 16 102/63 98 02/10/22 07:21 36.5 C 89 16 111/70 98 Laboratory Results 02/10/22 02/10/22 02/10/22 Range/Units 20:26 16:18 11:24 WBC (4.8-10.8) K/uL RBC (4.7-6.1) M/uL Hgb (14.0-18.0) g/dL Hct (42-52) % MCV (80-100) fL MCH (25-34) pg MCHC (32-36) g/dL RDW Std Deviation (36.4-46.3) fL RDW Coeff of Rekha (11.5-14.5) % Plt Count (130-400) K/uL MPV (7.4-10.4) fL Immature Gran % (Auto) % Neut % (Auto) % Lymph % (Auto) % [place] % (Auto) % Eos % (Auto) % Baso % (Auto) % Neut # (Auto) (1.4-6.5) K/uL Lymph # (Auto) (1.2-3.4) K/uL [place] # (Auto) (0.11-0.59) K/uL Eos # (Auto) (0-0.5) K/uL Baso # (Auto) (0-0.2) K/uL Immature Gran # (Auto) (0.00-0.02) K/uL PT (9.0-12.0) Seconds INR (0.9-1.1) Sodium (136-145) mmol/L Potassium (3.5-5.1) mmol/L Chloride (98-107) mmol/L Carbon Dioxide (21-32) mmol/L Anion Gap (3-11) BUN (6-23) mg/dl Creatinine (0.6-1.4) mg/dl Est Cr Clr Drug Dosing ml/min Est GFR ( Amer) ml/min Est GFR (Non-Af Amer) ml/min BUN/Creatinine Ratio (10-20) Glucose (70-99(Fasting)) mg/dl POC Glucose 158 H 179 H 246 H (70-99) mg/dl Calcium (8.5-10.1) mg/dl Total Bilirubin (0.2-1.0) mg/dl Direct Bilirubin (0-0.2) mg/dl AST (13-39) U/L ALT (7-52) U/L Alkaline Phosphatase (34-104) U/L Ammonia (18-72) umol/L Total Protein (6.0-8.3) gm/dl Albumin (3.4-5.0) gm/dl 02/10/22 02/10/22 02/10/22 Range/Units 07:21 05:58 05:51 WBC (4.8-10.8) K/uL RBC (4.7-6.1) M/uL Hgb (14.0-18.0) g/dL Hct (42-52) % MCV (80-100) fL MCH (25-34) pg MCHC (32-36) g/dL RDW Std Deviation (36.4-46.3) fL RDW Coeff of Rekha (11.5-14.5) % Plt Count (130-400) K/uL MPV (7.4-10.4) fL Immature Gran % (Auto) % Neut % (Auto) % Lymph % (Auto) % [place] % (Auto) % Eos % (Auto) % Baso % (Auto) % Neut # (Auto) (1.4-6.5) K/uL Lymph # (Auto) (1.2-3.4) K/uL [place] # (Auto) (0.11-0.59) K/uL Eos # (Auto) (0-0.5) K/uL Baso # (Auto) (0-0.2) K/uL Immature Gran # (Auto) (0.00-0.02) K/uL PT 15.1 H (9.0-12.0) Seconds INR 1.4 H (0.9-1.1) Sodium (136-145) mmol/L Potassium (3.5-5.1) mmol/L Chloride (98-107) mmol/L Carbon Dioxide (21-32) mmol/L Anion Gap (3-11) BUN (6-23) mg/dl Creatinine (0.6-1.4) mg/dl Est Cr Clr Drug Dosing ml/min Est GFR ( Amer) ml/min Est GFR (Non-Af Amer) ml/min BUN/Creatinine Ratio (10-20) Glucose (70-99(Fasting)) mg/dl POC Glucose 236 H (70-99) mg/dl Calcium (8.5-10.1) mg/dl Total Bilirubin (0.2-1.0) mg/dl Direct Bilirubin (0-0.2) mg/dl AST (13-39) U/L ALT (7-52) U/L Alkaline Phosphatase (34-104) U/L Ammonia 44.0 (18-72) umol/L Total Protein (6.0-8.3) gm/dl Albumin (3.4-5.0) gm/dl 02/10/22 02/10/22 Range/Units 05:51 05:51 WBC 5.29 (4.8-10.8) K/uL RBC 2.96 L (4.7-6.1) M/uL Hgb 10.1 L (14.0-18.0) g/dL Hct 28.9 L (42-52) % MCV 97.6 (80-100) fL MCH 34.1 H (25-34) pg MCHC 34.9 (32-36) g/dL RDW Std Deviation 63.0 H (36.4-46.3) fL RDW Coeff of Rekha 17.7 H (11.5-14.5) % Plt Count 93 L (130-400) K/uL MPV 9.9 (7.4-10.4) fL Immature Gran % (Auto) 0.2 % Neut % (Auto) 76.0 % Lymph % (Auto) 11.5 % [place] % (Auto) 11.5 % Eos % (Auto) 0.6 % Baso % (Auto) 0.2 % Neut # (Auto) 4.02 (1.4-6.5) K/uL Lymph # (Auto) 0.61 L (1.2-3.4) K/uL [place] # (Auto) 0.61 H (0.11-0.59) K/uL Eos # (Auto) 0.03 (0-0.5) K/uL Baso # (Auto) 0.01 (0-0.2) K/uL Immature Gran # (Auto) 0.01 (0.00-0.02) K/uL PT (9.0-12.0) Seconds INR (0.9-1.1) Sodium 132 L (136-145) mmol/L Potassium 4.4 (3.5-5.1) mmol/L Chloride 102 (98-107) mmol/L Carbon Dioxide 22 (21-32) mmol/L Anion Gap 8 (3-11) BUN 24 H (6-23) mg/dl Creatinine 1.15 (0.6-1.4) mg/dl Est Cr Clr Drug Dosing 64.0 ml/min Est GFR ( Amer) 76.4 ml/min Est GFR (Non-Af Amer) 65.9 ml/min BUN/Creatinine Ratio 20.9 H (10-20) Glucose 194 H (70-99(Fasting)) mg/dl POC Glucose (70-99) mg/dl Calcium 8.6 (8.5-10.1) mg/dl Total Bilirubin 11.2 H (0.2-1.0) mg/dl Direct Bilirubin 6.0 H (0-0.2) mg/dl AST 121 H (13-39) U/L ALT 66 H (7-52) U/L Alkaline Phosphatase 111 H (34-104) U/L Ammonia (18-72) umol/L Total Protein 6.2 (6.0-8.3) gm/dl Albumin 3.0 L (3.4-5.0) gm/dl PG Care Time/CCT Total # of Minutes Spent Total Time Spent with Patient: Total time spent is greater than 50% in coordination of care (as documented) at patient's floor/unit and/or counseling patient: Prolonged Care Time Prolonged Care Time: Yes Total Prolonged Care Time: 120 I spent a total of 120 min in prolonged care time today Coding Level of Care Code 93125 Subseq Hosp Care Lvl 3 (25 - SIGNIFICANT, SEPARATELY IDENTIFIABLE ) Diagnoses Liver mass R16.0 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 Additional Codes Prolonged Care Time - Prolonged Care Time: Yes ([id number]) (1) Type 2 diabetes mellitus, with long-term current use of insulin Diabetes mellitus complication status: with other specified complication Qualified Code(s): E11.69 - Type 2 diabetes mellitus with other specified complication; Z79.4 - assisted (current) use of insulin
[2022-02-10] MEDS: cefTRIAXone SODIUM 2,000 MG in DEXTROSE 5% 50 ML IV SCH (19:39)
[2022-02-10] MEDS: ursodioL 300 MG CAP PO SCH (20:30)
[2022-02-10] MEDS: MAGNESIUM OXIDE 400 MG TAB PO SCH (20:30)
[2022-02-11] MEDS: metroNIDAZOLE 500 MG/100 ML BAG IV SCH ×2 (05:13→11:41)
[2022-02-11] MEDS: ENOXAPARIN 100 MG/1ML SYR SQ SCH ×2 (06:00→17:13)
[2022-02-11] MEDS: INSULIN HUMAN NPH SC SCH ×2 (08:00→17:11)
[2022-02-11] MEDS: AMIODARONE 200 MG TAB PO SCH ×2 (08:01→17:13)
[2022-02-11] MEDS: MIDODRINE HCL 2.5 MG TAB PO SCH ×3 (08:02→17:14)
[2022-02-11] MEDS: FUROSEMIDE 40 MG TAB PO SCH (08:03)
[2022-02-11] MEDS: LACTULOSE SYRUP 20 GM/30 ML UDC PO SCH ×2 (08:03→13:32)
[2022-02-11] MEDS: POLYETHYLENE (MIRALAX) 17 GM PACK PO SCH (08:04)
[2022-02-11] MEDS: PANTOprazole 40 MG TAB PO SCH (08:04)
[2022-02-11] MEDS: MULTIVITAMIN TAB PO SCH (08:04)
[2022-02-11] MEDS: rifAXIMin 550 MG TABLET PO SCH ×2 (08:05→21:37)
[2022-02-11] MEDS: SPIRONOLACTONE 100 MG TAB PO SCH (08:05)
[2022-02-11] MEDS: INSULIN ASPART PER UNIT SC SCH ×4 (08:12→21:37)
--- NOTE | 2022-02-11 12:13 | Pharmacy Report ---
Pharmacy Glycemic Short Note 2 - Date of Service February 11, 2022 - Glycemic Short BSG Results (Last 24 hours): 02/10/22 02/10/22 02/11/22 16:18 20:26 07:20 POC Glucose 179 H 158 H 162 H 02/11/22 11:22 POC Glucose 171 H OUTPATIENT ANTIDIABETIC REGIMEN: * Novolin R U-500: 40-90 units according to BG value post-meal; usually takes 2x/day (lunch/supper) * HbA1c = 8.2% (01/24/22) ASSESSMENT: 02/09: * Patient's BSG fluctuating (from 148 mg/dL to 246 mg/dL) over the past 48 hours. Of note patient has refused multiple novolog orders (provider was made aware) over the past 48 hours likely contributing to this. * Fasting BSG did improve today at 162 (previously 136) after increasing total NPH dosing yesterday. 02/08: * Patient received a total of 24 units of insulin yesterday (12 units NPH + 12 units Novolog). This is a 50% reduction in total daily dose from the previous day. BSGs were well controlled until bedtime where significant hyperglycemia was noted ([phone] mg/dL). * Oral intake remains minimal. Initially, patient was NPO after midnight today for possible ERCP which has been deferred. Diet reordered with lunch. Will continue to monitor PO intake and adjust Novolog parameters as needed. * Fasting BSG uncontrolled today at 268 mg/dL. Patient has been refusing PM NPH which is likely the cause of this. Will encourage to take all insulin doses. Slight increase in NPH scale starting this evening. 02/07: * John received 51 units of insulin yesterday (NPH 25 units + Novolog 26 units) * BSGs trend down throughout the day. The past two days John received all of his basal insulin in the morning and evening doses were held. I will split total of 25 units per day into BID dosing for more even distribution. * Post prandial BSGs were variable yesterday but stable so far today. Minimal oral intake documented. Loosen correction factor. 02/05: * BSGs 158-184-170 the last 24h. Fasting this AM- 242mg/dL which is elevated. Patient received 30 units of basal insulin yesterday and 20 units of bolus. * Stressors stable, tolerating diet. * Increased NPH this AM very mildly to 25 units. Continue with HS scale. * No change to Novolog parameters. PLAN FOR INPATIENT GLYCEMIC CONTROL: * Basal insulin * NPH 15-18 units SC BID with meals * Bolus insulin * NovoLog per scale ACHS or Q6hrs while NPO * Goal Range: Low 110 mg/dL - High 140 mg/dL * Correction Factor: 15 mg/dL/unit * Nutritional / Prandial insulin per carb ratio of 1 unit per 3.5 grams CHO consumed
--- NOTE | 2022-02-11 17:01 | Hospitalist Progress Note ---
Date of Service February 11, 2022 Assessment & Plan (1) Liver mass: Plan: The patient was hospitalized in late October 2021 at [facility] for saddle PE/DVTs of the LEs. During that admission CT of the abd/pelvis showed - "There are 2 lesions in the liver with peripheral ringlike enhancement. The largest measures approximately 2.9 cm and is centered in segment 5 of the liver. The second is similar in size, measuring approximately 2.9 cm and is centered in segment 5. There is no convincing washout associated with either lesion. However, there is moderate biliary dilation distal to the more superior mass with small nodular areas of arterial hyperenhancement adjacent to the more superior mass that do demonstrate mild washout. The gallbladder contains gallstones." The patient and his family were under the impression he had a confirmed diagnosis of cholangiocarcinoma based on the CT alone but he never had confirmatory biopsy. He was apparently referred to [facility] in [place] for work-up of the liver masses. Family reports he had extreme difficulty getting an appt at [facility] and thus never got there for consultation in the spring. He ultimately went to [facility] for GI consultation for the liver mass but he did not undergo any additional testing or biopsy there. During Mr Montes's stay at [facility] his total bilirubin continues to rise daily from the 4's to now greater than 11 with a direct bilirubin predominance, AST and ALT are elevated, alkaline phosphatase is now also mildly elevated This, coupled with elevated procalcitonin level, prompted the addition of IV rocephin/flagyl to cover for any biliary tract infection. He did not have overt signs of cholangitis, however. [id number] his LFTs and MRI of the abdomen were concerning for biliary obstruction from the liver mass. Antibiotics will now be stopped after a 5 day course MRI abdomen performed at [facility] (01/24/22) during this admission showed - 1. Multiple enlarged lymph nodes in the left greater than right retroperitoneum are unchanged from 2016. 2. Prominent enlargement of the biliary ducts with sparing of some right segmental ducts may be secondary to obstructive mass, if there is clinical conc adelso, ERCP can be performed. 3. 2.3 cm mass in segment 5 of the liver with a central nonenhancing scar is nonspecific and may represent hemangioma, cholangiocarcinoma, or possibly hypervascular metastasis. ERCP deferred by GI team here as they felt he'd be better served in a tertiary care facility or facility with IR for biopsy Further, [facility] in [facility] does not offer liver transplant services. It is interesting that this mass shrunk slightly in size from previous. The RP lymphadenopathy noted on imaging was apparently present on previous imaging as per Radiology and therefore not likely to be malignant. AFP is elevated at 14 though. Thus, [facility] in [place] was contacted to request transfer to their facilities for consideration of ERCP (or IR) for biopsy of his liver mass as well as undergo hepatology consultation to gauge his candidacy for liver transplant. Transplant service has now said they don't think he is a candidate for liver transplant given possibility of metastatic disease, but this has not yet been proven. Dr Rizo of hospital medicine, at [facility] in [place] graciously accepted Mr Montes in transfer for ongoing care. 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 Previously followed with [facility] Dr. Tino Bae (now retired) in [place]. Diagnosed with cirrhosis several years ago. By report he has had hepatorenal syndrome in the past. EGD 02/06/2021 at [facility] -- Grade III varices in lower third of esophagus. Erythematous mucosa without bleeding in gastric body. MRI liver this admission (see above) showed a rim-enhancing mass within the liver about 2 to 2.5cm in size. No portal vein thrombosis was seen during this stay. Liver functions continued to rise albeit modestly day to day including his t.bili as noted above. INR now up to 1.4 He underwent therapeutic paracentesis x 2 this admission with no evidence of SBP on either occasion. He remains on TID lactulose & rifaximin for hepatic encephalopathy--> w/ frequent loose stools--> decrease lactulose to once daily, dc daily Miralax -continue Lasix 40mg daily + aldactone 100mg for volume control of his edema/ascites. MELD score now increasing, up to 24 (3) Decompensation of cirrhosis of liver: Plan: see above continue lasix + aldactone + prn paracentesis holding beta noel with soft BPs giving midodrine follow CBC, LFTs, INR but not daily at pt's request due to multiple lab draws (4) Hyperammonemia: Plan: now resolved Likely cause of low-grade confusion which does seem to be resolved at this time -Continue lactulose, and continue rifaximin 550mg BID (5) Hepatorenal syndrome: Plan: History of such in the past. He did have a mild acute kidney injury during the stay with peak creatinine of 1.5. Creatinine improved to 1.06 With hyponatremia sodium now improved to 132 Was seen by [facility] who provided assistance with his diuretics & volume status. (6) Atrial fibrillation with RVR: Plan: Was seen by [facility] during the stay. Rate control with AV joe agents proved challenging, and ultimately he was initiated on amiodarone. He was started on 400 mg BID and received such for 10+ days, then later changed to 200mg BID. He ultimately converted back to NSR and remained in such until discharge. Carvedilol is currently being held due to low blood pressures Lovenox injections for his h/o VTE would serve as his anticoagulation. (7) Edema leg: Plan: Some of this is due to his cirrhosis. 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 Cont lasix. Cont aldactone. (8) Ascites: Plan: Has had large volume paracentesis with removal of >8L, and then >6L. No evidence of SBP on either tap. May need a 3rd paracentesis in the near-future to help with abdominal symptoms, however GI recommendations from discharge to [facility] recommend avoiding frequent paracenteses if possible Continue Aldactone and Lasix. (9) Type 2 diabetes mellitus, with long-term current use of insulin: Plan: Pharmacy glycemic team was consulted for management. He did have hypoglycemia at times necessitating frequent insulin adjustments. He often refuses insulin injections while here. Hemoglobin A1c 8.2%. He will continue NPH 12 units BID w/ meals along with sliding scale novolog. (10) Hyponatremia: Plan: improving from 124 on admission to 132 now with giving diuretics 2/2 cirrhosis (11) Saddle pulmonary embolus: Plan: Dx 11/10/2021 and hospitalized at [facility] for such. Some consideration towards catheter-directed thrombolysis versus thrombectomy at that time but it was never pursued as he was hemodynamically stable Patient was discharged on Lovenox 1mg/kg BID instead of a DOAC due to very high risk of bleed with varices. (12) Hypotension: Plan: Continue midodrine due to tendencies towards low-normal BPs as well as prior h/o hepatorenal syndrome. (13) Exposure to COVID-19 virus: Plan: Pt's recently was COVID positive. Multiple COVID tests for patient were negative (01/23, 01/26, and 01/28). He was a PUI during the early portion of his stay due to his COVID exposure. After meeting time-based criteria and given his negative COVID tests airborne isolation was later removed. No signs or symptoms of COVID infection leading up to his transfer to [facility] (14) Weakness: Plan: 2nd to ESLD, hepatic encephalopathy, etc Cont PT, OT. encouraged to be OOB with assistance (15) History of DVT (deep vein thrombosis): Plan: 10/2021 - at time of saddle PE. Continue lovenox 90mg SC BID. Doppler report 10/2021 from [facility] - 1. Acute, occlusive deep venous thrombosis in the left leg involving one of the paired gastrocnemius vein. 2. Acute, non-occlusive superficial venous thrombosis in the right leg involving a branch of the small saphenous vein in the popliteal fossa. 3. No evidence of deep venous thrombosis in the bilateral common femoral, proximal great saphenous, femoral, proximal profunda femoral, popliteal, posterior tibial, peroneal, and right gastrocnemius veins. (16) Thrombocytopenia: Plan: range 70-120 while here. 2nd to liver disease. Plan: Dispo-awaiting transfer to [facility] for further eval by Hepatology and for liver mass biopsy Admission and Anticipated Discharge Date Admission Date: January 23, 2022 Subjective Pt reports feeling ok. Requests that his lactulose be lowered to once daily. He has been having frequent loose stools. Otherwise no abd pain. Still asking for no labs to be drawn again tomorrow as it has become quite painful. Tele with NSR, PVCs, rates in the 80s Review of Systems Review of Systems: All systems reviewed & are unremarkable except as noted in HPI & below Physical Exam Constitutional: WD/WN, vitals as above Eyes: + scleral abnormality (Icterus) Neck: trachea midline, no thyromegaly Respiratory: normal respiratory effort, lungs clear to auscultation Cardiovascular: Rate/Rhythm: regular rate and regular rhythm Heart Sounds: no murmur Extremities: + edema (3+ pitting edema to the thighs bilaterally) Chest (Breasts): Chest: normal inspection of chest Gastrointestinal (Abdomen): Inspection/Auscultation: + abdomen distended (But soft) and normal bowel sounds Percussion/Palpation: abdomen soft; abdomen nontender and no guarding Musculoskeletal: Extremities: no cyanosis and no clubbing Skin: no rashes, warm and dry + jaundice Neurologic: moves all extremities and awake; no focal motor deficits Psychiatric: A+Ox3, euthymic affect Results & Data Results & Data ([facility]) Vital Signs (Past 12 Hours) Vital Signs Temp Pulse Resp BP Pulse Ox 02/11/22 11:04 36.4 C L 80 17 104/77 97 02/11/22 10:10 36.8 C 87 20 111/66 99 Laboratory Results 02/11/22 02/11/22 02/11/22 Range/Units 16:18 11:22 07:20 POC Glucose 179 H 171 H 162 H (70-99) mg/dl 02/10/22 Range/Units 20:26 POC Glucose 158 H (70-99) mg/dl PG Care Time/CCT Total # of Minutes Spent Total Time Spent with Patient: Total time spent is greater than 50% in coordination of care (as documented) at patient's floor/unit and/or counseling patient: Coding Level of Care Code 49995 Subseq Hosp Care Lvl 1 Diagnoses Liver mass R16.0 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 (1) Type 2 diabetes mellitus, with long-term current use of insulin Diabetes mellitus complication status: with other specified complication Qualified Code(s): E11.69 - Type 2 diabetes mellitus with other specified complication; Z79.4 - penitentiary (current) use of insulin
[2022-02-11] MEDS ORDERED: oxyCODONE HCL IR 5 MG TAB (IMMEDIATE RELEASE) PO PRN (17:31)
[2022-02-11] MEDS: ursodioL 300 MG CAP PO SCH (21:37)
[2022-02-11] MEDS: MAGNESIUM OXIDE 400 MG TAB PO SCH (21:39)
[2022-02-11] MEDS: ONDANSETRON INJ 2 MG/ML 2 ML VIAL IV PRN (21:41)
[2022-02-12] MEDS: ENOXAPARIN 100 MG/1ML SYR SQ SCH ×2 (06:03→17:19)
[2022-02-12] MEDS: INSULIN ASPART PER UNIT SC SCH ×3 (08:37→17:21)
[2022-02-12] MEDS: AMIODARONE 200 MG TAB PO SCH ×2 (08:46→17:18)
[2022-02-12] MEDS: MULTIVITAMIN TAB PO SCH (08:47)
[2022-02-12] MEDS: FUROSEMIDE 40 MG TAB PO SCH (08:47)
[2022-02-12] MEDS: MIDODRINE HCL 2.5 MG TAB PO SCH ×3 (08:47→17:18)
[2022-02-12] MEDS: INSULIN HUMAN NPH SC SCH ×2 (08:47→17:20)
[2022-02-12] MEDS: SPIRONOLACTONE 100 MG TAB PO SCH (08:47)
[2022-02-12] MEDS: PANTOprazole 40 MG TAB PO SCH (08:47)
[2022-02-12] MEDS: rifAXIMin 550 MG TABLET PO SCH (08:47)
[2022-02-12] MEDS ORDERED: LACTULOSE SYRUP 20 GM/30 ML UDC PO SCH (09:00)
--- NOTE | 2022-02-12 13:29 | Pharmacy Report ---
Pharmacy Glycemic Short Note 2 - Date of Service February 12, 2022 - Glycemic Short BSG Results (Last 24 hours): 02/11/22 02/11/22 02/12/22 16:18 20:46 07:38 POC Glucose 179 H 186 H 145 H 02/12/22 11:28 POC Glucose 155 H OUTPATIENT ANTIDIABETIC REGIMEN: * Novolin R U-500: 40-90 units according to BG value post-meal; usually takes 2x/day (lunch/supper) * HbA1c = 8.2% (01/24/22) ASSESSMENT: 02/12: * BSGs well controlled over last 24 hours * Patient continued to refuse Novolog correctional/prandial insulin most of the day yesterday, but did permit administration at HS for BSG > 180. PO intake appears to be poor. Will scale back the prandial coverage that is ordered given BSGs remain well controlled at this time despite Novolog refusal. * Fasting bSG 145 this AM following receipt of NPH 18units in AM and 18units in PM yesterday - will continue same scaled dose for now 02/09: * Patient's BSG fluctuating (from 148 mg/dL to 246 mg/dL) over the past 48 hours. Of note patient has refused multiple novolog orders (provider was made aware) over the past 48 hours likely contributing to this. * Fasting BSG did improve today at 162 (previously 136) after increasing total NPH dosing yesterday. 02/08: * Patient received a total of 24 units of insulin yesterday (12 units NPH + 12 units Novolog). This is a 50% reduction in total daily dose from the previous day. BSGs were well controlled until bedtime where significant hyperglycemia was noted ([phone] mg/dL). * Oral intake remains minimal. Initially, patient was NPO after midnight today for possible ERCP which has been deferred. Diet reordered with lunch. Will continue to monitor PO intake and adjust Novolog parameters as needed. * Fasting BSG uncontrolled today at 268 mg/dL. Patient has been refusing PM NPH which is likely the cause of this. Will encourage to take all insulin doses. Slight increase in NPH scale starting this evening. PLAN FOR INPATIENT GLYCEMIC CONTROL: * Basal insulin * NPH 15-18 units SC BID with meals, see eMAR * Bolus insulin * NovoLog per scale ACHS or Q6hrs while NPO * Goal Range: Low 110 mg/dL - High 140 mg/dL * Correction Factor: 15 mg/dL/unit * Nutritional / Prandial insulin per carb ratio of 1 unit per 5 grams CHO consumed
--- NOTE | 2022-02-15 15:17 | Discharge Summary ---
Date of Service February 12, 2022 Admission HPI Per Admitting Provider John Montes is a 66 y/o male with complicated PMH of SWIFT cirrhosis, portal hypertension with esophageal varices, ascites, saddle PE in October on Lovenox now, cholangiocarcinoma dx in October per pt, and DM2 who presents today with weakness. He nearly slipped out of a chair at home this morning, he checked his blood sugar which is in the 60s. After eating a granola bar and orange juice he was able to get it up to the 100s but still feels weak. Patient reports he has been weak for several months and has difficulty ambulating at home due to this. He has a complicate history of SWIFT cirrhosis. Recently had his spironolactone increased yesterday d/t increasing edema. Principal Diagnosis Liver mass Discharge Exam Constitutional: WD/WN, vitals as above Eyes: + scleral abnormality (Icterus) Neck: trachea midline, no thyromegaly Respiratory: normal respiratory effort, lungs clear to auscultation Cardiovascular: Rate/Rhythm: regular rate and regular rhythm Heart Sounds: no murmur Extremities: + edema (3+ pitting edema to the thighs bilaterally) Chest (Breasts): Chest: normal inspection of chest Gastrointestinal (Abdomen): Inspection/Auscultation: + abdomen distended (But soft) and normal bowel sounds Percussion/Palpation: abdomen soft; abdomen nontender and no guarding Musculoskeletal: Extremities: no cyanosis and no clubbing Skin: no rashes, warm and dry + jaundice Neurologic: moves all extremities and awake; no focal motor deficits Psychiatric: A+Ox3, euthymic affect Discharge Data Allergies Allergy/AdvReac Type Severity Reaction Status Date / Time No Known Allergies Allergy Verified 11/10/21 17:01 Consultations 01/23/22 12:05 ED Decision to Admit Stat 01/23/22 15:28 Consult Cardiology Routine 01/25/22 09:41 Consult Gastroenterology Routine 02/03/22 16:17 Consult Nephrology Routine 02/04/22 16:37 Consult Palliative Care Routine 02/08/22 07:30 Consult Gastroenterology Routine 02/08/22 14:59 Burn CD for patient Stat Ordered Studies 01/24/22 12:09 MR abdomen wo/w con Routine 01/26/22 08:36 US duplex portal hepatic veins Urgent 01/29/22 11:21 CT head/brain wo con Stat 01/31/22 11:53 US abdomen ltd ascites Routine 02/01/22 US paracentesis abd w/image Routine Hospital Course (1) Liver mass: The patient was hospitalized in late October 2021 at [facility] for saddle PE/DVTs of the LEs. During that admission CT of the abd/pelvis showed - "There are 2 lesions in the liver with peripheral ringlike enhancement. The largest measures approximately 2.9 cm and is centered in segment 5 of the liver. The second is similar in size, measuring approximately 2.9 cm and is centered in segment 5. There is no convincing washout associated with either lesion. However, there is moderate biliary dilation distal to the more superior mass with small nodular areas of arterial hyperenhancement adjacent to the more superior mass that do demonstrate mild washout. The gallbladder contains gallstones." The patient and his family were under the impression he had a confirmed diagnosis of cholangiocarcinoma based on the CT alone but he never had confirmatory biopsy. He was apparently referred to [facility] in [place] for work-up of the liver masses. Family reports he had extreme difficulty getting an appt at [facility] and thus never got there for consultation in the spring. He ultimately went to [facility] for GI consultation for the liver mass but he did not undergo any additional testing or biopsy there. During Mr Montes's stay at [facility] his total bilirubin continues to rise daily from the 4's to now greater than 11 with a direct bilirubin predominance, AST and ALT are elevated, alkaline phosphatase is now also mildly elevated This, coupled with elevated procalcitonin level, prompted the addition of IV rocephin/flagyl to cover for any biliary tract infection. He did not have overt signs of cholangitis, however. [id number] his LFTs and MRI of the abdomen were concerning for biliary obstruction from the liver mass. Antibiotics will now be stopped after a 5 day course MRI abdomen performed at [facility] (01/24/22) during this admission showed - 1. Multiple enlarged lymph nodes in the left greater than right retroperitoneum are unchanged from 2016. 2. Prominent enlargement of the biliary ducts with sparing of some right segmental ducts may be secondary to obstructive mass, if there is clinical concern, ERCP can be performed. 3. 2.3 cm mass in segment 5 of the liver with a central nonenhancing scar is nonspecific and may represent hemangioma, cholangiocarcinoma, or possibly hypervascular metastasis. ERCP deferred by GI team here as they felt he'd be better served in a tertiary care facility or facility with IR for biopsy Further, [facility] in [facility] does not offer liver transplant services. It is interesting that this mass shrunk slightly in size from previous. The RP lymphadenopathy noted on imaging was apparently present on previous imaging as per Radiology and therefore not likely to be malignant. AFP is elevated at 14 though. Thus, [facility] in [place] was contacted to request transfer to their facilities for consideration of ERCP (or IR) for biopsy of his liver mass as well as undergo hepatology consultation to gauge his candidacy for liver transplant. Transplant service has now said they don't think he is a candidate for liver transplant given possibility of metastatic disease, but this has not yet been proven. Dr Rizo of hospital medicine, at [facility] in [place] graciously accepted Mr Montes in transfer for ongoing care. Awaiting transfer at this time for many days Bed and transport arranged on February 12. 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 Previously followed with [facility] Dr. Tino Bae (now retired) in [place]. Diagnosed with cirrhosis several years ago. By report he has had hepatorenal syndrome in the past. EGD 02/06/2021 at [facility] -- Grade III varices in lower third of esophagus. Erythematous mucosa without bleeding in gastric body. MRI liver this admission (see above) showed a rim-enhancing mass within the liver about 2 to 2.5cm in size. No portal vein thrombosis was seen during this stay. Liver functions continued to rise albeit modestly day to day including his t.bili as noted above. INR now up to 1.4 He underwent therapeutic paracentesis x 2 this admission with no evidence of SBP on either occasion. He remains on TID lactulose & rifaximin for hepatic encephalopathy--> w/ frequent loose stools--> decrease lactulose to once daily, dc daily Miralax -continue Lasix 40mg daily + aldactone 100mg for volume control of his edema/ascites. MELD score now increasing, up to 24 (3) Decompensation of cirrhosis of liver: see above continue lasix + aldactone + prn paracentesis holding beta noel with soft BPs giving midodrine follow CBC, LFTs, INR but not daily at pt's request due to multiple lab draws (4) Hyperammonemia: now resolved Likely cause of low-grade confusion which does seem to be resolved at this time -Continue lactulose, and continue rifaximin 550mg BID (5) Hepatorenal syndrome: History of such in the past. He did have a mild acute kidney injury during the stay with peak creatinine of 1.5. Creatinine improved to 1.06 With hyponatremia sodium now improved to 132 Was seen by [facility] who provided assistance with his diuretics & volume status. (6) Atrial fibrillation with RVR: Was seen by [facility] during the stay. Rate control with AV joe agents proved challenging, and ultimately he was initiated on amiodarone. He was started on 400 mg BID and received such for 10+ days, then later changed to 200mg BID. He ultimately converted back to NSR and remained in such until discharge. Carvedilol is currently being held due to low blood pressures Lovenox injections for his h/o VTE would serve as his anticoagulation. (7) Edema leg: Some of this is due to his cirrhosis. 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 Cont lasix. Cont aldactone. (8) Ascites: Has had large volume paracentesis with removal of >8L, and then >6L. No evidence of SBP on either tap. May need a 3rd paracentesis in the near-future to help with abdominal symptoms, however GI recommendations from discharge to [facility] recommend avoiding frequent paracenteses if possible Continue Aldactone and Lasix. (9) Type 2 diabetes mellitus, with long-term current use of insulin: Pharmacy glycemic team was consulted for management. He did have hypoglycemia at times necessitating frequent insulin adjustments. He often refuses insulin injections while here. Hemoglobin A1c 8.2%. He will continue NPH 12 units BID w/ meals along with sliding scale novolog. (10) Hyponatremia: improving from 124 on admission to 132 now with giving diuretics 2/2 cirrhosis (11) Saddle pulmonary embolus: Dx 11/10/2021 and hospitalized at [facility] for such. Some consideration towards catheter-directed thrombolysis versus thrombectomy at that time but it was never pursued as he was hemodynamically stable Patient was discharged on Lovenox 1mg/kg BID instead of a DOAC due to very high risk of bleed with varices. (12) Hypotension: Continue midodrine due to tendencies towards low-normal BPs as well as prior h/o hepatorenal syndrome. (13) Exposure to COVID-19 virus: Pt's recently was COVID positive. Multiple COVID tests for patient were negative (01/23, 01/26, and 01/28). He was a PUI during the early portion of his stay due to his COVID exposure. After meeting time-based criteria and given his negative COVID tests airborne isolation was later removed. No signs or symptoms of COVID infection leading up to his transfer to [facility] (14) Weakness: 2nd to ESLD, hepatic encephalopathy, etc Cont PT, OT. encouraged to be OOB with assistance (15) History of DVT (deep vein thrombosis): 10/2021 - at time of saddle PE. Continue lovenox 90mg SC BID. Doppler report 10/2021 from [facility] - 1. Acute, occlusive deep venous thrombosis in the left leg involving one of the paired gastrocnemius vein. 2. Acute, non-occlusive superficial venous thrombosis in the right leg involving a branch of the small saphenous vein in the popliteal fossa. 3. No evidence of deep venous thrombosis in the bilateral common femoral, proximal great saphenous, femoral, proximal profunda femoral, popliteal, posterior tibial, peroneal, and right gastrocnemius veins. (16) Thrombocytopenia: range 70-120 while here. 2nd to liver disease. Total Time Total Time Spent Total Time Spent (In Minutes): 32 Discharge Plan Discharge Items Patient Disposition: Transfer Acute Care Hospital Reason For Visit: ASCITES, End-Stage Liver Disease, A-FIB Discharge Diagnosis: 1. End-stage Liver Disease/Cirrhosis 2nd to SWIFT and past h/o HepC (s/p full treatment for HepC) 2. Ascites s/p diagnostic/therapeutic paracentesis x 2 3. Liver mass - etiology uncertain, biopsy needed 4. Hepatic encephalopathy 5. h/o Esophageal Varices 6. Hyponatremia 7. Thrombocytopenia 8. Type 2 diabetes 9. Atrial fibrillation 10. h/o DVTs and Saddle PEs (10/2021 - hospitalized [facility]) 11. past h/o hepatorenal syndrome Activity: Resume your previous activity Non-emergency contact: Primary Care Provider and Child Care Center Administrator Call non-emergency contact if: you have any medication questions Follow-up/Referrals: [facility] [Provider Group] (Dr Hammad Storey or SHANIQUA Ramos - [facility] in [place]. ) Mayra Werner MD [Primary Care Provider] - Diet: Carb Consistent or DM2 and Low Sodium (2gm) Fluids: 1500ml (6 cups) Addtl Attending Provider Instructions: Further instructions to follow after your stay at [facility] in [place], [place]. Pending Studies at Discharge: Yes Studies:: AFP tumor marker Stand-Alone Forms: My [facility] FIGS Skilled Items Patient informed of condition?: Yes DNR: No Discharge Level of Care: Other Communicable Disease: No Discharge Prognosis: Stable Lines: Peripheral IV Urinary Catheter: No Medications and DC Order Prescriptions: New Xifaxan 550 mg Tablet 550 mg PO BID Qty: 60 RF: 0 midodrine 2.5 mg Tablet 2.5 mg PO TID@0800,1200,1700 Qty: 90 RF: 0 enoxaparin 100 mg/mL Syringe 90 mg subcut Q12H Qty: 60 RF: 0 spironolactone 100 mg Tablet 100 mg PO QAM Qty: 30 RF: 0 furosemide 40 mg Tablet 40 mg PO QAM Qty: 30 RF: 0 lactulose 20 gram/30 mL Solution 30 ml PO TID Qty: 1500 RF: 0 pantoprazole 40 mg Tablet,Delayed Release (Dr/Ec) 40 mg PO QAM Qty: 30 RF: 0 polyethylene glycol 3350 [Miralax] 17 gram Powder In Packet 17 g PO DAILY Qty: 30 RF: 0 insulin aspart U-100 [Novolog U-100 Insulin aspart] 100 unit/mL Solution 1 sliding scale dose SC ACHS Qty: 10 RF: 0 Novolin N NPH U-100 Insulin 100 unit/mL Suspension 12 unit SC BIDM Qty: 1 RF: 0 amiodarone 200 mg tablet 200 mg PO BID Qty: 60 RF: 5 Continued (DME) OneTouch Ultra Blue Test Strip Strip See Rx Instructions .ROUTE .MEDSUPPLY Qty: 300 RF: 3 (DME) pen needle, diabetic [BD Ultra-Fine Short Pen Needle] 31 gauge x 5/16" needle See Rx Instructions .ROUTE .MEDSUPPLY Qty: 400 RF: 3 (DME) FreeStyle Allan 2 Sensor Kit See Rx Instructions .ROUTE .MEDSUPPLY Qty: 1 RF: 5 multivitamin Tablet 1 tab PO HS RF: 0 ursodiol 300 mg Capsule 300 mg PO HS RF: 0 albuterol sulfate [ProAir HFA] 90 mcg/actuation Hfa Aerosol Inhaler 2 puff INHALATION Q4 PRN (Reason: Shortness Of Breath) RF: 0 magnesium oxide 400 mg magnesium Tablet 400 mg PO HS RF: 0 Discontinued milk thistle 500 mg Capsule 500 mg PO HS RF: 0 vitamin E 400 unit Capsule 400 unit PO HS RF: 0 Vitamin C Powder 1 g PO HS RF: 0 cholecalciferol (vitamin D3) [Vitamin D3] 25 mcg (1,000 unit) Capsule 75 mcg PO HS RF: 0 coenzyme Q10 [CoQ-10] 100 mg Capsule 100 mg PO HS RF: 0 [place] 3 Fish Oil 684-1,200 mg Capsule,Delayed Release(Dr/Ec) 1 cap PO HS RF: 0 Humulin R U-500 (Conc) Kwikpen 500 unit/mL (3 mL) insulin pen 75 - 105 unit subcut BIDWMEAL RF: 0 Discharge Orders: Discharge Order (Routine); Ordered 02/12/22 Ordered By: Stoney Gan/Other Patient Handouts: Tests for Liver Disease, Thrombocytopenia Admission Data Admit Date/Time: 01/23/22 12:00 Attending Provider: Stoney Pearce Admit Provider: Kwaku Jackson Primary Care Provider: Mayra Werner Other Providers: Kwaku Jackson ; Garfield Arredondo ; Hammad Storey ; [facility] ; Sagar Kumar ; Melody Mckeon ; Fernanda Francois Other Interventions: Discharge Summary Assessment (RN) Last Done: 02/12/22 18:49 Coding Level of Care Code D/C DAY MANAGEMENT >30 MINS Diagnoses Liver mass R16.0 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
== END 2022-02-12 18:49 | disposition short-term general hospital (02) | DRG 432 ==
LOC: ED 09:23 → 2E 12:00 → SUATTDRO 12:00 → 2E 13:45